=== PATIENT | male | born 1950 | race Caucasian/White ===

== ENCOUNTER 2019-07-09 14:35 | Inpatient (IN) | payer MEDICARE, OTHER ==
[~2019-07-09] VITALS: Ht 175.3 cm; Wt 108.0 kg
--- OUTSIDE RECORDS SUMMARY | ~2019-07-09 | XMS | Encounter Summary ---
Demographics + + + | Address | [address] | | | [place] [address] | + + + | Home Phone | | + + + | Preferred Language | Unknown | + + + | Marital Status | Single | + + + | Taoist Affiliation | BAP | + + + | Race | White | + + + | Ethnic Group | Not or | + + + Author + + + | Author | [facility] | + + + | Organization | [facility] | + + + | Address | Unknown | + + + | Phone | Unavailable | + + + Support + + +---------+ + | Name | Relationship | Address | Phone | + + +---------+ + | Phi Martini | ECON | Unknown | | + + +---------+ + | Irvin Martini | ECON | Unknown | | + + +---------+ + Care Team Providers + +------+ + | Care Digital Circuit Designer Name | Role | Phone | + +------+ + | Angelica Garrison | PCP | | + +------+ + Reason for Referral Diagnostic Testing (Routine) +--------+--------+ + + + + | Status | Reason | Specialty | Diagnoses / | Referred By | Referred To | | | | | Procedures | Contact | Contact | +--------+--------+ + + + + | Closed | | Cardiac | Diagnoses | Jamel, | Car Cardiac | | | | Catheterizati | Positive | Cristóbal Murrell, | Double Bottom Driver | | | | on | cardiac | ,PhD [address] | [address] | | | | | stress test | [address] | [address] | | | | | Procedures | [address] | [address] [facility] | | | | | DRILL SHARPENER | [place], [place] | Hospital | | | | | INT CORONARY | [address] | [place], [place] | | | | | ANGIOGRAM | Phone: | [phone] | | | | | [place] CORONARY | [phone] | Phone: | | | | | ARTERY ANGIO | Fax: | [phone] | | | | | S&I | [phone] | Fax: | | | | | | | [phone] | +--------+--------+ + + + + Reason for Visit AUTH/CERT +--------+--------+ + + + + | Status | Reason | Specialty | Diagnoses / | Referred By | Referred To | | | | | Procedures | Contact | Contact | +--------+--------+ + + + + | | | | | | | +--------+--------+ + + + + Encounter Details +--------+ + + + + | Date | Type | Department | Care Team | Description | +--------+ + + + + | 07/21/ | Hospital | [address] | Roslyn Mojica, | | | 2018 | Encounter | [address] | [place] [address] | | | | | [address] [place] [address] | [address] | | | | | [place], [place] | [place], [place] | | | | | [address] | [address] | | | | | [phone] | [phone] | | | | | | | | +--------+ + + + + Social History + + + +--------+ + | Tobacco Use | Types | Packs/Day | Years | Date | | | | | Used | | + + + +--------+ + | Former Smoker | Cigarettes | 0.25 | 4 | Quit: 09/23/1971 | + + + +--------+ + + +------+---+---+ | Smokeless Tobacco: | Chew | | | | Current User | | | | + +------+---+---+ + + | Comments: chew nicotine gum | + + + + +---------+ + | Alcohol Use | Drinks/Week | oz/Week | Comments | + + +---------+ + | No | | | | + + +---------+ + + + + | Sex Assigned at | Date Recorded | | | | + + + | Not on file | | + + + + + + + | Job Start Date | Occupation | Industry | + + + + | Not on file | Not on file | Not on file | + + + + + + + + | Travel History | Travel Start | Travel End | + + + + + + | No recent travel history available. | + + documented as of this encounter Last Filed Vital Signs + + + + + | Vital Sign | Reading | Time Taken | Comments | + + + + + | Blood Pressure | 139/102 | 07/21/2018 6:00 PM | | | | | PDT | | + + + + + | Pulse | 56 | 07/21/2018 6:00 PM | | | | | PDT | | + + + + + | Temperature | 37.1 C (98.7 F) | 07/21/2018 10:00 AM | | | | | PDT | | + + + + + | Respiratory Rate | 18 | 07/21/2018 6:00 PM | | | | | PDT | | + + + + + | Oxygen Saturation | 97% | 07/21/2018 6:00 PM | | | | | PDT | | + + + + + | Inhaled Oxygen | - | - | | | Concentration | | | | + + + + + | Weight | - | - | | + + + + + | Height | - | - | | + + + + + | Body Mass Index | - | - | | + + + + + documented in this encounter Discharge Instructions Del Lockett RN - 07/21/2018Home Care for Cardiac Catheterization Call your doctor if you notice any unusual symptoms. Remember: you are under the influence of medicines. You must have someone else take you home, either by car or taxi. Don t drive , operate machinery or power tools. Don t drink any alcoholic beverages. Don t make any important decisions or sign legal papers. Wound Care ? Change dressing as needed. Dressing can be removed in the morning. ? You may shower, but do not take a bath, hot tub, or swim for 5 days. ? If you have any bleeding from the puncture site: 1. Sit down and apply firm pressure to site with your fingers x 10 minutes. 2. If the bleeding stops, continue to sit quietly, keeping your wrist straight for 2 hours. Notify your physician as soon as possible. 3. If bleeding does not stop after 10 minutes, or if there is a large amount of bleeding or spurting, call bleeding or spurting, call 911 immediately[address] yourself to the the orthopedic specialty hospital. Diet ? Resume your regular diet. ? Drink an extra 3 to 4 glasses of fluid tonight. Avoid drinks with caffeine (coffee, tea, cola) or alcohol (wine, beer, liquor). Rest and Activity ? For 24 hours, no blood pressures on affected arm, no excessive wrist movement and do not drive a car. ? Take it easy for the rest of the day. ? Do not lift anything over 1 pound for the next 48 hours. ? For 1 week, no activity with excessive pushing or pulling of the affected arm. Call your doctor if: Call your Doctor right away or go to the Emergency Room if your arm looks or feels differen t. Call if your arm is: Pale, cold, numb, tingling (pins & needles) or turns purple or red. How to Reach your Doctor Saturday 8:00 4:00 call Cardiac Catheterization Lab at . For Cardiac Catheterization related emergencies after hours, weekends, and holidays, call t [facility] Pl[facility] Operator at and ask to have the Lens Polisher on-call candace weathers documented in this encounter Medications at Time of Discharge + + + +---------+--------+ + | Medication | Sig | Dispensed | Refills | Start | End Date | | | | | | Date | | + + + +---------+--------+ + | amLODIPine 10 mg | Take 10 mg by mouth | | 0 | | | | oral tablet | once daily. | | | | | + + + +---------+--------+ + | aspirin chewable | Take 81 mg by mouth | | 0 | | | | 81 mg oral | once daily. | | | | | | tablet,chewable | | | | | | + + + +---------+--------+ + | buPROPion SR 200 | Take 200 mg by mouth | | 0 | | | | mg oral tablet | once daily in the | | | | | | extended release | morning. | | | | | + + + +---------+--------+ + | Cholecalciferol, | Take 5,000 Units by | | 0 | | | | Vitamin D3, 5,000 | mouth once daily. | | | | | | unit oral tablet | | | | | | + + + +---------+--------+ + | DOCOSAHEXANOIC | Take 3,000 mg by | | 0 | | | | ACID/EPA (FISH OIL | mouth once daily. | | | | | | ORAL) | | | | | | + + + +---------+--------+ + | MULTIVITAMIN ORAL | Take by mouth once | | 0 | | | | | daily. | | | | | + + + +---------+--------+ + documented as of this encounter Progress Notes Wilver Garzon MD - 07/21/2018 6:42 PM PDT POST-CATH Wrist Check S: Feeling well, no complaints Pertinent Negatives: No chest pain, access site pain, dyspnea, dysarthria, focal weakness, parasthesias, headache, rash, nausea, vomiting or diaphoresis. Last Vitals: BP 139/102 | Pulse 56 | Temp 37.1 C (98.7 F) | RR 18 | SpO2 97% 24 Hour Vital Min/Max: Systolic (24hrs), Av , Min:115 , Max:139 Diastolic (24hrs), Av, Min:69, Max:102 Pulse Min: 42 Max: 69 Temp Min: 37.1 C (98.7 F) Max: 37.1 C (98.7 F) Resp Min: 11 Max: 18 SpO2 Min: 96 % Max: 98 % Intake/Output Summary (Last 24 hours) at 07/21/18 1843 Last data filed at 07/21/18 1800 Gross per 24 hour Intake 490 ml Output 12 ml Net 478 ml Gen: comfortable appearing. Neuro: negative Access Site: No hematoma or oozing. Pulse:right radial: 2+ William's test: TYPE A Skin: No embolic phenomena in hands A/P: No evidence of acute complications following procedure. Continue current post-cath olena Garzon MD [facility] [address] [facility] [address] [place] [address] documented in this enc ounter Plan of Treatment +--------+---------+ + + + | Date | Type | Specialty | Care Team | Description | +--------+---------+ + + + | 01/07/ | Office | Cardiology | Cristóbal Mccullough, | | | 2019 | Visit | | ,PhD [address] | | [address] | | | | | | [place], [place] | | | | | | [address] | | | | | | [phone] | | | | | | | | +--------+---------+ + + + | 06/02/ | Office | Ophthalmology | Carissa Tinoco MD | | | 2019 | Visit | | [address] | | | | | | [place], [place] | | | | | | [address] | | | | | | [phone] | | | | | | | | +--------+---------+ + + + documented as of this encounter Procedures + +--------+ + + + | Procedure Name | Priori | Date/Time | Associated Diagnosis | Comments | | | ty | | | | + +--------+ + + + | PROCEDURE NOTE | Routin | 07/21/2018 | | Results for this | | | e | 7:00 PM | | procedure are in the | | | | PDT | | results section. | + +--------+ + + + | CARDIAC CATH | Routin | 07/21/2018 | | Results for this | | | e | 3:43 PM | | procedure are in the | | | | PDT | | results section. | + +--------+ + + + | INTRAPROCEDURE | Routin | 07/21/2018 | | Results for this | | IMAGING | e | 9:28 AM | | procedure are in the | | | | PDT | | results section. | + +--------+ + + + | DRILL SHARPENER INT | Routin | 07/21/2018 | Positive cardiac | Results for this | | CORONARY ANGIOGRAM | e | 9:19 AM | stress test | procedure are in the | | | | PDT | | results section. | + +--------+ + + + | CARDIOLOGY | | 07/21/2018 | | Results for this | | | | 12:00 AM | | procedure are in the | | | | PDT | | results section. | + +--------+ + + + documented in this encounter Results PROCEDURE NOTE (07/21/2018 7:00 PM PDT)CARDIAC CATH (07/21/2018 3:43 PM PDT) + + + | Narrative | Performed At | + + + | Fco Mascorro MD 07/22/2018 8:16 AM DIAGNOSTIC CARDIAC | | | CATHETERIZATION REPORT DATE OF PROCEDURE: 07/21/18 PATIENT | | | DATA: Height: 175 cm Weight: 107 kg BSA: 2.2 m2 ATTENDING | | | PHYSICIAN: Fco Mascorro M.D. Leading Firefighter, Medicine | | | Department of Cardiology INTERVENTIONAL REFERRAL RN: William | | | Shabana Lambert MD REFERRAL RN: Fátima Campbell MD REFERRING | | | PHYSICIAN: Cristóbal Mccullough MD PROCEDURES PERFORMED: 1. | | | Selective right and left coronary angiography. 2. Right transradial | | | access INDICATIONS FOR PROCEDURE: 1. Abnormal stress test | | | CLINICAL BRIEF: Tim Martini is a 68 year old man with | | | hypertension, dyslipidemia and family history of CAD who presented | | | with exertional chest pain and dyspnea. He underwent a stress | | | echocardiogram which was intermediate risk and shoed hypokinesis of | | | the apical lateral segment and apex. He is referred for coronary | | | angiogram and possible PCI. COMPLICATIONS: None ACCESS: | | | Right radial artery, 5 Fr sheath EBL: 10mL MEDICATIONS: | | | Fentanyl 75 mcg Route: IV Heparin 5000 units Route: IV | | | Midazolam 2 mg Route: IV Nitroglycerin 200 mcg Route: IA | | | Verapamil 2 mg Route: IA MODERATE CONSCIOUS SEDATION: I | | | personally supervised the administration of moderate conscious | | | sedation by the nursing staff for 32 minutes. CONTRAST: 40 mL | | | Omnipaque FLUOROSCOPY TIME: 10.7 minutes. FLUOROSCOPY DAP: | | | 10,240 cGy cm2. PROCEDURAL NARRATIVE: A full PARQ converstation | | | was had and Informed written consent was obtained. The patient had a | | | type A Barbeau response. The patient was brought to the cardiac | | | catheterization laboratory. The right wrist was cleaned and draped | | | in the usual fashion. A team pause was performed. Anatomic landmarks | | | were identified, and 1% lidocaine was injected locally. Utilizing a | | | modified Seldinger technique a 5/6 Fr 10-cm Glidesheath slender was | | | placed in the right radial artery. A standard radial artery | | | cocktail was given. A wire was advanced to the ascending aorta and | | | a 5 Fr JR-4 catheter was advanced to the ascending aorta over the | | | guidewire. The guidewire was removed, the catheter was aspirated and | | | flushed, and used to selectively engage the right coronary system | | | which was imaged in multiple projections. This catheter was then | | | exchanged over a long wire for a 5 Fr JL-3.5 catheter. The guidewire | | | was removed, the catheter was aspirated and flushed, and used to | | | selectively engage the left coronary system which was imaged in | | | multiple projections. At the conclusion of the case the catheter was | | | removed over a guidewire. A TR band was utilized to establish | | | patent hemostasis which was confirmed by manual palpation of the | | | radial and ulnar arteries and pulse oximetry. HEMODYNAMICS Aortic | | | pressure: 98/60 mmHg Heart rate: 50 bpm. CORONARY ANGIOGRAPHY: | | | LEFT MAIN: The left main is a large caliber short vessel that | | | bifurcates into the left anterior descending and left circumflex | | | arteries. There are mild luminal irregularities noted in the without | | | stenosis. LEFT ANTERIOR DESCENDING: The left anterior | | | descending (LAD) is a large caliber vessel that wraps around the | | | apical segment. It gives off one large septal followed by several | | | small septal branches. There are a few small diagonal branches. | | | There are mild luminal irregularities noted in the proximal LAD | | | without significant stenosis. LEFT CIRCUMFLEX: The left | | | circumflex coronary (LCx) artery is a large caliber non-dominant | | | vessel that gives off two moderate caliber obtuse marginal (OM) | | | branches. There are mild plaque and mild irregularities noted in the | | | proximal circumflex without significant stenosis. RIGHT | | | CORONARY ARTERY: The right coronary artery (RCA) is a large caliber | | | dominant vessel that gives off small caliber RV marginal branches, a | | | moderate caliber posterior descending artery (PDA) branch and a | | | moderate caliber posterolateral branches (PL). The proximal RCA is | | | tortuous. It has is mild plaque with a 50% stenosis in the proximal | | | RCA. There are mild luminal irregularities noted in the mid and | | | distal RCA. CONCLUSIONS: Mild coronary artery disease with | | | mild plaque burden. RECOMMENDATIONS: 1. Usual | | | post-catheterization care. 2. Medical management of coronary artery | | | disease including risk factor modification. ATTENDING SURGEON'S | | | ATTESTATION: Pursuant to Federal Medicare Requirements, I certify | | | that Fco Mascorro M.D. was present for the entire procedure and | | | participated directly in the generation of this report. | | | William Lambert MD Interventional Lens Polisher Raquel | | | [facility] [place] [facility] Pager | | | [phone] "A resident/fellow assisted with documenting this service. | | | I saw the patient and reviewed and verified all information | | | documented by the resident/fellow and made modifications to such | | | information, when appropriate. The risks and benefits of the | | | procedure were explained to the patient in its entirety and all the | | | questions were answered to patient satisfaction. I was present and | | | supervised all the aspects of this procedure. " Fco Mascorro MD | | | Attending Interventional/Structural Heart Corset Maker Raquel | | | [facility] [place], [facility] | | + + + INTRAPROCEDURE IMAGING (07/21/2018 9:28 AM PDT) + + | Specimen | + + | | + + + + + | Narrative | Performed At | + + + | See admission or procedure notes for details of any intraprocedure | | | images obtained. | | + + + DRILL SHARPENER INT CORONARY ANGIOGRAM (07/21/2018 9:19 AM PDT) + + | Specimen | + + | | + + + + + | Narrative | Performed At | + + + | Procedure performed in the Cardiac Double Bottom Driver. See procedure notes | [facility] - | | for details. | DEONTE HERNANDEZ, | | | POINT OF CARE | | | TESTS | + + + + + + + + | Performing | Address | City/State/Zipcode | Phone Number | | Organization | | | | + + + + + | [facility] | [address] | [place], [place] | | | [facility] | [address] | [address] | | | TESTS | | | | + + + + + CARDIOLOGY (07/21/2018 12:00 AM PDT) + + + | Narrative | Performed At | + + + | | | + + + documented in this encounter Visit Diagnoses + + | Diagnosis | + + | Positive cardiac stress test Other nonspecific abnormal cardiovascular system | | function study | + + documented in this encounter Administered Medications + +--------+ +--------+------+------+ | Medication Order | MAR | Action | Dose | Rate | Site | | | Action | Date | | | | + +--------+ +--------+------+------+ | fentaNYL (SUBLIMAZE) injection | Given | 07/21/ | 25 mcg | | | | intravenous, INTRAPROCEDURE PRN, | | 18 3:21 | | | | | Starting 07/21/18 at 1514, | | PM PDT | | | | | Until 07/21/18 at 1521 | | | | | | + +--------+ +--------+------+------+ +-------+ +--------+---+---+ | Given | 07/21/20 | 50 mcg | | | | | 18 3:14 | | | | | | PM PDT | | | | +-------+ +--------+---+---+ +---+---+ | | | +---+---+ + +-------+ +--------+---+---+ | heparin injection intravenous, | Given | 07/21/20 | 5,000 | | | | INTRAPROCEDURE PRN, Starting Sat | | 18 3:27 | Units | | | | 07/21/18 at 1527, Until Mon | | PM PDT | | | | | 07/21/18 at 1527 | | | | | | + +-------+ +--------+---+---+ +---+---+ | | | +---+---+ + +-------+ +-------+---+---+ | iohexol (OMNIPAQUE) 350 mg | Given | 07/21/20 | 40 mL | | | | iodine/mL injection | | 18 3:46 | | | | | INTRAPROCEDURE PRN, Starting Mon | | PM PDT | | | | | 07/21/18 at 1546, Until Mon | | | | | | | 07/21/18 at 1546 | | | | | | + +-------+ +-------+---+---+ +---+---+ | | | +---+---+ + +-------+ +------+---+---+ | lidocaine (XYLOCAINE) 10 mg/mL | Given | 07/21/20 | 1 mL | | | | (1 %) injection infiltration, | | 18 3:18 | | | | | INTRAPROCEDURE PRN, Starting Mon | | PM PDT | | | | | 07/21/18 at 1518, Until Mon | | | | | | | 07/21/18 at 1518 | | | | | | + +-------+ +------+---+---+ +---+---+ | | | +---+---+ + +-------+ +------+---+---+ | midazolam (PF) (VERSED) | Given | 07/21/20 | 1 mg | | | | injection INTRAPROCEDURE PRN, | | 18 3:22 | | | | | Starting Sat07/21/18 at 1514, | | PM PDT | | | | | Until Sat07/21/18 at 1522 | | | | | | + +-------+ +------+---+---+ +-------+ +------+---+---+ | Given | 07/21/20 | 1 mg | | | | | 18 3:14 | | | | | | PM PDT | | | | +-------+ +------+---+---+ +---+---+ | | | +---+---+ + +-------+ +---------+---+---+ | nitroGLYCERIN 2 mg/10 mL (200 | Given | 07/21/20 | 100 mcg | | | | mcg/mL) in D5W IV INTRAPROCEDURE | | 18 3:22 | | | | | PRN, Starting 07/21/18 at | | PM PDT | | | | | 1522, Until Sat07/21/18 at 1522 | | | | | | + +-------+ +---------+---+---+ +---+---+ | | | +---+---+ + +---------+ +-------+---+---+ | sodium chloride 0.9 % (NS) IV | New Bag | 07/21/20 | 85 mL | | | | infusion INTRAPROCEDURE | | 18 3:44 | | | | | CONTINUOUS PRN, Starting Mon | | PM PDT | | | | | 07/21/18 at 1544, Until Mon | | | | | | | 07/21/18 at 1544 | | | | | | + +---------+ +-------+---+---+ +---+---+ | | | +---+---+ + +-------+ +------+---+---+ | verapamil (ISOPTIN) injection | Given | 07/21/20 | 1 mg | | | | INTRAPROCEDURE PRN, Starting Mon | | 18 3:22 | | | | | 07/21/18 at 1522, Until Mon | | PM PDT | | | | | 07/21/18 at 1522 | | | | | | + +-------+ +------+---+---+ +---+---+ | | | +---+---+ documented in this encounter
--- OUTSIDE RECORDS SUMMARY | ~2019-07-09 | XMS | Clinical Summary ---
Demographics + + + | Address | [address] | | | [place] [address] | + + + | Home Phone | | + + + | Preferred Language | Unknown | + + + | Marital Status | Single | + + + | Quaker Affiliation | 1009 | + + + | Race | Unknown | + + + | Ethnic Group | Unknown | + + + Author + + + | Author | [facility] | | | and [place] | + + + | Organization | [facility] | | | and [place] | + + + | Address | Unknown | + + + | Phone | Unavailable | + + + Support + + +---------+ + | Name | Relationship | Address | Phone | + + +---------+ + | Phi Martini | ECON | Unknown | | + + +---------+ + Care Team Providers + +------+ + | Care Pipeline Engineer Name | Role | Phone | + +------+ + PCP | Unavailable | + +------+ + Allergies + + + + + + | Active Allergy | Reactions | Severity | Noted | Comments | | | | | Date | | + + + + + + | Penicillins | Rash, Other (See | Low | 10/14/19 | Dizziness, Vivid | | | Comments) | | 18 | Dreams | + + + + + + Medications + + + +---------+------+------+-------+ | Medication | Sig | Dispensed | Refills | Star | End | Statu | | | | | | t | Date | s | | | | | | Date | | | + + + +---------+------+------+-------+ | ALOE VERA PO | Take 1 capsule by | | 0 | | | Activ | | | mouth Daily. | | | | | e | + + + +---------+------+------+-------+ | amLODIPine | Take 10 mg by mouth. | | 0 | | | Activ | | (NORVASC) 10 MG | | | | | | e | | tablet | | | | | | | + + + +---------+------+------+-------+ | APPLE CIDER | Take by mouth. | | 0 | | | Activ | | VINEGAR PO | | | | | | e | + + + +---------+------+------+-------+ | Astaxanthin 4 MG | Take 1 capsule by | | 0 | | | Activ | | CAPS | mouth Daily. | | | | | e | + + + +---------+------+------+-------+ | [place]-3 Fatty | Take by mouth | | 0 | | | Activ | | Acids (OMEGA 3 PO) | Daily. | | | | | e | + + + +---------+------+------+-------+ | buPROPion | Take 200 mg by mouth | | 0 | | | Activ | | (WELLBUTRIN SR) 200 | 2 times daily. | | | | | e | | MG 12 hr tablet | | | | | | | + + + +---------+------+------+-------+ | gabapentin | Take 300 mg by mouth | | 0 | | | Activ | | (NEURONTIN) 300 mg | 3 times daily. | | | | | e | | capsule | | | | | | | + + + +---------+------+------+-------+ | POTASSIUM CHLORIDE | Take 1 tablet by | | 0 | | | Activ | | PO | mouth Daily. | | | | | e | + + + +---------+------+------+-------+ | Misc Natural | Take by mouth. | | 0 | | | Activ | | Products (PUMPKIN | | | | | | e | | SEED OIL PO) | | | | | | | + + + +---------+------+------+-------+ | Red Yeast Rice 600 | Take by mouth | | 0 | | | Activ | | MG CAPS | Daily. | | | | | e | + + + +---------+------+------+-------+ | UNABLE TO FIND | Med Name: TIMNA | | 0 | | | Activ | | | CapsuleBy mouth | | | | | e | | | daily | | | | | | + + + +---------+------+------+-------+ | cholecalciferol | Take 5,000 Units by | | 0 | | | Activ | | (VITAMIN D-3) 5000 | mouth Daily. | | | | | e | | units TABS | | | | | | | + + + +---------+------+------+-------+ | acyclovir | Apply topically | | 0 | | | Activ | | (ZOVIRAX) 5% | every 3 hours. | | | | | e | | ointment | | | | | | | + + + +---------+------+------+-------+ Active Problems Not on file Family History + + +------+ + | Medical History | Relation | Name | Comments | + + +------+ + | Heart disease | Brother | | | + + +------+ + | Cancer | Father | | | + + +------+ + | Heart disease | Father | | | + + +------+ + | Hypertension | Father | | | + + +------+ + | Cancer | Maternal | | | | | Grandfath | | | | | er | | | + + +------+ + | Heart disease | Maternal | | | | | Grandfath | | | | | er | | | + + +------+ + | Heart disease | Maternal | | | | | Grandmoth | | | | | er | | | + + +------+ + | Cancer | Mother | | | + + +------+ + | Stroke | Mother | | | + + +------+ + | Heart disease | Paternal | | | | | Grandfath | | | | | er | | | + + +------+ + | Cancer | Paternal | | | | | Grandmoth | | | | | er | | | + + +------+ + + +------+--------+ + | Relation | Name | Status | Comments | + +------+--------+ + | Brother | | | | + +------+--------+ + | Father | | | | + +------+--------+ + | Maternal Grandfather | | | | + +------+--------+ + | Maternal Grandmother | | | | + +------+--------+ + | Mother | | | | + +------+--------+ + | Paternal Grandfather | | | | + +------+--------+ + | Paternal Grandmother | | | | + +------+--------+ + Social History + +-------+ +--------+------+ | Tobacco Use | Types | Packs/Day | Years | Date | | | | | Used | | + +-------+ +--------+------+ | Former Smoker | | | | | + +-------+ +--------+------+ + + + | Sex Assigned at [...] recent travel history available. | + + Last Filed Vital Signs Not on file Plan of Treatment + + + + + | Health Maintenance | Due Date | Last Done | Comments | + + + + + | Hepatitis C | | | | | Screening | 2 | | | + + + + + | Vaccine: | | | | | Dtap/Tdap/Td (1 - | 1 | | | | Tdap) | | | | + + + + + | Colorectal Cancer | | | | | Screening | 2 | | | | (Colonoscopy) | | | | + + + + + | Vaccine: Zoster (1 | | | | | of 2) | 2 | | | + + + + + | AAA Screening | | | | | | 7 | | | + + + + + | Vaccine: | | | | | Pneumococcal 65+ | 7 | | | | Low/Medium Risk (1 | | | | | of 2 - PCV13) | | | | + + + + + | Adult Annual | | | | | Wellness Visit | 7 | | | + + + + + | Vaccine: Influenza | | | | | (#1) | 9 | | | + + + + + Results Not on filefrom Last 3 Months Insurance + +--------+ +--------+ +---------+--------+ | Payer | Benefi | Subscriber | Effect | Phone | Address | Type | | | t Plan | ID | thomas | | | | | | / | | Dates | | | | | | Group | | | | | | + +--------+ +--------+ +---------+--------+ | MEDICARE | MEDICA | [id number] | 03/23/20 | [phone] | | Medica | | | RE | | 17-Pre | 5 | | re | | | PART A | | sent | | | | | | AND B | | | | | | + +--------+ +--------+ +---------+--------+ | [employer] [place] | [place] | [id number] | 03/23/20 | [phone] | | Indemn | | | OF | | 17-Pre | 0 | | ity | | | [place] | | sent | | | | | | MDCR | | | | | | | | SUPPL | | | | | | + +--------+ +--------+ +---------+--------+ + +--------+ +--------+ + + | Guarantor Name | Accoun | Relation to | Date | Phone | Billing Address | | | t Type | Patient | of | | | | | | | | | | + +--------+ +--------+ + + | Tim Martini | Person | Self | [birth year] | [address] | | | al/Fam | | 1950 | [phone] | [place] [address] | | | jey | | | 7 (Home) | | + +--------+ +--------+ + + Advance Directives Patient has advance care planning documents on file. For more information, please contact:[facility] [place] [address]"
--- OUTSIDE RECORDS SUMMARY | ~2019-07-09 | XMS | Encounter Summary ---
Demographics + + + | Address | [address] | | | [place] [address] | + + + | Home Phone | | + + + | Preferred Language | Unknown | + + + | Marital Status | Single | + + + | Temple Affiliation | BAP | + + + | Race | White | + + + | Ethnic Group | Not or | + + + Author + + + | Organization | Unknown | + + + | Address | [...] Team Providers + +------+ + | Care Yarn Winder Name | Role | Phone | + +------+ + | Angelica Garrison | PCP | | + +------+ + Encounter Details +--------+--------+ + + + | Date | Type | Department | Care Team | Description | +--------+--------+ + + + | 05/12/ | Travel | | | | | 2019 | | | | | +--------+--------+ + + + Social History + + [...] + + documented as of this encounter Plan of Treatment +--------+---------+ + + + | Date | Type | Specialty | Care Team | Description | +--------+---------+ + + + | 01/07/ | Office | Cardiology | Cristóbal Mccullough, | | | 2019 | Visit | | PhD [facility] [address] | | | | | | [address] | | | | | | [place], [place] | | | | | | [address] | | | | | | [phone] | | | | | | | | +--------+---------+ + + + | 06/02/ | Office | Ophthalmology | Carissa Tinoco MD | | | 2019 | Visit | | [address] | | | | | | [place], [place] | | | | | | [address] | | | | | | [phone] | | | | | | | | +--------+---------+ + + + documented as of this encounter Visit Diagnoses Not on filedocumented in this encounter"
--- OUTSIDE RECORDS SUMMARY | ~2019-07-09 | XMS | Encounter Summary ---
Demographics + + + | Address | [address] | | | [place] [address] | + + + | Home Phone | | + + + | Preferred Language | Unknown | + + + | Marital Status | Single | + + + | Restoration Affiliation | BAP | + + + | Race | White | + + + | Ethnic Group | Not or | + + + Author + + + | Author | [facility] | + + + | Organization | [facility] | + + + | Address | [...] Team Providers + +------+ + | Care Form Layer Name | Role | Phone | + +------+ + | Angelica Garrison | PCP | | + +------+ + Encounter Details +--------+ + + + + | Date | Type | Department | Care Team | Description | +--------+ + + + + | 06/10/ | Abstract | Cardiology General | Cristóbal Mccullough, | | | 2018 | | at [facility] [address] | ,Ph[address] | | | | | [address] Mailcode: | [address] | | | | | [address] [facility] | [place], [place] | | | | | [facility], | [address] | | | | | [facility] | [phone] | | | | | Floor [place], [place] | | | | | | [address] | | | | | | [phone] | | | +--------+ + + + [...] | | 2019 | Visit | | [address] | | | | | [address] | | | | | | [place], [place] | | | | | | [address] | | | | | | [phone] | | | | | | | | +--------+---------+ + + + | 06/02/ | Office | Ophthalmology | Carissa Tinoco MD | | | 2020 | Visit | | [address] | | | | | | [place] | | | | | | [address] | | | | | | [phone] | | | | | | | | +--------+---------+ + + + documented as of this encounter Visit Diagnoses Not on filedocumented in this encounter"
--- OUTSIDE RECORDS SUMMARY | ~2019-07-09 | XMS | Encounter Summary ---
Demographics + + + | Address | [address] | | | [place] [address] | + + + | Home Phone | | + + + | Preferred Language | Unknown | + + + | Marital Status | Single | + + + | Islam Affiliation | BAP | + + + [...] Team Providers + +------+ + | Care Quality Assurance Group Leader Name | Role | Phone | + [...] [address] | | | | | | [place], [place] | | | | | | [address] | | | | | | [phone] | | | | | | | | +--------+---------+ + + + | 06/02/ | Office | Ophthalmology | Carissa Tinoco MD | | | 2019 | Visit | | [address] | | | | | | [place], [place] | | | | | | [address] | | | | | | [phone] | | | | | | | | +--------+---------+ + + + documented as of this encounter Visit Diagnoses Not on filedocumented in this encounter"
--- OUTSIDE RECORDS SUMMARY | ~2019-07-09 | XMS | Encounter Summary ---
Demographics + + + | Address | [address] | | | [place] [address] | + + + | Home Phone | | + + + | Preferred Language | Unknown | + + + | Marital Status | Single | + + + | Mormon Affiliation | BAP | + + + [...] Team Providers + +------+ + | Care Calibrator Barometers Name | Role | Phone | + +------+ + | Angelica Garrison | PCP | | + +------+ + Encounter Details +--------+--------+ + + + | Date | Type | Department | Care Team | Description | +--------+--------+ + + + | 06/02/ | Travel | | | | | [...] | + + + +--------+ + + +------+---+--------+ | Smokeless Tobacco: | Chew | | Quit: | | Former User | | | 2015 | + +------+---+--------+ + + | Comments: chew nicotine gum [...] 2019 | Visit | | PhD [facility] [address] | | | | | | [address] | | | | | | [place], [place] | | | | | | [address] | | | | | | [phone] | | | | | | | | +--------+---------+ + + + | 06/02/ | Office | Ophthalmology | Carissa Tinoco MD | | | 2019 | Visit | | [address] | | | | | | [place], [place] | | | | | | [address] | | | | | | [phone] | | | | | | | | +--------+---------+ + + + documented as of this encounter Visit Diagnoses Not on filedocumented in this encounter"
--- OUTSIDE RECORDS SUMMARY | ~2019-07-09 | XMS | Encounter Summary ---
Demographics + + + | Address | [address] | | | [place] [address] | + + + | Home Phone | | + + + | Preferred Language | Unknown | + + + | Marital Status | Single | + + + | Zoroastrian Affiliation | BAP | + + + | Race | White | + + + | Ethnic Group | Not or | + + + Author + + + | Author | [facility] | + + + | Organization | [facility] | + + + | Address | [...] Team Providers + +------+ + | Care Snowboard Instructor Name | Role | Phone | + +------+ + | Angelica Garrison | PCP | | + +------+ + Reason for Referral Diagnostic Testing (Routine) + +--------+ + + + + | Status | Reason | Specialty | Diagnoses / | Referred By | Referred To | | | | | Procedures | Contact | Contact | + +--------+ + + + + | New Request | | Cardiology | Diagnoses | Jamel, | | | | | | Chest pain, | Cristóbal Murrell, | | | | | | unspecified | ,PhD [address] | | | | | | type | [address] | | | | | | Procedures | [address] | | | | | | STRESS | [place], [place] | | | | | | ECHOCARDIOGR | [address] | | | | | | AM, CONVERT | Phone: | | | | | | DOBUTAMINE | [phone] | | | | | | PRN | Fax: | | | | | | | [phone] | | + +--------+ + + + + Reason for Visit Intake Referral (Routine) + +--------+ + + + + | Status | Reason | Specialty | Diagnoses / | Referred By | Referred To | | | | | Procedures | Contact | Contact | + +--------+ + + + + | Authorized | | Cardiology | Diagnoses | Meli, | Jamel, | | | | | | Angelica Shah, | Cristóbal Murrell, | | | | | Atherosclero | [place] [address] | ,PhD [address] | | | | | tic heart | [address] | [address] | | | | | disease of | Juan, | [address] | | | | | [place] | [place] [address] | [facility] [place] | | | | | coronary | Phone: | [address] | | | | | artery | [phone] | Phone: | | | | | without | Fax: | [phone] | | | | | angina | [phone] | Fax: | | | | | pectoris | | [phone] | | | | | Procedures | | | | | | | CONSULT TO | | | | | | | CARDIOLOGY | | | | | | | NM NEW | | | | | | | PATIENT | | | | | | | LEVEL V NM | | | | | | | EST PATIENT | | | | | | | LEVEL V | | | + +--------+ + + + + Encounter Details +--------+---------+ + + + | Date | Type | Department | Care Team | Description | +--------+---------+ + + + | 06/06/ | Office | Cardiology General | Cristóbal Mccullough, | Chest pain, | | 2017 | Visit | at [facility] [address] | ,PhD [address] | unspecified type | | | | [address] Mailcode: | [address] | (Primary Dx); | | | | [facility] | [place], [place] | Hypertension, | | | | Health and Healing, | [address] | unspecified type | | | | | [phone] | | | | | Floor [place], [place] | | | | | | [address] | | | | | | [phone] | | | +--------+---------+ + + + Social History + + [...] + + + | Blood Pressure | 123/70 | 06/06/2018 9:54 AM | | | | | PDT | | + + + + + | Pulse | 58 | 06/06/2018 9:54 AM | | | | | PDT | | + + + + + | Temperature | - | - | | + + + + + | Respiratory Rate | - | - | | + + + + + | Oxygen Saturation | 97% | 06/06/2018 9:54 AM | | | | | PDT | | + + + + + | Inhaled Oxygen | - | - | | | Concentration | | | | + + + + + | Weight | 110.2 kg (243 lb) | 06/06/2018 9:54 AM | | | | | PDT | | + + + + + | Height | 175.3 cm (5' 9") | 06/06/2018 9:54 AM | | | | | PDT | | + + + + + | Body Mass Index | 35.88 | 06/06/2018 9:54 AM | | | | | PDT | | + + + + + documented in this encounter Patient Instructions Patient Instructions Cristóbal Mccullough MD,PhD - 06/06/2018 9:50 AM PDTI want to get a str ess test to evaluate for blockages in the blood vessels that feed blood to your heart. Increase atorvastatin to 20 mg daily Return to clinic in 1 year. documented in this encounter Progress Notes Cristóbal Mccullough MD,PhD - 06/06/2018 9:50 AM PDTFormatting of this note might be differe nt from the original. CARDIOLOGY CONSULTATION - INITIAL Reason for Consult: CAD History of Present Illness: Tim Martini is a 68 year old male with a history of chest pain in [address] ress echo which was read as "low risk". He is here to establish care with Cardiology when he was told he has calcium in coronary arteries. 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 However, he does describe exertional episodes of "chest tightness" that can last for several minutes. He says it is relieved with rest. N o other overt symptoms such as diaphoresis or nausea. He also endorses exertional shortness of breath. But, knows he has gained some weight and wants to try to lose it. He denies palpi tations or skipped beats. His father had heart disease and so does his brother. He denies LE swelling, orthopnea or PND. On ROS, patient denies recent fevers or chills. No night-sweats or unintentional weight los s. No nausea or vomiting. No abdominal pain, hematochezia or melena. No excessive joint pain or stiffness. No rash. A 10-point review of systems was otherwise negative. 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 aspirin chewable 81 mg oral tablet,chewable Take 81 mg by mouth once daily. atorvastatin 10 mg oral tablet buPROPion SR 200 mg oral tablet extended release Take 200 mg by mouth once daily in the morning. Cholecalciferol, Vitamin D3, 5,000 unit oral tablet Take 5,000 Units by mouth once bella y. DOCOSAHEXANOIC ACID/EPA (FISH OIL ORAL) Take 3,000 mg by mouth once daily. MULTIVITAMIN ORAL Take by mouth once daily. Allergies Allergies Allergen Reactions Penicillins Rash and Dizziness Social History Substance Use Topics Smoking status: Former Smoker Packs/day: 0.25 Years: 4.00 Types: Cigarettes Quit date: 09/23/1971 Smokeless tobacco: Current User Types: Chew Comment: chew nicotine gum Alcohol use No Family History Problem Relation Heart Disease Brother Myocardial Infarction Heart Disease Father Myocardial Infarctions Cancer Father Non-Hodkins Lymphoma Physical Exam BP 123/70 | Pulse 58 | Ht 1.753 m (5' 9") | Wt 110.2 kg (243 lb) | SpO2 97% | BMI 35.88 kg/ (m^2) General: no acute distress Neck: no JVD CV: RRR; normal S1/S2 without any murmurs rubs or gallops Pulm: Lungs clear to auscultation bilaterally Abd: Soft, non-tender, +BS Ext: WWP; no pitting LE edema bilaterally Skin: no rashes or bruises Labs Labs reviewed from September in media tab notable for leukocytosis at that time; otherwise no rmal CBC. Negative cardiac biomarkers. Normal BMP. Cardiovascular Studies: # Exercise Stress Echocardiogram 04/26/2014 Indication: Chest pain Supine bike for 11 minutes 35 seconds to a total of 150 S[address]. HR increased from 58 --> 14 1 (89% of MAPHR) and BP increased from 114/80-->212/103. 1. At rest there is normal left ventricular systolic function. 2. The exercise was stopped due to leg fatigue. 3. Hypertensive response to exercise. 4. Echo negative for ischemia. 5. EKG negative for ischemia. 6. Low risk stress echo in a patient who achieved >85% MAPHR and no inducible ischemia # EKG: Sinus bradycardia @ 58 bpm. EKG 06/06/2018: Sinus bradycardia with QRS of 120 Problem List # Chest pain # Hypertension # Dyslipidemia # Obesity Assessment/Plan Tim Martini is a 64 y.o. Male with risk factors for coronary artery disease includi ng age, sex, nicotine use, +FHx, HTN, and HLD presenting with history of chest pain. # Chest pain with (reportedly) elevated coronary artery calcium score: Risk factors for co ronary artery disease including age, sex, nicotine use, +FHx, HTN, and HLD. [facility] with exertional chest "tightness" that is substernal and relieved with res t. However, he has had similar symptoms in the past with a normal stress echo in 2013. Since then, though, he has reportedly had a high coronary artery calcium score (I can't find thes e results). Give all of this, I think it would be reasonable to get a stress echo today to e valuate for high risk features. If positive will initiate beta marco antonio and consider coronary angiography (if high risk). I will also increase atorvastatin to 20 mg daily. - Stress echo to evaluate for ischemia - Increase atorvastatin to 20 mg daily # Hypertension: Blood pressure looks good at rest today. He was hypertensive with response to exercise on echo from 2013. He is only on atorvastatin 10 mg daily. - Continue amlodipine 10 mg daily - Diet and Exercise encourage # Continue exercise and diet. I would recommend increasing the frequency of exercise to 4 -5 times per week continuing with the moderate intensity and 30 minutes. Follow-up will depend on results of stress echo but likely 1 year. -Cristóbal Mccullough MD/PhD Population Health Coach [facility] Cardiovascular [place] [facility] [place] Pager [phone] documented in t his encounter Plan of Treatment +--------+---------+ + + + | Date | Type | Specialty | Care Team | Description | +--------+---------+ + + + | 01/07/ | Office | Cardiology | Cristóbal Mccullough, | | | 2019 | Visit | | ,PhD [address] | | | | | [address] | | | | | | [place], [place] | | | | | | [address] | | | | | | [phone] | | | | | | | | +--------+---------+ + + + | 06/02/ | Office | Ophthalmology | Carissa Tinoco MD | | | 2019 | Visit | | [address] | | | | | | [place], [place] | | | | | | [address] | | | | | | [phone] | | | | | | | | +--------+---------+ + + + documented as of this encounter Procedures + +--------+ + + + | Procedure Name | Priori | Date/Time | Associated Diagnosis | Comments | | | ty | | | | + +--------+ + + + | STRESS | Routin | 06/06/2018 | Chest pain, | Results for this | | ECHOCARDIOGRAM, | e | 2:27 PM | unspecified type | procedure are in the | | CONVERT DOBUTAMINE | | PDT | | results section. | | PRN | | | | | + +--------+ + + + | 12 LEAD ECG | Routin | 06/06/2018 | Chest pain, | Results for this | | | e | 10:50 AM | unspecified type | procedure are in the | | | | PDT | | results section. | + +--------+ + + + documented in this encounter Results STRESS ECHOCARDIOGRAM, CONVERT DOBUTAMINE PRN (06/06/2018 2:27 PM PDT) + + | Specimen | + + | | + + + +- + | Narrative | Performed At | + +- + | [facility] | [facility] | | [facility]chocardi[facility] [address] | CARDIOLOGY | | [address], [place] [address] Ph: | | | Pt Name: TIM MARTINI | | | Study Date / Time 06/06/2018 / 2:27:01 PMMRN: [id number] | | | Most recent prior: 04/26/2014 #: [id number] | | | No. previous echos: 1DOB: 1950 Age: 68 | | | years Gender: MHeight: 69.0 in | | | BSA: 2.24 w7Gpscop: 242 lb | | | Order ID: [id number] medications: | | | Aspirin, Anti-hyperlipidemic and Calcium marco antonio.Indications: Chest | | | pain Test Engineering Manager: Kindra LOYA, RDCS Referring Provider: Álvaro | | | Jamel COBB, PhDStudy Location: OPModalities Performed: Exercise stress | | | echo and Definity contrast.History: "chest tightness" that can last | | | for several minutes. He says it is relieved with rest. No other overt | | | symptoms such as diaphoresis or nausea. Patient history has been | | | obtained from the EHR Exercise Stress Echocardiographic Report | | | + | | | ---------+Final Impressions: | | | | | | | | | | | | | | | 1. There was no chest pain reported with exercise. | | | 2. The blood pressure response was | | | hypertensive. | | | | | | 3. On limited 2D imaging, the | | | proximal ascending aorta is dilated at 4.2 cm. Further imaging is | | | indicated to evaluate the aorta. | | | 4. Echo positive for ischemia. | | | 5. EKG portion of stress test is | | | normal. 6. At | | | rest there is normal left ventricular systolic function. | | | 7. At peak stress the LV function is segmentally reduced | | | (See comments below). | | | | | | 8. Intermediate risk due to mild resting segmental LV systolic | | | dysfunction. | | | | | | + | | | + Exercise Capacity: Below average for age.Symptoms: The | | | patient developed shortness of breath during the test. Procedural | | | Findings: The patient exercised on Supine bicycle, 25 watt stages for | | | 8 minutes and 31 achieving a work level of 55 Sarmiento. The patients | | | resting blood pressure was 134 /92 mmHg. The peak blood pressure | | | during stress was 165/98 mm Hg. The blood pressure response was | | | hypertensive. The peak heart rate achieved was 134 beats per minute, | | | which was 87% of the age predicted maximal heart rate of 154 beats per | | | minute. The peak double product was 76382 (beats/min x mm Hg). The | | | test was stopped due to target heart rate achieved. There was no chest | | | pain reported with exercise. Resting ECG Findings: Resting ECG showed | | | sinus bradycardia at a rate of 52 beats per minute, with left axis | | | deviation, poor R wave progression. and nonspecific ST-T wave changes. | | | Peak Stress ECG Findings: EKG portion of stress test is normal. There | | | were no abnormal findings during stress. Echocardiographic Findings: | | | The quality of echo imaging is good (with contrast). This is a | | | positive stress echo test for ischemia. There are stress-induced wall | | | motion abnormalities. See below for abnormalities. There is normal | | | left ventricular ejection fraction. At peak stress the LV function is | | | segmentally reduced. At recovery the LV function returned to baseline. | | | Due to poor endocardial definition, ultrasound contrast was used | | | (Definity). Additional Findings: On limited 2D imaging, the proximal | | | ascending aorta is dilated at 4.2 cm. Further imaging is indicated to | | | evaluate the aorta. Baseline The apical lateral segment and | | | 0=Unable to score, 1=Normal, apex are hypokinetic. All | | | 2=Hypokinetic, 3=Akinetic, remaining scored | | | segments are 4=Dyskinetic, 5=Aneurysmal normal. | | | Intermed The apical lateral segment and 0=Unable to score, | | | 1=Normal, apex are hypokinetic. All | | | 2=Hypokinetic, 3=Akinetic, remaining scored segments are | | | 4=Dyskinetic, 5=Aneurysmal normal. Peak The | | | apical lateral segment and apex 0=Unable to score, 1=Normal, | | | are hypokinetic. All remaining 2=Hypokinetic, 3=Akinetic, | | | scored segments are normal. 4=Dyskinetic, | | | 5=Aneurysmal Recovery The apex is hypokinetic. All 0=Unable | | | to score, 1=Normal, remaining scored segments are | | | 2=Hypokinetic, 3=Akinetic, normal. | | | 4=Dyskinetic, 5=Aneurysmal Supervising RN: Marii | | | GRETEL Izaguirreupervising Physician: Romeo Perez MD and Ramesh | | | Misael [facility] electronically signed by: [id number] Ángela Garcia | | | (06/06/2018, 4:21:15 PM) Final | | | apex are hypokinetic. All 2=Hypokinetic, 3=Akinetic, | | | remaining scored segments are 4=Dyskinetic, 5=Aneurysmal | | | normal. | | | | | |Peak The apical lateral segment and apex 0=Unable to score, 1=Normal, | | | are hypokinetic. All remaining 2=Hypokinetic, 3=Akinetic, | | | scored segments are normal. 4=Dyskinetic, 5=Aneurysmal | | | | | |Recovery The apex is hypokinetic. All 0=Unable to score, 1=Normal, | | | remaining scored segments are 2=Hypokinetic, 3=Akinetic, | | | normal. 4=Dyskinetic, 5=Aneurysmal | | | | | | | | |Supervising RN: Marii Izaguirre RN | | |Supervising Physician: Romeo Perez MD and Ramesh Wells MD | | |Report electronically signed by: [id number] Ángela Garcia MD (06/06/2018, 4:21:15 PM) | | | | | | | | | | | | | | | | | | Final | | + +- + + + | Procedure Note | + + | Interface, Cardiology Results - 06/06/2018 4:21 PM [facility] | | [facility] Echocardiography [facility] | | [place], [place] [address] Pt Name: TIM | | MONSTER MARTINI Study Date / Time 06/06/2018 / 2:27:01 PMMRN: [id number] | | Most recent prior: 04/26/2014 #: [id number] No. previous echos: | | 1DOB: 1950 Age: 68 years Gender: MHeight: 69.0 in | | BSA: 2.24 h1Iygfan: 242 lb Order ID: | | [id number] medications: Aspirin, Anti-hyperlipidemic and Calcium | | marco antonio.Indications: Chest pain Test Engineering Manager: Kindra LOYA, RDCS Referring Provider: | | Álvaro Mccullough MD, PhDStudy Location: OPModalities Performed: Exercise stress echo and | | Definity contrast.History: "chest tightness" that can last for several minutes. He says | | it is relieved with rest. No other overt symptoms such as diaphoresis or nausea. Patient | | history has been obtained from the EHR Exercise Stress Echocardiographic | | Report+ +Fi | | nal Impressions: | | | | 1. There was no chest pain | | reported with exercise. 2. The blood pressure response was | | hypertensive. | | 3. On limited 2D imaging, the proximal ascending aorta | | is dilated at 4.2 cm. Further imaging is indicated to evaluate the aorta. | | 4. Echo positive for ischemia. | | 5. EKG portion of stress test is normal. 6. At | | rest there is normal left ventricular systolic function. 7. At peak | | stress the LV function is segmentally reduced (See comments below). | | 8. Intermediate risk due to | | mild resting segmental LV systolic dysfunction. | | | | + + | | Exercise Capacity: Below average for age.Symptoms: The patient developed shortness of | | breath during the test. Procedural Findings: The patient exercised on Supine bicycle, 25 | | watt stages for 8 minutes and 31 achieving a work level of 55 Sarmiento. The patients | | resting blood pressure was 134 /92 mmHg. The peak blood pressure during stress was | | 165/98 mm Hg. The blood pressure response was hypertensive. The peak heart rate achieved | | was 134 beats per minute, which was 87% of the age predicted maximal heart rate of 154 | | beats per minute. The peak double product was 62385 (beats/min x mm Hg). The test was | | stopped due to target heart rate achieved. There was no chest pain reported with | | exercise. Resting ECG Findings: Resting ECG showed sinus bradycardia at a rate of 52 | | beats per minute, with left axis deviation, poor R wave progression. and nonspecific | | ST-T wave changes. Peak Stress ECG Findings: EKG portion of stress test is normal. There | | were no abnormal findings during stress. Echocardiographic Findings: The quality of | | echo imaging is good (with contrast). This is a positive stress echo test for ischemia. | | There are stress-induced wall motion abnormalities. See below for abnormalities. There | | is normal left ventricular ejection fraction. At peak stress the LV function is | | segmentally reduced. At recovery the LV function returned to baseline. Due to poor | | endocardial definition, ultrasound contrast was used (Definity). Additional Findings: On | | limited 2D imaging, the proximal ascending aorta is dilated at 4.2 cm. Further imaging | | is indicated to evaluate the aorta. Baseline The apical lateral segment and 0=Unable | | to score, 1=Normal, apex are hypokinetic. All 2=Hypokinetic, | | 3=Akinetic, remaining scored segments are 4=Dyskinetic, 5=Aneurysmal | | normal.Intermed The apical lateral segment and 0=Unable to score, 1=Normal, | | apex are hypokinetic. All 2=Hypokinetic, 3=Akinetic, remaining scored | | segments are 4=Dyskinetic, 5=Aneurysmal normal.Peak The apical lateral | | segment and apex 0=Unable to score, 1=Normal, are hypokinetic. All remaining | | 2=Hypokinetic, 3=Akinetic, scored segments are normal. 4=Dyskinetic, | | 5=AneurysmalRecovery The apex is hypokinetic. All 0=Unable to score, 1=Normal, | | remaining scored segments are 2=Hypokinetic, 3=Akinetic, normal. | | 4=Dyskinetic, 5=Aneurysmal Supervising RN: Marii Izaguirre, | | RNSupervising Physician: Romeo Perez MD and Ugo Mas | | electronically signed by: [id number] Ángela Garcia MD (06/06/2018, 4:21:15 PM) Final | | | |changes. | | | |Peak Stress ECG Findings: EKG portion of stress test is normal. There were no | |abnormal findings during stress. | | | |Echocardiographic Findings: The quality of echo imaging is good (with contrast). This | | is a positive stress echo test for ischemia. There are stress-induced wall motion | |abnormalities. See below for abnormalities. There is normal left ventricular ejection | | fraction. At peak stress the LV function is segmentally reduced. At recovery the LV | |function returned to baseline. Due to poor endocardial definition, ultrasound | |contrast was used (Definity). | | | |Additional Findings: On limited 2D imaging, the proximal ascending aorta is dilated | |at 4.2 cm. Further imaging is indicated to evaluate the aorta. | | | |Baseline The apical lateral segment and 0=Unable to score, 1=Normal, | | apex are hypokinetic. All 2=Hypokinetic, 3=Akinetic, | | remaining scored segments are 4=Dyskinetic, 5=Aneurysmal | | normal. | | | |Intermed The apical lateral segment and 0=Unable to score, 1=Normal, | | apex are hypokinetic. All 2=Hypokinetic, 3=Akinetic, | | remaining scored segments are 4=Dyskinetic, 5=Aneurysmal | | normal. | | | |Peak The apical lateral segment and apex 0=Unable to score, 1=Normal, | | are hypokinetic. All remaining 2=Hypokinetic, 3=Akinetic, | | scored segments are normal. 4=Dyskinetic, 5=Aneurysmal | | | |Recovery The apex is hypokinetic. All 0=Unable to score, 1=Normal, | | remaining scored segments are 2=Hypokinetic, 3=Akinetic, | | normal. 4=Dyskinetic, 5=Aneurysmal | | | | | |Supervising RN: Marii Izaguirre RN | |Supervising Physician: Romeo Perez MD and Ramesh Wells MD | |Report electronically signed by: [id number] Ángela Garcia MD (06/06/2018, 4:21:15 PM) | | | | | | | | | | | | Final | + + + + + + + | Performing | Address | City/State/Zipcode | Phone Number | | Organization | | | | + + + + + | [facility] | [address] | [place], [place] | | | CARDIOLOGY | [address] | [address] | | + + + + + 12 LEAD ECG (06/06/2018 10:50 AM PDT) + + + + + + | Component | Value | Ref Range | Performed | Pathologist | | | | | At | Signature | + + + + + + | VENTRICULAR | 50 | bpm | [facility] | | | RATE | | | OF | | | | | | CARDIOLOGY | | + + + + + + | ATRIAL RATE | 51 | ms | [facility] | | | | | | OF | | | | | | CARDIOLOGY | | + + + + + + | P-R | 146 | ms | [facility] | | | INTERVAL | | | OF | | | | | | CARDIOLOGY | | + + + + + + | P AXIS | 11 | deg | [facility] | | | | | | OF | | | | | | CARDIOLOGY | | + + + + + + | QRS | 120 | ms | [facility] | | | DURATION | | | OF | | | | | | CARDIOLOGY | | + + + + + + | QT | 441 | ms | [facility] | | | | | | OF | | | | | | CARDIOLOGY | | + + + + + + | QTCB | 405 | ms | [facility] | | | | | | OF | | | | | | CARDIOLOGY | | + + + + + + | R AXIS | -84 | deg | [facility] | | | | | | OF | | | | | | CARDIOLOGY | | + + + + + + | T AXIS | -1 | deg | [facility] | | | | | | OF | | | | | | CARDIOLOGY | | + + + + + + | ECG | Sinus bradycardia | | [facility] | | | IMPRESSION | | | OF | | | | | | CARDIOLOGY | | + + + + + + | ECG | Nonspecific | | [facility] | | | IMPRESSION | intraventricular | | OF | | | | conduction delay- | | CARDIOLOGY | | | | ABNORMAL ECG - | | | | + + + + + + | ECG | Electronically signed | | [facility] | | | IMPRESSION | by: ANN MARIE ALVARADO | | OF | | | | 06-06-2018 15:10:31 | | CARDIOLOGY | | + + + + + + + + | Specimen | + + | | + + + + + | Narrative | Performed At | + + + | | | + + + + + + + + | Performing | Address | City/State/Zipcode | Phone Number | | Organization | | | | + + + + + | [facility] | [address] | [place] | | | CARDIOLOGY | [address] | [address] | | + + + + + documented in this encounter Visit Diagnoses + + | Diagnosis | + + | Chest pain, unspecified type - Primary | + + | Hypertension, unspecified type | + + documented in this encounter
--- OUTSIDE RECORDS SUMMARY | ~2019-07-09 | XMS | Encounter Summary ---
Demographics + + + | Address | [address] | | | [place] [address] | + + + | Home Phone | | + + + | Preferred Language | Unknown | + + + | Marital Status | Single | + + + | Episcopal Affiliation | BAP | + + + [...] Team Providers + +------+ + | Care Marketing Senior Recruiter Name | Role | Phone | + +------+ + | Angelica Garrison | PCP | | + +------+ + Encounter Details +--------+ + + + + | Date | Type | Department | Care Team | Description | +--------+ + + + + | 06/10/ | Abstract | Cardiology General | Cristóbal Mccullough, | | | 2018 | | at [facility] [address] | ,PhD [address] | | | | | [address] Mailcode: | [address] | | | | | [facility] | [place], [place] | | | | | Health [facility] Healing, | [address] | | | | | [facility] | [phone] | | | | | Floor [place], [place] | | | | | | [address] | | | | | | [phone] | | | +--------+ + + + [...] | 2019 | Visit | | MDPhD [address] | | | | | | [address] | | | | | | [place], [place] | | | | | | [address] | | | | | | [phone] | | | | | | | | +--------+---------+ + + + | 06/02/ | Office | Ophthalmology | Carissa Tinoco MD | | | 2020 | Visit | | [address] | | | | | | [place] | | | | | | [address] | | | | | | [phone] | | | | | | | | +--------+---------+ + + + documented as of this encounter Visit Diagnoses Not on filedocumented in this encounter"
--- OUTSIDE RECORDS SUMMARY | ~2019-07-09 | XMS | Encounter Summary ---
Demographics + + + | Address | [address] | | | [place] [address] | + + + | Home Phone | | + + + | Preferred Language | Unknown | + + + | Marital Status | Single | + + + | Pentecostal Affiliation | BAP | + + + | Race | White | + + + | Ethnic Group | Not or | + + + Author + + + | Author | [facility] | + + + | Organization | [facility] | + + + | Address | [...] Team Providers + +------+ + | Care Rivet Tester Name | Role | Phone | + +------+ + | Piter Landin MD | PCP | | + +------+ + Reason for Visit Diagnostic Testing (Routine) +--------+--------+ + + + + | Status | Reason | Specialty | Diagnoses / | Referred By | Referred To | | | | | Procedures | Contact | Contact | +--------+--------+ + + + + | Closed | | Cardiology | Diagnoses | Summers, | Car Echo | | | | | Chest pain | Salvador Jane MD | [facility] [address] | | | | | Procedures | [address] | [address] | | | | | STRESS | [address] | Vickie Mon | | | | | ECHOCARDIOGR | [place], [place] | Mailcode: | | | | | AM, CONVERT | [address] | [id number] | | | | | DOBUTAMINE | Phone: | Betito Waller | | | | | PRN | [phone] | Building | | | | | | Fax: | [place], [place] | | | | | | [phone] | [address] | | | | | | | Phone: | | | | | | | [phone] | +--------+--------+ + + + + Encounter Details +--------+ + + + + | Date | Type | Department | Care Team | Description | +--------+ + + + + | 04/26/ | Hospital | Cardiac | | | | 2013 | Encounter | Non-Invasive Testing | | | | | | at [facility] [address] | | | | | | [address] Mailcode: | | | | | | [facility] | | | | | [facility], | | | | | | [address] | | | | | | [place], [place] | | | | | | [address] | | | | | | [phone] | | | +--------+ + + + [...] + + documented as of this encounter Medications at Time of Discharge [...] documented as of this encounter Progress Notes Jeremiah Sanderson - 04/26/2014 3:59 PM PDTExercise stress echocardiogram completed. Final r eport to follow. Sa jodi Desai RN - 04/26/2014 3:33 PM PDTAt 1515, prior to the beginning of the procedure, the eliecer m paused to verify the patient s identity, the procedure to be performed (in accordance wi th the consent,) and the correct side/site. The patient was positioned appropriately. All re levant images and results were properly labeled and displayed. Any safety precautions were addressed. documented in this enc ounter Plan of Treatment +--------+---------+ + + + | Date | Type | Specialty | Care Team | Description | +--------+---------+ + + + | 01/07/ | Office | Cardiology | Cristóbal Mccullough, | | | 2019 | Visit | | ,PhD [address] | | | | | [address] | | | | | | [place], [place] | | | | | | [address] | | | | | | [phone] | | | | | | | | +--------+---------+ + + + | 06/02/ | Office | Ophthalmology | Carissa Tinoco MD | | | 2019 | Visit | | [address] | | | | | | [place], [place] | | | | | | [address] | | | | | | [phone] | | | | | | | | +--------+---------+ + + + documented as of this encounter Procedures + +--------+ + + + | Procedure Name | Priori | Date/Time | Associated Diagnosis | Comments | | | ty | | | | + +--------+ + + + | STRESS | Routin | 04/26/2014 | Chest pain | Results for this | | ECHOCARDIOGRAM, | e | 12:00 AM | | procedure are in the | | CONVERT DOBUTAMINE | | PDT | | results section. | | PRN | | | | | + +--------+ + + + documented in this encounter Visit Diagnoses + + | Diagnosis | + + | Chest pain - Primary Chest pain, unspecified | + + documented in this encounter Administered Medications + +---------+ +--------+------+------+ | Medication Order | MAR | Action | Dose | Rate | Site | | | Action | Date | | | | + +---------+ +--------+------+------+ | perflutren lipid microspheres | New Bag | 04/26/20 | 1.5 mL | | | | (DEFINITY) injection 1.5 mL 1.5 | | 14 4:00 | | | | | mL, intravenous, INTRAPROCEDURE | | PM PDT | | | | | PRN, Starting 04/26/14 at 1535, | | | | | | | Until 04/27/14 at 0618, image | | | | | | | acquisition | | | | | | + +---------+ +--------+------+------+ +---+---+ | | | +---+---+ documented in this encounter"
--- OUTSIDE RECORDS SUMMARY | ~2019-07-09 | XMS | Clinical Summary ---
Demographics + + + | Address | [address] | | | [place] [address] | + + + | Home Phone | | + + + | Preferred Language | Unknown | + + + | Marital Status | Single | + + + | Worship Affiliation | BAP | + + + | Race | White | + + + | Ethnic Group | Not or | + + + Author + + + | Author | NON REVENUE LOCATIONS | + + + | Organization | NON REVENUE LOCATIONS | + + + | Address | [...] Team Providers + +------+ + | Care Game Manager Name | Role | Phone | + +------+ + | Angelica Garrison | PCP | | + +------+ + Source Comments [facility] Allergies + + + + + + | Active Allergy | Reactions | Severity | Noted | Comments | | | | | Date | | + + + + + + | Penicillins | Rash, Dizziness | | 04/26/20 | | | | | | 14 | | + + + + + + Medications + + + +---------+------+------+-------+ | Medication | Sig | Dispensed | Refills | Star | End | Statu | | | | | | t | Date | s | | | | | | Date | | | + + + +---------+------+------+-------+ | aspirin chewable | Take 81 mg by mouth | | 0 | | | Activ | | 81 mg oral | once daily. | | | | | e | | tablet,chewable | | | | | | | + + + +---------+------+------+-------+ | Cholecalciferol, | Take 5,000 Units by | | 0 | | | Activ | | Vitamin D3, 5,000 | mouth once daily. | | | | | e | | unit oral tablet | | | | | | | + + + +---------+------+------+-------+ | amLODIPine 10 mg | Take 10 mg by mouth | | 0 | | | Activ | | oral tablet | once daily. | | | | | e | + + + +---------+------+------+-------+ | buPROPion SR 200 | Take 200 mg by mouth | | 0 | | | Activ | | mg oral tablet | once daily in the | | | | | e | | extended release | morning. | | | | | | + + + +---------+------+------+-------+ | DOCOSAHEXANOIC | Take 3,000 mg by | | 0 | | | Activ | | ACID/EPA (FISH OIL | mouth once daily. | | | | | e | | ORAL) | | | | | | | + + + +---------+------+------+-------+ | MULTIVITAMIN ORAL | Take by mouth once | | 0 | | | Activ | | | daily. | | | | | e | + + + +---------+------+------+-------+ | Zinc 50 mg oral | Take by mouth. | | 0 | | | Activ | | tablet | | | | | | e | + + + +---------+------+------+-------+ | potassium | Take by mouth four | | 0 | | | Activ | | citrate-citric acid | times daily as | | | | | e | | 1,100-334 mg/5 mL | needed. Administer | | | | | | | oral solution | after meals and at | | | | | | | | bedtime | | | | | | + + + +---------+------+------+-------+ | prednisoLONE | Instill 1 drop into | 5 mL | 1 | 05/1 | | Activ | | acetate 1 % | the right eye four | | | 6/20 | | e | | ophthalmic (eye) | times daily. | | | 19 | | | | drops,suspension | Starting after | | | | | | | | surgery. Continue | | | | | | | | until bottle is | | | | | | | | empty. | | | | | | + + + +---------+------+------+-------+ | gabapentin 300 mg | | | 0 | 08/0 | | Activ | | oral capsule | | | | 5/20 | | e | | | | | | 19 | | | + + + +---------+------+------+-------+ | prednisoLONE | Use 1 drop in left | 5 mL | 1 | 08/2 | | Activ | | acetate 1 % | eye 4X day starting | | | 0/20 | | e | | ophthalmic (eye) | after surgery | | | 19 | | | | drops,suspension | | | | | | | + + + +---------+------+------+-------+ | diclofenac | Use 1 drop in left | 5 mL | 0 | 08/2 | | Activ | | (VOLTAREN) 0.1 % | eye 4 X day starting | | | 0/20 | | e | | ophthalmic (eye) | 3 days prior to | | | 19 | | | | drops | surgery and | | | | | | | | continuing until out | | | | | | | | of drops | | | | | | + + + +---------+------+------+-------+ | ofloxacin | Use 1 drop in left | 5 mL | 0 | 08/2 | | Activ | | (OCUFLOX) 0.3 % | eye 4 X day starting | | | 0/20 | | e | | ophthalmic (eye) | 3 days prior to | | | 19 | | | | dropsIndications: | surgery and for 7 | | | | | | | medical/surgical, | days after | | | | | | | prophylaxis | Indications: | | | | | | | | infection prevention | | | | | | + + + +---------+------+------+-------+ | atorvastatin 20 mg | Take 1 tablet by | 90 | 3 | 09/0 | | Activ | | oral | mouth once daily. | tablet | | 3/20 | | e | | tabletIndications: | Indications: | | | 19 | | | | hyperlipidemia | excessive fat in the | | | | | | | | blood | | | | | | + + + +---------+------+------+-------+ | metoprolol | Take 0.5 tablets by | 45 | 3 | 09/0 | | Activ | | succinate 25 mg oral | mouth once daily. | tablet | | 3/20 | | e | | tablet extended | Indications: chronic | | | 19 | | | | release 24 | heart failure, | | | | | | | hrIndications: | Chronic Stable | | | | | | | chronic heart | Angina Pectoris (DO | | | | | | | failure, Chronic | NOT USE) | | | | | | | Stable Angina | | | | | | | | Pectoris (DO NOT | | | | | | | | USE) | | | | | | | + + + +---------+------+------+-------+ Active Problems + + + | Problem | Noted Date | + + + | Thoracic aortic aneurysm without rupture | 08/08/2018 | + + + | Syndrome X (cardiac) | 04/26/2014 | + + + | Somnolence, daytime | 04/26/2014 | + + + | Dyslipidemia | 04/26/2014 | + + + | HTN (hypertension) | 04/26/2014 | + + + | Tobacco abuse | 04/26/2014 | + + + | Obesity | 04/26/2014 | + + + Encounters +--------+ + + + + | Date | Type | Specialty | Care Team | Description | +--------+ + + + + | 06/02/ | Office | Ophthalmology | Jayne Tinoco MD | Bilateral | | 2018 | Visit | | | pseudophakia | | | | | | (Primary Dx) | +--------+ + + + + | 06/02/ | Travel | | | | | 2018 | | | | | +--------+ + + + + | 05/26/ | Refill | Cardiology | Cristóbal Mccullough, | Refill Request | | 2018 | | | ,PhD | (Metoprolol | | | | | | succinate 12.5 mg | | | | | | daily, atorvastatin | | | | | | 20 mg daily) | +--------+ + + + + | 05/15/ | Office | Ophthalmology | Jayne Tinoco MD | Pseudophakia - 1 day | | 2018 | Visit | | | postop (Primary Dx) | +--------+ + + + + | 05/15/ | Anesthesia | Ophthalmology | Rodney Orellana MD | | | 2019 | Event | | Maria Luz Santamaria MD | | +--------+ + + + + | 05/15/ | Surgery | Ophthalmology | Jayne Tinoco MD | PHACO W/ IOL LEFT - | | 2019 | | | | TORIC (TOPICAL) | +--------+ + + + + | 05/15/ | Hospital | Ophthalmology | Jayne Tinoco MD | | | 2018 | Encounter | | | | +--------+ + + + + | 05/15/ | Travel | | | | | 2019 | | | | | +--------+ + + + + | 05/15/ | Procedure | Ophthalmology | | | | 2019 | Pass | | | | +--------+ + + + + | 05/12/ | Office | Ophthalmology | Jayne Tinoco MD | Combined forms of | | 2019 | Visit | | | age-related cataract | | | | | | of left eye | | | | | | (Primary Dx); | | | | | | Pseudophakia, right | | | | | | eye | +--------+ + + + + | 05/12/ | Travel | | | | | 2018 | | | | | +--------+ + + + + | 05/01/ | Office | Ophthalmology | Jayne Tinoco MD | Pseudophakia - 1 day | | 2018 | Visit | | | postop (Primary Dx) | +--------+ + + + + | 05/01/ | Anesthesia | Ophthalmology | Davi Montague, | | | 2018 | Event | | [facility] [place], | | | | | | December, RN | | +--------+ + + + + | 05/01/ | Surgery | Ophthalmology | Jayne Tinoco MD | PHACO W/ IOL RIGHT | | 2018 | | | | (TOPICAL) | +--------+ + + + + | 05/01/ | Hospital | Ophthalmology | Jayne Tinoco MD | | | 2018 | Encounter | | | | +--------+ + + + + | 05/01/ | Travel | | | | | 2018 | | | | | +--------+ + + + + | 05/01/ | Procedure | Ophthalmology | | | | 2018 | Pass | | | | +--------+ + + + + | 04/30/ | Hospital | Radiology | Angelica Garrison | | | 2018 | Encounter | | [place] | | +--------+ + + + + | 04/30/ | Travel | | | | | 2018 | | | | | +--------+ + + + + | 04/29/ | Telephone-S | Pre-operative | | Pre-operative | | 2019 | cheduled | Medicine | | evaluation | +--------+ + + + + | 04/22/ | Ancillary | Radiology | Angelica Garrison | | | 2018 | Orders | | [place] | | +--------+ + + + + from Last 3 Months Immunizations + + + + | Name | Administration Dates | Next Due | + + + + | Influenza, seasonal, | 07/22/2014 | | | intradermal, | | | | preservative free | | | + + + + Family History + + +------+ + | Medical History | Relation | Name | Comments | + + +------+ + | Heart Disease | Brother | | Myocardial Infarction | + + +------+ + | Cancer | Father | | Non-Hodkins Lymphoma | + + +------+ + | Heart Disease | Father | | Myocardial Infarctions | + + +------+ + + +------+--------+ + | Relation | Name | Status | Comments | + +------+--------+ + | Brother | | | | + +------+--------+ + | Father | | | | + +------+--------+ + Social History + + + +--------+ [...] | + + Last Filed Vital Signs + + + + + | Vital Sign | Reading | Time Taken | Comments | + + + + + | Blood Pressure | 129/93 | 05/15/2019 10:02 AM | | | | | PDT | | + + + + + | Pulse | 47 | 05/15/2019 10:02 AM | | | | | PDT | | + + + + + | Temperature | 36.4 C (97.5 F) | 05/15/2019 10:02 AM | | | | | PDT | | + + + + + | Respiratory Rate | 14 | 05/15/2019 10:02 AM | | | | | PDT | | + + + + + | Oxygen Saturation | 97% | 05/15/2019 10:02 AM | | | | | PDT | | + + + + + | Inhaled Oxygen | - | - | | | Concentration | | | | + + + + + | Weight | 109.8 kg (242 lb) | 05/01/2019 9:00 AM | | | | | PDT | | + + + + + | Height | 172.7 cm (5' 8") | 05/01/2019 9:00 AM | | | | | PDT | | + + + + + | Body Mass Index | 36.8 | 05/01/2019 9:00 AM | | | | | PDT | | + + + + + Plan of Treatment +--------+---------+ + + + | Date | Type | Specialty | Care Team | Description | +--------+---------+ + + + | 01/07/ | Office | Cardiology | Cristóbal Mccullough, | | | 2020 | Visit | | MDPhD [address] | | | | | | [address] | | | | | | [place], [place] | | | | | | [address] | | | | | | [phone] | | | | | | | | +--------+---------+ + + + | 06/02/ | Office | Ophthalmology | Jayne Tinoco MD | | | 2019 | Visit | | [address] | | | | | | [place], [place] | | | | | | [address] | | | | | | [phone] | | | | | | | | +--------+---------+ + + + + + + + + | Health Maintenance | Due Date | Last Done | Comments | + + + + + | Pneumococcal | | | | | vaccination (1 of 2 | 7 | | | | - PCV13) | | | | + + + + + | Influenza (Flu) | | 09/12/2018, 10/15/2017, | | | vaccination (#1) | 9 | 11/09/2016, Additional history | | | | | exists | | + + + + + Implants + +------+--------+ +--------+--------+--------+ | Implanted | Type | Area | Manufacture | Device | Shelf | Model | | | | | r | | Expira | / | | | | | | Identi | tion | Serial | | | | | | fier | Date | / Lot | + +------+--------+ +--------+--------+--------+ | Acrysofiq ToricImplanted: | | Right: | | | 02/20/ | | | Qty: 1 on 05/01/2019 by | | Eye | | | 2021 | / | | Jayne Tinoco MD at [facility] | | | | | | [id number] | | INPATIENT REV LOC | | | | | | / | + +------+--------+ +--------+--------+--------+ | Acrysofiq ToricImplanted: | | Left: | | | 07/23/ | [id number] | | Qty: 1 on 05/15/2019 by | | Eye | | | 2020 | | | Jayne Tinoco MD at [facility] | | | | | | /[id number] | | INPATIENT REV LOC | | | | | | [id number] | | | | | | | | / | + +------+--------+ +--------+--------+--------+ Procedures + +--------+ + + + | Procedure Name | Priori | Date/Time | Associated Diagnosis | Comments | | | ty | | | | + +--------+ + + + | PROCEDURE NOTE | Routin | 05/15/2019 | | Results for this | | | e | 10:02 AM | | procedure are in the | | | | PDT | | results section. | + +--------+ + + + | PROCEDURE NOTE | Routin | 05/15/2019 | | Results for this | | | e | 9:40 AM | | procedure are in the | | | | PDT | | results section. | + +--------+ + + + | PHACO W/IOL | Electi | 05/15/2019 | Nuclear sclerotic | | | | ve | 9:12 AM | cataract of left eye | | | | Surgic | PDT | | | | | al | | | | + +--------+ + + + | PROCEDURE NOTE | Routin | 05/01/2019 | | Results for this | | | e | 11:00 AM | | procedure are in the | | | | PDT | | results section. | + +--------+ + + + | PROCEDURE NOTE | Routin | 05/01/2019 | | Results for this | | | e | 10:22 AM | | procedure are in the | | | | PDT | | results section. | + +--------+ + + + | PHACO W/IOL | Electi | 05/01/2019 | Nuclear sclerotic | | | | ve | 9:50 AM | cataract of both | | | | Surgic | PDT | eyes | | | | al | | | | + +--------+ + + + | US LOWER EXT | Routin | 04/30/2019 | Strain of left | Results for this | | NON-VASCULAR LT | e | 2:37 PM | quadriceps muscle, | procedure are in the | | | | PDT | fascia and tendon, | results section. 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 ESTIMATED BLOOD LOSS: Minimal ANESTHESIA: Topical | | | with intracameral anesthesia and monitored anesthesia care | | | PROCEDURE: Preoperatively, the axial length, keratometry, and | | | desired refractive goal were reviewed. The Armstrong and/or Hagis | | | equation was used to calculate the appropriate intraocular lens | | | implant power which is recorded below. While the patient was sitting | | | up, the limbus was marked with a marking pen at 3, 6, and 9 | | | o'clock. The patient was brought to the Operating Room after | | | dilation and preoperative activities. Prior to the beginning of | | | the procedure the team paused to verify the patient's identity, as | | | well as the procedure to be performed and the site. All equipment | | | required was ready and available. The patient was positioned | | | appropriately. After Anesthesia placed monitors and patient was | | | given sedation, the patient was then prepared, including drops of | | | proparacaine and Betadine 5% solution was instilled onto the | | | conjunctival sac prior to surgery. The eye and lashes were then | | | draped with an aperture drape. The steep meridian of astigmatism | | | using a toric marker with Gentian Zenaida ink on the corneal surface. | | | A paracentesis incision approximately 80 degrees away from the | | | temporal meridian was made with a 1 mm blade. Approximately 0.5 | | | ccs of Shugarcaine (4 to 1 mix of lidocaine 1% MPF with epinephrine | | | 1:1000) was then instilled into the anterior chamber. The chamber | | | was then inflated with viscoelastic. A 2.4 mm keratome was used to | | | create a clear corneal wound in the temporal meridian. A continuous | | | capsulorhexis was made with the cystotome and capsule forceps. | | | Balanced salt solution on a Hein cannula was used to perform | | | hydrodissection until the lens was noted to rotate freely within the | | | capsular bag. Phacoemulsification was then performed to remove | | | the lens nucleus and epinucleus utilizing a CDE ([employer] | | | torisional handpiece) of 3.57. Residual cortex was removed with | | | automated irrigation and aspiration, and careful polishing of the | | | capsule was performed. The chamber and capsular bag were filled with | | | viscoelastic. An intraocular lens, SN6AT3 (Austin Toric) , power | | | 13.0 D, SN [id number] was then injected into the capsular bag and | | | manipulated into good position. Residual viscoelastic was removed | | | with automated irrigation and aspiration. The lens was then gently | | | rotated so that the IOL toric marking matched the cornea | | | astigmatism markings at 106 degrees. The chamber was inflated with | | | balanced salt solution and the wounds were hydrated. 0.05 mL of | | | Vigamox 0.5% was injected into the AC. Weck cells were used to check | | | the wounds to ensure that they were free of leaks. A shield was | | | placed over the eye. The patient was taken from the Operating Room | | | in good condition. Postoperatively, the patient was instructed | | | to start antibiotic and anti-inflammatory eye drops in the | | | operative eye following surgery (see medication list). The patient | | | was instructed regarding potential side effects and conditions that | | | would warrant notifying provider. 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 ESTIMATED BLOOD LOSS: Minimal ANESTHESIA: Topical | | | with intracameral anesthesia and monitored anesthesia care | | | PROCEDURE: Preoperatively, the axial length, keratometry, and | | | desired refractive goal were reviewed. The Bobo and/or Hagis | | | equation was used to calculate the appropriate intraocular lens | | | implant power which is recorded below. While the patient was sitting | | | up, the limbus was marked with a marking pen at 3, 6, and 9 | | | o'clock. The patient was brought to the Operating Room after | | | dilation and preoperative activities. Prior to the beginning of | | | the procedure the team paused to verify the patient's identity, as | | | well as the procedure to be performed and the site. All equipment | | | required was ready and available. The patient was positioned | | | appropriately. After Anesthesia placed monitors and patient was | | | given sedation, the patient was then prepared, including drops of | | | proparacaine and Betadine 5% solution was instilled onto the | | | conjunctival sac prior to surgery. The eye and lashes were then | | | draped with an aperture drape. The steep meridian of astigmatism | | | using a toric marker with Gentian Zenaida ink on the corneal surface. | | | A paracentesis incision approximately 80 degrees away from the | | | temporal meridian was made with a 1 mm blade. Approximately 0.5 | | | ccs of Shugarcaine (4 to 1 mix of lidocaine 1% MPF with epinephrine | | | 1:1000) was then instilled into the anterior chamber. The chamber | | | was then inflated with viscoelastic. A 2.4 mm keratome was used to | | | create a clear corneal wound in the temporal meridian. A continuous | | | capsulorhexis was made with the cystotome and capsule forceps. | | | Balanced salt solution on a Hein cannula was used to perform | | | hydrodissection until the lens was noted to rotate freely within the | | | capsular bag. Phacoemulsification was then performed to remove | | | the lens nucleus and epinucleus utilizing a CDE ([employer] | | | torisional handpiece) of 4.31. Residual cortex was removed with | | | automated irrigation and aspiration, and careful polishing of the | | | capsule was performed. The chamber and capsular bag were filled with | | | viscoelastic. An intraocular lens, SN6AT4 (Austin Toric) , power | | | 14.0 D, SN [id number] was then injected into the capsular bag and | | | manipulated into good position. Residual viscoelastic was removed | | | with automated irrigation and aspiration. The lens was then gently | | | rotated so that the IOL toric marking matched the cornea | | | astigmatism markings at 40 degrees. The chamber was inflated with | | | balanced salt solution and the wounds were hydrated. 0.05 mL of | | | Vigamox 0.5% was injected into the AC. Weck cells were used to check | | | the wounds to ensure that they were free of leaks. A shield was | | | placed over the eye. The patient was taken from the Operating Room | | | in good condition. Postoperatively, the patient was instructed | | | to start antibiotic and anti-inflammatory eye drops in the | | | operative eye following surgery (see medication list). The patient | | | was instructed regarding potential side effects and conditions that | | | would warrant notifying provider. JAYNE TINOCO MD | | + + + US LOWER EXT NON-VASCULAR LT (04/30/2019 2:37 PM PDT) + + | Specimen | + + | | + + + + + | Narrative | Performed At | + + + | EXAM: US LWR EXT NON-VASULAR LEFT HISTORY: us soft tissue, left | [facility] | | distal thigh COMPARISON: None. TECHNIQUE: Grayscale | RADIOLOGY VOICE | | sonographic evaluation of anterior knee. FINDINGS: Focused | RECOGNITION 2 | | ultrasound at the site of palpable concern as denoted by the patient | | | demonstrates demonstrates a large joint effusion extending into the | | | suprapatellar recess, where it drapes medially and laterally. There is | | | no mass in the region of concern. IMPRESSION: Large joint | | | effusion extending into the suprapatellar recess at the site of | | | palpable concern. There is no mass. I have personally reviewed the | | | images and, if necessary, edited the report. I agree with the report | | | as now presented. Final signature: Ramón Bright MD 04/30/2019 | | | 2:40 PM Preliminary: Ramón Bright MD Dictation initiated: | | | Ramón Bright MD 04/30/2019 2:39 PM | | + + + + + | Procedure Note | + + | Service Account, Radiant Res In Interface - 04/30/2019 2:41 PM PDT EXAM: US LWR EXT | | NON-VASULAR LEFT HISTORY: us soft tissue, left distal thigh COMPARISON: None. TECHNIQUE: | | Grayscale sonographic evaluation of anterior knee. FINDINGS: Focused ultrasound at the | | site of palpable concern as denoted by the patient demonstrates demonstrates a large | | joint effusion extending into the suprapatellar recess, where it drapes medially and | | laterally. There is no mass in the region of concern. IMPRESSION: Large joint effusion | | extending into the suprapatellar recess at the site of palpable concern. There is no | | mass. I have personally reviewed the images and, if necessary, edited the report. I | | agree with the report as now presented. Final signature: Ramón Bright MD 04/30/2019 | | 2:40 PM Preliminary: Ramón Bright MD Dictation initiated: Ramón Bright MD | | 04/30/2019 2:39 PM | | | |IMPRESSION: | | | |Large joint effusion extending into the suprapatellar recess at the site of palpable concer n. There is no mass. | | | |I have personally reviewed the images and, if necessary, edited the report. I agree with th e report as now presented. | | | |Final signature: Ramón Bright MD 04/30/2019 2:40 PM | |Preliminary: Ramón Bright MD | |Dictation initiated: Ramón Bright MD 04/30/2019 2:39 PM | + + + +---------+ + + | Performing | Address | City/State/Zipcode | Phone Number | | Organization | | | | + +---------+ + + | [facility] | | | | | VOICE RECOGNITION 2 | | | | + +---------+ + + from Last 3 Months Insurance + +--------+ +--------+ + +--------+ | Payer | Benefi | Subscriber | Effect | Phone | Address | Type | | | t Plan | ID | thomas | | | | | | / | | Dates | | | | | | Group | | | | | | + +--------+ +--------+ + +--------+ | MEDICARE | MEDICA | xxxxxxxxxxx | 03/23/20 | [phone] | [address] | Medica | | | RE A & | | 17-Pre | [phone] | | | [address] | | sent | | [place] | | | | | | | | [phone] | | + +--------+ +--------+ + +--------+ | [employer] [place] | MUTUAL | xxxxxxxx | 03/23/20 | [phone] | [employer] OF | Indemn | | MEDICARE SUPPL | OF | | 17-Pre | 0 | [place] | ity | | | [place] | | sent | | [place] | | | | [place] | | | | [place], [place] | | | | RE | | | | [phone] | | | | SUPPL | | | | | | + +--------+ +--------+ + +--------+ + +--------+ +--------+ + + | Guarantor Name | Accoun | Relation to | Date | Phone | Billing Address | | | t Type | Patient | of | | | | | | | | | | + +--------+ +--------+ + + | Tim Martini | Person | Self [birth year] | [address] | | | al/Fam | | 1950 | [phone] | [place] [address] | | | jey | | | 7 (Home) | | + +--------+ +--------+ + + Advance Directives + + + + + | Code Status | Date | Date | Comments | | | Activated | Inactivated | | + + + + + | Full Code | 07/21/2018 | 07/22/2018 | | | | 9:28 AM | 1:17 AM | | + + + + +
--- OUTSIDE RECORDS SUMMARY | ~2019-07-09 | XMS | Encounter Summary ---
Demographics + + + | Address | [address] | | | [place] [address] | + + + | Home Phone | | + + + | Preferred Language | Unknown | + + + | Marital Status | Single | + + + | Jewish Affiliation | BAP | + + + | Race | White | + + + | Ethnic Group | Not or | + + + Author + + + | Author | [facility] | + + + | Organization | [facility] | + + + | Address [...] Team Providers + +------+ + | Care Fisheries Management Biologist Name | Role | Phone | + +------+ + | Angelica Garrison | PCP | | + +------+ + Encounter Details +--------+ + + + + | Date | Type | Department | Care Team | Description | +--------+ + + + + | 04/30/ | Hospital | Diagnostic Imaging | Angelica Garrison | | | 2019 | Encounter | Services at [facility] | [place] [address] | | | | | [address] | [address] | | | | | Vickie Mon Mailcode: | [place] [address] | | | | | [address] [facility] | [phone] | | | | | [place], [place] | | | | | | [address] | | | | | | [phone] | | | +--------+ + + + [...] at Time of Discharge + + + +---------+ + + | Medication | Sig | Dispensed | Refills | Start | End Date | | | | | | Date | | + + + +---------+ + + | amLODIPine 10 mg | Take 10 mg by mouth | | 0 | | | | oral tablet | once daily. | | | | | + + + +---------+ + + | aspirin chewable | Take 81 mg by mouth | | 0 | | | | 81 mg oral | once daily. | | | | | | tablet,chewable | | | | | | + + + +---------+ + + | buPROPion SR 200 | Take 200 mg by mouth | | 0 | | | | mg oral tablet | once daily in the | | | | | | extended release | morning. | | | | | + + + +---------+ + + | Cholecalciferol, | Take 5,000 Units by | | 0 | | | | Vitamin D3, 5,000 | mouth once daily. | | | | | | unit oral tablet | | | | | | + + + +---------+ + + | DOCOSAHEXANOIC | Take 3,000 mg by | | 0 | | | | ACID/EPA (FISH OIL | mouth once daily. | | | | | | ORAL) | | | | | | + + + +---------+ + + | gabapentin 300 mg | | | 0 | 04/27/20 | | | oral capsule | | | | 19 | | + + + +---------+ + + | MULTIVITAMIN ORAL | Take by mouth once | | 0 | | | | | daily. | | | | | + + + +---------+ + + | potassium | Take by mouth four | | 0 | | | | citrate-citric acid | times daily as | | | | | | 1,100-334 mg/5 mL | needed. Administer | | | | | | oral solution | after meals and at | | | | | | | bedtime | | | | | + + + +---------+ + + | prednisoLONE | Instill 1 drop into | 5 mL | 1 | 02/06/20 | | | acetate 1 % | the right eye four | | | 19 | | | ophthalmic (eye) | times daily. | | | | | | drops,suspension | Starting after | | | | | | | surgery. Continue | | | | | | | until bottle is | | | | | | | empty. | | | | | + + + +---------+ + + | Zinc 50 mg oral | Take by mouth. | | 0 | | | | tablet | | | | | | + + + +---------+ + + documented as of this encounter Plan of Treatment +--------+---------+ + + + | Date | Type | Specialty | Care Team | Description | +--------+---------+ + + + | 01/07/ | Office | Cardiology | Cristóbal Mccullough, | | | 2019 | Visit | | ,PhD [address] | | | | | [address] | | | | | | [place], [place] | | | | | | [address] | | | | | | [phone] | | | | | | | | +--------+---------+ + + + | 06/02/ | Office | Ophthalmology | Carissa Tinoco MD | | | 2019 | Visit | | [address] | | | | | | [place], [place] | | | | | | [address] | | | | | | [phone] | | | | | | | [...] + + documented in this encounter Results US LOWER EXT NON-VASCULAR LT (04/30/2019 2:37 [...] | | | + +---------+ + + documented in this encounter Visit Diagnoses + + | Diagnosis | + + | Strain of left quadriceps muscle, fascia and tendon, initial encounter | + + documented in this encounter"
--- OUTSIDE RECORDS SUMMARY | ~2019-07-09 | XMS | Encounter Summary ---
Demographics + + + | Address | [address] | | | [place] [address] | + + + | Home Phone | | + + + | Preferred Language | Unknown | + + + | Marital Status | Single | + + + | Scientology Affiliation | BAP | + + + | Race | White | + + + | Ethnic Group | Not or | + + + Author + + + | Author | [facility] | + + + | Organization | [facility] | + + + | Address [...] Team Providers + +------+ + | Care Otr Owner Operator Name | Role | Phone | + [...] Jamel, | | | | | | Thoracic | Cristóbal Murrell, | | | | | | aortic | ,PhD [address] | | | | | | aneurysm | [address] | | | | | | without | [address] | | | | | | rupture | [place], [place] | | | | | | ([facility]) | [address] | | | | | | Procedures | Phone: | | | | | | TRANSTHORACI | [phone] | | | | | | C | Fax: | | | | | | ECHOCARDIOGR | [phone] | | | | | | AM, ADULT | | | + +--------+ + + [...] | | | | Atherosclero | [place] [address] | ,PhD [address] | | | | | tic heart | [address] | [address] | | | | | disease of | [place], | [address] | | | | | [place] | [place] [address] | [place], [place] | | | | | coronary | Phone: | [address] | | | | | artery | [phone] | Phone: | | | | | without | Fax: | [phone] | | | | | angina | [phone] | Fax: | | | | | pectoris | | [phone] | | | | | Procedures | | | | | | | CONSULT TO | | | | | | | CARDIOLOGY | | | | | | | CT NEW | | | | | | | PATIENT | | | | | | | LEVEL V CT | | | | | | | EST PATIENT | | | | | | | LEVEL V | | | + +--------+ + + + + Encounter Details +--------+---------+ + + + | Date | Type | Department | Care Team | Description | +--------+---------+ + + + | 01/02/ | Office | Cardiology General | Cristóbal Mccullough, | Syndrome X (cardiac) | | 2018 | Visit | at [facility] [address] | ,PhD [address] | ([facility]) (Primary Dx); | | | | [address] Mailcode: | [address] | Hypertension, | | | | [facility] | [place], [place] | unspecified type; | | | | [facility], | [address] | Thoracic aortic | | | | | [phone] | aneurysm without | | | | Floor [place], [place] | | rupture ([facility]); | | | | [address] | | Dyslipidemia | | | | [phone] | | | +--------+---------+ + + + [...] + + + | Blood Pressure | 127/89 | 01/02/2019 2:08 PM | | | | | PDT | | + + + + + | Pulse | 59 | 01/02/2019 2:08 PM | | | | | PDT | | + + + + + | Temperature | - | - | | + + + + + | Respiratory Rate | - | - | | + + + + + | Oxygen Saturation | 100% | 01/02/2019 2:08 PM | | | | | PDT | | + + + + + | Inhaled Oxygen | - | - | | | Concentration | | | | + + + + + | Weight | 109.3 kg (241 lb) | 01/02/2019 2:08 PM | | | | | PDT | | + + + + + | Height | 175.3 cm (5' 9") | 01/02/2019 2:08 PM | | | | | PDT | | + + + + + | Body Mass Index | 35.59 | 01/02/2019 2:08 PM | | | | | PDT | | + + + + + documented in this encounter Patient Instructions Patient Instructions Cristóbal Mccullough MD,PhD - 01/02/2019 2:20 PM PDTKeep up physical ac tivity. Try to watch a low salt diet. Try to consume < 2000 milligrams of sodium per day. Return to clinic in 1 year with a TTE at that time. documented in this encounter Progress Notes Cristóbal Mccullough MD,PhD - 01/02/2019 2:20 PM PDTFormatting of this note might be differe nt from the original. [facility] NOTE: ID: Tim Martini is a 68 year old male with a history of chest pain in 2013 which prompted a stress echo which was read as "low risk". He is here to establish care with Cardiology whe n he was told he has calcium in coronary arteries. Patient had an intermediate risk stress e cho followed by a coronary angiogram showing no obstructive CAD. Subjective: Patient says he has been doing well. He occasionally gets a sharp chest pain that lasts for a few seconds and goes away. It's random and not exertional. He is working on the farm and fixing fences. He is not limited. He denies any exertional chest pain or pressure/tightness. He has been eating better and thinks he has lost weight. He does still endorse some mild sh ortness of breath with exertion. No diaphoresis or nausea with exertion. No light-headedness or dizziness with exertion. He denies palpitations or skipped beats. He denies LE swelling, orthopnea or PND. He tries to eat a low Nacl diet but does eat bar[place] and turkey. On ROS, patient denies recent fevers or chills. No night-sweats or unintentional weight los s. No nausea or vomiting. No abdominal pain, hematochezia or melena. No excessive joint pain or stiffness. No rash. A 10-point review of systems was otherwise negative. 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 aspirin chewable 81 mg oral tablet,chewable Take 81 mg by mouth once daily. atorvastatin 20 mg oral tablet Take 1 tablet by mouth once daily. Indications: hyperlip idemia buPROPion SR 200 mg oral tablet extended release Take 200 mg by mouth once daily in the morning. Cholecalciferol, Vitamin D3, 5,000 unit oral tablet Take 5,000 Units by mouth once bella y. DOCOSAHEXANOIC ACID/EPA (FISH OIL ORAL) Take 3,000 mg by mouth once daily. metoprolol succinate 25 mg oral tablet extended release 24 hr Take 0.5 tablets by mouth once daily. Indications: chronic heart failure, Chronic Stable Angina Pectoris MULTIVITAMIN ORAL Take by mouth once daily. [...] Cancer Father Non-Hodkins Lymphoma Physical Exam BP 127/89 | Pulse 59 | Ht 1.753 m (5' 9") | Wt 109.3 kg (241 lb) | SpO2 100% | BMI 35. 59 kg/m | BSA 2.31 m General: no acute distress Neck: no JVD [...] 06/06/2018: Sinus bradycardia with QRS of 120 Stress Echo 05/2018: Exercise Stress Echocardiographic Report + + Final Impressions: 1. There was no chest pain reported with exercise. 2. The blood pressure response was hypertensive. 3. On limited 2D imaging, the proximal ascending aorta is dilated at 4.2 cm. Further imaging is indicated to evaluate the aorta. 4. Echo positive for ischemia. 5. EKG portion of stress test is normal. 6. At rest there is normal left ventricular systolic function. 7. At peak stress the LV function is segmentally reduced (See comments below). 8. Intermediate risk due to mild resting segmental LV systolic dysfunction. Coronary Angiogram 07/22/18: CORONARY ANGIOGRAPHY: LEFT MAIN: The left main is a large caliber short vessel that bifurcates into the left ant erior descending and left circumflex arteries. There are mild luminal irregularities noted i n the without stenosis. LEFT ANTERIOR DESCENDING: The left anterior descending (LAD) is a large caliber vessel wagner t wraps around the apical segment. It gives off one large septal followed by several small s eptal branches. There are a few small diagonal branches. There are mild luminal irregulariti es noted in the proximal LAD without significant stenosis. LEFT CIRCUMFLEX: The left circumflex coronary (LCx) artery is a large caliber non-dominant vessel that gives off two moderate caliber obtuse marginal (OM) branches. There are mild pl aque and mild irregularities noted in the proximal circumflex without significant stenosis. RIGHT CORONARY ARTERY: The right coronary artery (RCA) is a large caliber dominant vessel t hat gives off small caliber RV marginal branches, a moderate caliber posterior descending ar neha (PDA) branch and a moderate caliber posterolateral branches (PL). The proximal RCA is t ortuous. It has is mild plaque with a 50% stenosis in the proximal RCA. There are mild lumin al irregularities noted in the mid and distal RCA. CONCLUSIONS: Mild coronary artery disease with mild plaque burden. RECOMMENDATIONS: 1. Usual post-catheterization care. 2. Medical management of coronary artery disease including risk factor modification. TTE 12/2018: Transthoracic Echocardiographic Report + + Final Impressions: 1. There is mild concentric left ventricular hypertrophy. 2. The LV function is normal. 3. Right ventricular size, thickness and function are normal. 4. There is mild dilatation of the aortic root and ascending aorta. (See comments below). 5. There are no prior exams available for comparison. Problem List # Chest pain # Hypertension # Dyslipidemia # Obesity Assessment/Plan Tim Martini is a 68 y.o. Male with risk factors for coronary artery disease includi ng age, sex, nicotine use, +FHx, HTN, and HLD who had a positive stress echo without any ang iographic evidence of CAD. 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 # Cardiac Syndrome X: Patient has risk factors for coronary artery disease including age, sex, nicotine use, +FHx, HTN, and HLD and has had classic angina with a positive stress echo . However, he does not have any obstructive coronary artery disease. This is very suggestive of microvascular dysfunction or cardiac syndrome X. He is currently on metoprolol and amlod ipine and not having symptoms. If he starts to develop more symptoms, can consider adding lo ng-acting nitrate or ranolazine. In the meantime, he should continue atorvastatin and 81 mg ASA daily. - Continue metoprolol SA 12.5 mg daily - Continue amlodipine 10 mg daily - Continue atorvastatin to 20 mg daily - Continue 81 mg ASA daily # Hypertension: Blood pressure looks pretty good today. He should continue metoprolol + am lodipine. Continue to watch low NaCl diet (I advised < 2000 mg Na per day). - Continue amlodipine 10 mg daily - Continue metoprolol SA 12.5 mg daily - Diet and Exercise encourage - Low NaCl diet # Mildly Dilated Aorta. From stress echo in 12/2017, the proximal ascending aorta is dilated at 4.2 cm. TTE today shows mildly dilated ascending aorta at 4.5 cm. We typically think abo ut surgery when this gets to ~ 5.5 cm. Will need yearly TTE to evaluate for interval progres john. - Repeat TTE in 1 year to re-evaluate for interval progression in size of ascending aorta # Continue exercise and diet. I would recommend increasing the frequency of exercise to 4- 5 times per week continuing with the moderate intensity and 30 minutes. Follow-up in 1 year with TTE at that time. -Cristóbal Mccullough MD/PhD Head Cager [facility] [place] [facility] [place] Pager [phone] documented in t his encounter Plan of Treatment +--------+---------+ + + + | Date | Type | Specialty | Care Team | Description | +--------+---------+ + + + | 01/07/ | Office | Cardiology | Cristóbal Mccullough, | | | 2019 | Visit | | MDPhD [address] | | | | | | [address] | | | | | | [place], [place] | | | | | | [address] | | | | | | [phone] | | | | | | | | +--------+---------+ + + + | 06/02/ | Office | Ophthalmology | Carissa Tinoco MD | | | 2019 | Visit | | [address] | | | | | | [place], [place] | | | | | | [address] | | | | | | [phone] | | | | | | | | +--------+---------+ + + + + +------+--------+ + + | Name | Type | Priori | Associated Diagnoses | Order Schedule | | | | ty | | | + +------+--------+ + + | TRANSTHORACIC | ECG | Routin | Thoracic aortic | Ordered: 01/02/2019 | | ECHOCARDIOGRAM, | | e | aneurysm without | | | ADULT | | | rupture (HCC) | | + +------+--------+ + + documented as of this encounter Visit Diagnoses + + | Diagnosis | + + | Syndrome X (cardiac) (HCC) - Primary | + + | Hypertension, unspecified type | + + | Thoracic aortic aneurysm without rupture (HCC) Thoracic aneurysm without mention of | | rupture | + + | Dyslipidemia Other and unspecified hyperlipidemia | + + documented in this encounter
--- OUTSIDE RECORDS SUMMARY | ~2019-07-09 | XMS | Encounter Summary ---
Demographics + + + | Address | [address] | | | [place] [address] | + + + | Home Phone | | + + + | Preferred Language | Unknown | + + + | Marital Status | Single | + + + | Faith Affiliation | BAP | + + + | Race | White | + + + | Ethnic Group | Not or | + + + Author + + + | Author | [facility] | + + + | Organization | [facility] | + + + | [...] Team Providers + +------+ + | Care Saw Runner Name | Role | Phone | + +------+ + | Angelica Garrison | PCP | | + +------+ + Encounter Details +--------+ + + + + | Date | Type | Department | Care Team | Description | +--------+ + + + + | 04/22/ | Ancillary | Diagnostic Imaging | Angelica Garrison | | | 2019 | Orders | Services [address] | [place] [address] | | | | | [address] | [address] | | | | | [place], [place] | [place] [address] | | | | | [address] | [phone] | | | | | | | [...] | 2020 | Visit | | MDPhD [address] | | | | | | [address] [facility] [address] | | | | | | [place], [place] | | | | | | [address] | | | | | | [phone] | | | | | | | | +--------+---------+ + + + | 06/02/ | Office | Ophthalmology | Carissa Tinoco MD | | | 2020 | Visit | | [address] | | | | | | [place], [place] | | | | | | [address] | | | | | | [phone] | | | | | | | | +--------+---------+ + + + documented as of this encounter Results US LOWER EXT NON-VASCULAR [...]
--- OUTSIDE RECORDS SUMMARY | ~2019-07-09 | XMS | Encounter Summary ---
Demographics + + + | Address | [address] | | | [place] [address] | + + + | Home Phone | | + + + | Preferred Language | Unknown | + + + | Marital Status | Single | + + + | Muslim Affiliation | BAP | + + + | Race | White | + + + | Ethnic Group | Not or | + + + Author + + + | Author | [facility] | + + + | Organization | [facility] | + + + | Address | [...] Team Providers + +------+ + | Care Janitorial Tech Name | Role | Phone | + +------+ + | Piter Landin MD | PCP | | + +------+ + Reason for Visit + + + | Reason | Comments | + + + | New Patient Visit | | + + + | Cataract Evaluation | | + + + | Self-referred For | | | Second Opinion | | + + + Encounter Details +--------+---------+ + + + | Date | Type | Department | Care Team | Description | +--------+---------+ + + + | // | Office | [facility] | Carissa Tinoco MD | Senile nuclear | | 2017 | Visit | Orient/Ophthalmol | [address] | sclerosis, bilateral | | | | ogy at [facility] [address] | [place], [place] | (Primary Dx) | | | | [address] Mailcode: | [address] | | | | | [address] | [phone] | | | | | Health [facility] Healing, | | | | | | [facility] | | | | | | [place], [place] | | | | | | [address] | | | | | | [phone] | | | +--------+---------+ + + + [...] + + documented as of this encounter Progress Tamiko Kelsey - 11/26/2016 10:10 AM PST COMPREHENSIVE OPHTHALMOLOGY PROGRESS NOTE Assessment and Plan: Exam Date: 11/26/2016 Patient:Tim Martini ([id number]) Impression: Mild Cataracts OU OD>OS - not visually significant. Vision corrects to 20/20 OU. Glare is s omewhat bothersome, but manages with yellow lenses when driving at night. - discussed symptoms of cataract - discussed multifocal lens including symfony lens Myope Syneresis Plan: FU 1 year cataract check, sooner prn I have reviewed and verified the above scribed note of my visit with this patient as record ed by Tamiko Abel I have reviewed and edited history and meteorological technician documentation, and performed all other el ements to above examination documentation. Carissa Tinoco MD Electronic Publications Specialist Comprehensive Ophthalmology [facility] [place] Physician: Carissa Tinoco MD 11/26/2016 HPI: Tim Martini ([id number]), 66 y.o. year old male from [place] : Patient presen ts with: New Patient Visit Cataract Evaluation Self-referred For Second Opinion Was told by an anchor operator in [place] that he is ready for cataract surgery. Just got new glasses, has some glare problems with computer and at night. Is better with ye llow lenses. Feels he is managing well with his vision. Sometimes it is annoying. Would like to discuss further. Not desperate for surgery. Getting along, but getting a little more dif ficult. To the best of his knowledge his eyes are healthy. No FH of eye disease. Glasses since [facility]. Uses yellow lenses for night driving. glare symptoms Contact lens wear No H/o Laser correction (Lasik/PRK/RK) No On Flomax No H/o eye trauma No H/o lazy eye/amblyopia/patching No On blood thinners No Able to lay flat Yes Tobacco use: reports that he quit smoking about 45 years ago. His smoking use included Cig arettes. He has a 1.00 pack-year smoking history. His smokeless tobacco use includes Chew. Primary Care Provider: Piter Landin MD Past ocular history: No specialty comments on file. Family ocular history: Family history includes Cancer in his father (Non-Hodkins Lymphoma) and Heart Disease in hi s brother (Myocardial Infarction) and father (Myocardial Infarctions). See scanned intake form or preadmission data in [facility] for full Family ocular and medical his tory. Allergies: is allergic to penicillins. Medications: Current Outpatient Prescriptions Medication Sig amLODIPine 10 mg oral tablet Take 10 mg by mouth once daily. aspirin chewable 81 mg oral tablet,chewable Take 81 mg by mouth once daily. buPROPion SR 200 mg oral tablet extended release Take 200 mg by mouth once daily in the morning. Cholecalciferol, Vitamin D3, 5,000 unit oral tablet Take 5,000 Units by mouth once bella y. DOCOSAHEXANOIC ACID/EPA (FISH OIL ORAL) Take 3,000 mg by mouth once daily. MULTIVITAMIN ORAL Take by mouth once daily. RED YEAST RICE ORAL Take by mouth once daily. No current facility-administered medications for this visit. Medical history/PMH/Review of systems: Patient Active Problem List Diagnosis Chest pain Somnolence, daytime Dyslipidemia HTN (hypertension) Tobacco abuse Obesity Past Medical History: Diagnosis Date Bronchitis Depression Dyslipidemia History of herpes simplex type 2 infection HTN (hypertension) Squamous cell carcinoma, keratinizing (HCC) 2012 Vitamin D deficiency has a past surgical history that includes tonsillectomy and skin cancer excision. Reviewed systems for: fever, wt. loss, ENT, cardiovascular, pulmonary, GI, urinary, neurolo gic, endocrine, bleeding/blood disorders, AIDS/HIV, cancer/tumors, arthritis - all were nega tive except as noted above. EXAMINATION: Pain score: Base Exam Visual Acuity (Snellen - Linear) Right Left Dist cc 20/20-1 20/20-1 Correction: Glasses Tonometry (Applanation, 10:46 AM) Right Left Pressure 20 16 Wearing Rx Sphere Cylinder [place] Add Right -5.25 +1.50 035 +2.50 Left -5.75 +1.50 097 +2.50 Type: Progressive Addition lens Manifest Refraction Sphere Cylinder [place] Dist Right -5.25 +1.50 035 20/20 Left -5.75 +1.50 097 20/20 Dilation Both eyes: 2.5% Phenylephrine, 1.0% Mydriacyl @ 10:46 AM Pupils Pupils Right PERRL Left PERRL Visual Alvarez (Counting fingers) Left Right Result Full Full Extraocular Movement Right Left Result Full Full Neuro/Psych Oriented x3: Yes Mood/Affect: Normal Additional Tests Keratometry (Automated) K1 [place] K2 [place] Right 43.00 139 44.50 049 Left 43.00 013 44.50 103 Glare Testing Medium Right 20/20 Left 20/20 Slit Lamp and Fundus Exam External Exam Right Left External Normal Normal Slit Lamp Exam Right Left Lids/Lashes Dermatochalasis Dermatochalasis Conjunctiva/Sclera White and quiet White and quiet Cornea All layers clear All layers clear Anterior Chamber Deep and quiet Deep and quiet Iris Good dilation Good dilation Lens 2+ NSC 1-2+ NSC Vitreous Syneresis Syneresis Fundus Exam Right Left Disc Normal sloping inf rim C/D Ratio 0.4 0.5 Macula Normal Normal Vessels Normal Normal Periphery Normal Normal Tamiko Toussaint COT, performed, reviewed or revised the above history, medications, aller gies, as well as performed elements noted in the Base Ophthalmology Exam, visual acuity, pup ils, EOMs, CVF and IOP. See EPIC ophthalmology module for exam information. Assessment and Plan is now at the top of the note. Tamiko Toussaint COT, am functioning as a scribe for Carissa Tinoco MD. Physician: Carissa Tinoco MD documented in this encounter Plan of Treatment +--------+---------+ + + + | Date | Type | Specialty | Care Team | Description | +--------+---------+ + + + | 01/07/ | Office | Cardiology | Cristóbal Mccullough, | | | 2019 | Visit | | ,PhD [address] | | | | | | [facility] | | | | | | [place], [place] | | | | | | [address] | | | | | | [phone] | | | | | | | | +--------+---------+ + + + | 06/02/ | Office | Ophthalmology | Carissa Tinoco MD | | | 2019 | Visit | | [address] | | | | | | [place], [place] | | | | | | [address] | | | | | | [phone] | | | | | | | | +--------+---------+ + + + documented as of this encounter Visit Diagnoses + + | Diagnosis | + + | Senile nuclear sclerosis, bilateral - Primary | + + documented in this encounter"
--- OUTSIDE RECORDS SUMMARY | ~2019-07-09 | XMS | Encounter Summary ---
Demographics + + + | Address | [address] | | | [place] [address] | + + + | Home Phone | | + + + | Preferred Language | Unknown | + + + | Marital Status | Single | + + + | Latter Day Affiliation | BAP | + + + [...] Team Providers + +------+ + | Care Hydraulic Billet Maker Name | Role | Phone | + +------+ + | Angelcia Garrison | PCP | | + +------+ + Reason for Visit + + + | Reason | Comments | + + + | Refill Request | Metoprolol succinate 12.5 mg daily, atorvastatin 20 mg daily | + + + Encounter Details +--------+--------+ + + + | Date | Type | Department | Care Team | Description | +--------+--------+ + + + | 05/26/ | Refill | Cardiology General | Cristóbal Mccullough, | Refill Request | | 2019 | | at [facility] [address] | ,PhD [address] | (Metoprolol | | | | [address] Mailcode: | [address] | succinate 12.5 mg | | | | [facility] | [place], [place] | daily, atorvastatin | | | | [facility]aling, | [address] | 20 mg daily) | | | | | [phone] | | | | | [place], [place] | | | | | | [address] | | | | | | [phone] | | | +--------+--------+ + + + [...] | Visit | | PhD [address] | | | | | | [address] | | | | | | [place], [place] | | | | | | [address] | | | | | | [phone] | | | | | | | | +--------+---------+ + + + | 06/02/ | Office | Ophthalmology | Carissa Tinoco MD | | | 2019 | Visit | | [address] | | | | | | [place], [place] | | | | | | [address] | | | | | | [phone] | | | | | | | | +--------+---------+ + + + documented as of this encounter Visit Diagnoses Not on filedocumented in this encounter"
--- OUTSIDE RECORDS SUMMARY | ~2019-07-09 | XMS | Encounter Summary ---
Demographics + + + | Address | [address] | | | [place] [address] | + + + | Home Phone | | + + + | Preferred Language | Unknown | + + + | Marital Status | Single | + + + | Yazidism Affiliation | BAP | + + + [...] Team Providers + +------+ + | Care Vacuum Applicator Operator Name | Role | Phone | + +------+ + | Angelica Garrison | PCP | | + +------+ + Encounter Details +--------+--------+ + + + | Date | Type | Department | Care Team | Description | +--------+--------+ + + + | 02/05/ | Travel | | | | | [...] 9 | | | | | | [place], [place] | | | | | | [address] | | | | | | [phone] | | | | | | | | +--------+---------+ + + + | 06/02/ | Office | Ophthalmology | Carissa Tinoco MD | | | 2019 | Visit | | [address] | | | | | | [place], [place] | | | | | | [address] | | | | | | [phone] | | | | | | | | +--------+---------+ + + + documented as of this encounter Visit Diagnoses Not on filedocumented in this encounter"
--- OUTSIDE RECORDS SUMMARY | ~2019-07-09 | XMS | Encounter Summary ---
Demographics + + + | Address | [address] | | | [place] [address] | + + + | Home Phone | | + + + | Preferred Language | Unknown | + + + | Marital Status | Single | + + + | Religion Affiliation | BAP | + + + [...] Team Providers + +------+ + | Care Rehabilitator Name | Role | Phone | + [...] 9 | | | | | | [place], [place] | | | | | | [address] | | | | | | [phone] | | | | | | | | +--------+---------+ + + + | 06/02/ | Office | Ophthalmology | Carissa Tinoco MD | | | 2019 | Visit | | [address] | | | | | | [place], [place] | | | | | | [address] | | | | | | [phone] | | | | | | | | +--------+---------+ + + + documented as of this encounter Visit Diagnoses Not on filedocumented in this encounter"
--- OUTSIDE RECORDS SUMMARY | ~2019-07-09 | XMS | Encounter Summary ---
Demographics + + + | Address | [address] | | | [place] [address] | + + + | Home Phone | | + + + | Preferred Language | Unknown | + + + | Marital Status | Single | + + + | Roman Catholic Affiliation | BAP | + + + | Race | White | + + + | Ethnic Group | Not or | + + + Author + + + | Author | [facility] | + + + | Organization | [facility] | + + + | [...] Team Providers + +------+ + | Care Sports Marketing Specialist Name | Role | Phone | + +------+ + | Angelica Garrsion | PCP | | + +------+ + Reason for Visit Diagnostic Testing (Routine) + +--------+ + + [...] | | | | unspecified | ,PhD [address] | | | | | | type | [address] | | | | | | Procedures | [address] | | | | | | STRESS | [place], [place] | | | | | | ECHOCARDIOGR | [address] | | | | | | AM, CONVERT | Phone: | | | | | | DOBUTAMINE | [phone] | | | | | | PRN | Fax: | | | | | | | [phone] | | + +--------+ + + + + Encounter Details +--------+ + + + + | Date | Type | Department | Care Team | Description | +--------+ + + + + | 06/06/ | Hospital | Cardiac | | | | 2018 | Encounter | Non-Invasive Testing | | | | | | at [address] | | | | | | [address] | | | | | | [address] | | | | | | Mailcode: [id number] | | | | | | [address] | | | | | | [facility], | | | | | | [place] [address] | | | | | | [phone] | | | +--------+ + + + [...] + + + | Blood Pressure | - | - | | + + + + + | Pulse | - | - | | + + + + + | Temperature | - | - | | + + + + + | Respiratory Rate | - | - | | + + + + + | Oxygen Saturation | - | - | | + + + + + | Inhaled Oxygen | - | - | | | Concentration | | | | + + + + + | Weight | 110.2 kg (242 lb | 06/06/2018 1:29 PM | | | | 15.2 oz) | PDT | | + + + + + | Height | 175 cm (5' 8.9") | 06/06/2018 1:29 PM | | | | | PDT | | + + + + + | Body Mass Index | 35.98 | 06/06/2018 1:29 PM | | | | | PDT | | + + + + + documented in this encounter Medications at Time [...] documented as of this encounter Progress Notes Kindra Alvarado - 06/06/2018 2:58 PM PDTStress echocardiogram completed. Final report t o follow. Marii Shin RN - 2:09 PM PDTAt 1354, prior to the beginning of the procedure, the team paused to zuleika y the patient's identify, the procedure to be performed (in accordance with the consent). Th e consent was signed by the patient. Verified both current medications and allergies. A PIV 24G was placed in the LAC. Patient reached target HR. He does report SOB, but feels this is due to lack of exercise an d not cardiac. The patient's VSS returned to baseline prior to discharge. The PIV was remove d prior to discharge. documented in this enco unter Plan of Treatment +--------+---------+ + + + | Date | Type | Specialty | Care Team | Description | +--------+---------+ + + + | 01/07/ | Office | Cardiology | Cristóbal Mccullough, | | | 2019 | Visit | | ,PhD [address] | | | | | | [address] [facility] 9 | | | | | | [place], [place] | | | | | | [address] | | | | | | [phone] | | | | | | | | +--------+---------+ + + + | 06/02/ | Office | Ophthalmology | Carissa Tinoco MD | | | 2019 | Visit | | [address] | | | | | | [facility] [place] | | | | | | [address] | | | | | | [phone] | | | | | | | [...] + + | Chest pain, unspecified type | + + documented in this encounter Administered Medications + +---------+ +--------+------+------+ | Medication Order | MAR | Action | Dose | Rate | Site | | | Action | Date | | | | + +---------+ +--------+------+------+ | perflutren lipid microspheres | IV Push | 06/06/20 | 1.5 mL | | | | (DEFINITY) injection 1.5 mL 1.5 | | 18 2:58 | | | | | mL, intravenous, INTRAPROCEDURE | | PM PDT | | | | | PRN, Starting 06/06/18 at | | | | | | | 1327, Until Sat06/06/18 at 1526, | | | | | | | image acquisition | | | | | | + +---------+ +--------+------+------+ +---+---+ | | | +---+---+ documented in this encounter
--- OUTSIDE RECORDS SUMMARY | ~2019-07-09 | XMS | Encounter Summary ---
Demographics + + + | Address | [address] | | | [place] [address] | + + + | Home Phone | | + + + | Preferred Language | Unknown | + + + | Marital Status | Single | + + + | Denominational Affiliation | BAP | + + + | Race | White | + + + | Ethnic Group | Not or | + + + Author + + + | Author | [facility] | + + + | Organization | [facility] | + + + [...] Team Providers + +------+ + | Care Track Repairer Name | Role | Phone | + [...] | | | | aortic | ,PhD [address] | | | | | | aneurysm | [address] | | | | | | without | [address] | | | | | | rupture | [place], [place] | | | | | | ([facility]) | [address] | | | | | | Procedures | Phone: | | | | | | TRANSTHORACI | [phone] | | | | | | C | Fax: | | | | | | ECHOCARDIOGR | [phone] | | | | | | AM, [...] | | | | Atherosclero | [address] | ,PhD [address] | | | | | tic heart | [address] | [address] | | | | | disease of | [place], | [address] | | | | | [place] | [place] [address] | [place], [place] | | | | | coronary | Phone: | [address] | | | | | artery | [phone] | Phone: | | | | | without | Fax: | [phone] | | | | | angina | [phone] | Fax: | | | | | pectoris | | [phone] | | | | | Procedures | | | | | | | CONSULT TO | | | | | | | CARDIOLOGY | | | | | | | PA NEW | | | | | | | PATIENT | | | | | | | LEVEL V PA | | | | | | | [...] | | 2018 | Visit | at 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 [facility] NOTE: ID: Tim Martini is a [...] TTE at that time. -Cristóbal Mccullough MD/PhD Ski Top Trimmer [facility]quel [facility] [place] [facility] [place] Pager [phone] documented in t his encounter Plan of [...] 9 | | | | | | [place], [place] | | | | | | [address] | | | | | | [phone] | | | | | | | | +--------+---------+ + + + | 06/02/ | Office | Ophthalmology | Carissa Tinoco MD | | | 2019 | Visit | | [address] | | | | | | [place], [place] | | | | | | [address] | | | | | | [phone] | | | | | | | [...]
--- OUTSIDE RECORDS SUMMARY | ~2019-07-09 | XMS | Encounter Summary ---
Demographics + + + | Address | [address] | | | [place] [address] | + + + | Home Phone | | + + + | Preferred Language | Unknown | + + + | Marital Status | Single | + + + | Buddhist Affiliation | BAP | + + + | Race | White | + + + | Ethnic Group | Not or | + + + Author + + + | Author | [facility] | + + + | Organization | [facility] | + + + | Address [...] Team Providers + +------+ + | Care Olive Grader Name | Role | Phone | + +------+ + | Piter Landin MD | PCP | | + +------+ + Encounter Details +--------+ + + + + | Date | Type | Department | Care Team | Description | +--------+ + + + + | 01/12/ | Abstract | Cardiology in | Salvador Summers, | | | 2013 | | [facility] | [address] | | | | | [place] at | [facility], [place] | | | | | [place] [address] [address] | [address] | | | | [address] | [phone] | | | | | [place], [place] | | | | | | [address] | | | | | | [phone] | | | +--------+ + + + + Social History + +-------+ +--------+------+ | Tobacco Use | Types | Packs/Day | Years | Date | | | | | Used | | + +-------+ +--------+------+ | Never Assessed | | | | | + +-------+ [...] | 2019 | Visit | | MDPhD [address] | | | | | | [address] | | | | | | [place], [place] | | | | | | [address] | | | | | | [phone] | | | | | | | | +--------+---------+ + + + | 06/02/ | Office | Ophthalmology | Carissa Tinoco MD | | | 2020 | Visit | | [address] | | | | | | [place], [place] | | | | | | [address] | | | | | | [phone] | | | | | | | | +--------+---------+ + + + documented as of this encounter Visit Diagnoses Not on filedocumented in this encounter"
--- OUTSIDE RECORDS SUMMARY | ~2019-07-09 | XMS | Encounter Summary ---
Demographics + + + | Address | [address] | | | [place] [address] | + + + | Home Phone | | + + + | Preferred Language | Unknown | + + + | Marital Status | Single | + + + | Lutheran Affiliation | BAP | + + + | Race | White | + + + | Ethnic Group | Not or | + + + Author + + + | Author | [facility] | + + + | Organization | [facility] | + + + | [...] Team Providers + +------+ + | Care Transportation Museum Helper Name | Role | Phone | + [...] | | | | unspecified | ,PhD [address] | | | | | | type | [address] | | | | | | Procedures | [address] | | | | | | STRESS | [place], [place] | | | | | | ECHOCARDIOGR | [address] | | | | | | AM, CONVERT | Phone: | | | | | | DOBUTAMINE | [phone] | | | | | | PRN | Fax: | | | | | | | [phone] | | + +--------+ + + + [...] [address] | | | | | | [facility], | | | | | | [place] [address] | | | | | | [phone] | | | +--------+ + + + [...] | 2019 | Visit | | ,PhD [address] | | | | | | [address] [facility] 9 | | | | | | [place], [place] | | | | | | [address] | | | | | | [phone] | | | | | | | | +--------+---------+ + + + | 06/02/ | Office | Ophthalmology | Carissa Tinoco MD | | | 2019 | Visit | | [address] | | | | | | [facility] [place] | | | | | | [address] | | | | | | [phone] | | | | | | | [...]
--- OUTSIDE RECORDS SUMMARY | ~2019-07-09 | XMS | Encounter Summary ---
Demographics + + + | Address | [address] | | | [place] [address] | + + + | Home Phone | | + + + | Preferred Language | Unknown | + + + | Marital Status | Single | + + + | Confucianist Affiliation | BAP | + + + [...] Phone | + + +---------+ + | hPi Martini | ECON | Unknown | | + + +---------+ + | Irvin Martini | ECON | Unknown | | + + +---------+ + Care Team Providers + +------+ + | Care Marine Scientist Name | Role | Phone | + +------+ + | Angelica Garrison | PCP | | + +------+ + Encounter Details +--------+--------+ + + + | Date | Type | Department | Care Team | Description | +--------+--------+ + + + | 05/15/ | Travel [...] 9 | | | | | | [place], [place] | | | | | | [address] | | | | | | [phone] | | | | | | | | +--------+---------+ + + + | 06/02/ | Office | Ophthalmology | Carissa Tinoco MD | | | 2019 | Visit | | [address] | | | | | | [place], [place] | | | | | | [address] | | | | | | [phone] | | | | | | | | +--------+---------+ + + + documented as of this encounter Visit Diagnoses Not on filedocumented in this encounter"
--- OUTSIDE RECORDS SUMMARY | ~2019-07-09 | XMS | Encounter Summary ---
Demographics + + + | Address | [address] | | | [place] [address] | + + + | Home Phone | | + + + | Preferred Language | Unknown | + + + | Marital Status | Single | + + + | Restorationist Affiliation | BAP | + + + | Race | White | + + + | Ethnic Group | Not or | + + + Author + + + | Author | [facility] | + + + | Organization | [facility] | + + + | Address | [...] Team Providers + +------+ + | Care Healthcare Advisory Services Manager Name | Role | Phone | + +------+ + | Angelica Garrison | PCP | | + +------+ + Encounter Details +--------+ + + + + | Date | Type | Department | Care Team | Description | +--------+ + + + + | 02/07/ | Document-Sc | UNKNOWN DEPARTMENT | Unknown . | | | 2018 | anned | [address] | | | | | | [address] | | | | | | [place], [place] | | | | | | [address] | | | +--------+ + + + [...] | 2019 | Visit | | PhD Felicia COBB | | | | | | [address] | | | | | | [place], [place] | | | | | | [address] | | | | | | [phone] | | | | | | | | +--------+---------+ + + + | 06/02/ | Office | Ophthalmology | Carissa Tinoco MD | | | 2019 | Visit | | [address] | | | | | | [place], [place] | | | | | | [address] | | | | | | [phone] | | | | | | | | +--------+---------+ + + + documented as of this encounter Visit Diagnoses Not on filedocumented in this encounter"
--- OUTSIDE RECORDS SUMMARY | ~2019-07-09 | XMS | Encounter Summary ---
Demographics + + + | Address | [address] | | | [place] [address] | + + + | Home Phone | | + + + | Preferred Language | Unknown | + + + | Marital Status | Single | + + + | Zoroastrianism Affiliation | BAP | + + + [...] Team Providers + +------+ + | Care Quail Farmer Name | Role | Phone | + +------+ + | Angelica Garrison | PCP | | + +------+ + Reason for Visit + + + | Reason | Comments | + + + | Procedure | | + + + Encounter Details +--------+ + + + + | Date | Type | Department | Care Team | Description | +--------+ + + + + | 06/12/ | Telephone | Cardiac Honing Job Setter | Roslyn Mojica, | Procedure | | 2018 | | at [address] | [address] | | | | | [address] | [address] | | | | | [facility] | [place], [place] | | | | | [place], [place] | [address] | | | | | [address] | [phone] | | | | | [phone] | | | +--------+ + + + [...] | 2019 | Visit | | MDPhD [address] | | | | | | [address] | | | | | | [place], [place] | | | | | | [address] | | | | | | [phone] | | | | | | | | +--------+---------+ + + + | 06/02/ | Office | Ophthalmology | Carissa Tinoco MD | | | 2020 | Visit | | [address] | | | | | | [place], [place] | | | | | | [address] | | | | | | [phone] | | | | | | | | +--------+---------+ + + + documented as of this encounter Visit Diagnoses Not on filedocumented in this encounter"
--- OUTSIDE RECORDS SUMMARY | ~2019-07-09 | XMS | Encounter Summary ---
Demographics + + + | Address | [address] | | | [place] [address] | + + + | Home Phone [...] Team Providers + +------+ + | Care Sugar Mill Worker Name | Role | Phone | + +------+ + | Angelica Garrison | PCP | | + +------+ + Encounter Details +--------+--------+ + + + | Date | Type | Department | Care Team | Description | +--------+--------+ + + + | 05/01/ | Travel [...] 9 | | | | | | [place], [place] | | | | | | [address] | | | | | | [phone] | | | | | | | | +--------+---------+ + + + | 06/02/ | Office | Ophthalmology | Carissa Tinoco MD | | | 2019 | Visit | | [address] | | | | | | [place], [place] | | | | | | [address] | | | | | | [phone] | | | | | | | | +--------+---------+ + + + documented as of this encounter Visit Diagnoses Not on filedocumented in this encounter"
--- OUTSIDE RECORDS SUMMARY | ~2019-07-09 | XMS | Encounter Summary ---
Demographics + + + | Address | [address] | | | [place] [address] | + + + | Home Phone | | + + + | Preferred Language | Unknown | + + + | Marital Status | Single | + + + | Jehovah'S Witness Affiliation | BAP | + + + | Race | White | + + + | Ethnic Group | Not or | + + + Author + + + | Author | [facility] | + + + | Organization | [facility] | + + + | Address [...] Team Providers + +------+ + | Care Demurrage Clerk Name | Role | Phone | + +------+ + | Piter Landin MD | PCP | | + +------+ + Encounter Details +--------+ + + + + | Date | Type | Department | Care Team | Description | +--------+ + + + + | 03/08/ | Abstract | Cardiology in | Salvador Summers, | | | 2013 | | [facility] | [address] | | | | | [place] at | [facility], [place] | | | | | [place] [address] [address] | [address] | | | | [address] | [phone] | | | | | [place], [place] | | | | | | [address] | | | | | | [phone] | | | +--------+ + + + [...] | 2019 | Visit | | MDPhD [address] | | | | | [address] | | | | | | [place], [place] | | | | | | [address] | | | | | | [phone] | | | | | | | | +--------+---------+ + + + | 06/02/ | Office | Ophthalmology | Carissa Tinoco MD | | | 2020 | Visit | | [address] | | | | | | [place], [place] | | | | | | [address] | | | | | | [phone] | | | | | | | | +--------+---------+ + + + documented as of this encounter Visit Diagnoses Not on filedocumented in this encounter"
--- OUTSIDE RECORDS SUMMARY | ~2019-07-09 | XMS | Encounter Summary ---
Demographics + + + | Address | [address] | | | [place] [address] | + + + | Home Phone [...] + + + | Author | [facility] | + + + | Organization | [facility] | + + + | [...] Team Providers + +------+ + | Care Esthetic Dermatologist Name | Role | Phone | + +------+ + | Angelica Garrison | PCP | | + +------+ + Reason for Visit AUTH/CERT +--------+--------+ + + + + | Status | Reason | Specialty | Diagnoses / | Referred By | Referred To | | | | | Procedures | Contact | Contact | +--------+--------+ + + + + | | | | | | | +--------+--------+ + + + + Encounter Details +--------+---------+ + + + | Date | Type | Department | Care Team | Description | +--------+---------+ + + + | 05/15/ | Surgery | [facility] | Jayne Tinoco MD | PHACO W/ IOL LEFT - | | 2018 | | [address] | [address] | TORIC (TOPICAL) | | | | Vickie [address] | [place], [place] | | | | | [facility], | [address] | | | | | [place] [address] | [phone] | | | | | | | [...] + documented in this encounter Discharge Instructions Instructions Candida Augustin RN - 05/15/2019INSTRUCTIONS AFTER CATARACT SURGERY (Comprehensive Ophthalmology) Follow up appointment Date: __05/15/19 Time: __2:50pm Location : [place] [address] Begin your eye drops after your eye patch is removed in the doctor s office To help prevent infection: ? Always wash your hands before caring for your eyes or using eye medicine. ? Do not touch any part of your eye skin with the tip of the eye medicine bottle or tube. ? Avoid direct pressure to the operated eye. DO NOT rub the operated eye. ? Wear an eye shield whenever you sleep for the first week. ? Avoid getting water into your operated eye for the first 2 weeks. ? Avoid the following activities for two weeks after surgery: swimming pools, hot tubs or b ath tubs, heavy lifting, strenuous exercising, having head below your heart, mini/dirty env ironments, no eye makeup. ? The prescription in your old eyeglasses is probably no longer correct, so the vision may not be optimal out of them, but this is not harmful. New glasses if necessary, will usually be prescribed at your 2nd or 3rd postoperative visit. Sometimes over the counter reading gl asses are all that are necessary (Power +2.50 often work well, depending on how far you need to view things.) Normal symptoms the first few days after surgery: ? Watering or a scratchy, tommie sensation (you may use artificial tears for this) ? Sensitivity to bright light (sunglasses are optional) ? Redness of the operated eye ? A different sized pupil in the operated eye for a day or so ? Somewhat blurred vision while the eye heals from surgery ? Slight aching of the eye (Tylenol, Ibuprofen, Motrin, and/or aspirin can be used as collette ated) Call your doctor if you have any of the following: Temperature above 101 degrees (fever) Purulent drainage (which is drainage that is whitish-mujica or greenish in color) from the surgical site If there is increased redness at the edges of the surgical site Increased pain, even with pain medication Pain not relieved by Tylenol, Ibuprofen (Motrin) and/or Aspirin. Sudden drop in vision. You should always call if you are having problems with your eyes that you are not sure a re normal in the weeks to months following eye surgery. Symptoms such as persistent deep pa in of the eye or persistent blurred vision should prompt a call to our office. Resume your usual diet and usual medications. Call [phone] during business hours (Saturday through Fridays 8:00 a.m.-5:00 p.m.); all o ther times call [phone] and ask for the Eye Doctor munitions factory worker. Eye Drop Instructions ? Use the medication evenly spaced throughout the day until bedtime. (You do not need to w jaxon up in the middle of the night for eye drops) ? Wait 5 minutes between drops. It does not matter which order you use the medicines. ? It is helpful to bring your drops with you to each appointment. Your eye drops: 1) OFLOXACIN (mujica or white top) ? 1 drop in operated eye: ? 4 times per day until bottle is empty ? (should last at least 1 week after surgery) 2) DICLOFENAC (cochran top) ? 1 drop in the operated eye ? 4 times per day until bottle is empty 3) PREDNISOLONE ACETATE 1% (cap may be pink or white) ? Shake before using ? 1 drop in the operated eye ? 4 times per day until bottle is empty documented in this encounter Medications at Time [...] + + + +---------+ + + | diclofenac | Use 1 drop in left | 5 mL | 0 | 05/12/20 | | | (VOLTAREN) 0.1 % | eye 4 X day starting | | | 19 | | | ophthalmic (eye) | 3 days prior to | | | | | | drops | surgery and | | | | | | | continuing until out | | | | | | | of drops | | | | | + + [...] + + + +---------+ + + | ofloxacin | Use 1 drop in left | 5 mL | 0 | 05/12/20 | | | (OCUFLOX) 0.3 % | eye 4 X day starting | | | 19 | | | ophthalmic (eye) | 3 days prior to | | | | | | dropsIndications: | surgery and for 7 | | | | | | medical/surgical, | days after | | | | | | prophylaxis | Indications: | | | | | | | infection prevention | | | | | + + [...] + +---------+ + + | prednisoLONE | Use 1 drop in left | 5 mL | 1 | 20 | | | acetate 1 % | eye 4X day starting | | | 19 | | | ophthalmic (eye) | after surgery | | | | | | drops,suspension | | | | | | + [...] 9 | | | | | | [place], [place] | | | | | | [address] | | | | | | [phone] | | | | | | | | +--------+---------+ + + + | 06/02/ | Office | Ophthalmology | Jayne Tinoco MD | | | 2019 | Visit | | [address] | | | | | | [place], [place] | | | | | | [address] | | | | | | [phone] | | | | | | | [...] documented in this encounter Results PROCEDURE NOTE (05/15/2019 10:02 AM PDT)PROCEDURE NOTE (05/15/2019 9:40 AM PDT) + + + | Narrative | Performed At | + + + | Jayne Tinoco MD 05/15/2019 9:41 AM OPERATIVE REPORT | | | PATIENT: Tim Martini DATE OF SURGERY: 05/15/19 SURGEON: | | | JAYNE TINOCO MD GRADUATE STUDENT INSTRUCTOR(S): None OPERATION(S) PERFORMED: | | | Phacoemulsification [...] power | | | 13.0 D, SN [id number] was then injected into the capsular bag [...] TINOCO MD | | + + + documented in this encounter Visit Diagnoses + + | Diagnosis | + + | 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 | + + documented in this encounter Administered Medications + +--------+ +-------+------+ + | Medication Order | MAR | Action | Dose | Rate | Site | | | Action | Date | | | | + +--------+ +-------+------+ + | balanced salt (BSS) ophthalmic | Given | 05/15/20 | 15 mL | | Left Eye | | irrigation INTRAPROCEDURE PRN, | | 19 8:31 | | | | | Starting Sat05/15/19 at 0831, | | AM PDT | | | | | Until Sat05/15/19 at 0940 | | | | | | + +--------+ +-------+------+ + +---+---+ | | | +---+---+ + +-------+ +--------+---+---+ | cyclopentolate 1%-PHENYLEPHrine | Given | 05/15/20 | 1 drop | | | | 2.5%-tropicamide 0.25% | | 19 8:29 | | | | | (SUPERDROPS) ophthalmic drops 1 | | AM PDT | | | | | drop 1 drop, Left Eye, EVERY 5 | | | | | | | MINUTES NEEDED, 2 doses, | | | | | | | Starting Sat05/15/19 at 0812, | | | | | | | Until Sat05/15/19 at 1457, | | | | | | | pre-procedure dilation | | | | | | + +-------+ +--------+---+---+ +---+---+ | | | +---+---+ + +-------+ + +---+ + | Dilating Solution: BSS Plain | Given | 05/15/20 | 1 Bottle | | Left Eye | | 500 mL - 0.5 mL EPINEPHrine | | 19 8:31 | | | | | (1:1,000) INTRAPROCEDURE PRN, | | AM PDT | | | | | Starting 05/15/19 at 0831, | | | | | | | Until 05/15/19 at 0940 | | | | | | + +-------+ + +---+ + + +---+ | | | + +---+ | HYDROcodone-acetaminophen | | | (NORCO) 5-325 mg tablet 1-2 | | | tablet 1-2 tablet, oral, | | | NEEDED, 1 dose, Starting Fri | | | 05/15/19 at 0935, Until Fri | | | 05/15/19 at 1457, post-op moderate | | | pain | | + +---+ | | | + +---+ + +-------+ +--------+---+ + | moxifloxacin (VIGAMOX) 0.5 % | Given | 05/15/20 | 0.1 mL | | Left Eye | | intracameral injection | | 19 8:31 | | | | | INTRAPROCEDURE PRN, Starting Fri | | AM PDT | | | | | 05/15/19 at 0831, Until Fri | | | | | | | 05/15/19 at 0940 | | | | | | + +-------+ +--------+---+ + + +---+ | | | + +---+ | oxyCODONE (immediate release) | | | (ROXICODONE) tablet 5-10 mg 5-10 | | | mg, oral, NEEDED, 1 dose, | | | Starting 05/15/19 at 0935, | | | Until 8/23/19 at 1457, | | | post-op severe pain | | + +---+ | | | + +---+ + +-------+ +--------+---+---+ | proparacaine (OPHTHAINE) 0.5 % | Given | 05/15/20 | 1 drop | | | | ophthalmic drops 1 drop 1 drop, | | 19 8:26 | | | | | Left Eye, ONCE, 1 dose, Fri | | AM PDT | | | | | 05/15/19 at 0815 | | | | | | + +-------+ +--------+---+---+ +---+---+ | | | +---+---+ + +-------+ +---------+---+ + | proparacaine (OPHTHAINE) 0.5 % | Given | 05/15/20 | 2 drops | | Left Eye | | ophthalmic drops INTRAPROCEDURE | | 19 8:31 | | | | | PRN, Starting 05/15/19 at | | AM PDT | | | | | 0831, Until Sat05/15/19 at 0940 | | | | | | + +-------+ +---------+---+ + +---+---+ | | | +---+---+ + +-------+ +--------+---+ + | Shugarcaine: lidocaine MPF 4% 1 | Given | 05/15/20 | 0.5 mL | | Left Eye | | mL - EPINEPHrine 1:1000 1 mL - | | 19 8:33 | | | | | BSS 3 mL INTRAPROCEDURE PRN, | | AM PDT | | | | | Starting Sat05/15/19 at 0833, | | | | | | | Until Sat05/15/19 at 0940 | | | | | | + +-------+ +--------+---+ + +---+---+ | | | +---+---+ documented in this encounter"
--- OUTSIDE RECORDS SUMMARY | ~2019-07-09 | XMS | Encounter Summary ---
Demographics + + + | Address | [address] | | | [place] [address] | + + + | Home Phone | | + + + | Preferred Language | Unknown | + + + | Marital Status | Single | + + + | Quaker Affiliation | BAP | + + + | Race | White | + + + | Ethnic Group | Not or | + + + Author + + + | Author | [facility] | + + + | Organization | [facility] | + + + | [...] Team Providers + +------+ + | Care Manufacturing Technology Analyst Name | Role | Phone | + +------+ + | Angelica Garrison | PCP | | + +------+ + Encounter Details +--------+ + + + + | Date | Type | Department | Care Team | Description | +--------+ + + + + | 06/22/ | MyChart | Cardiology General | Cristóbal Mccullough, | RE: Angogram/plasty | | 2018 | Encounter | at [facility] [address] | ,PhD [address] | urgency? | | | | [address] Mailcode: | [address] | | | | | [facility] | [place], [place] | | | | | [facility], | [address] | | | | | | [phone] | | | | | Floor [place], [place] | | | | | | [address] | | | | | | [phone] | | | +--------+ + + + [...] | 2019 | Visit | | ,PhD [address] | | | | | | [address] | | | | | | [place], [place] | | | | | | [address] | | | | | | [phone] | | | | | | | | +--------+---------+ + + + | 06/02/ | Office | Ophthalmology | Carissa Tinoco MD | | | 2020 | Visit | | [address] | | | | | | [place] | | | | | | [address] | | | | | | [phone] | | | | | | | | +--------+---------+ + + + documented as of this encounter Visit Diagnoses Not on filedocumented in this encounter"
--- OUTSIDE RECORDS SUMMARY | ~2019-07-09 | XMS | Encounter Summary ---
Demographics + + + | Address | [address] | | | [place] [address] | + + + | Home Phone | | + + + | Preferred Language | Unknown | + + + | Marital Status | Single | + + + | Buddhism Affiliation | BAP | + + + | Race | White | + + + | Ethnic Group | Not or | + + + Author + + + | Author | [facility] | + + + | Organization | [facility] | + + + | [...] Team Providers + +------+ + | Care Retail Equipment Associate Name | Role | Phone | + [...] Catheterizati | Positive | Cristóbal Murrell, | Valve Technician | | | | on | cardiac | ,PhD [address] | | | | | stress test | [address] | [address] | | | | | Procedures | [address] | [address] [facility] | | | | | BACK LINE COOK | [place], [place] | Hospital | | | | | INT CORONARY | [address] | [place], [place] | | | | | ANGIOGRAM | Phone: | [address] | | | | | [place] CORONARY | [phone] | Phone: | | | | | ARTERY ANGIO | Fax: | [phone] | | | | | S&I | [phone] | Fax: | | | | | | | [phone] | +--------+--------+ + + + + Reason [...] + + | 07/21/ | Hospital | [address] | [place], | | | 2018 | Encounter | [address] | [place] [address] | | | | | [address] [place] [address] | [address] | | | | | [place], [place] | [place], [place] | | | | | [address] | [address] | | | | | [phone] | [phone] | | | | | | | [...] immediately. Do not drive yourself to the [facility]. Diet ? Resume your regular diet. [...] weekends, and holidays, call [facility] and ask to have the Dressing Room Attendant on-call candace weathers documented in this encounter [...] procedure. Continue current post-cath olena Garzon MD [facility] [address] [facility] [address] [place] [address] documented in this enc ounter Plan of Treatment +--------+---------+ + + + | Date | Type | Specialty | Care Team | Description | +--------+---------+ + + + | 01/07/ | Office | Cardiology | Cristóbal Mccullough, | | | 2019 | Visit | | ,PhD [address] | | | | | [address] | | | | | | [place], [place] | | | | | | [address] | | | | | | [phone] | | | | | | | | +--------+---------+ + + + | 06/02/ | Office | Ophthalmology | Carissa Tinoco MD | | | 2019 | Visit | | [address] | | | | | | [place], [place] | | | | | | [address] | | | | | | [phone] | | | | | | | [...] | + +--------+ + + + | BACK LINE COOK INT | Routin | 07/21/2018 | Positive [...] | | | PHYSICIAN: Fco Mascorro M.D. Administrative Support Assistant, Medicine | | | Department of Cardiology INTERVENTIONAL LOFT PATTERNMAKER: William | | | Shabana Lambert MD LOFT PATTERNMAKER: Fátima Campbell MD REFERRING | | | [...] | | | William Lambert MD Interventional Dressing Room Attendant Raquel | | | [facility] [place] [facility] [place] Pager | | | [phone] "A resident/fellow assisted with documenting this service. [...] MD | | | Attending Interventional/Structural Heart Webbing Inspector Raquel | | | [facility] [place] [place] | | + + + INTRAPROCEDURE IMAGING (07/21/2018 9:28 AM PDT) + + | Specimen | + + | | + + + + + | Narrative | Performed At | + + + | See admission or procedure notes for details of any intraprocedure | | | images obtained. | | + + + BACK LINE COOK INT CORONARY ANGIOGRAM (07/21/2018 9:19 AM PDT) + + | Specimen | + + | | + + + + + | Narrative | Performed At | + + + | Procedure performed in the Cardiac Valve Technician. See procedure notes | [facility] - | | for details. | DEONTE HERNANDEZ, | | | POINT OF CARE | | | TESTS | + + + + + + + + | Performing | Address | City/State/Zipcode | Phone Number | | Organization | | | | + + + + + | [facility] | [address] | [place], [place] | | | [facility] [place] [facility] | [address] | [address] | | | TESTS | | | [...]
--- OUTSIDE RECORDS SUMMARY | ~2019-07-09 | XMS | Encounter Summary ---
Demographics + + + | Address | [address] | | | [place] [address] | + + + | Home Phone [...] Author + + + | Author | [facility] | + + + | Organization | [facility] | + + + | Address | Unknown | + + + | Phone | Unavailable | + + + Support + + +---------+ + | Name | Relationship | Address | Phone | + + +---------+ + | Phi Barnes | ECON | Unknown | | + + +---------+ + | Irvin Barnes | ECON | Unknown | | + + +---------+ + Care Team Providers + +------+ + | Care Mandarin Teacher Name | Role | Phone | + [...] | | | | aortic | ,PhD [address] | | | | | | aneurysm | [address] | | | | | | without | [address] | | | | | | rupture | [place], [place] | | | | | | ([facility]) | [address] | | | | | | Procedures | Phone: | | | | | | TRANSTHORACI | [phone] | | | | | | C | Fax: | | | | | | ECHOCARDIOGR | [phone] | | | | | | AM, ADULT | | | + +--------+ + + + + Encounter Details +--------+ + + + + | Date | Type | Department | Care Team | Description | +--------+ + + + + | 01/02/ | Hospital | Cardiac | | | | 2019 | Encounter | Non-Invasive Testing | | | | | | at [facility] [address] | | | | | | [address] Mailcode: | | | | | | [facility] | | | | | | [facility], | | | | | | [address] | | | | | | [facility] [place] | | | | | | [address] | | | | | | [phone] | | | +--------+ + + + [...] | + + + +---------+--------+ + | potassium | Take by mouth [...] | + + + +---------+--------+ + | Zinc 50 mg oral | Take by mouth. | | 0 | | | | tablet | | | | | | + + + +---------+--------+ + documented as of this encounter Progress Aiyana Woodall - 01/02/2019 1:37 PM PDTTransthoracic echocardiogram completed. Final repo rt to follow. documented in this encount er Plan of Treatment +--------+---------+ + + + | Date | Type | Specialty | Care Team | Description | +--------+---------+ + + + | 01/07/ | Office | Cardiology | Cristóbal Mccullough, | | | 2019 | Visit | | PhD REZA [address] | | | | | | [address] | | | | | | [place], [place] | | | | | | [address] | | | | | | [phone] | | | | | | | | +--------+---------+ + + + | 06/02/ | Office | Ophthalmology | Carissa Tinoco MD | | | 2019 | Visit | | [address] | | | | | | [place], [place] | | | | | | [address] | | | | | | [phone] | | | | | | | | +--------+---------+ + + + documented as of this encounter Procedures + +--------+ + + + | Procedure Name | Priori | Date/Time | Associated Diagnosis | Comments | | | ty | | | | + +--------+ + + + | TRANSTHORACIC | Routin | 01/02/2019 | Thoracic aortic | Results for this | | ECHOCARDIOGRAM, | e | 12:55 PM | aneurysm without | procedure are in the | | ADULT | | PDT | rupture (HCC) | results section. | + +--------+ + + + documented in this encounter Results TRANSTHORACIC ECHOCARDIOGRAM, ADULT (01/02/2019 12:55 PM PDT) + + + + + + | Component | Value | Ref Range | Performed | Pathologist | | | | | At | Signature | + + + + + + | AOV VMN | 2.0 | | [facility] | | | (AORTIC | | | OF | | | VALVE) | | | CARDIOLOGY | | + + + + + + | BIPLANE, EF | 73 | | [facility] | | | | | | OF | | | | | | CARDIOLOGY | | + + + + + + | EJECTION | 60 to 65 | | [facility] | | | FRACTION | | | OF | | | | | | CARDIOLOGY | | + + + + + + | LA | 3.9 | | [facility] | | | DIMENSION | | | OF | | | | | | CARDIOLOGY | | + + + + + + | LVIDD | 4.9 | | [facility] | | | | | | OF | | | | | | CARDIOLOGY | | + + + + + + | MV A VMAX | 0.7 | | [facility] | | | | | | OF | | | | | | CARDIOLOGY | | + + + + + + | MV E? | 0.1 | | [facility] | | | | | | OF | | | | | | CARDIOLOGY | | + + + + + + | MV E VMAX | 0.6 | | [facility] | | | | | | OF | | | | | | CARDIOLOGY | | + + + + + + | MV E/E' | 10.8 | | [facility] | | | (MITRAL | | | OF | | | VALVE) | | | CARDIOLOGY | | + + + + + + | MITRAL | 13.0 | | [facility] | | | ANNULUS | | | OF | | | MEDIAL E/E" | | | CARDIOLOGY | | | (TISSUE | | | | | | DOPPLER) | | | | | + + + + + + | RVSP | 30 | | [facility] | | | | | | OF | | | | | | CARDIOLOGY | | + + + + + + | RV TAPSE | 2.3 | | [facility] | | | | | | OF | | | | | | CARDIOLOGY | | + + + + + + | RV TDI S? | 14.0 | | [facility] | | | | | | OF | | | | | | CARDIOLOGY | | + + + + + + | TR VMAX | 2.6 | | [facility] | | | (TRICUSPID | | | OF | | | VALVE) | | | CARDIOLOGY | | + + + + + + | EJECTION | 62.5 | % | [facility] | | | FRACTION | | | OF | | | RANGE MEAN | | | CARDIOLOGY | | | VALUE | | | | | + + + + + + + + | Specimen | + + | | + + + + + | Narrative | Performed At | + + + | [facility] | [facility] | | [facility] [address] | CARDIOLOGY | | [place], [place] [address] Ph: | | | Pt Name: TIM BARNES | | | Study Date/Time 01/02/2019 / 12:55:05 PMMRN: [id number] | | | Most recent prior: 06/06/2018Acc #: [id number] | | | No. previous echos: 2DOB: 1950 68 years | | | Heart Rate: 52 bpmHeight: 68.0 in | | | Blood Pressure: 127/89 mm/HgWeight: 236.0 lb | | | Gender: MBSA: 2.19 m | | | Order ID: [id number] Study | | | Location: HSonographer: Aiyana Floyd [facility], [place], PESonographer | | | 2:Referring Provider: Cristóbal Wagner Performed: 2D, Color | | | flow, Spectral Doppler.Study Quality: Good.Imaging Limitations: There | | | is prominent lung artifact seen.Exam Indication: Aortic Aneurysm or | | | dissectionHistory: Ascending aortic aneurysm by CT Patient history has | | | been obtained from the EHR Transthoracic Echocardiographic Report | | | + | | | ---------+Final Impressions: | | | | | | | | | | | | | | | 1. There is mild concentric left ventricular hypertrophy. | | | 2. The LV function is normal. | | | 3. Right | | | ventricular size, thickness and function are normal. | | | 4. There is mild dilatation of the aortic root and ascending | | | aorta. (See comments below). | | | | | | | | | 5. There are no prior exams | | | available for comparison. | | | | | | | | | + | | | + Description of Findings: Cardiac Rhythm: | | | Bradycardia.Left Ventricle: The left ventricular size is normal. | | | Visually estimated left ventricular ejection fraction is 60 - 65%. | | | There is mild concentric left ventricular hypertrophy. The LV | | | diastolic filling pattern has impaired relaxation, but is probably | | | normal for age. The ejection fraction is 73.3 % as measured by | | | Ramirez's biplane method. The LV function is normal.Left Ventricular | | | Wall Motion: Left ventricular systolic thickening is normal in all | | | segments.Atria: Left atrial size is normal. Normal right atrium.Right | | | Ventricle: Right ventricular size, thickness and function are normal. | | | TAPSE measures 2.3cm. The RV TDI s' velocity is 14.0cm/sec.Aortic | | | Valve: The aortic valve is trileaflet and normal in structure and | | | function. Trace aortic valve regurgitation.Mitral Valve: The mitral | | | valve is structurally normal. No evidence of mitral valve | | | regurgitation.Tricuspid Valve: The tricuspid valve is structurally | | | normal. Trace tricuspid regurgitation. The tricuspid regurgitant | | | velocity is 2.58 m/s, and with an assumed right atrial pressure of 3 | | | mmHg, the estimated right ventricular systolic pressure is normal at | | | 29.6 mmHg.Pulmonic Valve: The pulmonic valve is structurally | | | normal.Aorta: Visualized portions of the ascending aorta and aortic | | | root appear normal. There is mild dilatation of the aortic root and | | | ascending aorta.Venous: Inferior vena cava is normal with normal | | | inspiratory collapse.Pericardium: No pericardial effusion is seen. | | | Additional Findings: There are no prior exams.2D Measurements | | | Doppler Measurements 2D NL Values | | | Aortic MitralLVID(d) 4.95 (3.5-5.7cm) Max Jarrell | | | 1.25 Peak E 0.65 cm | | | m/s m/sLVID(s) 3.85 | | | Mean grad 2.4 Peak A 0.72 cm | | | mmHg | | | m/sIVS(d) 1.16 (0.6-1.1cm) LVOT Jarrell 0.90 E/A Ratio | | | 0.91 cm | | | m/sLVPW(d) 1.23 (0.6-1.1cm) LVOT VTI 0.182 TDI (E/e') 10.8 | | | cm mLA A/Ps 2D | | | 3.92 (2.7-3.9cm) LVOT Diam 2.26 MV mn gd cm | | | cmLA vol A/L 35.1 (16-34) | | | LVOT SV 33.3 MR EROindex ml/m | | | indexed ml/m | | | LA vol MOD 75.0 (40-73ml) Tricuspid PulmonicBP | | | ml TR Vmax 2.58 PV VmaxLA vol MOD | | | 34.2 (16-34) m/sindex ml/m | | | RA Press 3 RVOT VTILVEDV 43.18 | | | mmHgindex ml/m | | | RVSP 30 PV mn gdBiplane EF 73.3 % | | | mmHg | | | Aorta: Index: | | | Ao Sinus 4.15 (2.1-3.5cm) | | | cm | | | Asc Ao 4.50 | | | (prox) cmEvaluation of chamber size and | | | geometry is accomplished through the incorporation of linear, | | | volumetric, and indexed values Report electronically signed by: | | | [id number] Gerber Palafox MD (01/02/2019, 2:05:47 PM) Final | | |LA vol MOD 34.2 (16-34) m/s | | |index ml/m RA Press 3 RVOT VTI | | |LVEDV 43.18 mmHg | | |index ml/m RVSP 30 PV mn gd | | |Biplane EF 73.3 % mmHg | | | | | | Aorta: Index: | | | Ao Sinus 4.15 (2.1-3.5cm) | | | cm | | | Asc Ao 4.50 | | | (prox) cm | | |Evaluation of chamber size and geometry is accomplished through the incorporation of | | |linear, volumetric, and indexed values | | | | | |Report electronically signed by: [id number] Gerber Palafox MD (01/02/2019, 2:05:47 | | |PM) | | | | | | | | | | | | Final | | + + + + + | Procedure Note | + + | Interface, Cardiology Results - 01/02/2019 2:05 PM [facility] | | [facility] Echocardiography Laboratory [address] [place] [address] | | [place], [place] [address] Pt Name: TIM | | MONSTER BARNES Study Date/Time 01/02/2019 / 12:55:05 PMMRN: [id number] | | Most recent prior: 06/06/2018Acc #: [id number] No. previous echos: 2DOB: | | 1950 68 years Heart Rate: 52 bpmHeight: 68.0 in Blood | | Pressure: 127/89 mm/HgWeight: 236.0 lb Gender: MBSA: | | 2.19 m | | Order ID: [id number] [facility] | | Mariel FRIAS, AE, PESonographer 2:Referring Provider: Cristóbal Wagner | | Performed: 2D, Color flow, Spectral Doppler.Study Quality: Good.Imaging Limitations: | | There is prominent lung artifact seen.Exam Indication: Aortic Aneurysm or | | dissectionHistory: Ascending aortic aneurysm by CT Patient history has been obtained | | from the EHR Transthoracic Echocardiographic | | Report+ +Fi | | nal Impressions: | | | | 1. There is mild concentric left | | ventricular hypertrophy. 2. The LV function is normal. | | 3. Right ventricular size, thickness and function | | are normal. 4. There is mild dilatation of the aortic root and ascending | | aorta. (See comments below). | | 5. | | There are no prior exams available for comparison. | | | | + + | | Description of Findings: Cardiac Rhythm: Bradycardia.Left Ventricle: The left | | ventricular size is normal. Visually estimated left ventricular ejection fraction is 60 | | - 65%. There is mild concentric left ventricular hypertrophy. The LV diastolic filling | | pattern has impaired relaxation, but is probably normal for age. The ejection fraction | | is 73.3 % as measured by Ramirez's biplane method. The LV function is normal.Left | | Ventricular Wall Motion: Left ventricular systolic thickening is normal in all | | segments.Atria: Left atrial size is normal. Normal right atrium.Right Ventricle: Right | | ventricular size, thickness and function are normal. TAPSE measures 2.3cm. The RV TDI s' | | velocity is 14.0cm/sec.Aortic Valve: The aortic valve is trileaflet and normal in | | structure and function. Trace aortic valve regurgitation.Mitral Valve: The mitral valve | | is structurally normal. No evidence of mitral valve regurgitation.Tricuspid Valve: The | | tricuspid valve is structurally normal. Trace tricuspid regurgitation. The tricuspid | | regurgitant velocity is 2.58 m/s, and with an assumed right atrial pressure of 3 mmHg, | | the estimated right ventricular systolic pressure is normal at 29.6 mmHg.Pulmonic Valve: | | The pulmonic valve is structurally normal.Aorta: Visualized portions of the ascending | | aorta and aortic root appear normal. There is mild dilatation of the aortic root and | | ascending aorta.Venous: Inferior vena cava is normal with normal inspiratory | | collapse.Pericardium: No pericardial effusion is seen. Additional Findings: There are no | | prior exams.2D Measurements Doppler Measurements 2D NL | | Values Aortic MitralLVID(d) 4.95 (3.5-5.7cm) Max Jarrell 1.25 Peak E | | 0.65 cm m/s m/sLVID(s) 3.85 | | Mean grad 2.4 Peak A 0.72 cm mmHg | | m/sIVS(d) 1.16 (0.6-1.1cm) LVOT Jarrell 0.90 E/A Ratio 0.91 cm | | m/sLVPW(d) 1.23 (0.6-1.1cm) LVOT VTI 0.182 TDI (E/e') | | 10.8 cm mLA A/Ps 2D 3.92 (2.7-3.9cm) LVOT Diam | | 2.26 MV mn gd cm cmLA vol A/L 35.1 (16-34) | | LVOT SV 33.3 MR EROindex ml/m | | indexed ml/m | | LA vol MOD 75.0 (40-73ml) Tricuspid PulmonicBP ml TR | | Vmax 2.58 PV VmaxLA vol MOD 34.2 (16-34) m/sindex ml/m | | RA Press 3 RVOT VTILVEDV 43.18 | | mmHgindex ml/m | | RVSP 30 PV mn gdBiplane EF 73.3 % mmHg | | Aorta: Index: | | Ao Sinus 4.15 (2.1-3.5cm) cm | | Asc Ao 4.50 (prox) cmEvaluation of | | chamber size and geometry is accomplished through the incorporation of linear, | | volumetric, and indexed values Report electronically signed by: [id number] Gerber | | Javy COBB (01/02/2019, 2:05:47 PM) Final | |Pulmonic Valve: The pulmonic valve is structurally normal. | |Aorta: Visualized portions of the ascending aorta and aortic root appear normal. | |There is mild dilatation of the aortic root and ascending aorta. | |Venous: Inferior vena cava is normal with normal inspiratory collapse. | |Pericardium: No pericardial effusion is seen. | | | |Additional Findings: There are no prior exams. | |2D Measurements Doppler Measurements | | | | 2D NL Values Aortic Mitral | |LVID(d) 4.95 (3.5-5.7cm) Max Jarrell 1.25 Peak E 0.65 | | cm m/s m/s | |LVID(s) 3.85 Mean grad 2.4 Peak A 0.72 | | cm mmHg m/s | |IVS(d) 1.16 (0.6-1.1cm) LVOT Jarrell 0.90 E/A Ratio 0.91 | | cm m/s | |LVPW(d) 1.23 (0.6-1.1cm) LVOT VTI 0.182 TDI (E/e') 10.8 | | cm m | |LA A/Ps 2D 3.92 (2.7-3.9cm) LVOT Diam 2.26 MV mn gd | | cm cm | |LA vol A/L 35.1 (16-34) LVOT SV 33.3 MR ERO | |index ml/m indexed ml/m | |LA vol MOD 75.0 (40-73ml) Tricuspid Pulmonic | |BP ml TR Vmax 2.58 PV Vmax | |LA vol MOD 34.2 (16-34) m/s | |index ml/m RA Press 3 RVOT VTI | |LVEDV 43.18 mmHg | |index ml/m RVSP 30 PV mn gd | |Biplane EF 73.3 % mmHg | | | | Aorta: Index: | | Ao Sinus 4.15 (2.1-3.5cm) | | cm | | Asc Ao 4.50 | | (prox) cm | |Evaluation of chamber size and geometry is accomplished through the incorporation of | |linear, volumetric, and indexed values | | | |Report electronically signed by: [id number] Gerber Palafox MD (01/02/2019, 2:05:47 | |PM) | | | | | | | | Final | + + + + + + + | Performing | Address | City/State/Zipcode | Phone Number | | Organization | | | | + + + + + | [facility] | [address] | [place], [place] | | | CARDIOLOGY | [address] | [address] | | + + + + + documented in this encounter Visit Diagnoses + + | Diagnosis | + + | Thoracic aortic aneurysm without rupture (HCC) Thoracic aneurysm without mention of | | rupture | + + documented in this encounter
--- OUTSIDE RECORDS SUMMARY | ~2019-07-09 | XMS | Encounter Summary ---
Demographics + + + | Address | [address] | | | [place] [address] | + + + | Home Phone [...] Author + + + | Author | [facility] | + + + | Organization | [facility] | + + + | [...] Team Providers + +------+ + | Care Print Developer Automatic Name | Role | Phone | + [...] Request | | 2019 | | at [facility] [address] | ,PhD [address] | (Metoprolol | | | | [address] Mailcode: | [address] | succinate 12.5 mg | | | | [facility] | [place], [place] | daily, atorvastatin | | | | [facility], | [address] | 20 mg daily) | | | | | [phone] | | | | | [place], [place] | | | | | | [address] | | | | | | [phone] | | | +--------+--------+ + + + [...] [address] | | | | | | [place], [place] | | | | | | [address] | | | | | | [phone] | | | | | | | | +--------+---------+ + + + | 06/02/ | Office | Ophthalmology | Carissa Tinoco MD | | | 2019 | Visit | | [address] | | | | | | [place], [place] | | | | | | [address] | | | | | | [phone] | | | | | | | | +--------+---------+ + + + documented as of this encounter Visit Diagnoses Not on filedocumented in this encounter"
--- OUTSIDE RECORDS SUMMARY | ~2019-07-09 | XMS | Encounter Summary ---
Demographics + + + | Address | [address] | | | [place] [address] | + + + | Home Phone | | + + + | Preferred Language | Unknown | + + + | Marital Status | Single | + + + | Pentecostalism Affiliation | BAP | + + + | Race | White | + + + | Ethnic Group | Not or | + + + Author + + + | Author | [facility] | + + + | Organization | [facility] | + + + | Address [...] Team Providers + +------+ + | Care Bicycle Repairman Name | Role | Phone | + +------+ + | Angelica Garrison | PCP | | + +------+ + Reason for Visit +--------+ + | Reason | Comments | +--------+ + | Other | follow up care plan | +--------+ + Encounter Details +--------+ + + + + | Date | Type | Department | Care Team | Description | +--------+ + + + + | 07/22/ | Telephone | Cardiology General | Cristóbal Mccullough, | Other (follow up | | 2018 | | at [facility] [address] | ,PhD [address] | care plan ) | | | | [address] Mailcode: | [address] | | | | | [address] [facility] | [place], [place] | | | | | [facility] and Healing, | [address] | | | | | | [phone] | | | | | Floor [place], [place] | | | | | | [address] | | | | | | [phone] | | | +--------+ + + + [...] 9 | | | | | | [place], [place] | | | | | | [address] | | | | | | [phone] | | | | | | | | +--------+---------+ + + + | 06/02/ | Office | Ophthalmology | Carissa Tinoco MD | | | 2019 | Visit | | [address] | | | | | | [place], [place] | | | | | | [address] | | | | | | [phone] | | | | | | | | +--------+---------+ + + + documented as of this encounter Visit Diagnoses Not on filedocumented in this encounter"
--- OUTSIDE RECORDS SUMMARY | ~2019-07-09 | XMS | Encounter Summary ---
Demographics + + + | Address | [address] | | | [place] [address] | + + + | Home Phone | | + + + | Preferred Language | Unknown | + + + | Marital Status | Single | + + + | Shinto Affiliation | BAP | + + + | Race | White | + + + | Ethnic Group | Not or | + + + Author + + + | Author | [facility] | + + + | Organization | [facility] | + + + | Address | [...] Team Providers + +------+ + | Care Unhairer Name | Role | Phone | + +------+ + | Piter Landin MD | PCP | | + +------+ + Reason for Visit +--------+ + | Reason | Comments | +--------+ + | Other | Flu injection | +--------+ + Encounter Details +--------+ + + + + | Date | Type | Department | Care Team | Description | +--------+ + + + + | 10/18/ | MyChart | Cardiology General | Mike Marcus MD | RE: Flu Shot | | 2014 | Encounter | at [facility] [address] | [address] | | | | | [address] Mailcode: | [address] | | | | | [facility] | [address] [place], | | | | | [facility]aling, | [place] [address] | | | | | Building | [phone] | | | | | Floor [place], [place] | | | | | | [address] | | | | | | [phone] | | | +--------+ + + + [...] | 2020 | Visit | | MDPhD [address] | | | | | | [address] | | | | | | [place], [place] | | | | | | [address] | | | | | | [phone] | | | | | | | | +--------+---------+ + + + | 06/02/ | Office | Ophthalmology | Carissa Tinoco MD | | | 2020 | Visit | | [address] | | | | | | [place], [place] | | | | | | [address] | | | | | | [phone] | | | | | | | | +--------+---------+ + + + documented as of this encounter Visit Diagnoses Not on filedocumented in this encounter"
--- OUTSIDE RECORDS SUMMARY | ~2019-07-09 | XMS | Encounter Summary ---
Demographics + + + | Address | [address] | | | [place] [address] | + + + | Home Phone | | + + + | Preferred Language | Unknown | + + + | Marital Status | Single | + + + | Congregational Affiliation | BAP | + + + | Race | White | + + + | Ethnic Group | Not or | + + + Author + + + | Author | [facility] | + + + | Organization | [facility] | + + + | Address [...] Team Providers + +------+ + | Care Central Office Frame Wirer Name | Role | Phone | + [...] | | | | unspecified | ,PhD [address] | | | | | | type | [address] | | | | | | Procedures | [address] | | | | | | STRESS | [place], [place] | | | | | | ECHOCARDIOGR | [address] | | | | | | AM, CONVERT | Phone: | | | | | | DOBUTAMINE | [phone] | | | | | | PRN | Fax: | | | | | | | [phone] | | + +--------+ + + + [...] | | | | Atherosclero | [place] [address] | ,PhD [address] | | | | | tic heart | [address] | [address] | | | | | disease of | Juan, | [address] | | | | | nez perce | [place] [address] | [facility] [place] | | | | | coronary | Phone: | [address] | | | | | artery | [phone] | Phone: | | | | | without | Fax: | [phone] | | | | | angina | [phone] | Fax: | | | | | pectoris | | [phone] | | | | | Procedures | | | | | | | CONSULT TO | | | | | | | CARDIOLOGY | | | | | | | DE NEW | | | | | | | PATIENT | | | | | | | LEVEL V DE | | | | | | | [...] | | 2017 | Visit | at [facility] [address] | ,PhD [address] | unspecified type | | | | [address] Mailcode: | [address] | (Primary Dx); | | | | [facility] for | [place], [place] | Hypertension, | | | | Health and Healing, | [address] | unspecified type | | | | | [phone] | | | | | Floor [place], [place] | | | | | | [address] | | | | | | [phone] | | | +--------+---------+ + + + [...] +FHx, HTN, and HLD. [facility] me with exertional chest "tightness" [...] but likely 1 year. -Cristóbal Mccullough MD/PhD Coil Builder [facility] Cardiovascular [place] [facility] [place] Pager [phone] documented in t his encounter Plan of Treatment +--------+---------+ + + + | Date | Type | Specialty | Care Team | Description | +--------+---------+ + + + | 01/07/ | Office | Cardiology | Cristóbal Mccullough, | | | 2019 | Visit | | ,PhD [address] | | | | | | [facility] [address] | | | | | | [place], [place] | | | | | | [address] | | | | | | [phone] | | | | | | | | +--------+---------+ + + + | 06/02/ | Office | Ophthalmology | Carissa Tinoco MD | | | 2019 | Visit | | [address] | | | | | | [place], [place] | | | | | | [address] | | | | | | [phone] | | | | | | | [...] Performed At | + +- + | [facility] | [facility] | | [facility] Adult Echocardiography Laboratory [address] | CARDIOLOGY | | [address], [place] [address] Ph: | | | Pt Name: TIM MARTINI | | | Study Date / Time 06/06/2018 / 2:27:01 PMMRN: [id number] | | | Most recent prior: 04/26/2014 #: [id number] | | | No. previous echos: 1DOB: 1950 Age: 68 | | | years Gender: MHeight: 69.0 in | | | BSA: 2.24 e1Bzoizt: 242 lb | | | Order ID: [id number] medications: | | | Aspirin, Anti-hyperlipidemic and Calcium marco antonio.Indications: Chest | | | pain Street Worker: Kindra LOYA, RDCS Referring Provider: Álvaro | [...] | minute. The peak double product was [id number] (beats/min x mm Hg). The | | [...] MD and Ramesh | | | [facility] electronically signed by: [id number] Ángela Garcia | | | (06/06/2018, 4:21:15 [...] MD | | |Report electronically signed by: [id number] Ángela Garcia MD (06/06/2018, 4:21:15 PM) | | | | | | | | | | | | | | | | | | Final | | + +- + + + | Procedure Note | + + | Interface, Cardiology Results - 06/06/2018 4:21 PM [facility] [employer] | | [facility] Echocardiography Laboratory [facility] | | [place], [place] [address] Pt Name: TIM | | MONSTER MARTINI Study Date / Time 06/06/2018 / 2:27:01 PMMRN: [id number] | | Most recent prior: 04/26/2014 #: [id number] No. previous echos: | | 1DOB: 1950 Age: 68 years Gender: MHeight: 69.0 in | | BSA: 2.24 o3Uynkkj: 242 lb Order ID: | | [id number] medications: Aspirin, Anti-hyperlipidemic and Calcium | | marco antonio.Indications: Chest pain Street Worker: Kindra LOYA, RDCS Referring Provider: | | [...] per minute. The peak double product was [id number] (beats/min x mm Hg). The test was [...] Ugo Mas | | electronically signed by: [id number] Ángela Garcia MD (06/06/2018, 4:21:15 PM) Final [...] Marii Izaguirre RN | |Supervising Physician: Romeo Peerz MD and Ramesh Wells MD | |Report electronically signed by: [id number] Ángela Garcia MD (06/06/2018, 4:21:15 PM) | | | | | | | | | | | | Final | + + + + + + + | Performing | Address | City/State/Zipcode | Phone Number | | Organization | | | | + + + + + | [facility] | [address] | [place], [place] | | | CARDIOLOGY | [address] | [address] | | + + + + + [...] | | CARDIOLOGY | [address] | [address] | | + + + + + documented in this encounter Visit Diagnoses + + | Diagnosis | + + | Chest pain, unspecified type - Primary | + + | Hypertension, unspecified type | + + documented in this encounter
--- OUTSIDE RECORDS SUMMARY | ~2019-07-09 | XMS | Encounter Summary ---
Demographics + + + | Address | [address] | | | [place] [address] | + + + | Home Phone [...] Team Providers + +------+ + | Care Rough Patcher Name | Role | Phone | + [...] 9 | | | | | | [place], [place] | | | | | | [address] | | | | | | [phone] | | | | | | | | +--------+---------+ + + + | 06/02/ | Office | Ophthalmology | Carissa Tinoco MD | | | 2019 | Visit | | [address] | | | | | | [place], [place] | | | | | | [address] | | | | | | [phone] | | | | | | | | +--------+---------+ + + + documented as of this encounter Visit Diagnoses Not on filedocumented in this encounter"
--- OUTSIDE RECORDS SUMMARY | ~2019-07-09 | XMS | Encounter Summary ---
Demographics + + + | Address | [address] | | | [place] [address] | + + + | Home Phone [...] + + + | Author | [facility] | + + + | Organization | [facility] | + + + | [...] Team Providers + +------+ + | Care Sewer Builder Name | Role | Phone | + +------+ + | Angelica Garrison | PCP | | + +------+ + Reason for Visit +---------+ + | Reason | Comments | +---------+ + | Post Op | | +---------+ + Encounter Details +--------+---------+ + + + | Date | Type | Department | Care Team | Description | +--------+---------+ + + + | 06/02/ | Office | [facility] | Carissa Tinoco MD | Bilateral | | 2019 | Visit | [place]/Ophthalmol | [address] | pseudophakia | | | | ogy at [facility] [address] | [facility] [place] | (Primary Dx) | | | | [address] Mailcode: | [address] | | | | | [facility] | [phone] | | | | | Health and Healing, | | | | | | Building | | | | | | Floor [place], [place] | | | | | | [address] | | | | | | [phone] | | | +--------+---------+ + + + [...] documented as of this encounter Progress Notes [place] Eng - 06/02/2019 10:20 AM PDT COMPREHENSIVE OPHTHALMOLOGY PROGRESS NOTE Assessment and Plan: Exam Date: 06/02/2019 Patient:Tim Martini ([id number]) Impression: 05/01/2019 Phaco IOL OD SN6AT4 14.0D axis 40 degrees tinoco 05/15/2019 Phaco IOL OS SN6AT3 13.0D 106 degrees Alejandrina Doing wel Dermatochalasis OU Myope Plan: Prednisolone OS TID for one week BID for one week then QD for one week RTC 1 yr I have reviewed and verified the above scribed note of my visit with this patient as record ed by Abby Jean I have reviewed and edited history and communication technician documentation, and performed all other el ements to above examination documentation. Carissa Tinoco MD Machine Cementer And Folder Comprehensive Ophthalmology [place] [facility] [place] [facility] [place] Physician: Carissa Tinoco MD 06/02/2019 HPI: 69 y.o. year old male from [place] : Patient presents with: Post Op Vision has been doing pretty good but feels there is some "smokiness" in left eye. Feels th at left eye is still improving slowly. Using Prednisolone OD BID. All three drops TID OS. Primary Care Provider: [place] Mi Past ocular history: 05/01/2019 Phaco IOL OD SN6AT4 14.0D axis 40 degrees tinoco 05/15/2019 Phaco IOL OS SN6AT3 13.0D 106 degrees Tinoco Allergies: is allergic to penicillins. Medications: Current Outpatient Medications (Ophthalmic Medications) Medication Sig diclofenac Use 1 drop in left eye 4 X day starting 3 days prior to surgery and continui ng until out of drops ofloxacin Use 1 drop in left eye 4 X day starting 3 days prior to surgery and for 7 day s after Indications: infection prevention prednisoLONE acetate Use 1 drop in left eye 4X day starting after surgery prednisoLONE acetate Instill 1 drop into the right eye four times daily. Starting after surgery. Continue until bottle is empty. Current Outpatient Medications (Other) Medication Sig amLODIPine Take 10 mg by mouth once daily. aspirin chewable Take 81 mg by mouth once daily. atorvastatin Take 1 tablet by mouth once daily. Indications: excessive fat in the blood buPROPion SR Take 200 mg by mouth once daily in the morning. Cholecalciferol (Vitamin D3) Take 5,000 Units by mouth once daily. DOCOSAHEXANOIC ACID/EPA (FISH OIL ORAL) Take 3,000 mg by mouth once daily. gabapentin metoprolol succinate Take 0.5 tablets by mouth once daily. Indications: chronic heart f ailure, Chronic Stable Angina Pectoris (DO NOT USE) MULTIVITAMIN ORAL Take by mouth once daily. potassium citrate-citric acid Take by mouth four times daily as needed. Administer afte r meals and at bedtime Zinc Take by mouth. 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 Reviewed systems for: fever, wt. loss, ENT, cardiovascular, pulmonary, GI, urinary, neurolo gic, endocrine, bleeding/blood disorders, AIDS/HIV, cancer/tumors, arthritis - all were nega tive except as noted above. Family ocular history/tobacco: See intake form/Epic module EXAMINATION: Base Exam Visual Acuity (Snellen - Linear) Right Left Dist sc 20/20-2 20/20 Tonometry (Applanation, 10:48 AM) Right Left Pressure 19 20 Manifest Refraction Sphere Cylinder Lily Dist VA Add Near VA Right -0.50 Sphere 20/20 +2.50 J1+ Left Pequea +0.75 135 20/20 +2.50 J1+ Dilation Left eye: 1.0% Mydriacyl, 2.5% Phenylephrine @ 10:48 AM Pupils Pupils Right PERRL Left PERRL Extraocular Movement Right Left Full, Ortho Full, Ortho Final Rx Sphere Cylinder Lily Dist VA Add Near VA Right -0.50 Sphere 20/20 +2.50 J1+ Left Pequea +0.75 135 20/20 +2.50 J1+ Neuro/Psych Oriented x3: Yes Mood/Affect: Normal Slit Lamp and Fundus Exam External Exam Right Left External Normal Normal Slit Lamp Exam Right Left Lids/Lashes Dermatochalasis Dermatochalasis Conjunctiva/Sclera White and quiet White and quiet Cornea All layers clear All layers clear Anterior Chamber Deep and quiet Deep and quiet Iris Good dilation Good dilation Lens PCIOL PCIOL- toric mayco in place Vitreous Syneresis Syneresis Fundus Exam Right Left Disc Normal sloping inf rim C/D Ratio 0.4 0.5 Macula Normal Normal Vessels Normal Normal Periphery Normal See EPIC Ophthalmology Exam Module for additional exam information Assessment and Plan is now at the top of the note. I am Abby Jean functioning as a scribe for Carissa Tinoco MD at 11:23 AM on 06/02/2019 Physician: Carissa Tinoco MD documented in this enc ounter Plan of [...] 9 | | | | | | [place], [place] | | | | | | [address] | | | | | | [phone] | | | | | | | | +--------+---------+ + + + | 06/02/ | Office | Ophthalmology | Carissa Tinoco MD | | | 2019 | Visit | | [address] | | | | | | [place], [place] | | | | | | [address] | | | | | | [phone] | | | | | | | | +--------+---------+ + + + documented as of this encounter Visit Diagnoses + + | Diagnosis | + + | Bilateral pseudophakia - Primary Lens replaced by other means | + + documented in this encounter
--- OUTSIDE RECORDS SUMMARY | ~2019-07-09 | XMS | Encounter Summary ---
Demographics + + + | Address | [address] | | | [place] [address] | + + + | Home Phone | | + + + | Preferred Language | Unknown | + + + | Marital Status | Single | + + + | Sabianist Affiliation | BAP | + + + | Race | White | + + + | Ethnic Group | Not or | + + + Author + + + | Author | [facility] | + + + | Organization | [facility] | + + + | [...] Team Providers + +------+ + | Care Cylinder Inspector And Tester Name | Role | Phone | [...] | 2013 | | [facility] | [address] | | | | | [place] at | [facility], [place] | | | | | [place] [address] [address] | [address] | | | | | [address] | [phone] | | | | | [place], [place] | | | | | | [address] | | | | | | [phone] | | | +--------+ + + + [...] | 2019 | Visit | | MDPhD [address] | | | | | | [address] | | | | | | [place], [place] | | | | | | [address] | | | | | | [phone] | | | | | | | | +--------+---------+ + + + | 06/02/ | Office | Ophthalmology | Carissa Tinoco MD | | | 2020 | Visit | | [address] | | | | | | [place], [place] | | | | | | [address] | | | | | | [phone] | | | | | | | | +--------+---------+ + + + documented as of this encounter Visit Diagnoses Not on filedocumented in this encounter"
--- OUTSIDE RECORDS SUMMARY | ~2019-07-09 | XMS | Encounter Summary ---
Demographics + + + | Address | [address] | | | [place] [address] | + + + | Home Phone | | + + + | Preferred Language | Unknown | + + + | Marital Status | Single | + + + | Orthodoxy Affiliation | BAP | + + + [...] Team Providers + +------+ + | Care Pre Owned Sales Manager Name | Role | Phone | [...] nuclear | | 2017 | Visit | [place]/Ophthalmol | [address] | sclerosis, bilateral | | | | ogy at [facility] [address] | [place], [place] | (Primary Dx) | | | | [address] Mailcode: | [address] | | | | | [address] | [phone] | | | | | Health and Healing, | | | | | | [facility] | | | | | | [place], [place] | | | | | | [address] | | | | | | [phone] | | | +--------+---------+ + + + [...] and Plan: Exam Date: 11/26/2016 Patient:Tim Martini ([id number]) Impression: Mild Cataracts OU OD>OS - not [...] I have reviewed and edited history and domestic technician documentation, and performed all other el ements to above examination documentation. Carissa Tinoco MD Balcony Worker Comprehensive Ophthalmology [facility] [place] Physician: Carissa Tinoco MD 11/26/2016 HPI: Tim Martini ([id number]), 66 y.o. year old male from [place] : Patient presen ts with: New Patient Visit Cataract Evaluation Self-referred For Second Opinion Was told by an bulb packer in [place] that he is ready for cataract surgery. [...] No FH of eye disease. Glasses since [facility]. Uses yellow lenses for night driving. [...] scanned intake form or preadmission data in [facility] for full Family ocular and medical [...] Pressure 20 16 Wearing Rx Sphere Cylinder Aurora Add Right -5.25 +1.50 035 +2.50 Left -5.75 +1.50 097 +2.50 Type: Progressive Addition lens Manifest Refraction Sphere Cylinder Aurora Dist Right -5.25 +1.50 035 20/20 Left -5.75 +1.50 097 20/20 Dilation Both eyes: 2.5% Phenylephrine, 1.0% Mydriacyl @ 10:46 AM Pupils Pupils Right PERRL Left PERRL Visual Alvarez (Counting fingers) Left Right Result Full Full Extraocular Movement Right Left Result Full Full Neuro/Psych Oriented x3: Yes Mood/Affect: Normal Additional Tests Keratometry (Automated) K1 Aurora K2 Aurora Right 43.00 139 44.50 049 Left 43.00 [...] | 2019 | Visit | | ,PhD [address] | | | | | | [facility] [facility] | | | | | | [place], [place] | | | | | | [address] | | | | | | [phone] | | | | | | | | +--------+---------+ + + + | 06/02/ | Office | Ophthalmology | Carissa Tinoco MD | | | 2019 | Visit | | [address] | | | | | | [place], [place] | | | | | | [address] | | | | | | [phone] | | | | | | | | +--------+---------+ + + + documented as of this encounter Visit Diagnoses + + | Diagnosis | + + | Senile nuclear sclerosis, bilateral - Primary | + + documented in this encounter"
--- OUTSIDE RECORDS SUMMARY | ~2019-07-09 | XMS | Encounter Summary ---
Demographics + + + | Address | [address] | | | [place] [address] | + + + | Home Phone | | + + + | Preferred Language | Unknown | + + + | Marital Status | Single | + + + | Sikh Affiliation | BAP | + + + [...] Team Providers + +------+ + | Care Hop Strainer Name | Role | Phone | + [...] 9 | | | | | | [place], [place] | | | | | | [address] | | | | | | [phone] | | | | | | | | +--------+---------+ + + + | 06/02/ | Office | Ophthalmology | Carissa Tinoco MD | | | 2019 | Visit | | [address] | | | | | | [place], [place] | | | | | | [address] | | | | | | [phone] | | | | | | | | +--------+---------+ + + + documented as of this encounter Visit Diagnoses Not on filedocumented in this encounter"
--- OUTSIDE RECORDS SUMMARY | ~2019-07-09 | XMS | Encounter Summary ---
Demographics + + + | Address | [address] | | | [place] [address] | + + + | Home Phone [...] Team Providers + +------+ + | Care Energy Trading Analyst Name | Role | Phone | + +------+ + | Angelica Garrison | PCP | | + +------+ + Reason for Visit + + + | Reason | Comments | + + + | Education procedure | Instructions for angiogram | + + + Encounter Details +--------+ + + + + | Date | Type | Department | Care Team | Description | +--------+ + + + + | 07/15/ | Telephone | Cardiac Senior Corporate Recruiter | Emerita Barr, RN | Education procedure | | 2018 | | at [facility] [address] | [address] | (Instructions for | | | | [address] | Vickie Mon [place], | angiogram) | | | | [facility] | [place] [address] | | | | | [place], [place] | | | | | | [address] | | | | | | [phone] | | | +--------+ + + + [...] | 2019 | Visit | | ,PhD [address] | | | | | | [address] | | | | | | [place], [place] | | | | | | [address] | | | | | | [phone] | | | | | | | | +--------+---------+ + + + | 06/02/ | Office | Ophthalmology | Carissa Tinoco MD | | | 2019 | Visit | | [address] | | | | | | [place], [place] | | | | | | [address] | | | | | | [phone] | | | | | | | | +--------+---------+ + + + + +------+--------+ + + | Name | Type | Priori | Associated Diagnoses | Order Schedule | | | | ty | | | + +------+--------+ + + | BASIC METABOLIC SET | Lab | Urgent | Positive cardiac | Expected: 07/17/2018 | | (NA, K, CL, TCO2, | | | stress test | (Approximate), | | BUN, CR, GLU, CA) | | | | Expires: 08/16/2019 | + +------+--------+ + + | CBC ONLY | Lab | Urgent | Positive cardiac | Expected: 07/17/2018 | | | | | stress test | (Approximate), | | | | | | Expires: 08/16/2019 | + +------+--------+ + + | INR | Lab | Urgent | Positive cardiac | Expected: 07/17/2018 | | | | | stress test Chest | (Approximate), | | | | | pain, unspecified | Expires: 08/17/2019 | | | | | type | | + +------+--------+ + + documented as of this encounter Visit Diagnoses + + | Diagnosis | + + | Positive cardiac stress test - Primary Other nonspecific abnormal cardiovascular | | system function study | + + | Chest pain, unspecified type | + + documented in this encounter"
--- OUTSIDE RECORDS SUMMARY | ~2019-07-09 | XMS | Encounter Summary ---
Demographics + + + | Address | [address] | | | [place] [address] | + + + | Home Phone | | + + + | Preferred Language | Unknown | + + + | Marital Status | Single | + + + | Synagogue Affiliation | BAP | + + + | Race | White | + + + | Ethnic Group | Not or | + + + Author + + + | Author | [facility] | + + + | Organization | [facility] | + + + | Address | [...] Team Providers + +------+ + | Care Chancellor Name | Role | Phone | + +------+ + | Piter Landin MD | PCP | | + +------+ + Encounter Details +--------+ + + + + | Date | Type | Department | Care Team | Description | +--------+ + + + + | 01/13/ | Abstract | Cardiology in | Salvador Summers, | | | 2013 | | [facility] | [address] | | | | | [place] at | [facility], [place] | | | | | [place] [address] [address] | [address] | | | | | [address] | [phone] | | | | | [place], [place] | | | | | | [address] | | | | | | [phone] | | | +--------+ + + + [...] | 2019 | Visit | | MDPhD [address] | | | | | | [address] | | | | | | [place], [place] | | | | | | [address] | | | | | | [phone] | | | | | | | | +--------+---------+ + + + | 06/02/ | Office | Ophthalmology | Carissa Tinoco MD | | | 2020 | Visit | | [address] | | | | | | [place], [place] | | | | | | [address] | | | | | | [phone] | | | | | | | | +--------+---------+ + + + documented as of this encounter Visit Diagnoses Not on filedocumented in this encounter"
--- OUTSIDE RECORDS SUMMARY | ~2019-07-09 | XMS | Encounter Summary ---
Demographics + + + | Address | [address] | | | [place] [address] | + + + | Home Phone | | + + + | Preferred Language | Unknown | + + + | Marital Status | Single | + + + | Mandaen Affiliation | BAP | + + + | Race | White | + + + | Ethnic Group | Not or | + + + Author + + + | Author | [facility] | + + + | Organization | [facility] | + + + | Address [...] Team Providers + +------+ + | Care Fuel Quality Tech Name | Role | Phone | + +------+ + | Piter Landin MD | PCP | | + +------+ + Reason for Visit + + + | Reason | Comments | + + + | Medical Eye | | | Examination | | + + + Encounter Details +--------+---------+ + + + | Date | Type | Department | Care Team | Description | +--------+---------+ + + + | 01/30/ | Office | [facility] | Carissa Tinoco MD | Combined forms of | | 2018 | Visit | [place] | [address] | age-related cataract | | | | ogy at [facility] [address] | [place], [place] | of both eyes | | | | [address] Mailcode: | [id number] | (Primary Dx) | | | | [address] | [phone] | | | | | [facility], | | | | | | | | | | | | [place], [place] | | | | | | [address] | | | | | | [phone] | | | +--------+---------+ + + + [...] documented as of this encounter Progress Notes Olga Lidia Colbert - 01/30/2018 10:10 AM PDT COMPREHENSIVE OPHTHALMOLOGY PROGRESS NOTE Assessment and Plan: Exam Date: 01/30/2018 Patient:Tim Martini ([id number]) Impression: Cataracts OU OD>OS - Glare is somewhat bothersome, but manages with yellow lenses when driving at night. - discussed symptoms of cataract Myope Syneresis Plan: RTC 1 yr, earlier prn Cont tinting of lenses if that helps with glare I have reviewed and edited history and hemodialysis lab technician documentation, and performed all other el ements to above examination documentation. Carissa Tinoco MD Gas Distribution Plant Operator Comprehensive Ophthalmology [facility] Physician: Carissa Tinoco MD 01/30/2018 HPI: Tim Martini ([id number]), 67 y.o. year old male from [place] : Patient presen ts with: Medical Eye Examination Pt here for annual exam. Pt states sometimes eyes hurt , has a pretty large monitor and it is bright and it makes ey e stings some. Has a pair of glasses that blocks blue light and they help some. Distance vision seems stable, current glasses 6-8month old. Not using any eye drop. No h/o eye problem or surgeries Tobacco use: reports that he quit smoking about 46 years ago. His smoking use included Cig [...] scanned intake form or preadmission data in [facility] for full Family ocular and medical [...] nega tive except as noted above. EXAMINATION: Base Exam Visual Acuity (Snellen - Linear) Right Left Dist cc 20/20- 20/20-2 Correction: Glasses Tonometry (Applanation, 10:48 AM) Right Left Pressure 17 15 Wearing Rx Sphere Cylinder Holden Add Right -5.75 +1.75 037 +2.50 Left -5.25 +1.25 099 +2.50 Type: Progressive addition lens (PAL ID used for add) Manifest Refraction #2 (Auto) Sphere Cylinder Holden Right -5.75 +1.25 036 Left -5.75 +1.25 101 Dilation Both eyes: 2.5% Phenylephrine, 1.0% Mydriacyl @ 10:49 AM Pupils Pupils APD Right PERRL None Left PERRL None Visual Alvarez (Counting fingers) Left Right Full Full Extraocular Movement Right Left Full Full Neuro/Psych Oriented x3: Yes Mood/Affect: Normal Slit Lamp and Fundus Exam External Exam Right Left External Normal Normal Slit Lamp Exam Right Left Lids/Lashes Dermatochalasis Dermatochalasis Conjunctiva/Sclera White and quiet White and quiet Cornea All layers clear All layers clear Anterior Chamber Deep and quiet Deep and quiet Iris Good dilation Good dilation Lens 2+ NSC 1+ central PSC 1-2+ NSC tr PSC Vitreous Syneresis Syneresis Fundus Exam Right Left Disc Normal sloping inf rim C/D Ratio 0.4 0.5 Macula Normal Normal Vessels Normal Normal Periphery Normal Normal I, Sunyoung Sayra, COT, performed, reviewed or revised the above history, medications, allerg ies, and performed elements noted in the Base Ophthalmology Exam. See EPIC ophthalmology module for exam information. Assessment and Plan is now at the top of the note. Physician: Carissa Tinoco MD documented in this [...] 9 | | | | | | [facility] [place] | | | | | | [address] | | | | | | [phone] | | | | | | | | +--------+---------+ + + + | 06/02/ | Office | Ophthalmology | Carissa Tinoco MD | | | 2019 | Visit | | [address] | | | | | | [place], [place] | | | | | | [address] | | | | | | [phone] | | | | | | | | +--------+---------+ + + + documented as of this encounter Visit Diagnoses + + | Diagnosis | + + | Combined forms of age-related cataract of both eyes - Primary Other and combined | | forms of senile cataract | + + documented in this encounter"
--- OUTSIDE RECORDS SUMMARY | ~2019-07-09 | XMS | Encounter Summary ---
Demographics + + + | Address | [address] | | | [place] [address] | + + + | Home Phone | | + + + | Preferred Language | Unknown | + + + | Marital Status | Single | + + + | Scientologist Affiliation | BAP | + + + [...] Team Providers + +------+ + | Care Castings Drafter Name | Role | Phone | + +------+ + | Angelica Garrison | PCP | | + +------+ + Reason for Referral PROC - Outpatient Surgery (Routine) + +--------+ + + + + | Status | Reason | Specialty | Diagnoses / | Referred By | Referred To | | | | | Procedures | Contact | Contact | + +--------+ + + + + | Authorized | | Ophthalmology | Diagnoses | Kristy Garrison, | | | | | Combined | Angelica Shah, | Carissa Quezada MD | | | | | forms of | [place] [address] | [address] | | | | | age-related | [address] | Ave | | | | | cataract of | [place], | [place], [place] | | | | | left eye | [place] [address] | [address] | | | | | Procedures | Phone: | Phone: | | | | | REQUEST TO | [phone] | [phone] | | | | | SURGERY | Fax: | Fax: | | | | | DEMURRAGE WORKER | [phone] | [phone] | | | | | [place] REMV | | | | | | | CATARACT | | | | | | | EXTRACAP,INS | | | | | | | ERT LENS | | | + +--------+ + + + + Reason for Visit +---------+ + | Reason | Comments | +---------+ + | Post Op | | +---------+ + Encounter Details +--------+---------+ + + + | Date | Type | Department | Care Team | Description | +--------+---------+ + + + | 05/12/ | Office | [facility] | Carissa Tinoco MD | Combined forms of | | 2019 | Visit | [place] | [address] | age-related cataract | | | | ogy at [facility] [address] | [place], [place] | of left eye | | | | [address] Mailcode: | [id number] | (Primary Dx); | | | | [address] | [phone] | Pseudophakia, right | | | | Health [facility] Healing, | | eye | | | | Building | | | | | | [place], [place] | | | | | | [address] | | | | | | [phone] | | | +--------+---------+ + + + [...] + + documented as of this encounter Patient Instructions Patient Instructions Carissa Tinoco MD - 05/12/2019 11:20 AM PDTRight eye DC Oflox and Diclofenac Taper Pred 1 drop 3 times a day X 1 week then 2 times a day X 1 week then once daily X 1 we ek then stop documented in this encounter Progress Notes Patricia Snell - 05/12/2019 11:20 AM PDTFormatting of this note might be different from karen blanca. COMPREHENSIVE OPHTHALMOLOGY PROGRESS NOTE Assessment and Plan: Exam Date: 05/12/2019 Patient:Tim Martini ([id number]) Impression: 05/01/2019 Phaco IOL OD SN6AT4 14.0D axis 40 degrees david - doing well Dermatochalasis OU Good dilation Cataracts OS- symptomatic - Discussed symptoms of cataract - Discussed lens options --Would like to do astigmatism correcting lens Myope Syneresis Plan: After discussing the indications for and elective nature of cataract surgery, PARQ was held for cataract surgery LEFT EYE. We specifically discussed the risks of infection (ie. endop hthalmitis), hemorrhage, need for more surgery, ocular or periocular damage, unintended refr active outcome, loss of vision, loss of the eye, and other associated risks of surgery. In addition, we discussed the issues of needing glasses to see clearly and the option of presby opia-assisting IOLs and astigmatism correction . We discussed other ocular issues that coul d limit the final vision. Mr. Martini was given a chance to ask questions, and he expressed un derstanding of these risks. Mr. Martini would like to proceed with cataract surgery LEFT EYE Planned IOL model: SN6AT (Austin Toric) Planned refractive goal:Distance Planned anesthesia: Topical Case complexity: Routine Additional time: None [place] issues: None Surgeon issues: None Equipment and Services needed: Second eye: Not Applicable Script for pre-op antibiotic drops Given Bios: Today Special notes: Carissa Tinoco MD Recorder Helper Seismograph Comprehensive Ophthalmology [facility] Physician: Carissa Tinoco MD 05/12/2019 HPI: Tim Martini ([id number]), 69 y.o. year old male from [place] : Patient presen ts with: Post Op Patient states vision is "bigger and prettier" but does not seem as crisp as the left eye. No pain or discomfort. PA, Ofloxacin, Diclofenac QID OD (doesn't quite do 4 times a day sometimes) Primary Care Provider: GEOR[place]IA Alba Past ocular history: 05/01/2019 Phaco IOL OD SN6AT4 14.0D axis 40 degrees david Medications: Current Outpatient Medications Medication Sig amLODIPine 10 mg oral tablet [...] 5,000 Units by mouth once bella y. diclofenac (VOLTAREN) 0.1 % ophthalmic (eye) drops Use 1 drop in left eye 4 X day start ing 3 days prior to surgery and continuing until out of drops diclofenac (VOLTAREN) 0.1 % ophthalmic (eye) drops Instill 1 drop into the right eye fo ur times daily. Starting 3 days prior to surgery. Continue until bottle is empty. DOCOSAHEXANOIC ACID/EPA (FISH OIL ORAL) Take 3,000 mg by mouth once daily. gabapentin 300 mg oral capsule metoprolol succinate 25 mg oral tablet extended release 24 hr Take 0.5 tablets by mouth once daily. Indications: chronic heart failure, Chronic Stable Angina Pectoris MULTIVITAMIN ORAL Take by mouth once daily. ofloxacin (OCUFLOX) 0.3 % ophthalmic (eye) drops Use 1 drop in left eye 4 X day startin g 3 days prior to surgery and for 7 days after Indications: infection prevention ofloxacin (OCUFLOX) 0.3 % ophthalmic (eye) drops Instill 1 drop into the right eye four times daily. Starting 3 days prior to surgery. Continue until bottle is empty Indications: infection prevention potassium citrate-citric acid 1,100-334 mg/5 mL oral solution Take by mouth four times daily as needed. Administer after meals and at bedtime prednisoLONE acetate 1 % ophthalmic (eye) drops,suspension Use 1 drop in left eye 4X da y starting after surgery prednisoLONE acetate 1 % ophthalmic (eye) drops,suspension Instill 1 drop into the righ t eye four times daily. Starting after surgery. Continue until bottle is empty. Zinc 50 mg oral tablet Take by mouth. No current facility-administered medications for this visit. 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 has a past surgical history that includes tonsillectomy and skin cancer excision. Reviewed systems for: fever, wt. loss, ENT, cardiovascular, pulmonary, GI, urinary, neurolo gic, endocrine, bleeding/blood disorders, AIDS/HIV, cancer/tumors, arthritis - all were nega tive except as noted above. Family ocular history: See scanned intake form or preadmission data in [facility] for full Family ocular and medical his tory. Tobacco use: reports that he quit smoking about 47 years ago. His smoking use included cig arettes. He has a 1.00 pack-year smoking history. His smokeless tobacco use includes chew. EXAMINATION: Base Exam Visual Acuity (Snellen - Linear) Right Left Dist sc 20/30-2+1 Dist ph sc 20/20 Tonometry (Applanation, 11:42 AM) Right Left Pressure 17 Manifest Refraction Sphere Cylinder Dist VA Right -0.50 Sphere 20/20 Left Dilation Right eye: 2.5% Phenylephrine, 1.0% Mydriacyl @ 11:42 AM Pupils Pupils Right PERRL Left PERRL Slit Lamp and Fundus Exam External Exam Right Left External Normal Normal Slit Lamp Exam Right Left Lids/Lashes Dermatochalasis Dermatochalasis Conjunctiva/Sclera White and quiet White and quiet Cornea All layers clear All layers clear Anterior Chamber Deep and quiet Deep and quiet Iris Good dilation Good dilation Lens PCIOL 2+ NSC tr PSC Vitreous Syneresis Syneresis Fundus Exam Right Left Disc Normal C/D Ratio 0.4 Macula Normal Vessels Normal Periphery Normal See [facility] ophthalmology module for exam information. Assessment and [...] [place] | | | | | | [address] | | | | | | [phone] | | | | | | | | +--------+---------+ + + + | 06/02/ | Office | Ophthalmology | Carissa Tinoco MD | | | 2019 | Visit | | [address] | | | | | | [place], [place] | | | | | | [address] | | | | | | [phone] | | | | | | | | +--------+---------+ + + + documented as of this encounter Visit Diagnoses + + | Diagnosis | + + | Combined forms of age-related cataract of left eye - Primary Other and combined forms | | of senile cataract | + + | Pseudophakia, right eye Lens replaced by other means | + + documented in this encounter
--- OUTSIDE RECORDS SUMMARY | ~2019-07-09 | XMS | Encounter Summary ---
Demographics + + + | Address | [address] | | | [place] [address] | + + + | Home Phone [...] Team Providers + +------+ + | Care Cable Tester Name | Role | Phone | [...] + + | 05/15/ | Anesthesia | [facility] LOC | Rodney Orellana MD | | | 2019 | Event | [address] | [address] | | | | | [facility] | [facility], | | | | | [facility], | [place] [address] | | | | | [place] [address] | [phone] | | | | | | | | | | | | Maria Luz Santamaria MD | | | | | | [address] | | | | | | [place], | | | | | | [place] [address] | | | | | | [phone] | | | | | | | | +--------+ + + + + Anesthesia Record + + + + + | Procedure Name | Responsible | Anesthesia Start | Anesthesia Stop Time | | | Anesthesiologist | Time | | + + + + + | PHACO W/ IOL LEFT - | Rodney Orellana MD | 05/15/19910 | 05/15/19 09 | | TORIC (TOPICAL) | | | | | (Left Eye) | | | | + + + + + +----+---+ + + | Da | T | Event | Comment | | te | i | | | | | m | | | | | e | | | +----+---+ + + | 08 | 0 | an mayco now | | | /2 | 8 | | | | 3/ | 5 | | | | 20 | 4 | | | | 19 | | | | +----+---+ + + | | 0 | Pt. Check | Prior to anesthesia start, pt. Identified, examined, chart | | | 9 | | reviewed, PARQ held, anesthetic plan made or approved by | | | 0 | | attending anesthesiologist. NPO status confirmed as appropriate | | | 5 | | for procedure Preoperative evaluation: unchanged | +----+---+ + + | | 0 | An Start | | | | 9 | | | | | 1 | | | | | 1 | | | +----+---+ + + | | 0 | Eq Check | Anesthesia machine checked Equipment verified | | | 9 | | | | | 1 | | | | | 3 | | | +----+---+ + + | | 0 | An Start | | | | 9 | Data | | | | 1 | | | | | 3 | | | +----+---+ + + | | 0 | Vitals | Monitors applied Vital signs checked Patient ready for anesthesia | | | 9 | Checked | | | | 1 | | | | | 6 | | | +----+---+ + + | | 0 | Ready | | | | 9 | | | | | 1 | | | | | 7 | | | +----+---+ + + | | 0 | Abx held | Contraindicated, or not indicated for this procedure, or already | | | 9 | Medical or | receiving antibiotics | | | 1 | Surgical | | | | 7 | Reason | | +----+---+ + + | | 0 | Incision | | | | 9 | | | | | 2 | | | | | 0 | | | +----+---+ + + | | 0 | Surgery end | | | | 9 | | | | | 3 | | | | | 8 | | | +----+---+ + + | | 0 | an stop | | | | 9 | data | | | | 4 | | | | | 0 | | | +----+---+ + + | | 0 | PACU Rpt | | | | 9 | Given | | | | 4 | | | | | 3 | | | +----+---+ + + | | 0 | Anesthesia | | | | 9 | End | | | | 4 | | | | | 4 | | | +----+---+ + + +------+ | Meds | +------+ + + + No medications | on file. | + + + + + | Name | + + | O2 Flow Rate (Total Liters) | + + + + | No blood administrations on file. | + + +--------+ + + + | Type | Details | Placement | Removal | +--------+ + + + | Incisi | 05/15/19; Left; eye; 05/15/19; | 05/15/19 0000 by | 05/15/1949 by | | on | 49 | Candida Augustin RN | Candida Augustin RN | +--------+ + + + | Periph | 05/15/19; 0831; Left; Hand; 22 g; | 05/15/19 0831 by | 05/15/1949 by | | eral | No; None; No; Positive; | Candida Augustin RN | Candida Augustin RN | | IV | 05/15/19; 0949 | | | +--------+ + + + documented in this encounter Social History + + + +--------+ + [...] 9 | | | | | | [place], [place] | | | | | | [address] | | | | | | [phone] | | | | | | | | +--------+---------+ + + + | 06/02/ | Office | Ophthalmology | Carissa Tinoco MD | | | 2019 | Visit | | [address] | | | | | | [place], [place] | | | | | | [address] | | | | | | [phone] | | | | | | | | +--------+---------+ + + + documented as of this encounter Visit Diagnoses Not on filedocumented in this encounter"
--- OUTSIDE RECORDS SUMMARY | ~2019-07-09 | XMS | Encounter Summary ---
Demographics + + + | Address | [address] | | | [place] [address] | + + + | Home Phone [...] Author + + + | Author | [facility] | + + + | Organization | [facility] | + + + | Address [...] Team Providers + +------+ + | Care Service Station Console Operator Name | Role | Phone | [...] | 2013 | | [facility] | [address] | | | | | [place] at | [facility], [place] | | | | | [place] [address] [address] | [address] | | | | [address] | [phone] | | | | | [place], [place] | | | | | | [address] | | | | | | [phone] | | | +--------+ + + + [...] | 2019 | Visit | | MDPhD [address] | | | | | | [address] | | | | | | [place], [place] | | | | | | [address] | | | | | | [phone] | | | | | | | | +--------+---------+ + + + | 06/02/ | Office | Ophthalmology | Carissa Tinoco MD | | | 2020 | Visit | | [address] | | | | | | [place], [place] | | | | | | [address] | | | | | | [phone] | | | | | | | | +--------+---------+ + + + documented as of this encounter Visit Diagnoses Not on filedocumented in this encounter"
--- OUTSIDE RECORDS SUMMARY | ~2019-07-09 | XMS | Encounter Summary ---
Demographics + + + | Address | [address] | | | [place] [address] | + + + | Home Phone [...] | Author | [facility] | + + + | Organization | [facility] | + + + | Address | [...] Team Providers + +------+ + | Care Plant Maintenance Mechanic Name | Role | Phone | + +------+ + | Angelica Garrison PA | PCP | | + +------+ + Reason for Visit + + + | Reason | Comments | + + + | Medication Question | Question about medication | + + + Encounter Details +--------+ + + + + | Date | Type | Department | Care Team | Description | +--------+ + + + + | 06/12/ | Telephone | Cardiology General | Cristóbal Mccullough, | Medication Question | | 2018 | | at [facility] [address] | ,PhD [address] | (Question about | | | | [address] Mailcode: | [address] | medication) | | | | [address] | [place], [place] | | | | | [facility]aling, | [address] | | | | | [facility] | [phone] | | | | | [place], [place] | | | | | | [address] | | | | | | [phone] | | | +--------+ + + + [...] 9 | | | | | | [place], [place] | | | | | | [address] | | | | | | [phone] | | | | | | | | +--------+---------+ + + + | 06/02/ | Office | Ophthalmology | Carissa Tinoco MD | | | 2019 | Visit | | [address] | | | | | | [place], [place] | | | | | | [address] | | | | | | [phone] | | | | | | | | +--------+---------+ + + + documented as of this encounter Visit Diagnoses Not on filedocumented in this encounter"
--- OUTSIDE RECORDS SUMMARY | ~2019-07-09 | XMS | Encounter Summary ---
Demographics + + + | Address | [address] | | | [place] [address] | + + + | Home Phone | | + + + | Preferred Language | Unknown | + + + | Marital Status | Single | + + + | Oriental Orthodox Affiliation | BAP | + + + [...] Team Providers + +------+ + | Care Ferry Terminal Supervisor Name | Role | Phone | + +------+ + | Piter Landin MD | PCP | | + +------+ + Encounter Details +--------+ + + + + | Date | Type | Department | Care Team | Description | +--------+ + + + + | 01/13/ | Abstract | Cardiology in | Salvador Summers, | | | 2013 | | [facility] | [address] | | | | | [place] at | [facility], [place] | | | | | [place] [address] | [address] | | | | | [address] | [phone] | | | | | [place], [place] | | | | | | [address] | | | | | | [phone] | | | +--------+ + + + [...] | 2019 | Visit | | MDPhD [address] | | | | | | [address] | | | | | | [place], [place] | | | | | | [address] | | | | | | [phone] | | | | | | | | +--------+---------+ + + + | 06/02/ | Office | Ophthalmology | Carissa Tinoco MD | | | 2020 | Visit | | [address] | | | | | | [place], [place] | | | | | | [address] | | | | | | [phone] | | | | | | | | +--------+---------+ + + + documented as of this encounter Visit Diagnoses Not on filedocumented in this encounter"
--- OUTSIDE RECORDS SUMMARY | ~2019-07-09 | XMS | Encounter Summary ---
Demographics + + + | Address | [address] | | | [place] [address] | + + + | Home Phone | | + + + | Preferred Language | Unknown | + + + | Marital Status | Single | + + + | Catholic Affiliation | BAP | + + + | Race | White | + + + | Ethnic Group | Not or | + + + Author + + + | Author | [facility] | + + + | Organization | [facility] | + + + | Address [...] Team Providers + +------+ + | Care Satellite Communications Operator Name | Role | Phone | [...] | 2013 | | [facility] | [address] | | | | | [place] at | [facility], [place] | | | | | [place] [address] [address] | [address] | | | | [address] | [phone] | | | | | [place], [place] | | | | | | [address] | | | | | | [phone] | | | +--------+ + + + [...] | 2019 | Visit | | MDPhD [address] | | | | | | [address] | | | | | | [place], [place] | | | | | | [address] | | | | | | [phone] | | | | | | | | +--------+---------+ + + + | 06/02/ | Office | Ophthalmology | Carissa Tinoco MD | | | 2020 | Visit | | [address] | | | | | | [place], [place] | | | | | | [address] | | | | | | [phone] | | | | | | | | +--------+---------+ + + + documented as of this encounter Visit Diagnoses Not on filedocumented in this encounter"
--- OUTSIDE RECORDS SUMMARY | ~2019-07-09 | XMS | Encounter Summary ---
Demographics + + + | Address | [address] | | | [place] [address] | + + + | Home Phone [...] Author + + + | Author | [facility] | + + + | Organization | [facility] | + + + | Address [...] Team Providers + +------+ + | Care Pellet Preparation Operator Name | Role | Phone | [...] | 2013 | | [facility] | [address] | | | | | [place] at | [facility] [place] [facility], [place] | | | | | [place] [address] [address] | [address] | | | | | [address] | [phone] | | | | | [place], [place] | | | | | | [address] | | | | | | [phone] | | | +--------+ + + + [...] | 2019 | Visit | | MDPhD [address] | | | | | | [address] | | | | | | [place], [place] | | | | | | [address] | | | | | | [phone] | | | | | | | | +--------+---------+ + + + | 06/02/ | Office | Ophthalmology | Carissa Tinoco MD | | | 2020 | Visit | | [address] | | | | | | [place], [place] | | | | | | [address] | | | | | | [phone] | | | | | | | | +--------+---------+ + + + documented as of this encounter Visit Diagnoses Not on filedocumented in this encounter"
--- OUTSIDE RECORDS SUMMARY | ~2019-07-09 | XMS | Encounter Summary ---
Demographics + + + | Address | [address] | | | [place] [address] | + + + | Home Phone [...] Author | [facility] | + + + | Organization | [facility] | + + + | Address | [...] Team Providers + +------+ + | Care Press Operator Instant Print Shop Name | Role | Phone | + +------+ + | Piter Landin MD | PCP | | + +------+ + Reason for Visit + + + | Reason | Comments | + + + | Car Gen Record | gen checklist | | Review | | + + + Encounter Details +--------+ + + + + | Date | Type | Department | Care Team | Description | +--------+ + + + + | 03/31/ | Abstract | Cardiology General | Unknown . | Car Gen Record | | 2018 | | at [facility] [address] | | Review (gen | | | | [address] Mailcode: | | checklist) | | | | [facility] | | | | | | Health and [facility], | | | | | | Building | | | | | | Floor [place], [place] | | | | | | [address] | | | | | | [phone] | | | +--------+ + + + [...] documented as of this encounter Progress Notes Senia Yuan - 03/31/2018 12:31 PM PDTFormatting of this note might be different fro m the original. General Cardiology New Patient Record Check List Procedure Where/Date Date requested Report received? Y/N, Where? Imaging received? CD/ IMPAX/Not Available Comments Referring Provider notes [facility] - referral N/A Referral Last EKG (REPORT ONLY) Note: Tracings needed if being seen for abnormal ECG - - - N/A Last Echo images and report - - - - Last Stress Test images and report 04-26-14 [facility] - epic impax Last Cardiac Catheterization images and report - - - - Last Holter or Event monitor report only - - - N/A Labs (BMP, Lipids, TSH, Hemoglobin A1C in last 6 months) 18 [facility] - referral N/A Last Device Check (schedule device check if due) - - - N/A Last Cardiac MRI report and images if available - - - - Cardiac CTA report and images if available 3-5-18 [facility] 04-24-18 via fax [phone] referral i mpax Patient Preferred Lab N/A N/A N/A Additional Comments:*if any additional tests are needed please try to coordinate* call cell if calling pt within 2 days of the appoitnemnt documented in this en counter Plan of Treatment +--------+---------+ + + + | Date | Type | Specialty | Care Team | Description | +--------+---------+ + + + | 01/07/ | Office | Cardiology | Cristóbal Mccullough, | | | 2019 | Visit | | PhD Felicia COBB | | | | | | [address] | | | | | | [place], [place] | | | | | | [address] | | | | | | [phone] | | | | | | | | +--------+---------+ + + + | 06/02/ | Office | Ophthalmology | Carissa Tinoco MD | | | 2019 | Visit | | [address] | | | | | | [facility] [place] | | | | | | [address] | | | | | | [phone] | | | | | | | | +--------+---------+ + + + documented as of this encounter Visit Diagnoses Not on filedocumented in this encounter"
--- OUTSIDE RECORDS SUMMARY | ~2019-07-09 | XMS | Encounter Summary ---
Demographics + + + | Address | [address] | | | [place] [address] | + + + | Home Phone | | + + + | Preferred Language | Unknown | + + + | Marital Status | Single | + + + | Methodist Affiliation | BAP | + + + [...] Team Providers + +------+ + | Care Bacteriologist Soil Name | Role | Phone | + [...] | | | | | Vickie Mon [facility] | Vickie [facility], | | | | | [facility], | [place] [address] | | | | | [place] [address] | [phone] | | | | | | | | | | | | Maria Luz Santamaria MD | | | | | | [address] | | | | | | Vickie Mon [place], | | | | | | [place] [address] | | | | | | [phone] | | | | | | | [...] 9 | | | | | | [place], [place] | | | | | | [address] | | | | | | [phone] | | | | | | | | +--------+---------+ + + + | 06/02/ | Office | Ophthalmology | Carissa Tinoco MD | | | 2019 | Visit | | [address] | | | | | | [place], [place] | | | | | | [address] | | | | | | [phone] | | | | | | | | +--------+---------+ + + + documented as of this encounter Visit Diagnoses Not on filedocumented in this encounter"
--- OUTSIDE RECORDS SUMMARY | ~2019-07-09 | XMS | Encounter Summary ---
Demographics + + + | Address | [address] | | | [place] [address] | + + + | Home Phone | | + + + | Preferred Language | Unknown | + + + | Marital Status | Single | + + + | Protestant Affiliation | BAP | + + + | Race | White | + + + | Ethnic Group | Not or | + + + Author + + + | Author | [facility] | + + + | Organization | [facility] | + + + | Address [...] Team Providers + +------+ + | Care Rn Medicare Name | Role | Phone | + +------+ + | Angelica Garrison | PCP | | + +------+ + Encounter Details +--------+ + + + + | Date | Type | Department | Care Team | Description | +--------+ + + + + | 04/30/ | Hospital | Diagnostic Imaging | Angelica Garrison | | | 2019 | Encounter | Services at [facility] | [place] [address] | | | | | [address] | [address] | | | | | Vickie Mon Mailcode: | [place] [address] | | | | | [address] [facility] | [phone] | | | | | [place], [place] | | | | | | [address] | | | | | | [phone] | | | +--------+ + + + [...] | 2019 | Visit | | ,PhD [address] | | | | | | [address] | | | | | | [place], [place] | | | | | | [address] | | | | | | [phone] | | | | | | | | +--------+---------+ + + + | 06/02/ | Office | Ophthalmology | Carissa Tinoco MD | | | 2019 | Visit | | [address] | | | | | | [place], [place] | | | | | | [address] | | | | | | [phone] | | | | | | | [...]
--- OUTSIDE RECORDS SUMMARY | ~2019-07-09 | XMS | Clinical Summary ---
Demographics + + + | Address | [address] | | | [place] [address] | + + + | Home Phone | | + + + | Preferred Language | Unknown | + + + | Marital Status | Single | + + + | Episcopalian Affiliation | 1009 | + + + | Race | Unknown | + + + | Ethnic Group | Unknown | + + + Author + + + | Author | [facility] | | | and Keiana | + + + | Organization | [facility] | | | and Keiana | [...] Team Providers + +------+ + | Care Deputy Sheriff Court Services Name | Role | Phone | + [...] e | + + + +---------+------+------+-------+ | [facility] | Take by mouth | | [...] +--------+ +---------+--------+ | MEDICARE | MEDICA | [id number] | 03/23/20 | [phone] | | Medica | | | RE | | 17-Pre | 5 | | re | | | PART A | | sent | | | | | | AND B | | | | | | + +--------+ +--------+ +---------+--------+ | [employer] | [facility] | [id number] | 03/23/20 | [phone] | | Indemn | | | OF | | 17-Pre | 0 | | ity | | | [employer] | | sent | | | | [...] Person | Self | [birth year] | [address] | | | al/Fam | | 1950 | [phone] | [place] [address] | | | jey | | | 7 (Home) | | + +--------+ +--------+ + + Advance Directives Patient has advance care planning documents on file. For more information, please contact:[facility] [address]"
--- OUTSIDE RECORDS SUMMARY | ~2019-07-09 | XMS | Encounter Summary ---
Demographics + + + | Address | [address] | | | [place] [address] | + + + | Home Phone | | + + + | Preferred Language | Unknown | + + + | Marital Status | Single | + + + | Restorationism Affiliation | BAP | + + + | Race | White | + + + | Ethnic Group | Not or | + + + Author + + + | Author | [facility] | + + + | Organization | [facility] | + + + | Address [...] Team Providers + +------+ + | Care Tying Machine Operator Lumber Name | Role | Phone | + [...] | | | | aortic | ,PhD [address] | | | | | | aneurysm | [address] | | | | | | without | [address] | | | | | | rupture | [place], [place] | | | | | | ([facility]) | [address] | | | | | | Procedures | Phone: | | | | | | TRANSTHORACI | [phone] | | | | | | C | Fax: | | | | | | ECHOCARDIOGR | [phone] | | | | | | AM, [...] | | | | Atherosclero | [place] [address] | ,PhD [address] | | | | | tic heart | [address] | [address] | | | | | disease of | [place], | [address] | | | | | [place] | [place] [address] | [place], [place] | | | | | coronary | Phone: | [address] | | | | | artery | [phone] | Phone: | | | | | without | Fax: | [phone] | | | | | angina | [phone] | Fax: | | | | | pectoris | | [phone] | | | | | Procedures | | | | | | | CONSULT TO | | | | | | | CARDIOLOGY | | | | | | | ME NEW | | | | | | | PATIENT | | | | | | | LEVEL V ME | | | | | | | EST PATIENT | | | | | | | LEVEL V | | | + +--------+ + + + + Encounter Details +--------+---------+ + + + | Date | Type | Department | Care Team | Description | +--------+---------+ + + + | 08/08/ | Office | Cardiology General | Cristóbal Mccullough, | Syndrome X (cardiac) | | 2017 | Visit | at [facility] [address] | ,PhD [address] | ([facility]) (Primary Dx); | | | | [address] Mailcode: | [address] | Thoracic aortic | | | | [facility] for | [place], [place] | aneurysm without | | | | Health and Healing, | [address] | rupture ([facility]); | | | | | [phone] | Hypertension, | | | | Floor [place], [place] | | unspecified type | | | | [address] | | | | | | [phone] | | | +--------+---------+ + + + [...] + + + | Blood Pressure | 119/68 | 08/08/2018 3:21 PM | | | | | PST | | + + + + + | Pulse | 51 | 08/08/2018 3:21 PM | | | | | PST | | + + + + + | Temperature | - | - | | + + + + + | Respiratory Rate | - | - | | + + + + + | Oxygen Saturation | 98% | 08/08/2018 3:21 PM | | | | | PST | | + + + + + | Inhaled Oxygen | - | - | | | Concentration | | | | + + + + + | Weight | 107 kg (236 lb) | 08/08/2018 3:21 PM | | | | | PST | | + + + + + | Height | 172.7 cm (5' 8") | 08/08/2018 3:21 PM | | | | | PST | | + + + + + | Body Mass Index | 35.88 | 08/08/2018 3:21 PM | | | | | PST | | + + + + + documented in this encounter Patient Instructions Patient Instructions Cristóbal Mccullough MD,PhD - 08/08/2018 3:20 PM PSTYou are doing well. Keep up the exercise and low NaCl diet. We will get an ultrasound to more accurately measure the same of your aorta. Follow-up in 11/2018 with an ultrasound at that time. documented in this encounter Progress Notes Cristóbal Mccullough MD,PhD - 08/08/2018 3:20 PM PSTFormatting of this note might be differe nt from the original. [facility] NOTE: ID: Tim Martini is a 68 year old male with a history of chest pain in 2014 which prompted a stress echo which was read as "low risk". He is here to establish care with Cardiology whe n he was told he has calcium in coronary arteries. Interval Events: - Patient had an intermediate risk stress echo followed by a coronary angiogram showing no obstructive CAD Subjective: Patient says he has been doing well since starting the metoprolol. He has not been getting the chest pressure/tightness at all. He has been eating better and thinks he has lost weight . He does still endorse some mild shortness of breath with exertion. No diaphoresis or nause a with exertion. No light-headedness or dizziness with exertion. He denies palpitations or s kipped beats. 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 Problem List # Chest pain # Hypertension [...] use, +FHx, HTN, and HLD and has classic angina with a positive stress echo. Ho wever, he does not have any obstructive coronary artery disease. This is very suggestive of microvascular dysfunction or cardiac syndrome X. He is currently on metoprolol and amlodipin e and not having symptoms. If he starts to develop more symptoms, can consider adding long-a cting nitrate or ranolazine. In the meantime, he should continue atorvastatin and 81 mg ASA daily. - Continue metoprolol SA 12.5 mg daily - Continue amlodipine 10 mg daily - Continue atorvastatin to 20 mg daily - Continue 81 mg ASA daily # Hypertension: Blood pressure looks really good today. He should continue metoprolol + am lodipine. Continue to watch low NaCl diet - Continue amlodipine 10 mg daily - Continue metoprolol SA 12.5 mg daily - Diet and Exercise encourage - Low NaCl diet # Mildly Dilated Aorta. From stress echo, the proximal ascending aorta is dilated at 4.2 cm . Will need to do a dedicated TTE to better evaluation aorta and aortic valve. - Dedicated TTE to get a better look at aorta # Continue exercise and diet. I would recommend increasing the frequency of exercise to 4- 5 times per week continuing with the moderate intensity and 30 minutes. Follow-up in 11/2018 with a TTE at that time. -Cristóbal Mccullough MD/PhD Ambulance Paramedic [facility] Cardiovascular [place] [facility] Pager [phone] documented in t his encounter Plan of Treatment +--------+---------+ + + + | Date | Type | Specialty | Care Team | Description | +--------+---------+ + + + | 01/07/ | Office | Cardiology | Cristóbal Mccullough, | | | 2019 | Visit | | ,PhD [address] | | | | | | [address] [facility] [address] | | | | | | [place], [place] | | | | | | [address] | | | | | | [phone] | | | | | | | | +--------+---------+ + + + | 06/02/ | Office | Ophthalmology | Carissa Tinoco MD | | | 2019 | Visit | | [address] | | | | | | [place], [place] | | | | | | [address] | | | | | | [phone] | | | | | | | [...] Performed At | + + + | [facility] | [facility] DEPT OF | | [facility] [address] | CARDIOLOGY | | [place], [place] [address] Ph: | | | Pt Name: TIM MARTINI | | | Study Date/Time 01/02/2019 / 12:55:05 PMMRN: [id number] | | | Most recent prior: 06/06/2018Acc #: [id number] | | | No. previous echos: 2DOB: 1950 68 years | | | Heart Rate: 52 bpmHeight: 68.0 in | | | Blood Pressure: 127/89 mm/HgWeight: 236.0 lb | | | Gender: MBSA: 2.19 m | | | Order ID: [id number] Study | | | Location: CHHSonographer: Aiyana Floyd [facility], [place], PESonographer | | | 2:Referring [...] Report electronically signed by: | | | [id number] Gerber Palafox MD (01/02/2019, 2:05:47 PM) Final [...] | | | |Report electronically signed by: [id number] Gerber Palafox MD (01/02/2019, 2:05:47 | | |PM) | | | | | | | | | | | | Final | | + + + + + | Procedure Note | + + | Interface, Cardiology Results - 01/02/2019 2:05 PM [facility] [employer] | | [facility] Echocardiography Laboratory [facility] | | [place], [place] [address] Pt Name: TIM | | MONSTER MARTINI Study Date/Time 01/02/2019 / 12:55:05 PMMRN: [id number] | | Most recent prior: 06/06/2018Acc #: [id number] No. previous echos: 2DOB: | | 1950 68 years Heart Rate: 52 bpmHeight: 68.0 in Blood | | Pressure: 127/89 mm/HgWeight: 236.0 lb Gender: MBSA: | | 2.19 m | | Order ID: [id number] [facility] | | Mariel FRIAS, AE, PESonographer 2:Referring [...] and indexed values Report electronically signed by: [id number] Gerber | | Javy COBB (01/02/2019, 2:05:47 [...] | | | |Report electronically signed by: [id number] Gerber Palafox MD (01/02/2019, 2:05:47 | |PM) | | | | | | | | Final | + + + + + + + | Performing | Address | City/State/Zipcode | Phone Number | | Organization | | | | + + + + + | [facility]PT [facility] | [address] | [place], [place] | | | CARDIOLOGY | [address] | [address] | | + + + + + documented in this encounter Visit Diagnoses + + | Diagnosis | + + | Syndrome X (cardiac) (HCC) - Primary | + + | Thoracic aortic aneurysm without rupture (HCC) Thoracic aneurysm without mention of | | rupture | + + | Hypertension, unspecified type | + + documented in this encounter
--- OUTSIDE RECORDS SUMMARY | ~2019-07-09 | XMS | Encounter Summary ---
Demographics + + + | Address | [address] | | | [place] [address] | + + + | Home Phone | | + + + | Preferred Language | Unknown | + + + | Marital Status | Single | + + + | Anabaptist Affiliation | BAP | + + + [...] Team Providers + +------+ + | Care Senior Physician Name | Role | Phone | + [...] | | 2014 | Encounter | at [facility] [address] | [address] | | | | | [address] Mailcode: | [address] | | | | | [facility] | [address] [place], | | | | | Health and Healing, | [place] [address] | | | | | Building | [phone] | | | | | Floor [place], [place] | | | | | | [address] | | | | | | [phone] | | | +--------+ + + + [...] | 2020 | Visit | | MDPhD [address] | | | | | | [address] | | | | | | [place], [place] | | | | | | [address] | | | | | | [phone] | | | | | | | | +--------+---------+ + + + | 06/02/ | Office | Ophthalmology | Carissa Tinoco MD | | | 2020 | Visit | | [address] | | | | | | [place], [place] | | | | | | [address] | | | | | | [phone] | | | | | | | | +--------+---------+ + + + documented as of this encounter Visit Diagnoses Not on filedocumented in this encounter"
--- OUTSIDE RECORDS SUMMARY | ~2019-07-09 | XMS | Encounter Summary ---
Demographics + + + | Address | [address] | | | [place] [address] | + + + | Home Phone [...] Author + + + | Author | [facility] | + + + | Organization | [facility] | + + + | [...] Team Providers + +------+ + | Care Failure Analysis Engineer Name | Role | Phone | [...] | | | | | Vickie Mon [facility] | Vickie [facility], | | | | | [facility], | [place] [address] | | | | | [place] [address] | [phone] | | | | | | | | | | | | Maria Luz Santamaria MD | | | | | | [address] | | | | | | Vickie Mon [place], | | | | | | [place] [address] | | | | | | [phone] | | | | | | | [...] | 01/07/ | Office | Cardiology | Crsitóbal Mccullough, | | | 2019 | Visit | | PhD Felicia COBB | | | | | | [address] | | | | | | [place], [place] | | | | | | [address] | | | | | | [phone] | | | | | | | | +--------+---------+ + + + | 06/02/ | Office | Ophthalmology | Carissa Tinoco MD | | | 2019 | Visit | | [address] | | | | | | [place], [place] | | | | | | [address] | | | | | | [phone] | | | | | | | | +--------+---------+ + + + documented as of this encounter Visit Diagnoses Not on filedocumented in this encounter"
--- OUTSIDE RECORDS SUMMARY | ~2019-07-09 | XMS | Encounter Summary ---
Demographics + + + | Address | [address] | | | [place] [address] | + + + | Home Phone | | + + + | Preferred Language | Unknown | + + + | Marital Status | Single | + + + | Cheondoism Affiliation | BAP | + + + [...] Team Providers + +------+ + | Care Bleach Boiler Puller Name | Role | Phone | + [...] Record | | 2018 | | at [facility] [address] | | Review (gen | | | | [address] Mailcode: | | checklist) | | | | [facility] | | | | | | Health and [facility], | | | | | | Building | | | | | | Floor [place], [place] | | | | | | [address] | | | | | | [phone] | | | +--------+ + + + [...] Last Stress Test images and report 04-26-14 [employer] - epic impax Last Cardiac Catheterization images [...] available 3-5-18 [facility] 04-24-18 via fax [phone] referral i mpax Patient Preferred Lab N/A [...] 9 | | | | | | [place], [place] | | | | | | [address] | | | | | | [phone] | | | | | | | | +--------+---------+ + + + | 06/02/ | Office | Ophthalmology | Carissa Tinoco MD | | | 2019 | Visit | | [address] | | | | | | [facility] [place] | | | | | | [address] | | | | | | [phone] | | | | | | | | +--------+---------+ + + + documented as of this encounter Visit Diagnoses Not on filedocumented in this encounter"
--- OUTSIDE RECORDS SUMMARY | ~2019-07-09 | XMS | Encounter Summary ---
Demographics + + + | Address | [address] | | | [place] [address] | + + + | Home Phone [...] Team Providers + +------+ + | Care Employment Legal Assistant Name | Role | Phone | + [...] | | | | | | [place], [place] | | | | | | [address] | | | | | | [phone] | | | | | | | | +--------+---------+ + + + | 06/02/ | Office | Ophthalmology | Carissa Tinoco MD | | | 2019 | Visit | | [address] | | | | | | [place], [place] | | | | | | [address] | | | | | | [phone] | | | | | | | | +--------+---------+ + + + documented as of this encounter Visit Diagnoses Not on filedocumented in this encounter"
--- OUTSIDE RECORDS SUMMARY | ~2019-07-09 | XMS | Encounter Summary ---
Demographics + + + | Address | [address] | | | [place] [address] | + + + | Home Phone | | + + + | Preferred Language | Unknown | + + + | Marital Status | Single | + + + | Alevism Affiliation | BAP | + + + [...] Team Providers + +------+ + | Care Window Shade Estimator Name | Role | Phone | + [...] of | | 2018 | Visit | [place]/Ophthalmol | [address] | age-related cataract | | | | ogy at [facility] [address] | [place], [place] | of both eyes | | | | [address] Mailcode: | [address] | (Primary Dx) | | | | [address] | [phone] | | | | | Health and Healing, | | | | | | | | | | | | [place], [place] | | | | | | [address] | | | | | | [phone] | | | +--------+---------+ + + + [...] and Plan: Exam Date: 01/30/2018 Patient:Tim Martini ([id number]) Impression: Cataracts OU OD>OS - Glare is somewhat bothersome, but manages with yellow lenses when driving at night. - discussed symptoms of cataract Myope Syneresis Plan: RTC 1 yr, earlier prn Cont tinting of lenses if that helps with glare I have reviewed and edited history and video surveillance technician documentation, and performed all other el ements to above examination documentation. Carissa Tinoco MD Pulp Press Tender Comprehensive Ophthalmology [facility] Physician: Carissa Tinoco MD 01/30/2018 HPI: Tim Martini ([id number]), 67 y.o. year old male from [place] : Patient presen ts with: Medical [facility] [...] scanned intake form or preadmission data in [facility] for full Family ocular and medical his [...] Pressure 17 15 Wearing Rx Sphere Cylinder [place] Add Right -5.75 +1.75 037 +2.50 Left -5.25 +1.25 099 +2.50 Type: Progressive addition lens (PAL ID used for add) Manifest Refraction #2 (Auto) Sphere Cylinder [place] Right -5.75 +1.25 036 Left -5.75 +1.25 [...] 9 | | | | | | [facility] [place] | | | | | | [address] | | | | | | [phone] | | | | | | | | +--------+---------+ + + + | 06/02/ | Office | Ophthalmology | Carissa Tinoco MD | | | 2019 | Visit | | [address] | | | | | | [place], [place] | | | | | | [address] | | | | | | [phone] | | | | | | | | +--------+---------+ + + + documented as of this encounter Visit Diagnoses + + | Diagnosis | + + | Combined forms of age-related cataract of both eyes - Primary Other and combined | | forms of senile cataract | + + documented in this encounter"
--- OUTSIDE RECORDS SUMMARY | ~2019-07-09 | XMS | Encounter Summary ---
Demographics + + + | Address | [address] | | | [place] [address] | + + + | Home Phone | | + + + | Preferred Language | Unknown | + + + | Marital Status | Single | + + + | Congregation Affiliation | BAP | + + + [...] Team Providers + +------+ + | Care Boilerhouse Mechanic Name | Role | Phone | + +------+ + | Angelica Garrison | PCP | | + +------+ + Encounter Details +--------+--------+ + + + | Date | Type | Department | Care Team | Description | +--------+--------+ + + + | 04/30/ | Travel [...] 9 | | | | | | [place], [place] | | | | | | [address] | | | | | | [phone] | | | | | | | | +--------+---------+ + + + | 06/02/ | Office | Ophthalmology | Carissa Tinoco MD | | | 2019 | Visit | | [address] | | | | | | [place], [place] | | | | | | [address] | | | | | | [phone] | | | | | | | | +--------+---------+ + + + documented as of this encounter Visit Diagnoses Not on filedocumented in this encounter"
--- OUTSIDE RECORDS SUMMARY | ~2019-07-09 | XMS | Encounter Summary ---
Demographics + + + | Address | [address] | | | [place] [address] | + + + | Home Phone [...] + + + | Author | [facility] | + + + | Organization | [facility] | + + + | [...] Team Providers + +------+ + | Care Industry Analyst Name | Role | Phone | [...] TORIC (TOPICAL) | | | | Vickie DHLAIWAL | [place], [place] | | | | | [facility], | [address] | | | | | [place] [address] | [phone] | | | | | | | [...] appointment Date: __05/15/19 Time: __2:50pm Location : [place] [address] Begin your eye drops after your eye [...] after surgery: ? Watering or a scratchy, tommei sensation (you may use artificial tears for [...] your usual diet and usual medications. Call [phone] during business hours (Saturday through Fridays 8:00 a.m.-5:00 p.m.); all o ther times call [phone] and ask for the Eye Doctor office assistant receptionist. Eye Drop Instructions ? Use the medication [...] 9 | | | | | | [place], [place] | | | | | | [address] | | | | | | [phone] | | | | | | | | +--------+---------+ + + + | 06/02/ | Office | Ophthalmology | Jayne Tinoco MD | | | 2019 | Visit | | [address] | | | | | | [place], [place] | | | | | | [address] | | | | | | [phone] | | | | | | | [...] SURGEON: | | | JAYNE TINOCO MD FOOD MANAGEMENT AIDE(S): None OPERATION(S) PERFORMED: | | | Phacoemulsification [...] power | | | 13.0 D, SN [id number] was then injected into the capsular bag [...]
--- OUTSIDE RECORDS SUMMARY | ~2019-07-09 | XMS | Encounter Summary ---
Demographics + + + | Address | [address] | | | [place] [address] | + + + | Home Phone [...] Team Providers + +------+ + | Care Golf Cart Maker Name | Role | Phone | [...] + + | 05/01/ | Anesthesia | [facility] INTRA OP LOC | Davi Montague, | | | 2019 | Event | [address] | DO [place] [address] | | | | | [facility] | [address] | | | | | [facility], | [place], [place] | | | | | [place] [address] | [address] | | | | | | [phone] | | | | | | | | +--------+ + + + + Anesthesia Record + + + + + | Procedure Name | Responsible | Anesthesia Start | Anesthesia Stop Time | | | Anesthesiologist | Time | | + + + + + | PHACO W/ IOL RIGHT | Davi Montague DO, | 05/01/19 0946 | 05/01/19 1024 | | (TOPICAL) (Right | MS | | | | Eye) | | | | + + + + + +----+---+ + + | Da | T | Event | Comment | | te | i | | | | | m | | | | | e | | | +----+---+ + + | 08 | 0 | Eq Check | Anesthesia machine checked Equipment verified | | /0 | 9 | | | | 9/ | 3 | | | | 20 | 3 | | | | 19 | | | | +----+---+ + + | | 0 | | | | | 9 | | | | | 4 | | | | | 6 | | | +----+---+ + + | | 0 | Pt. Check | Prior to anesthesia start, pt. Identified, examined, chart | | | 9 | | reviewed, PARQ held, anesthetic plan made or approved by | | | 4 | | attending anesthesiologist. NPO status confirmed as appropriate | | | 6 | | for procedure Preoperative evaluation: unchanged | +----+---+ + + | | 0 | An Start | | | | 9 | | | | | 4 | | | | | 6 | | | +----+---+ + + | | 0 | Preprocedur | Pt ID confirmed, informed consent obtained, insertion site | | | 9 | e Checklist | marked, equipment available | | | 4 | | | | | 6 | | | +----+---+ + + | | 0 | An Start | | | | 9 | Data | | | | 5 | | | | | 0 | | | +----+---+ + + | | 0 | Vitals | Monitors applied Vital signs checked Patient ready for anesthesia | | | 9 | Checked | | | | 5 | | | | | 3 | | | +----+---+ + + | | 0 | O2 by NC | | | | 9 | | | | | 5 | | | | | 3 | | | +----+---+ + + | | 0 | Quick CEI | a) Monitors Placed b) Arms <90 degrees c) Warm Blankets placed | | | 9 | | Upper and Lower Body d) Bed Turned 90 Degrees | | | 5 | | | | | 3 | | | +----+---+ + + | | 0 | Ready | | | | 9 | | | | | 5 | | | | | 4 | | | +----+---+ + + | | 0 | Abx held | Contraindicated, or not indicated for this procedure, or already | | | 9 | Medical or | receiving antibiotics | | | 5 | Surgical | | | | 6 | Reason | | +----+---+ + + | | 0 | Timeout | | | | 9 | | | | | 5 | | | | | 9 | | | +----+---+ + + | | 1 | Incision | | | | 0 | | | | | 0 | | | | | 0 | | | +----+---+ + + | | 1 | Surgery end | | | | 0 | | | | | 2 | | | | | 2 | | | +----+---+ + + | | 1 | an stop | | | | 0 | data | | | | 2 | | | | | 2 | | | +----+---+ + + | | 1 | PACU Rpt | | | | 0 | Given | | | | 2 | | | | | 4 | | | +----+---+ + + | | 1 | Anesthesia | | | | 0 | End | | | | 2 | | | | | 4 | | | +----+---+ + + +------+ | Meds | +------+ + +--------+ | Name | Total | + +--------+ | lactated ringers IV | 100 mL | + +--------+ + + | Name | + + | O2 Flow Rate (Total Liters) | + + + + | No blood administrations on file. | + + +--------+ + + + | Type | Details | Placement | Removal | +--------+ + + + | Periph | 05/01/19; 0911; anesthesia; | 05/01/19 0911 by | 05/01/19 1054 by | | eral | Right; Hand; 22 g; No; None; No; | Sujatha Campbell RN | Vanesa Falcon RN | | IV | Positive; 05/01/19; 1054 | | | +--------+ + + + | Incisi | 05/01/19; 1026; Right; eye; | 05/01/19 1026 by | 05/01/19 1054 by | | on | 05/01/19; 1054 | Vanesa Falcon RN | Vanesa Falcon RN | +--------+ + + + documented in [...] 9 | | | | | | [place], [place] | | | | | | [address] | | | | | | [phone] | | | | | | | | +--------+---------+ + + + | 06/02/ | Office | Ophthalmology | Carissa Tinoco MD | | | 2019 | Visit | | [address] | | | | | | [place], [place] | | | | | | [address] | | | | | | [phone] | | | | | | | | +--------+---------+ + + + documented as of this encounter Visit Diagnoses Not on filedocumented in this encounter Administered Medications + + + +------+------+------+ | Medication Order | MAR | Action | Dose | Rate | Site | | | Action | Date | | | | + + + +------+------+------+ | lactated ringers IV 10 mL/hr, | given by | 05/01/20 | | | | | intravenous, CONTINUOUS, Starting | | 19 10:17 | | | | | 05/01/19 at 0930, Until Fri | anesthes | AM PDT | | | | | 05/01/19 at 1247 | iology | | | | | + + + +------+------+------+ +---------+ + + +---+ | New Bag | 05/01/20 | 10 mL/hr | 10 mL/hr | | | | 19 9:09 | | | | | | AM PDT | | | | +---------+ + + +---+ +---+---+ | | | +---+---+ documented in this encounter"
--- OUTSIDE RECORDS SUMMARY | ~2019-07-09 | XMS | Encounter Summary ---
Demographics + + + | Address | [address] | | | [place] [address] | + + + | Home Phone | | + + + | Preferred Language | Unknown | + + + | Marital Status | Single | + + + | Gnosticism Affiliation | BAP | + + + [...] Team Providers + +------+ + | Care Power Saw Operator Name | Role | Phone | [...] | | | | aortic | ,PhD [address] | | | | | | aneurysm | [address] | | | | | | without | [address] | | | | | | rupture | [place], [place] | | | | | | ([facility]) | [address] | | | | | | Procedures | Phone: | | | | | | TRANSTHORACI | [phone] | | | | | | C | Fax: | | | | | | ECHOCARDIOGR | [phone] | | | | | | AM, [...] | | | | Atherosclero | [place] [address] | ,PhD [address] | | | | | tic heart | [address] | [address] | | | | | disease of | [place], | [address] | | | | | [place] | [place] [address] | [place], [place] | | | | | coronary | Phone: | [address] | | | | | artery | [phone] | Phone: | | | | | without | Fax: | [phone] | | | | | angina | [phone] | Fax: | | | | | pectoris | | [phone] | | | | | Procedures | | | | | | | CONSULT TO | | | | | | | CARDIOLOGY | | | | | | | AK NEW | | | | | | | PATIENT | | | | | | | LEVEL V [place] | | | | | | | [...] | | 2017 | Visit | at [facility] [address] | ,PhD [address] | ([facility]) (Primary Dx); | | | | [address] Mailcode: | [address] | 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 [facility] NOTE: ID: Tim Martini is a 68 [...] TTE at that time. -Cristóbal Mccullough MD/PhD Hvac Designer [facility] Cardiovascular [place] [facility] [place] Pager [phone] documented in t his encounter Plan of Treatment +--------+---------+ + + + | Date | Type | Specialty | Care Team | Description | +--------+---------+ + + + | 01/07/ | Office | Cardiology | Cristóbal Mccullough, | | | 2019 | Visit | | ,PhD [address] | | | | | | [facility] 9 | | | | | | [place], [place] | | | | | | [address] | | | | | | [phone] | | | | | | | | +--------+---------+ + + + | 06/02/ | Office | Ophthalmology | Carissa Tinoco MD | | | 2019 | Visit | | [address] | | | | | | [place], [place] | | | | | | [address] | | | | | | [phone] | | | | | | | [...] Performed At | + + + | [facility] | [facility] DEPT OF | | [facility] Adult Echocardiography Laboratory [address] | CARDIOLOGY | | [place], [place] [address] Ph: | | | Pt Name: TIM MARTINI | | | Study Date/Time 01/02/2019 / 12:55:05 PMMRN: [id number] | | | Most recent prior: 06/06/2018Acc #: [id number] | | | No. previous echos: 2DOB: 1950 68 years | | | Heart Rate: 52 bpmHeight: 68.0 in | | | Blood Pressure: 127/89 mm/HgWeight: 236.0 lb | | | Gender: MBSA: 2.19 m | | | Order ID: [id number] Study | | | Location: CHHSonographer: Aiyana Floyd [facility], [place], PESonographer | | | 2:Referring Provider: [...] Report electronically signed by: | | | [id number] Gerber Palafox MD (01/02/2019, 2:05:47 PM) Final [...] | | | |Report electronically signed by: [id number] Gerber Palafox MD (01/02/2019, 2:05:47 | | |PM) | | | | | | | | | | | | Final | | + + + + + | Procedure Note | + + | Interface, Cardiology Results - 01/02/2019 2:05 PM [facility] [employer] | | [facility] Echocardiography Laboratory [facility] | | [place], [place] [address] Pt Name: TIM | | MONSTER MARTINI Study Date/Time 01/02/2019 / 12:55:05 PMMRN: [id number] | | Most recent prior: 06/06/2018Acc #: [id number] No. previous echos: 2DOB: | | 1950 68 years Heart Rate: 52 bpmHeight: 68.0 in Blood | | Pressure: 127/89 mm/HgWeight: 236.0 lb Gender: MBSA: | | 2.19 m | | Order ID: [id number] [facility]onographer: [facility] | | Mariel FRIAS, [place], PESonographer 2:Referring [...] and indexed values Report electronically signed by: [id number] Gerber | | Javy COBB (01/02/2019, 2:05:47 [...] | | | |Report electronically signed by: [id number] Gerber Palafox MD (01/02/2019, 2:05:47 | |PM) | | | | | | | | Final | + + + + + + + | Performing | Address | City/State/Zipcode | Phone Number | | Organization | | | | + + + + + | [facility] | [address] | [place], [place] | | | CARDIOLOGY | [address] | [address] | | + + + + + [...]
--- OUTSIDE RECORDS SUMMARY | ~2019-07-09 | XMS | Encounter Summary ---
Demographics + + + | Address | [address] | | | [place] [address] | + + + | Home Phone [...] + + + | Author | [facility] | + + + | Organization | [facility] | + + + | Address [...] Team Providers + +------+ + | Care Agronomy Supervisor Name | Role | Phone | [...] | 2013 | | [facility] | [address] | | | | | [place] [facility] | [facility], [place] | | | | | [place] [address] [address] | [address] | | | | | [address] | [phone] | | | | | [place], [place] | | | | | | [address] | | | | | | [phone] | | | +--------+ + + + [...] | 01/07/ | Office | Cardiology | Critsóbal Mccullough, | | | 2019 | Visit | | MDPhD [address] | | | | | | [address] | | | | | | [place], [place] | | | | | | [address] | | | | | | [phone] | | | | | | | | +--------+---------+ + + + | 06/02/ | Office | Ophthalmology | Carissa Tinoco MD | | | 2020 | Visit | | [address] | | | | | | [place], [place] | | | | | | [address] | | | | | | [phone] | | | | | | | | +--------+---------+ + + + documented as of this encounter Visit Diagnoses Not on filedocumented in this encounter"
--- OUTSIDE RECORDS SUMMARY | ~2019-07-09 | XMS | Encounter Summary ---
Demographics + + + | Address | [address] | | | [place] [address] | + + + | Home Phone [...] + + + | Author | [facility] | + + + | Organization | [facility] | + + + | [...] Team Providers + +------+ + | Care Ticket Worker Name | Role | Phone | [...] | | | | unspecified | ,PhD [address] | | | | | | type | [address] | | | | | | Procedures | [address] | | | | | | STRESS | [place], [place] | | | | | | ECHOCARDIOGR | [address] | | | | | | AM, CONVERT | Phone: | | | | | | DOBUTAMINE | [phone] | | | | | | PRN | Fax: | | | | | | | [phone] | | + +--------+ + + + [...] [address] | | | | | | [facility], | | | | | | [place] [address] | | | | | | [phone] | | | +--------+ + + + [...] | 2019 | Visit | | ,PhD 2021 | | | | | | [address] [facility] [address] | | | | | | [place], [place] | | | | | | [address] | | | | | | [phone] | | | | | | | | +--------+---------+ + + + | 06/02/ | Office | Ophthalmology | Carissa Tinoco MD | | | 2019 | Visit | | [address] | | | | | | [facility] [place] | | | | | | [address] | | | | | | [phone] | | | | | | | [...]
--- OUTSIDE RECORDS SUMMARY | ~2019-07-09 | XMS | Encounter Summary ---
Demographics + + + | Address | [address] | | | [place] [address] | + + + | Home Phone | | + + + | Preferred Language | Unknown | + + + | Marital Status | Single | + + + | Anglican Affiliation | BAP | + + + | Race | White | + + + | Ethnic Group | Not or | + + + Author + + + | Author | [facility] | + + + | Organization | [facility] | + + + | [...] Team Providers + +------+ + | Care News Department Intern Name | Role | Phone | + [...] Chest pain | Salvador Jane MD | [facility] [address] | | | | | Procedures | [address] | [address] | | | | | STRESS | [address] | [address] | | | | | ECHOCARDIOGR | [place], [place] | Mailcode: | | | | | AM, CONVERT | [address] | [id number] | | | | | DOBUTAMINE | Phone: | [address] | | | | | PRN | [phone] | Building | | | | | | Fax: | [place], [place] | | | | | | [phone] | [address] | | | | | | | Phone: | | | | | | | [phone] | +--------+--------+ + + + + Reason for Visit + + + | Reason | Comments | + + + | New patient | | | consultation | | + + + Consultation (Routine) +--------+--------+ + + + + | Status | Reason | Specialty | Diagnoses / | Referred By | Referred To | | | | | Procedures | Contact | Contact | +--------+--------+ + + + + | Closed | | Cardiology | Procedures | Mushtaq | Amrit | | | | | CARLITA ACOSTA | Piter Levine MD | MD Mike | | | | | PATIENT | [place] | [address] | | | | | [address] | Med Grp | [facility] | | | | | | [address] | [address] | | | | | | Family | [address] | | | | | | Medicine | [place], | | | | | | [address] | [place] [address] | | | | | | [address] [place] | Phone: | | | | | | [place], [place] | [phone] | | | | | | [address] | Fax: | | | | | | Phone: | [phone] | | | | | | [phone] | | | | | | | Fax: | | | | | | | [phone] | | +--------+--------+ + + + + Encounter Details +--------+---------+ + + + | Date | Type | Department | Care Team | Description | +--------+---------+ + + + | 04/26/ | Office | Cardiology General | Mike Marcus MD | Chest pain (Primary | | 2013 | Visit | at [facility] [address] | [address] | Dx); HTN | | | | [address] Mailcode: | [address] | (hypertension); | | | | [facility] | [address] [place], | Dyslipidemia; | | | | Health and Healing, | [place] [address] | Somnolence, daytime; | | | | Building | [phone] | Obesity; Tobacco | | | | Floor [place], [place] | | abuse | | | | [address] | | | | | | [phone] | | | +--------+---------+ + + + [...] + + + | Blood Pressure | 112/78 | 04/26/2014 1:58 PM | | | | | PDT | | + + + + + | Pulse | 98 | 04/26/2014 1:58 PM | | | | | PDT | | + + + + + | Temperature | - | - | | + + + + + | Respiratory Rate | - | - | | + + + + + | Oxygen Saturation | 97% | 04/26/2014 1:58 PM | | | | | PDT | | + + + + + | Inhaled Oxygen | - | - | | | Concentration | | | | + + + + + | Weight | 97.1 kg (214 lb) | 04/26/2014 1:58 PM | | | | | PDT | | + + + + + | Height | 175.3 cm (5' 9") | 04/26/2014 1:58 PM | | | | | PDT | | + + + + + | Body Mass Index | 31.6 | 04/26/2014 1:58 PM | | | | | PDT | | + + + + + documented in this encounter Patient Instructions Patient Instructions Mike Marcus MD - 04/26/2014 3:56 PM PDT1) Hypertension (aka hig h blood pressure). Continue to take your amlodipine and hydrochlorothiazide. 2) Chest pain. You had a normal exercise stress echocardiogram. It is likely that your s ymptoms in September were related to the high blood pressure. 3) Daytime sleepiness. I would recommend considering a sleep study. Please discuss this with your primary care provider. If you are diagnosed with sleep apnea treatment can help i mprove your sleepiness and help to improve your high blood pressure. Additionally, treatmen t of sleep apnea can help people to lose weight. 4) Nicotine use. Please continue to wean yourself from the nicotine lozenges. This will help to improve your high blood pressure. 5) Continue to exercise and diet. I would recommend increasing the frequency of your exer cise to 4-5 times per week continuing with the moderate intensity and 30 minutes you are doi ng. It was a pleasure seeing you in clinic today. If you have any questions or concerns please feel free to contact me via Ewirelesst or call and ask to speak to Brenda Bejarano (my nurse nanny caregiver) who will get a hold of me. Sincerely, Mike Marcus MD/MP[facility] Hr Specialist documented in this encounter Progress Notes Salvador Summers MD - 04/27/2014 4:05 PM PDTCARDIOLOGY ATTENDING NOTE: Mr. Martini was seen and evaluated with Mike Marcus MD, Fellow in Cardiovascular Medicine. I performed appropriate elements of the history, physical examination and patient education. I discussed the management in detail with the fellow and agree with the findings, assessme nt and plan of care as described in the body of the report. Kiko Summers M.D. Clinical Welder Tack Division of Cardiovascular Medicine [facility] oMike haile MD - 04/26/2014 8:08 AM PDT CARDIOLOGY CONSULTATION - INITIAL Consult Question: Hypertension / Left Shoulder Pain History of Present Illness: Chart records from [facility] on 09/26/2013 reviewed. Notable for chest pain encounter with negative troponin and EKG (degraded quality) with sinus rhythm and possible LAD. Leukocyto sis at that time with left shift. He was recommended to follow-up with a local signal apprentice , however, this did not occur. He established care in the [facility] system on 01/18/2014 wit h a PCP who recommended seeing cardiology for further evaluation. At the time of his presentation in September he had severe left shoulder pain and a general c hest discomfort. The chest pain was central and he described it as dull/aching. The sympto ms started while he was drinking coffee with a friend and had a gradual onset over the cours e of several hours and lasted several hours. His blood pressure was elevated at that time 1 74/120s. He was treated with aspirin and nitroglycerin. No shoulder trauma or injury; no e xtensive lifting activity in the previous days. No diaphoresis, headache, pre-syncope/synco pe, nausea/vomiting. No radiation to the jaw. He was irritable at that time and somewhat a nxious. He has not had any subsequent episodes nor has he had any similar episodes prior to this. 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 Left forearm is painful with gripping. Injured it on the job about 1 month ago. Wrapping it helps somewhat. Overall improving. 3 days a week he walks for 30 minutes on a treadmill x 1.4 miles at 2.8 miles per hour. He reaches the "cardio" range by the end of the 30 minutes. Some days he will increase the spe ed to 3.2 mph. No difficulty with climbing 1-2 flights of stairs (though gets winded if he climbs 2 flights quickly). Has a heavy duty weedeater which is heavy; was "flattened" after 1 hour of using this. He is currently on the the Atkins diet and has lost some weight with this. Currently chewing 4 mg x 5 of the nicotine gum as an alternative to chew. He presents to clinic alone. Review of Systems No orthopnea, PND, bendopnea, or JENELLE. No hematuria, hematochezia, melena, hematemesis, hem optysis, epistaxis, or easy bruising. As mentioned in HPI except describes apneic episodes a nd snoring. Feels refreshed when he wakes up in the morning. 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 hydrochlorothiazide 25 mg oral tablet Take 12.5 mg by mouth once daily. MULTIVITAMIN ORAL Take by mouth once daily. RED YEAST RICE ORAL Take by mouth once daily. No Facility-Administered Medications for the 04/26/14 encounter (Office Visit) with Mike tesfaye MD. Allergies Allergies Allergen Reactions Penicillins Rash and Dizziness History Substance Use Topics Smoking status: Former Smoker -- 0.25 packs/day for 4 years Types: Cigarettes Quit date: 09/23/1971 Smokeless tobacco: Current User Types: Chew Comment: chew nicotine gum Alcohol Use: No Family History Problem Relation Heart Disease Brother Myocardial Infarction Heart Disease Father Myocardial Infarctions Cancer Father Non-Hodkins Lymphoma Physical Exam Ht 1.753 m (5' 9"), Wt 97.07 kg (214 lb), BP 112/78, Pulse 98, SpO2 97%, BMI 31.59 kg/(m^2) . Gen: NAD, well-appearing HEENT: eomi, anicteric, mallampati II, fair dentition Neck: supple, no lymphadenopathy, normal thyroid CV: rrr, no mrg, no carotid bruits, jvd <7 cm w/o AJR, symmetrical/palpable radial and TP p ulses Pulm: ctab, breathing comfortably Abd: soft, nt, nd, +bs, obese Extr: Wwp, no edema, no clubbing/cyanosis Skin : no petechia, fair skin, no jaundice Neuro: CN II-XII grossly intact, AAOx3 Labs Labs reviewed from September in media [...] # EKG: Sinus bradycardia @ 58 bpm. Problem List # Chest pain # Daytime Somnolence # Hypertension # Dyslipidemia # Obesity # Nicotine Dependence Assessment/Plan Tim Martini is a 64 y.o. Male with risk factors for coronary artery disease includi ng age, sex, nicotine use, +FHx, HTN, and HLD presenting with history of chest pain. 1) Hypertension. Controlled at rest, but has hypertensive response to exercise. --> Continue to take amlodipine and hydrochlorothiazide. --> Diet and Exercise encouraged 2) Chest pain. Risk factors for coronary artery disease including age, sex, nicotine use, +FHx, HTN, and HLD presenting with history of chest pain. Obtained exercise stress echocard iogram in clinic today which was negative for ischemia. His presentation in September was lik kathe related to hypertensive urgency and he had hypertensive response to exercise which reinf orces need to treat HTN and reduce any contributing co-morbidities. 3) Daytime sleepiness. I would recommend considering a sleep study & will defer to primar y care provider. If diagnosed with sleep apnea treatment can help improve sleepiness and h elp to improve high blood pressure. Additionally, treatment of sleep apnea can help people to lose weight. 4) Nicotine use. Contemplative. He is using nicotine lozenges to avoid chewing. He plan s to wean himself from 20 mg daily to lower doses of the next several weeks. If unable to d o so will discuss with PCP nicotine patches with regular chewing gum. Eliminating nicotine will also help to improve BP. 5) Continue exercise and diet. I would recommend increasing the frequency of exercise to 4-5 times per week continuing with the moderate intensity and 30 minutes. Display Progress Note in MyChart: Yes Patient was seen and evaluated by Dr. Summers who agrees with the above. Mike Marcus MD [facility] Hr Specialist Pager [phone] documented in this encounter Plan of Treatment +--------+---------+ + + + | Date | Type | Specialty | Care Team | Description | +--------+---------+ + + + | 01/07/ | Office | Cardiology | Cristóbal Mccullough, | | | 2019 | Visit | | PhD [address] | | | | | | [address] | | | | | | [place], [place] | | | | | | [address] | | | | | | [phone] | | | | | | | | +--------+---------+ + + + | 06/02/ | Office | Ophthalmology | Carissa Tinoco MD | | | 2019 | Visit | | [address] | | | | | | [place], [place] | | | | | | [address] | | | | | | [phone] | | | | | | | | +--------+---------+ + + + + +------+--------+ + + | Name | Type | Priori | Associated Diagnoses | Order Schedule | | | | ty | | | + +------+--------+ + + | 12 LEAD ECG | ECG | Routin | Chest pain | Ordered: 04/26/2014 | | | | e | | | + +------+--------+ + + documented [...] encounter Results STRESS ECHOCARDIOGRAM, CONVERT DOBUTAMINE PRN (04/26/2014 12:00 AM PDT) + + + | Narrative | Performed At | + + + | | | | | | + + + + + | Procedure Note | + + | Vanessa Latif - 04/26/2014 4:35 PM PDT | + + documented in this encounter Visit Diagnoses + + | Diagnosis | + + | Chest pain - Primary Chest pain, unspecified | + + | HTN (hypertension) Unspecified essential hypertension | + + | Dyslipidemia Other and unspecified hyperlipidemia | + + | Somnolence, daytime Hypersomnia, unspecified | + + | Obesity Obesity, unspecified | + + | Tobacco abuse Tobacco use disorder | + + documented in this encounter
--- OUTSIDE RECORDS SUMMARY | ~2019-07-09 | XMS | Encounter Summary ---
Demographics + + + | Address | [address] | | | [place] [address] | + + + | Home Phone [...] Providers + +------+ + | Care Employment Clerk Name | Role | Phone | + +------+ + | Angelica Garrison | PCP | | + +------+ + Encounter Details +--------+ + + + + | Date | Type | Department | Care Team | Description | +--------+ + + + + | 06/12/ | Abstract | Cardiology General | Cristóbal Mccullough, | | | 2018 | | at [facility] [address] | ,PhD [address] | | | | | [address] Mailcode: | [address] | | | | | [facility] | [place], [place] | | | | | Health and Healing, | [address] | | | | | [facility] | [phone] | | | | | Floor [place], [place] | | | | | | [address] | | | | | | [phone] | | | +--------+ + + + [...] | 2019 | Visit | | [address]PhD [address] | | | | | | [address] | | | | | | [place], [place] | | | | | | [address] | | | | | | [phone] | | | | | | | | +--------+---------+ + + + | 06/02/ | Office | Ophthalmology | Carissa Tinoco MD | | | 2020 | Visit | | [address] | | | | | | [place] | | | | | | [address] | | | | | | [phone] | | | | | | | | +--------+---------+ + + + documented as of this encounter Visit Diagnoses Not on filedocumented in this encounter"
--- OUTSIDE RECORDS SUMMARY | ~2019-07-09 | XMS | Encounter Summary ---
Demographics + + + | Address | [address] | | | [place] [address] | + + + | Home Phone | | + + + | Preferred Language | Unknown | + + + | Marital Status | Single | + + + | Orthodox Affiliation | BAP | + + + | Race | White | + + + | Ethnic Group | Not or | + + + Author + + + | Author | [facility] | + + + | Organization | [facility] | + + + | [...] Team Providers + +------+ + | Care Lining Brusher Name | Role | Phone | + +------+ + | Angelica Garrison | PCP | | + +------+ + Encounter Details +--------+ + + + + | Date | Type | Department | Care Team | Description | +--------+ + + + + | 06/12/ | Abstract | Cardiology General | Cristóbal Mccullough, | | | 2018 | | at [facility] [address] | ,PhD [address] | | | | | [address] Mailcode: | [address] | | | | | [facility] | [place], [place] | | | | | Health and Healing, | [address] | | | | | [facility] | [phone] | | | | | Floor [place], [place] | | | | | | [address] | | | | | | [phone] | | | +--------+ + + + [...] | 2019 | Visit | | [address]PhD [address] | | | | | | [address] | | | | | | [place], [place] | | | | | | [address] | | | | | | [phone] | | | | | | | | +--------+---------+ + + + | 06/02/ | Office | Ophthalmology | Carissa Tinoco MD | | | 2020 | Visit | | [address] | | | | | | [place] | | | | | | [address] | | | | | | [phone] | | | | | | | | +--------+---------+ + + + documented as of this encounter Visit Diagnoses Not on filedocumented in this encounter"
--- OUTSIDE RECORDS SUMMARY | ~2019-07-09 | XMS | Encounter Summary ---
Demographics + + + | Address | [address] | | | [place] [address] | + + + | Home Phone [...] + + + | Author | [facility] | + + + | Organization | [facility] | + + + | Address [...] Team Providers + +------+ + | Care Sourcing Internship Name | Role | Phone | + [...] Chest pain | Salvador Jane MD | [facility] [address] | | | | | Procedures | [address] | [address] | | | | | STRESS | [address] | [address] | | | | | [address] | [place], [place] | Mailcode: | | | | | AM, CONVERT | [address] | [id number] | | | | | [address] | Phone: | [address] | | | | | PRN | [phone] | Building | | | | | | Fax: | [place], [place] | | | | | | [phone] | [address] | | | | | | | Phone: | | | | | | | [phone] | +--------+--------+ + + + + Encounter Details +--------+ + + + + | Date | Type | Department | Care Team | Description | +--------+ + + + + | 04/26/ | Hospital | Cardiac | | | | 2013 | Encounter | Non-Invasive Testing | | | | | | at [facility] [address] | | | | | [address] Mailcode: | | | | | | [facility] | | | | | | [facility] and Healing, | | | | | | [address] | | | | | | [place], [place] | | | | | | [address] | | | | | | [phone] | | | +--------+ + + + [...] | 2019 | Visit | | ,[address] | | | | | [address] | | | | | | [place], [place] | | | | | | [address] | | | | | | [phone] | | | | | | | | +--------+---------+ + + + | 06/02/ | Office | Ophthalmology | Carissa Tinoco MD | | | 2019 | Visit | | [address] | | | | | | [place], [place] | | | | | | [address] | | | | | | [phone] | | | | | | | [...]
--- OUTSIDE RECORDS SUMMARY | ~2019-07-09 | XMS | Encounter Summary ---
Demographics + + + | Address | [address] | | | [place] [address] | + + + | Home Phone [...] Team Providers + +------+ + | Care Manager Training Name | Role | Phone | + [...] 9 | | | | | | [place], [place] | | | | | | [address] | | | | | | [phone] | | | | | | | | +--------+---------+ + + + | 06/02/ | Office | Ophthalmology | Carissa Tinoco MD | | | 2019 | Visit | | [address] | | | | | | [place], [place] | | | | | | [address] | | | | | | [phone] | | | | | | | | +--------+---------+ + + + documented as of this encounter Visit Diagnoses Not on filedocumented in this encounter"
--- OUTSIDE RECORDS SUMMARY | ~2019-07-09 | XMS | Encounter Summary ---
Demographics + + + | Address | [address] | | | [place] [address] | + + + | Home Phone [...] + + + | Author | [facility] | + + + | Organization | [facility] | + + + | [...] Team Providers + +------+ + | Care Potato Chip Processing Supervisor Name | Role | Phone | [...] + | 06/12/ | Telephone | Cardiac Disc Recordist | Roslyn Mojica, | Procedure | | 2018 | | at [address] | [address] | | | | | [address] | [address] | | | | | [facility] | [place], [place] | | | | | [place], [place] | [address] | | | | | [address] | [phone] | | | | | [phone] | | | +--------+ + + + [...] | 2019 | Visit | | [address]PhD [address] | | | | | | [address] | | | | | | [place], [place] | | | | | | [address] | | | | | | [phone] | | | | | | | | +--------+---------+ + + + | 06/02/ | Office | Ophthalmology | Carissa Tinoco MD | | | 2020 | Visit | | [address] | | | | | | [place], [place] | | | | | | [address] | | | | | | [phone] | | | | | | | | +--------+---------+ + + + documented as of this encounter Visit Diagnoses Not on filedocumented in this encounter"
--- OUTSIDE RECORDS SUMMARY | ~2019-07-09 | XMS | Encounter Summary ---
Demographics + + + | Address | [address] | | | [place] [address] | + + + | Home Phone [...] Author | [facility] | + + + | Organization | [facility] | + + + | Address | [...] Team Providers + +------+ + | Care Weaver Wire Loom Name | Role | Phone | + [...] + | 07/15/ | Telephone | Cardiac Rn Acute Dialysis | Emerita Barr, RN | Education procedure | | 2018 | | at [facility] [address] | [address] | (Instructions for | | | | [address] | [address], | angiogram) | | | | [facility] | [place] [address] | | | | | [place], [place] | | | | | | [address] | | | | | | [phone] | | | +--------+ + + + [...] 9 | | | | | | [place], [place] | | | | | | [address] | | | | | | [phone] | | | | | | | | +--------+---------+ + + + | 06/02/ | Office | Ophthalmology | Carissa Tinoco MD | | | 2019 | Visit | | [address] | | | | | | [place], [place] | | | | | | [address] | | | | | | [phone] | | | | | | | [...]
--- OUTSIDE RECORDS SUMMARY | ~2019-07-09 | XMS | Encounter Summary ---
Demographics + + + | Address | [address] | | | [place] [address] | + + + | Home Phone | | + + + | Preferred Language | Unknown | + + + | Marital Status | Single | + + + | Sikhism Affiliation | BAP | + + + [...] Team Providers + +------+ + | Care Life Enrichment Director Name | Role | Phone | + +------+ + | Angelica Garrison | PCP | | + +------+ + Encounter Details +--------+ + + + + | Date | Type | Department | Care Team | Description | +--------+ + + + + | 05/01/ | Procedure | [facility] OP LOC | | | | 2019 | Pass | [address] | | | | | | [address] | | | | | | [facility], | | | | | | [place] [address] | | | +--------+ + + + [...] [place] | | | | | | [address] | | | | | | [phone] | | | | | | | | +--------+---------+ + + + | 06/02/ | Office | Ophthalmology | Carissa Tinoco MD | | | 2019 | Visit | | [address] | | | | | | [facility] [place] | | | | | | [address] | | | | | | [phone] | | | | | | | | +--------+---------+ + + + documented as of this encounter Visit Diagnoses Not on filedocumented in this encounter"
--- OUTSIDE RECORDS SUMMARY | ~2019-07-09 | XMS | Encounter Summary ---
Demographics + + + | Address | [address] | | | [place] [address] | + + + | Home Phone | | + + + | Preferred Language | Unknown | + + + | Marital Status | Single | + + + | Spiritism Affiliation | BAP | + + + | Race | White | + + + | Ethnic Group | Not or | + + + Author + + + | Author | [facility] | + + + | Organization | [facility] | + + + | [...] Team Providers + +------+ + | Care Napkin Machine Operator Name | Role | Phone | [...] | | | | unspecified | ,PhD [address] | | | | | | type | [address] | | | | | | Procedures | [address] | | | | | | STRESS | [place], [place] | | | | | | ECHOCARDIOGR | [address] | | | | | | AM, CONVERT | Phone: | | | | | | DOBUTAMINE | [phone] | | | | | | PRN | Fax: | | | | | | | [phone] | | + +--------+ + + + [...] | | | | [employer]ros[employer]ero | [place] [address] | ,PhD [address]163 | | | | | tic heart | [address] | [address] | | | | | disease of | Juan, | [address] | | | | | burns pai[place] | [place] [address] | [facility] [place] | | | | | coronary | Phone: | [address] | | | | | artery | [phone] | Phone: | | | | | without | Fax: | [phone] | | | | | angina | [phone] | Fax: | | | | | pectoris | | [phone] | | | | | Procedures | | | | | | | CONSULT TO | | | | | | | CARDIOLOGY | | | | | | | LA NEW | | | | | | | PATIENT | | | | | | | LEVEL V LA | | | | | | | [...] | | 2017 | Visit | at [facility] [address] | ,PhD [address] | unspecified type | | | | [address] Mailcode: | [address] | (Primary Dx); | | | | [facility] for | [place], [place] | Hypertension, | | | | Health and Healing, | [address] | unspecified type | | | | | [phone] | | | | | Floor [place], [place] | | | | | | [address] | | | | | | [phone] | | | +--------+---------+ + + + [...] +FHx, HTN, and HLD. [facility] to me with exertional chest "tightness" [...] but likely 1 year. -Cristóbal Mccullough MD/PhD [employer] [facility] Cardiovascular [place] [facility] [place] Pager [phone] documented in t his encounter Plan of Treatment +--------+---------+ + + + | Date | Type | Specialty | Care Team | Description | +--------+---------+ + + + | 01/07/ | Office | Cardiology | Cristóbal Mccullough, | | | 2019 | Visit | | ,PhD [address] | | | | | | [address] [facility] [address] | | | | | | [place], [place] | | | | | | [address] | | | | | | [phone] | | | | | | | | +--------+---------+ + + + | 06/02/ | Office | Ophthalmology | Carissa Tinoco MD | | | 2019 | Visit | | [address] | | | | | | [place], [place] | | | | | | [address] | | | | | | [phone] | | | | | | | [...] Performed At | + +- + | [facility] | [facility] DEPT [facility] | | [facility] Adult Echocardiography Laboratory [address] | CARDIOLOGY | | [place], [place] [address] Ph: | | | Pt Name: TIM MARTINI | | | Study Date / Time 06/06/2018 / 2:27:01 PMMRN: [id number] | | | Most recent prior: 04/26/2014 #: [id number] | | | No. previous echos: 1DOB: 1950 Age: 68 | | | years Gender: MHeight: 69.0 in | | | BSA: 2.24 f8Sjkcas: 242 lb | | | Order ID: [id number] medications: | | | Aspirin, Anti-hyperlipidemic and Calcium marco antonio.Indications: Chest | | | pain Beet Flumer: Kindra LOYA, RDCS Referring Provider: Álvaro | [...] | minute. The peak double product was 69873 (beats/min x mm Hg). The | | [...] MD and Ramesh | | | [facility] electronically signed by: [id number] Ángela Garcia | | | (06/06/2018, 4:21:15 [...] |Supervising Physician: Romeo Perez MD and Ramesh Wlels MD | | |Report electronically signed by: [id number] Ángela Garcia MD (06/06/2018, 4:21:15 PM) | | | | | | | | | | | | | | | | | | Final | | + +- + + + | Procedure Note | + + | Interface, Cardiology Results - 06/06/2018 4:21 PM [facility] [employer] | | [facility] Echocardiography Laboratory [facility] | | [place], [place] [address] Pt Name: TIM | | MONSTER MARTINI Study Date / Time 06/06/2018 / 2:27:01 PMMRN: [id number] | | Most recent prior: 04/26/2014 #: [id number] No. previous echos: | | 1DOB: 1950 Age: 68 years Gender: MHeight: 69.0 in | | BSA: 2.24 i1Qmqgqa: 242 lb Order ID: | | [id number] medications: Aspirin, Anti-hyperlipidemic and Calcium | | marco antonio.Indications: Chest pain Beet Flumer: Kindra LOYA, RDCS Referring Provider: | | [...] per minute. The peak double product was 52161 (beats/min x mm Hg). The test was [...] Ugo Mas | | electronically signed by: [id number] Ángela Garcia MD (06/06/2018, 4:21:15 PM) Final [...] Wells MD | |Report electronically signed by: [id number] Ángela Garcia MD (06/06/2018, 4:21:15 PM) | | | | | | | | | | | | Final | + + + + + + + | Performing | Address | City/State/Zipcode | Phone Number | | Organization | | | | + + + + + | [facility] DEPT [facility] | [address] | [place], [place] | | | CARDIOLOGY | [address] | [address] | | + + + + + [...] | | CARDIOLOGY | [address] | [address] | | + + + + + documented in this encounter Visit Diagnoses + + | Diagnosis | + + | Chest pain, unspecified type - Primary | + + | Hypertension, unspecified type | + + documented in this encounter
--- OUTSIDE RECORDS SUMMARY | ~2019-07-09 | XMS | Encounter Summary ---
Demographics + + + | Address | [address] | | | [place] [address] | + + + | Home Phone [...] Team Providers + +------+ + | Care Terminal System Operator Name | Role | Phone | [...] | | | forms of | [place] [address] | [address] | | | | | age-related | [address] | Ave | | | | | cataract of | [place], | [place], [place] | | | | | left eye | [place] [address] | [address] | | | | | Procedures | Phone: | Phone: | | | | | REQUEST TO | [phone] | [phone] | | | | | SURGERY | Fax: | Fax: | | | | | CUSTOM DECORATING CONSULTANT | [phone] | [phone] | | | | | [place] REMV | | | | | | [...] of | | 2019 | Visit | [place]/Ophthalmol | [address] | age-related cataract | | | | ogy at [facility] [address] | [place], [place] | of left eye | | | | [address] Mailcode: | [id number] | (Primary Dx); | | | | [address] | [phone] | Pseudophakia, right | | | | Health and Healing, | | eye | | | | Building | | | | | | [place], [place] | | | | | | [address] | | | | | | [phone] | | | +--------+---------+ + + + [...] and Plan: Exam Date: 05/12/2019 Patient:Tim Martini ([id number]) Impression: 05/01/2019 Phaco IOL OD SN6AT4 14.0D [...] Bios: Today Special notes: Carissa Tinoco MD [place] Comprehensive Ophthal[facility] [place] Physician: Carissa Tinoco MD 05/12/2019 HPI: Tim Martini ([id number]), 69 y.o. year old male from [place] : Patient presen ts with: Post Op [...] scanned intake form or preadmission data in [facility] for full Family ocular and [...] Macula Normal Vessels Normal Periphery Normal See [facility] ophthalmology module for exam information. Assessment [...] 9 | | | | | | [place], [place] | | | | | | [address] | | | | | | [phone] | | | | | | | | +--------+---------+ + + + | 06/02/ | Office | Ophthalmology | Carissa Tinoco MD | | | 2019 | Visit | | [address] | | | | | | [place], [place] | | | | | | [address] | | | | | | [phone] | | | | | | | [...]
--- OUTSIDE RECORDS SUMMARY | ~2019-07-09 | XMS | Encounter Summary ---
Demographics + + + | Address | [address] | | | [place] [address] | + + + | Home Phone | | + + + | Preferred Language | Unknown | + + + | Marital Status | Single | + + + | Rastafarian Affiliation | BAP | + + + [...] Team Providers + +------+ + | Care Rolled Materials Worker Name | Role | Phone | [...] [place] | | | | | | [facility], | | | | | | [place] [address] | | | +--------+ + + + [...] 9 | | | | | | [place], [place] | | | | | | [address] | | | | | | [phone] | | | | | | | | +--------+---------+ + + + | 06/02/ | Office | Ophthalmology | Carissa Tinoco MD | | | 2019 | Visit | | [address] | | | | | | [facility] [place] | | | | | | [address] | | | | | | [phone] | | | | | | | | +--------+---------+ + + + documented as of this encounter Visit Diagnoses Not on filedocumented in this encounter"
--- OUTSIDE RECORDS SUMMARY | ~2019-07-09 | XMS | Encounter Summary ---
Demographics + + + | Address | [address] | | | [place] [address] | + + + | Home Phone | | + + + | Preferred Language | Unknown | + + + | Marital Status | Single | + + + | Presybeterian Affiliation | BAP | + + + [...] Team Providers + +------+ + | Care Bradder Name | Role | Phone | + [...] 9 | | | | | | [place], [place] | | | | | | [address] | | | | | | [phone] | | | | | | | | +--------+---------+ + + + | 06/02/ | Office | Ophthalmology | Carissa Tinoco MD | | | 2019 | Visit | | [address] | | | | | | [place], [place] | | | | | | [address] | | | | | | [phone] | | | | | | | | +--------+---------+ + + + documented as of this encounter Visit Diagnoses Not on filedocumented in this encounter"
--- OUTSIDE RECORDS SUMMARY | ~2019-07-09 | XMS | Encounter Summary ---
Demographics + + + | Address | [address] | | | [place] [address] | + + + | Home Phone | | + + + | Preferred Language | Unknown | + + + | Marital Status | Single | + + + | Jain Affiliation | BAP | + + + [...] Team Providers + +------+ + | Care Representative Personal Service Name | Role | Phone | + +------+ + | Angelica Garrison | PCP | | + +------+ + Reason for Visit + + + | Reason | Comments | + + + | Post Op | | + + + | Postoperative visit | | + + + Encounter Details +--------+---------+ + + + | Date | Type | Department | Care Team | Description | +--------+---------+ + + + | 05/15/ | Office | [facility] | Carissa Tinoco MD | Pseudophakia - 1 day | | 2019 | Visit | [place]/Ophthalmol | [address] | postop (Primary Dx) | | | | ogy at [facility] [address] | [place], [place] | | | | | [address] Mailcode: | [id number] | | | | | [facility] | [phone] | | | | | Health and Healing, | | | | | | [facility] | | | | | | [place], [place] | | | | | | [address] | | | | | | [phone] | | | +--------+---------+ + + + [...] | | Former User | | | 2014 | + +------+---+--------+ + + | Comments: [...] + documented as of this encounter Progress Modesto Canales - 05/15/2019 2:50 PM PDT CATARACT SURGERY POSTOP. EXAM. - 1 day s/p PHACO/IOL, LEFT EYE 05/14/2019 IMP: One day postop phaco/IOL LEFT EYE- doing well, with no immediate post-operative complicatio ns. 05/01/2019 Phaco IOL OD SN6AT4 14.0D axis 40 degrees tinoco 05/15/2019 Phaco IOL OS SN6AT3 13.0D 106 degrees Tinoco PLAN: Ofloxacin, diclofenac, prednisolone QID Reviewed eye drop regimen, shield at night for 1st week, and to contact us immediately if d ecrease in vision, new flashes or floaters, increase in pain or redness, or other problems. Return to clinic as scheduled in 2-3 wks. I have reviewed and verified the above scribed note of my visit with this patient as record ed by [place] Eng I have reviewed and edited history and wireless field technician documentation, and performed all other el ements to above examination documentation. Carissa Tinoco MD Garment Form Assembler Comprehensive Ophthalmology [facility] History: Patient presents with: Post Op Postoperative visit Feeling well. Left patch on until now. Past ocular history: 05/01/2019 Phaco IOL OD SN6AT4 14.0D axis 40 degrees tinoco 05/15/2019 Phaco IOL OS SN6AT3 13.0D 106 degrees Tinoco Allergies: is allergic to penicillins. Medications: Current Outpatient Medications Medication Sig amLODIPine [...] No current facility-administered medications for this visit. EXAMINATION: Pain score: Not recorded LEFT EYE Lids: normal Conjunctiva: clear Cornea: clear corneal wound without wound leak AC: deep, cell and flare 1+ Iris: round, mid-dilated PCIOL: central and clear Fundus: good red reflex Assessment and Plan is now at the top of the note. I, Modesto Eng, COT, am functioning as a scribe for Carissa Tinoco MD. Physician: Carissa Tinoco MD, 05/15/2019Electronically signed by Carissa Tinoco MD at 2018 3:13 PM PDTdocumented in this encounter Plan of Treatment +--------+---------+ + + + | Date | Type | Specialty | Care Team | Description | +--------+---------+ + + + | 01/07/ | Office | Cardiology | Cristóbal Mccullough, | | | 2019 | Visit | | MDPhD [address] | | | | | | [address] | | | | | | [place], [place] | | | | | | [address] | | | | | | [phone] | | | | | | | | +--------+---------+ + + + | 06/02/ | Office | Ophthalmology | Carissa Tinoco MD | | | 2019 | Visit | | [address] | | | | | | [place], [place] | | | | | | [address] | | | | | | [phone] | | | | | | | | +--------+---------+ + + + documented as of this encounter Visit Diagnoses + + | Diagnosis | + + | Pseudophakia - 1 day postop - Primary Lens replaced by other means | + + documented in this encounter"
--- OUTSIDE RECORDS SUMMARY | ~2019-07-09 | XMS | Encounter Summary ---
Demographics + + + | Address | [address] | | | [place] [address] | + + + | Home Phone [...] Team Providers + +------+ + | Care Supervisor Nuclear Medicine Name | Role | Phone | + +------+ + | Angelica Garrison | PCP | | + +------+ + Reason for Visit + + + | Reason | Comments | + + + | Postoperative visit | | + + + Encounter Details +--------+---------+ + + + | Date | Type | Department | Care Team | Description | +--------+---------+ + + + | 05/01/ | Office | [facility] | Carissa Tinoco MD | Pseudophakia - 1 day | | 2019 | Visit | [place]/Ophthalmol | [address] | postop (Primary Dx) | | | | ogy at [facility] [address] | [place], [place] | | | | | [address] Mailcode: | [id number] | | | | | [id number] | [phone] | | | | | Health and Healing, | | | | | | | | | | | | Floor [place], [place] | | | | | | [address] | | | | | | [phone] | | | +--------+---------+ + + + [...] + documented as of this encounter Progress Patricia Downey - 05/01/2019 12:50 PM PDTFormatting of this note might be different from t rené original. CATARACT SURGERY POSTOP. EXAM. - 1 day s/p PHACO/IOL, RIGHT EYE 04/30/2019 IMP: One day postop phaco/IOL RIGHT EYE- doing well, with no immediate post-operative complicati ons. 05/01/2019 Phaco IOL OD SN6AT4 14.0D axis 40 degrees tinoco PLAN: Ofloxacin, diclofenac, prednisolone QID Reviewed eye drop regimen, shield at night for 1st week, and to contact us immediately if d ecrease in vision, new flashes or floaters, increase in pain or redness, or other problems. Return to clinic as scheduled in 2-3 wks. Carissa Tinoco MD Licensed Prosthetist/Orthotist Comprehensive Ophthalmology [facility] History: Patient presents with: Postoperative visit Feeling a slight headache, itchiness, dull aching, and some light sensitivity. Started ey e drops yesterday. Past ocular history: 05/01/2019 Phaco IOL OD SN6AT4 14.0D axis 40 degrees tinoco Allergies: is allergic to penicillins. Medications: Current [...] this visit. EXAMINATION: Pain score: Not recorded RIGHT EYE Lids: normal Conjunctiva: clear Cornea: clear corneal wound without wound leak AC: deep, cell and flare 1+ Iris: round, mid-dilated PCIOL: central and clear Fundus: good red reflex Assessment and Plan is now at the top of the note. Physician: Carissa Tinoco MD, 05/01/2019Electronically signed by Carissa Tinoco MD at 019 1:44 PM PDTdocumented in this encounter Plan of [...] 9 | | | | | | [place], [place] | | | | | | [address] | | | | | | [phone] | | | | | | | | +--------+---------+ + + + | 06/02/ | Office | Ophthalmology | Carissa Tinoco MD | | | 2019 | Visit | | [address] | | | | | | [facility] [place] | | | | | | [address] | | | | | | [phone] | | | | | | | | +--------+---------+ + + + documented as of this encounter Visit Diagnoses + + | Diagnosis | + + | Pseudophakia - 1 day postop - Primary Lens replaced by other means | + + documented in this encounter"
--- OUTSIDE RECORDS SUMMARY | ~2019-07-09 | XMS | Encounter Summary ---
Demographics + + + | Address | [address] | | | [place] [address] | + + + | Home Phone [...] Team Providers + +------+ + | Care Cps Team Lead Name | Role | Phone | + [...] day | | 2019 | Visit | [place]/Ophthalmol | [address] | postop (Primary Dx) | | | | ogy at [facility] [address] | [place], [place] | | | | | [address] Mailcode: | [id number] | | | | | [facility] | [phone] | | | | | Health and Healing, | | | | | | [facility] | | | | | | [place], [place] | | | | | | [address] | | | | | | [phone] | | | +--------+---------+ + + + [...] I have reviewed and edited history and mechanical service technician documentation, and performed all other el ements to above examination documentation. Carissa Tinoco MD Special Education Paraeducator Comprehensive Ophthalmology [facility] History: Patient presents with: Post Op Postoperative [...] 9 | | | | | | [place], [place] | | | | | | [address] | | | | | | [phone] | | | | | | | | +--------+---------+ + + + | 06/02/ | Office | Ophthalmology | Carissa Tinoco MD | | | 2019 | Visit | | [address] | | | | | | [place], [place] | | | | | | [address] | | | | | | [phone] | | | | | | | | +--------+---------+ + + + documented as of this encounter Visit Diagnoses + + | Diagnosis | + + | Pseudophakia - 1 day postop - Primary Lens replaced by other means | + + documented in this encounter"
--- OUTSIDE RECORDS SUMMARY | ~2019-07-09 | XMS | Encounter Summary ---
Demographics + + + | Address | [address] | | | [place] [address] | + + + | Home Phone [...] Team Providers + +------+ + | Care Photoengraving Proofer Name | Role | Phone | + [...] + + | 05/01/ | Hospital | [facility] CE SHORT | Jayne Tinoco MD | | | 2019 | Encounter | [address] | [address] | | | | | [address] [place] | [place], [place] | | | | | [facility] | [address] | | | | | [address] | [phone] | | | | | [place] [address] | | | | | | [phone] | | | +--------+ + + + [...] + + + | Blood Pressure | 125/85 | 05/01/2019 10:41 AM | | | | | PDT | | + + + + + | Pulse | 46 | 05/01/2019 10:41 AM | | | | | PDT | | + + + + + | Temperature | 36.7 C (98.1 F) | 05/01/2019 10:41 AM | | | | | PDT | | + + + + + | Respiratory Rate | 14 | 05/01/2019 10:41 AM | | | | | PDT | | + + + + + | Oxygen Saturation | 97% | 05/01/2019 10:41 AM | | | | | PDT [...] documented in this encounter Discharge Instructions Instructions Vanesa Falcon RN - 05/01/2019INSTRUCTIONS AFTER CATARACT SURGERY (Comprehensive Ophthalmology) Follow up appointment Date: Saturday 12:50 PM Location : [place] [address] Begin your eye drops after your eye [...] your usual diet and usual medications. Call [phone] during business hours (Saturday through Fridays 8:00 a.m.-5:00 p.m.); all o ther times call [phone] and ask for the Eye Doctor union organiser. Eye Drop Instructions ? Use the medication [...] 9 | | | | | | [place], [place] | | | | | | [address] | | | | | | [phone] | | | | | | | | +--------+---------+ + + + | 06/02/ | Office | Ophthalmology | Jayne Tinoco MD | | 2019 | Visit | | [address] | | | | | | [place], [place] | | | | | | [address] | | | | | | [phone] | | | | | | | [...] documented in this encounter Results PROCEDURE NOTE (05/01/2019 11:00 AM PDT)PROCEDURE NOTE (05/01/2019 10:22 AM PDT) + + + | Narrative | Performed At | + + + | Jayne Tinoco MD 05/01/2019 10:24 AM OPERATIVE REPORT | | | PATIENT: Tim Martini DATE OF SURGERY: 05/01/19 SURGEON: | | | JAYNE TINOCO MD DRYING OVEN TENDER(S): None OPERATION(S) PERFORMED: | | | Phacoemulsification [...] power | | | 14.0 D, SN [id number] was then injected into the capsular bag [...] forms of age-related cataract of both eyes Other and combined forms of | | senile cataract | + + documented in this encounter Administered Medications + +--------+ +--------+------+------+ | Medication Order | MAR | Action | Dose | Rate | Site | | | Action | Date | | | | + +--------+ +--------+------+------+ | cyclopentolate 1%-PHENYLEPHrine | Given | 05/01/20 | 1 drop | | | | 2.5%-tropicamide 0.25% | | 19 9:09 | | | | | (SUPERDROPS) ophthalmic drops 1 | | AM PDT | | | | | drop 1 drop, Right Eye, EVERY 5 | | | | | | | MINUTES NEEDED, 2 doses, | | | | | | | Starting Sat05/01/19 at 0849, | | | | | | | Until Sat05/01/19 at 1247, | | | | | | | pre-procedure dilation | | | | | | + +--------+ +--------+------+------+ + +---+ | | | + +---+ | HYDROcodone-acetaminophen | | | (NORCO) 5-325 mg tablet 1-2 | | | tablet 1-2 tablet, oral, | | | NEEDED, 1 dose, Starting Fri | | | 05/01/19 at 1018, Until 05/01/19 | | | at 1247, post-op moderate pain | | + +---+ | | | + +---+ + + + +---+---+---+ | lactated ringers IV 10 mL/hr, | given by | 05/01/20 | | | | | intravenous, CONTINUOUS, Starting | | 19 10:17 | | | | | 05/01/19 at 0930, Until Fri | anesthes | AM PDT | | | | | 05/01/19 at 1247 | iology | | | | | + + + +---+---+---+ +---------+ + + +---+ | New Bag | 05/01/20 | 10 mL/hr | 10 mL/hr | | | | 19 9:09 | | | | | | AM PDT | | | | +---------+ + + +---+ + +---+ | | | + +---+ | lactated ringers IV 500 mL, | | | intravenous, POSTPROCEDURE PRN, 1 | | | dose, Starting Sat05/01/19 at | | | 0957, Until Sat05/01/19 at 1247, | | | nausea/vomiting due to | | | dehydration | | + +---+ | | | + +---+ | lactated ringers IV 500 mL, | | | intravenous, POSTPROCEDURE PRN, 1 | | | dose, Starting Sat05/01/19 at | | | 0957, Until Sat05/01/19 at 1247, | | | systolic blood pressure less than | | | 80 mmHg. 1st line | | + +---+ | | | + +---+ | naloxone (NARCAN) injection | | | intravenous, POSTPROCEDURE PRN, | | | Starting Sat05/01/19 at 0957, | | | Until Sat05/01/19 at 1247, | | | hypopnea | | + +---+ | | | + +---+ | oxyCODONE (immediate release) | | | (ROXICODONE) tablet 5-10 mg 5-10 | | | mg, oral, NEEDED, 1 dose, | | | Starting Sat05/01/19 at 1018, | | | Until Sat05/01/19 at 1247, post-op | | | severe pain | | + +---+ | | | + +---+ + +-------+ +--------+---+---+ | proparacaine (OPHTHAINE) 0.5 % | Given | 05/01/20 | 1 drop | | | | ophthalmic drops 1 drop 1 drop, | | 19 9:08 | | | | | Right Eye, ONCE, 1 dose, Fri | | AM PDT | | | | | 05/01/19 at 0900 | | | | | | + +-------+ +--------+---+---+ +---+---+ | | | +---+---+ documented in this encounter
--- OUTSIDE RECORDS SUMMARY | ~2019-07-09 | XMS | Encounter Summary ---
Demographics + + + | Address | [address] | | | [place] [address] | + + + | Home Phone [...] Team Providers + +------+ + | Care Automobile Locator Name | Role | Phone | + [...] 9 | | | | | | [place], [place] | | | | | | [address] | | | | | | [phone] | | | | | | | | +--------+---------+ + + + | 06/02/ | Office | Ophthalmology | Carissa Tinoco MD | | | 2019 | Visit | | [address] | | | | | | [place], [place] | | | | | | [address] | | | | | | [phone] | | | | | | | | +--------+---------+ + + + documented as of this encounter Visit Diagnoses Not on filedocumented in this encounter"
--- OUTSIDE RECORDS SUMMARY | ~2019-07-09 | XMS | Encounter Summary ---
Demographics + + + | Address | [address] | | | [place] [address] | + + + | Home Phone | | + + + | Preferred Language | Unknown | + + + | Marital Status | Single | + + + | Episcopalian Affiliation | BAP | + + + | Race | White | + + + | Ethnic Group | Not or | + + + Author + + + | Author | [facility] | + + + | Organization | [facility] | + + + | [...] Team Providers + +------+ + | Care Materials And Processes Manager Name | Role | Phone | [...] + | 06/12/ | Telephone | Cardiac Rand Butting Machine Operator | Roslyn Mojica, | Procedure | | 2018 | | at [address] | [address] | | | | | [address] | [address] | | | | | [facility] | [place], [place] | | | | | [place], [place] | [address] | | | | | [address] | [phone] | | | | | [phone] | | | +--------+ + + + [...] | 2019 | Visit | | MDPhD [address] | | | | | | [address] | | | | | | [place], [place] | | | | | | [address] | | | | | | [phone] | | | | | | | | +--------+---------+ + + + | 06/02/ | Office | Ophthalmology | Carissa Tinoco MD | | | 2020 | Visit | | [address] | | | | | | [place], [place] | | | | | | [address] | | | | | | [phone] | | | | | | | | +--------+---------+ + + + documented as of this encounter Visit Diagnoses Not on filedocumented in this encounter"
--- OUTSIDE RECORDS SUMMARY | ~2019-07-09 | XMS | Encounter Summary ---
Demographics + + + | Address | [address] | | | [place] [address] | + + + | Home Phone | | + + + | Preferred Language | Unknown | + + + | Marital Status | Single | + + + | Nondenominational Affiliation | BAP | + + + [...] Team Providers + +------+ + | Care Junior Project Manager Name | Role | Phone | + +------+ + | Angleica Garrison | PCP | | + +------+ [...] Catheterizati | Positive | Cristóbal Murrell, | Flagsetter | | | | on | cardiac | ,PhD [address] | [address] | | | | | stress test | [address] | [address] | | | | | Procedures | [address] | [address] [facility] | | | | | ADULT EDUCATION INSTRUCTOR | [place], [place] | Hospital | | | | | INT CORONARY | [address] | [place], [place] | | | | | ANGIOGRAM | Phone: | [phone] | | | | | [place] CORONARY | [phone] | Phone: | | | | | ARTERY ANGIO | Fax: | [phone] | | | | | S&I | [phone] | Fax: | | | | | | | [phone] | +--------+--------+ + + + + Reason [...] + + | 07/21/ | Hospital | [address] | Roslyn Mojica, | | | 2018 | Encounter | [address] | [place] [address] | | | | | [address] [place] [address] | [address] | | | | | [place], [place] | [place], [place] | | | | | [address] | [address] | | | | | [phone] | [phone] | | | | | | | [...] immediately. [facility] Diet ? Resume your regular diet. [...] weekends, and holidays, call t [facility] Dye Stand Loader at and ask to have the Fitness Specialist on-call candace weathers documented in this encounter [...] procedure. Continue current post-cath olena Garzon MD [facility] [address] [facility] [address] [place] [address] documented in this enc ounter Plan of Treatment +--------+---------+ + + + | Date | Type | Specialty | Care Team | Description | +--------+---------+ + + + | 01/07/ | Office | Cardiology | Cristóbal Mccullough, | | | 2019 | Visit | | ,PhD [address] | | | | | [address] | | | | | | [place], [place] | | | | | | [address] | | | | | | [phone] | | | | | | | | +--------+---------+ + + + | 06/02/ | Office | Ophthalmology | Carissa Tinoco MD | | | 2019 | Visit | | [address] | | | | | | [place], [place] | | | | | | [address] | | | | | | [phone] | | | | | | | [...] | + +--------+ + + + | ADULT EDUCATION INSTRUCTOR INT | Routin | 07/21/2018 | Positive [...] | | | PHYSICIAN: Fco Mascorro M.D. What Job Titles Mean, Medicine | | | Department of Cardiology INTERVENTIONAL TIMBER SETTER: William | | | Shabana Lambert MD TIMBER SETTER: Fátima Campbell MD REFERRING | | | [...] | | | William Lambert MD Interventional Fitness Specialist Raquel | | | Cardi[facility] [place] [facility] Pager | | | [phone] "A resident/fellow assisted with documenting this service. [...] MD | | | Attending Interventional/Structural Heart Pbx Supervisor Raquel | | | Cardi[facility] [place], [facility] | | + + + INTRAPROCEDURE IMAGING (07/21/2018 9:28 AM PDT) + + | Specimen | + + | | + + + + + | Narrative | Performed At | + + + | See admission or procedure notes for details of any intraprocedure | | | images obtained. | | + + + ADULT EDUCATION INSTRUCTOR INT CORONARY ANGIOGRAM (07/21/2018 9:19 AM PDT) + + | Specimen | + + | | + + + + + | Narrative | Performed At | + + + | Procedure performed in the Cardiac Flagsetter. See procedure notes | [facility] - | | for details. | DEONTE HERNANDEZ, | | | POINT OF CARE | | | TESTS | + + + + + + + + | Performing | Address | City/State/Zipcode | Phone Number | | Organization | | | | + + + + + | [facility] | [address] | [place], [place] | | | [facility] | [address] | [address] | | | TESTS | | | [...]
--- OUTSIDE RECORDS SUMMARY | ~2019-07-09 | XMS | Encounter Summary ---
Demographics + + + | Address | [address] | | | [place] [address] | + + + | Home Phone | | + + + | Preferred Language | Unknown | + + + | Marital Status | Single | + + + | Bahai Affiliation | BAP | + + + | Race | White | + + + | Ethnic Group | Not or | + + + Author + + + | Author | [facility] | + + + | Organization | [facility] | + + + | Address [...] Team Providers + +------+ + | Care Resistance Machine Welder Setter Name | Role | Phone | + [...] | | | | aortic | ,PhD [address] | | | | | | aneurysm | [address] | | | | | | without | [address] | | | | | | rupture | [place], [place] | | | | | | ([facility]) | [address] | | | | | | Procedures | Phone: | | | | | | TRANSTHORACI | [phone] | | | | | | C | Fax: | | | | | | ECHOCARDIOGR | [phone] | | | | | | AM, [...] | | | | | | at [facility] [address] | | | | | | [address] Mailcode: | | | | | | CH[facility] | | | | | | Health and Healing, | | | | | | [address] | | | | | | [facility] [place] | | | | | | [address] | | | | | | [phone] | | | +--------+ + + + [...] 9 | | | | | | [place], [place] | | | | | | [address] | | | | | | [phone] | | | | | | | | +--------+---------+ + + + | 06/02/ | Office | Ophthalmology | Carissa Tinoco MD | | | 2019 | Visit | | [address] | | | | | | [place], [place] | | | | | | [address] | | | | | | [phone] | | | | | | | [...] Performed At | + + + | [facility] | [facility] DEPT OF | | [facility] Adult Echocardiography Laboratory [address] | CARDIOLOGY | | [place], [place] [address] Ph: | | | Pt Name: TIM BARENS | | | Study Date/Time 01/02/2019 / 12:55:05 PMMRN: [id number] | | | Most recent prior: 06/06/2018Acc #: [id number] | | | No. previous echos: 2DOB: 1950 68 years | | | Heart Rate: 52 bpmHeight: 68.0 in | | | Blood Pressure: 127/89 mm/HgWeight: 236.0 lb | | | Gender: MBSA: 2.19 m | | | Order ID: [id number] Study | | | Location: HSonographer: Aiyana Floyd [facility] [place], PESonographer | | | 2:Referring [...] Report electronically signed by: | | | [id number] Gerber Palafox MD (01/02/2019, 2:05:47 PM) Final [...] | | | |Report electronically signed by: [id number] Gerber Palafox MD (01/02/2019, 2:05:47 | | |PM) | | | | | | | | | | | | Final | | + + + + + | Procedure Note | + + | Interface, Cardiology Results - 01/02/2019 2:05 PM [facility] | | [facility] Echocardiography Laboratory [address] [place] [address] | | [place], [place] [address] Pt Name: TIM | | MONSTER BARNES Study Date/Time 01/02/2019 / 12:55:05 PMMRN: [id number] | | Most recent prior: 06/06/2018Acc #: [id number] No. previous echos: 2DOB: | | 1950 68 years Heart Rate: 52 bpmHeight: 68.0 in Blood | | Pressure: 127/89 mm/HgWeight: 236.0 lb Gender: MBSA: | | 2.19 m | | Order ID: [id number] Study [facility]: [facility]: [facility] | | Mariel FRIAS, [place], PESonographer 2:Referring [...] and indexed values Report electronically signed by: [id number] Gerber | | Javy COBB (01/02/2019, 2:05:47 [...] | | | |Report electronically signed by: [id number] Gerber Palafox MD (01/02/2019, 2:05:47 | |PM) | | | | | | | | Final | + + + + + + + | Performing | Address | City/State/Zipcode | Phone Number | | Organization | | | | + + + + + | [facility] | [address] | [place], [place] | | | CARDIOLOGY | [address] | [address] | | + + + + + documented in this encounter Visit Diagnoses + + | Diagnosis | + + | Thoracic aortic aneurysm without rupture (HCC) Thoracic aneurysm without mention of | | rupture | + + documented in this encounter
--- OUTSIDE RECORDS SUMMARY | ~2019-07-09 | XMS | Encounter Summary ---
Demographics + + + | Address | [address] | | | [place] [address] | + + + | Home Phone [...] + + | Author | [facility] | + + + | Organization | [facility] | + + + | Address | [...] Team Providers + +------+ + | Care Roll On Worker Name | Role | Phone | [...] + + | 05/15/ | Hospital | [facility] | Jayne Tinoco MD | | | 2019 | Encounter | [address] | [address] | | | | | [address] | [place], [place] | | | | | [facility] | [address] | | | | | Maria Rios | [phone] | | | | | [place] [address] | | | | | | [phone] | | | +--------+ + + + [...] appointment Date: __05/15/19 Time: __2:50pm Location : [address], [place] [address] Begin your eye drops after your eye [...] your usual diet and usual medications. Call [phone] during business hours (Saturday through Fridays 8:00 a.m.-5:00 p.m.); all o ther times call [phone] and ask for the Eye Doctor continuity coordinator. Eye Drop Instructions ? Use the medication [...] left | 5 mL | 0 | 05/12/ | | | (VOLTAREN) 0.1 % | [...] left | 5 mL | 0 | 08/20/20 | | | (OCUFLOX) 0.3 % | [...] left | 5 mL | 1 | 08/20/20 | | | acetate 1 % | [...] 9 | | | | | | [place], [place] | | | | | | [address] | | | | | | [phone] | | | | | | | | +--------+---------+ + + + | 06/02/ | Office | Ophthalmology | Jayne Tinoco MD | | | 2019 | Visit | | [address] | | | | | | [place], [place] | | | | | | [address] | | | | | | [phone] | | | | | | | [...] SURGEON: | | | JAYNE TINOCO MD RADIAL DRILL PRESS OPERATOR FOR PLASTIC(S): None OPERATION(S) PERFORMED: | | | Phacoemulsification [...] power | | | 13.0 D, SN [id number] was then injected into the capsular bag [...] forms of age-related cataract of left eye Other and combined forms of senile | | cataract | + + documented in this encounter Administered Medications + +--------+ +--------+------+------+ | Medication Order | MAR | Action | Dose | Rate | Site | | | Action | Date | | | | + +--------+ +--------+------+------+ | cyclopentolate 1%-PHENYLEPHrine | Given | 05/15/20 [...] 05/15/19 at 0935, | | | Until 05/15/19 at 1457, | | | post-op severe [...]
--- OUTSIDE RECORDS SUMMARY | ~2019-07-09 | XMS | Encounter Summary ---
Demographics + + + | Address | [address] | | | [place] [address] | + + + | Home Phone [...] Team Providers + +------+ + | Care Productivity Engineer Name | Role | Phone | [...] | | | | aortic | ,PhD [address] | | | | | | aneurysm | [address] | | | | | | without | [address] | | | | | | rupture | [place], [place] | | | | | | ([facility]) | [address] | | | | | | Procedures | Phone: | | | | | | TRANSTHORACI | [phone] | | | | | | C | Fax: | | | | | | ECHOCARDIOGR | [phone] | | | | | | AM, [...] | | | | | | at [facility] [address] | | | | | | [address] Mailcode: | | | | | | [facility] | | | | | | Health and Healing, | | | | | | [address] | | | | | | [facility] [place] | | | | | | [address] | | | | | | [phone] | | | +--------+ + + + [...] 9 | | | | | | [place], [place] | | | | | | [address] | | | | | | [phone] | | | | | | | | +--------+---------+ + + + | 06/02/ | Office | Ophthalmology | Carissa Tinoco MD | | | 2019 | Visit | | [address] | | | | | | [place], [place] | | | | | | [address] | | | | | | [phone] | | | | | | | [...] Performed At | + + + | [facility] | [facility] DEPT OF | | [facility] Adult Echocardiography Laboratory [address] | CARDIOLOGY | | [place], [place] [address] Ph: | | | Pt Name: TIM BARNES | | | Study Date/Time 01/02/2019 / 12:55:05 PMMRN: [id number] | | | Most recent prior: 06/06/2018Acc #: [id number] | | | No. previous echos: 2DOB: 1950 68 years | | | Heart Rate: 52 bpmHeight: 68.0 in | | | Blood Pressure: 127/89 mm/HgWeight: 236.0 lb | | | Gender: MBSA: 2.19 m | | | Order ID: [id number] Study | | | Location: HSonographer: Aiyana Floyd [facility], [place], PESonographer | | | 2:Referring [...] Report electronically signed by: | | | [id number] Gerber Palafox MD (01/02/2019, 2:05:47 PM) Final [...] | | | |Report electronically signed by: [id number] Gerber Palafox MD (01/02/2019, 2:05:47 | | |PM) | | | | | | | | | | | | Final | | + + + + + | Procedure Note | + + | Interface, Cardiology Results - 01/02/2019 2:[address] [facility] | | [facility] Echocardiography Laboratory [address] [place] [address] | | [place], [place] [address] Pt Name: TIM | | MONSTER BARNES Study Date/Time 01/02/2019 / 12:55:05 PMMRN: [id number] | | Most recent prior: 06/06/2018Acc #: [id number] No. previous echos: 2DOB: | | 1950 68 years Heart Rate: 52 bpmHeight: 68.0 in Blood | | Pressure: 127/89 mm/HgWeight: 236.0 lb Gender: MBSA: | | 2.19 m | | Order ID: [id number] [facility] | | Mariel FRIAS, [place], [...] and indexed values Report electronically signed by: [id number] Gerber | | Javy COBB (01/02/2019, 2:05:47 [...] | | | |Report electronically signed by: [id number] Gerber Palafox MD (01/02/2019, 2:05:47 | |PM) | | | | | | | | Final | + + + + + + + | Performing | Address | City/State/Zipcode | Phone Number | | Organization | | | | + + + + + | [facility] | [address] | [place], [place] | | | CARDIOLOGY | [address] | [address] | | + + + + + documented in this encounter Visit Diagnoses + + | Diagnosis | + + | Thoracic aortic aneurysm without rupture (HCC) Thoracic aneurysm without mention of | | rupture | + + documented in this encounter
--- OUTSIDE RECORDS SUMMARY | ~2019-07-09 | XMS | Encounter Summary ---
Demographics + + + | Address | [address] | | | [place] [address] | + + + | Home Phone | | + + + | Preferred Language | Unknown | + + + | Marital Status | Single | + + + | Druze Affiliation | BAP | + + + | Race | White | + + + | Ethnic Group | Not or | + + + Author + + + | Author | [facility] | + + + | Organization | [facility] | + + + | Address [...] Team Providers + +------+ + | Care Public Services Librarian Name | Role | Phone | + [...] | | | | Vickie DHALIWAL | [place], [place] | | | | | [facility], | [address] | | | | | [place] [address] | [phone] | | | | | | | [...] appointment Date: __05/15/19 Time: __2:50pm Location : [place] [address] Begin your eye drops after your eye [...] your usual diet and usual medications. Call [phone] during business hours (Saturday through Fridays 8:00 a.m.-5:00 p.m.); all o ther times call [phone] and ask for the Eye Doctor manager transportation. Eye Drop Instructions ? Use the medication [...] 9 | | | | | | [place], [place] | | | | | | [address] | | | | | | [phone] | | | | | | | | +--------+---------+ + + + | 06/02/ | Office | Ophthalmology | Jayne Tinoco MD | | | 2019 | Visit | | [address] | | | | | | [place], [place] | | | | | | [address] | | | | | | [phone] | | | | | | | [...] SURGEON: | | | JAYNE TINOCO MD BOW MAKER CUSTOM(S): None OPERATION(S) PERFORMED: | | | Phacoemulsification [...] power | | | 13.0 D, SN [id number] was then injected into the capsular bag [...]
--- OUTSIDE RECORDS SUMMARY | ~2019-07-09 | XMS | Encounter Summary ---
Demographics + + + | Address | [address] | | | [place] [address] | + + + | Home Phone | | + + + | Preferred Language | Unknown | + + + | Marital Status | Single | + + + | Taoism Affiliation | BAP | + + + | Race | White | + + + | Ethnic Group | Not or | + + + Author + + + | Author | [facility] | + + + | Organization | [facility] | + + + | Address [...] Team Providers + +------+ + | Care Machine Driller Name | Role | Phone | + [...] | | | forms of | [place] [address] | [address] | | | | | age-related | [address] | Ave | | | | | cataract of | [place], | [place], [place] | | | | | both eyes | [place] [address] | [address] | | | | | Procedures | Phone: | Phone: | | | | | REQUEST TO | [phone] | [phone] | | | | | SURGERY | Fax: | Fax: | | | | | SURVEY METHODOLOGIST | [phone] | [phone] | | | | | CA REMV | | | | | | [...] Description | +--------+---------+ + + + | 02/05/ | Office | [facility] | Carissa Tinoco MD | Combined forms of | | 2019 | Visit | [place]/Ophthalmol | [address] | age-related cataract | | | | ogy at [facility] [address] | [place], [place] | of both eyes | | | | [address] Mailcode: | [address] | (Primary Dx); | | | | [address] for | [phone] | Disorder of | | | | Health and Healing, | | refraction and | | | | Building | | accommodation | | | | Floor [place], [place] | | | | | | [address] | | | | | | [phone] | | | +--------+---------+ + + + [...] documented as of this encounter Progress Notes Brian Gutierrez - 02/05/2019 10:00 AM PDTFormatting of this note might be different from the o kvng. COMPREHENSIVE OPHTHALMOLOGY PROGRESS NOTE Assessment and Plan: Exam Date: 02/05/2019 Patient:Tim Martini ([id number]) Impression: Dermatochalasis OU Good dilation Cataracts OU OD>OS - symptomatic - Discussed symptoms of cataract - Discussed lens options --Would like to do astigmatism correcting lens Myope Syneresis Plan: After discussing the indications for and elective nature of cataract surgery, PAR was held for cataract surgery RIGHT EYE. We specifically discussed the risks of infection (ie. endo phthalmitis), hemorrhage, need for more surgery, ocular or periocular damage, unintended ref ractive outcome, loss of vision, loss of the eye, and other associated risks of surgery. In addition, we discussed the issues of needing glasses to see clearly and the option of presb yopia-assisting IOLs and astigmatism correction . We discussed other ocular issues that cou ld limit the final vision. Mr. Martini was given a chance to ask questions, and he expressed u nderstanding of these risks. Mr. Martini would like to proceed with cataract surgery RIGHT EYE Planned IOL model: SN6AT (Austin Toric) Planned refractive goal:Distance Planned anesthesia: Topical Case complexity: Routine Additional time: None [place] issues: None Surgeon issues: None Equipment and Services needed: No special requests Second eye: Anticipate in future Script for pre-op antibiotic drops Given Bios: Today Special notes: Cont tinting of lenses if that helps with glare Today Topos/BIOS I have reviewed and verified the above scribed note of my visit with this patient as record ed by [place] Eng I have reviewed and edited history and pharmacy laboratory technician documentation, and performed all other el ements to above examination documentation. Carissa Tinoco MD Fire Prevention Bureau Captain Comprehensive Ophthalmology [facility] and Science [place] Physician: Carissa Tinoco MD 02/05/2019 HPI: Tim Martini ([id number]), 68 y.o. year old male from [place] : Patient presen ts with: Medical Eye Examination Patient states vision seems to be getting worse. He wears yellow tinted lenses at night to cut down glare, and it helps. Wonders about blue light damage from too much time in front of screens. Notes that he sees better when looks through the top portion of the glasses (PAL) but hard to hold that position when driving for long distances. Sometimes feels like his eye s are straining after being on the computer too long. Current glasses are about a year. Blurriness is becoming more noticeable since last year. Difficult to drive and read road si gns Primary Care Provider: [place] Alba Past ocular history: No specialty comments on file. Medications: Current Outpatient Medications Medication Sig amLODIPine [...] HTN (hypertension) Squamous cell carcinoma, keratinizing 2012 Vitamin D deficiency Allergies: is allergic to penicillins. has a past surgical history that includes tonsillectomy and skin cancer excision. Reviewed systems for: fever, wt. loss, ENT, cardiovascular, pulmonary, GI, urinary, neurolo gic, endocrine, bleeding/blood disorders, AIDS/HIV, cancer/tumors, arthritis - all were nega tive except as noted above. Family ocular history: See scanned intake form or preadmission data in [facility] for full Family ocular and medical his tory. Tobacco use: reports that he quit smoking about 47 years ago. His smoking use included cig arettes. He has a 1.00 pack-year smoking history. His smokeless tobacco use includes chew. EXAMINATION: Base Exam Visual Acuity (Snellen - Linear) Right Left Dist cc 20/30-1+2 20/25-2+3 Correction: Glasses Tonometry (Applanation, 10:29 AM) Right Left Pressure 18 18 Wearing Rx Sphere Cylinder [place] Add Right -5.75 +2.00 040 +2.50 Left -5.50 +1.25 095 +2.50 Age: 3yr Type: Progressive Addition lens Manifest Refraction Sphere Cylinder [place] Dist VA Add Near VA Right -6.50 +1.75 050 20/20 +2.50 J1+ Left -6.00 +1.50 105 20/20 +2.50 J1+ Dilation Both eyes: 2.5% Phenylephrine, 1.0% Mydriacyl @ 10:30 AM Pupils Pupils APD Right PERRL None Left PERRL None Visual Alvarez (Counting fingers) Left Right Full Full Extraocular Movement Right Left Full, Ortho Full, Ortho Final Rx Sphere Cylinder [place] Dist VA Add Near VA Right -6.50 +1.75 050 20/20 +2.50 J1+ Left -6.00 +1.50 105 20/20 +2.50 J1+ Type: Progressive Addition lens Expiration Date: 02/05/2021 Neuro/Psych Oriented x3: Yes Mood/Affect: Normal Slit Lamp and Fundus Exam External Exam Right Left External Normal Normal Slit Lamp Exam Right Left Lids/Lashes Dermatochalasis Dermatochalasis Conjunctiva/Sclera White and quiet White and quiet Cornea All layers clear All layers clear Anterior Chamber Deep and quiet Deep and quiet Iris Good dilation Good dilation Lens 2-3+ NSC 1+ central PSC 2+ NSC tr PSC Vitreous Syneresis Syneresis Fundus Exam Right Left Disc Normal sloping inf rim C/D Ratio 0.4 0.5 Macula Normal Normal Vessels Normal Normal Periphery Normal Normal IBRIAN, performed and reviewed the above history, medications, allergies, as well a s performed elements noted in the Base Ophthalmology Exam. See EPIC ophthalmology module for exam information. Assessment and Plan is now at the top of the note. [place], COA, am functioning as a scribe for Carissa [...] 9 | | | | | | [place], [place] | | | | | | [address] | | | | | | [phone] | | | | | | | | +--------+---------+ + + + | 06/02/ | Office | Ophthalmology | Carissa Tinoco MD | | | 2019 | Visit | | [address] | | | | | | [place], [place] | | | | | | [address] | | | | | | [phone] | | | | | | | | +--------+---------+ + + + documented as of this encounter Procedures + +--------+ + + + | Procedure Name | Priori | Date/Time | Associated Diagnosis | Comments | | | ty | | | | + +--------+ + + + | IOL BIOMETRY | Routin | 02/05/2019 | Combined forms of | Results for this | | | e | 11:57 AM | age-related cataract | procedure are in the | | | | PDT | of both eyes | results section. | + +--------+ + + + | CA REFRACTION - C | Routin | 02/05/2019 | Disorder of | | | (CAMPUS) | e | 10:26 AM | refraction and | | | | | PDT | accommodation | | + +--------+ + + + documented in this encounter Results IOL BIOMETRY (02/05/2019 11:57 AM PDT) + + + | Narrative | Performed At | + + + | Right Eye | [facility] | | Axial lengh is 26.09 mm. | [facility] | | | | | Left Eye | | | Axial lengh is 26.11 mm. | | + + + + + + + + | Performing | Address | City/State/Zipcode | Phone Number | | Organization | | | | + + + + + | [facility] | [address] | [place] [address] | | | [place] | [place]. | | | + + + + + documented in this encounter Visit Diagnoses + + | Diagnosis | + + | Combined forms of age-related cataract of both eyes - Primary Other and combined | | forms of senile cataract | + + | Disorder of refraction and accommodation Unspecified disorder of refraction and | | accommodation | + + documented in this encounter"
--- OUTSIDE RECORDS SUMMARY | ~2019-07-09 | XMS | Encounter Summary ---
Demographics + + + | Address | [address] | | | [place] [address] | + + + | Home Phone [...] Author + + + | Author | [facility] | + + + | Organization | [facility] | + + + | Address [...] Team Providers + +------+ + | Care Society Reporter Name | Role | Phone | + [...] +--------+---------+ + + + | 05/01/ | Surgery | [facility] | Jayne Tinoco MD | PHACO W/ IOL RIGHT | | 2019 | | [address] | [address] | (TOPICAL) | | | | Vickie Mon [facility] | [place], [place] | | | | | [facility], | [address] | | | | | [place] [address] | [phone] | | | | | | | [...] appointment Date: Saturday 12:50 PM Location : [place] [address] Begin your eye drops after your eye [...] your usual diet and usual medications. Call [phone] during business hours (Saturday through Fridays 8:00 a.m.-5:00 p.m.); all o ther times call [phone] and ask for the Eye Doctor clinical rehabilitation liaison. Eye Drop Instructions ? Use the medication [...] 9 | | | | | | [place], [place] | | | | | | [address] | | | | | | [phone] | | | | | | | | +--------+---------+ + + + | 06/02/ | Office | Ophthalmology | Jayne Tinoco MD | | | 2019 | Visit | | [address] | | | | | | [place], [place] | | | | | | [address] | | | | | | [phone] | | | | | | | [...] SURGEON: | | | JAYNE TINOCO MD WATERMASTER(S): None OPERATION(S) PERFORMED: | | | Phacoemulsification [...] power | | | 14.0 D, SN [id number] was then injected into the capsular bag [...] + + | Nuclear sclerotic cataract of both eyes Senile nuclear sclerosis | + + documented in this encounter Administered Medications + +--------+ +-------+------+--------+ | Medication Order | MAR | Action | Dose | Rate | Site | | | Action | Date | | | | + +--------+ +-------+------+--------+ | balanced salt (BSS) ophthalmic | Given | 05/01/20 | 15 mL | | Right | | irrigation INTRAPROCEDURE PRN, | | 19 10:00 | | | Eye | | Starting Sat05/01/19 at 1000, | | AM PDT | | | | | Until Sat05/01/19 at 1022 | | | | | | + +--------+ +-------+------+--------+ +---+---+ | | | +---+---+ + +-------+ +--------+---+---+ | cyclopentolate 1%-PHENYLEPHrine | Given | 05/01/20 [...] | | | +---+---+ + +-------+ + +---+--------+ | Dilating Solution: BSS Plain | Given | 05/01/20 | 1 Bottle | | Right | | 500 mL - 0.5 mL EPINEPHrine | | 19 10:01 | | | Eye | | (1:1,000) INTRAPROCEDURE PRN, | | AM PDT | | | | | Starting 05/01/19 at 1001, | | | | | | | Until Sat05/01/19 at 1022 | | | | | | + +-------+ + +---+--------+ + +---+ | | | + +---+ | HYDROcodone-acetaminophen | | | (NORCO) 5-325 mg tablet 1-2 | | | tablet 1-2 tablet, oral, | | | NEEDED, 1 dose, Starting Fri | | | 05/01/19 at 1018, Until Sat05/01/19 | | | at 1247, post-op moderate [...] | | | + +---+ + +-------+ +--------+---+--------+ | moxifloxacin (VIGAMOX) 0.5 % | Given | 05/01/20 | 0.1 mL | | Right | | intracameral injection | | 19 10:01 | | | Eye | | INTRAPROCEDURE PRN, Starting Fri | | AM PDT | | | | | 05/01/19 at 1001, Until Sat05/01/19 | | | | | | | at 1022 | | | | | | + +-------+ +--------+---+--------+ + +---+ | | | + +---+ [...] +---+---+ | | | +---+---+ + +-------+ +---------+---+--------+ | proparacaine (OPHTHAINE) 0.5 % | Given | 05/01/20 | 2 drops | | Right | | ophthalmic drops INTRAPROCEDURE | | 19 10:01 | | | Eye | | PRN, Starting Sat05/01/19 at 1001, | | AM PDT | | | | | Until Sat05/01/19 at 1022 | | | | | | + +-------+ +---------+---+--------+ +---+---+ | | | +---+---+ + +-------+ +--------+---+--------+ | Shugarcaine: lidocaine MPF 4% 1 | Given | 05/01/20 | 0.5 mL | | Right | | mL - EPINEPHrine 1:1000 1 mL - | | 19 10:01 | | | Eye | | BSS 3 mL INTRAPROCEDURE PRN, | | AM PDT | | | | | Starting 05/01/19 at 1001, | | | | | | | Until 05/01/19 at 1022 | | | | | | + +-------+ +--------+---+--------+ +---+---+ | | | +---+---+ documented in this encounter
--- OUTSIDE RECORDS SUMMARY | ~2019-07-09 | XMS | Encounter Summary ---
Demographics + + + | Address | [address] | | | [place] [address] | + + + | Home Phone [...] Author + + + | Author | [facility] | + + + | Organization | [facility] [place] [facility] | + + + | Address [...] Team Providers + +------+ + | Care Problem Manager Name | Role | Phone | [...] of | | 2018 | Visit | [place]/Ophthalmol | [address] | age-related cataract | | | | ogy at [facility] [address] | [place], [place] | of both eyes | | | | [address] Mailcode: | [address] | (Primary Dx) | | | | [address] | [phone] | | | | | Health and Healing, | | | | | | | | | | | | [place], [place] | | | | | | [address] | | | | | | [phone] | | | +--------+---------+ + + + [...] Assessment and Plan: Exam Date: 01/30/2018 Patient:Tim Mratini ([id number]) Impression: Cataracts OU OD>OS - Glare is somewhat bothersome, but manages with yellow lenses when driving at night. - discussed symptoms of cataract Myope Syneresis Plan: RTC 1 yr, earlier prn Cont tinting of lenses if that helps with glare I have reviewed and edited history and furniture technician documentation, and performed all other el ements to above examination documentation. Carissa Tinoco MD Hydrator Comprehensive Ophthalmology [facility] Physician: Carissa Tinoco MD 01/30/2018 HPI: Tim Martini ([id number]), 67 y.o. year old male from [place] : Patient presen ts with: Medical Eye [...] scanned intake form or preadmission data in [facility] for full Family ocular and [...] Pressure 17 15 Wearing Rx Sphere Cylinder [place] Add Right -5.75 +1.75 037 +2.50 Left -5.25 +1.25 099 +2.50 Type: Progressive addition lens (PAL ID used for add) Manifest Refraction #2 (Auto) Sphere Cylinder [place] Right -5.75 +1.25 036 Left -5.75 +1.25 [...] 9 | | | | | | [facility] [place] | | | | | | [address] | | | | | | [phone] | | | | | | | | +--------+---------+ + + + | 06/02/ | Office | Ophthalmology | Carissa Tinoco MD | | | 2019 | Visit | | [address] | | | | | | [place], [place] | | | | | | [address] | | | | | | [phone] | | | | | | | | +--------+---------+ + + + documented as of this encounter Visit Diagnoses + + | Diagnosis | + + | Combined forms of age-related cataract of both eyes - Primary Other and combined | | forms of senile cataract | + + documented in this encounter"
--- OUTSIDE RECORDS SUMMARY | ~2019-07-09 | XMS | Encounter Summary ---
Demographics + + + | Address | [address] | | | [place] [address] | + + + | Home Phone | | + + + | Preferred Language | Unknown | + + + | Marital Status | Single | + + + | Jainism Affiliation | BAP | + + + [...] Team Providers + +------+ + | Care Training And Development Project Leader Name | Role | Phone | [...] 9 | | | | | | [place], [place] | | | | | | [address] | | | | | | [phone] | | | | | | | | +--------+---------+ + + + | 06/02/ | Office | Ophthalmology | Carissa Tinoco MD | | | 2019 | Visit | | [address] | | | | | | [place], [place] | | | | | | [address] | | | | | | [phone] | | | | | | | | +--------+---------+ + + + documented as of this encounter Visit Diagnoses Not on filedocumented in this encounter"
--- OUTSIDE RECORDS SUMMARY | ~2019-07-09 | XMS | Encounter Summary ---
Demographics + + + | Address | [address] | | | [place] [address] | + + + | Home Phone [...] Team Providers + +------+ + | Care Deer Farm Worker Name | Role | Phone | [...] | | | forms of | [place] [address] | [address] | | | | | age-related | [address] | Ave | | | | | cataract of | [place], | [place], [place] | | | | | both eyes | [place] [address] | [address] | | | | | Procedures | Phone: | Phone: | | | | | REQUEST TO | [phone] | [phone] | | | | | SURGERY | Fax: | Fax: | | | | | DATA ENTRY COORDINATOR | [phone] | [phone] | | | | | MT REMV | | | | | | [...] of | | 2019 | Visit | [place]/[facility]hthalmol | [address] | age-related cataract | | | | ogy at [facility] [address] | [place], [place] | of both eyes | | | | [address] Mailcode: | [phone] | (Primary Dx); | | | | [address] for | [phone] | Disorder of | | | | Health and Healing, | | refraction and | | | | Building | | accommodation | | | | Floor [place], [place] | | | | | | [address] | | | | | | [phone] | | | +--------+---------+ + + + [...] and Plan: Exam Date: 02/05/2019 Patient:Tim Martini ([id number]) Impression: Dermatochalasis OU Good dilation Cataracts OU [...] I have reviewed and edited history and radiological technician documentation, and performed all other el ements to above examination documentation. Carissa Tinoco MD Quality Assurance Advisor Comprehensive Ophthalmology [facility] and Science [place] Physician: Carissa Tinoco MD 02/05/2019 HPI: Tim Martini ([id number]), 68 y.o. year old male from [place] : Patient presen ts with: Medical Eye [...] scanned intake form or preadmission data in [facility] for full Family ocular and medical [...] Pressure 18 18 Wearing Rx Sphere Cylinder [place] Add Right -5.75 +2.00 040 +2.50 Left -5.50 +1.25 095 +2.50 Age: 3yr Type: Progressive Addition lens Manifest Refraction Sphere Cylinder [place] Dist VA Add Near VA Right -6.50 +1.75 050 20/20 +2.50 J1+ Left -6.00 +1.50 105 20/20 +2.50 J1+ Dilation Both eyes: 2.5% Phenylephrine, 1.0% Mydriacyl @ 10:30 AM Pupils Pupils APD Right PERRL None Left PERRL None Visual Alvarez (Counting fingers) Left Right Full Full Extraocular Movement Right Left Full, Ortho Full, Ortho Final Rx Sphere Cylinder [place] Dist VA Add Near VA Right -6.50 [...] 9 | | | | | | [place], [place] | | | | | | [address] | | | | | | [phone] | | | | | | | | +--------+---------+ + + + | 06/02/ | Office | Ophthalmology | Carissa Tinoco MD | | | 2019 | Visit | | [address] | | | | | | [place], [place] | | | | | | [address] | | | | | | [phone] | | | | | | | [...] | + +--------+ + + + | MT REFRACTION - C | Routin | 02/05/2019 [...] + + + | Right Eye | [facility] | | Axial lengh is [...] ST E[facility] | [address] | [place] [address] | | | [place] | [place]ard. | [...]
--- OUTSIDE RECORDS SUMMARY | ~2019-07-09 | XMS | Encounter Summary ---
Demographics + + + | Address | [address] | | | [place] [address] | + + + | Home Phone [...] Team Providers + +------+ + | Care Bag Bailer Name | Role | Phone | + [...] (TOPICAL) | | | | Vickie Mon [facility] | [place], [place] | | | | | [facility], | [address] | | | | | [place] [address] | [phone] | | | | | | | [...] appointment Date: Saturday 12:50 PM Location : [place] [address] Begin your eye drops after your eye [...] your usual diet and usual medications. Call [phone] during business hours (Saturday through Fridays 8:00 a.m.-5:00 p.m.); all o ther times call [phone] and ask for the Eye Doctor director of business continuity. Eye Drop Instructions ? Use the medication [...] | | | | | | [place], [place] | | | | | | [address] | | | | | | [phone] | | | | | | | | +--------+---------+ + + + | 06/02/ | Office | Ophthalmology | Jayne Tinoco MD | | | 2019 | Visit | | [address] | | | | | | [place], [place] | | | | | | [address] | | | | | | [phone] | | | | | | | [...] SURGEON: | | | JAYNE TINOCO MD INSURANCE ANALYST(S): None OPERATION(S) PERFORMED: | | | Phacoemulsification [...] power | | | 14.0 D, SN [id number] was then injected into the capsular bag [...]
--- OUTSIDE RECORDS SUMMARY | ~2019-07-09 | XMS | Encounter Summary ---
Demographics + + + | Address | [address] | | | [place] [address] | + + + | Home Phone [...] Team Providers + +------+ + | Care Insecticide Supervisor Name | Role | Phone | [...] Bilateral | | 2019 | Visit | [facility]/Ophthalmol | [address] | pseudophakia | | | | ogy at [facility] [address] | [facility] [place] | (Primary Dx) | | | | [address] Mailcode: | [phone] | | | | | [facility] | [phone] | | | | | Health and Healing, | | | | | | Building | | | | | | Floor [place], [place] | | | | | | [address] | | | | | | [phone] | | | +--------+---------+ + + + [...] and Plan: Exam Date: 06/02/2019 Patient:Tim Martini ([id number]) Impression: 05/01/2019 Phaco IOL OD SN6AT4 14.0D [...] I have reviewed and edited history and set up mold technician documentation, and performed all other el ements to above examination documentation. Carissa Tinoco MD Cable Weaver Comprehensive Ophthalmology [facility] and Science [place] Physician: Carissa Tinoco MD 06/02/2019 HPI: 69 y.o. year old male from [place] : Patient presents with: Post Op Vision [...] Pressure 19 20 Manifest Refraction Sphere Cylinder [place] Dist VA Add Near VA Right -0.50 Sphere 20/20 +2.50 J1+ Left [place] +0.75 135 20/20 +2.50 J1+ Dilation Left eye: 1.0% Mydriacyl, 2.5% Phenylephrine @ 10:48 AM Pupils Pupils Right PERRL Left PERRL Extraocular Movement Right Left Full, Ortho Full, Ortho Final Rx Sphere Cylinder [place] Dist VA Add Near VA Right -0.50 Sphere 20/20 +2.50 J1+ Left [place] +0.75 135 20/20 +2.50 J1+ Neuro/Psych Oriented [...] 9 | | | | | | [place], [place] | | | | | | [address] | | | | | | [phone] | | | | | | | | +--------+---------+ + + + | 06/02/ | Office | Ophthalmology | Carissa Tinoco MD | | | 2019 | Visit | | [address] | | | | | | [place], [place] | | | | | | [address] | | | | | | [phone] | | | | | | | | +--------+---------+ + + + documented as of this encounter Visit Diagnoses + + | Diagnosis | + + | Bilateral pseudophakia - Primary Lens replaced by other means | + + documented in this encounter
--- OUTSIDE RECORDS SUMMARY | ~2019-07-09 | XMS | Encounter Summary ---
Demographics + + + | Address | [address] | | | [place] [address] | + + + | Home Phone | | + + + | Preferred Language | Unknown | + + + | Marital Status | Single | + + + | Confucianism Affiliation | BAP | + + + [...] Team Providers + +------+ + | Care Event Staff Member Name | Role | Phone | + [...] | | | | | Vickie Mon [facility] | [address] | | | | | [facility], | [place], [place] | | | | | [place] [address] | [address] | | | | | | [phone] | | | | | | | [...] 9 | | | | | | [place], [place] | | | | | | [address] | | | | | | [phone] | | | | | | | | +--------+---------+ + + + | 06/02/ | Office | Ophthalmology | Carissa Tinoco MD | | | 2019 | Visit | | [address] | | | | | | [place], [place] | | | | | | [address] | | | | | | [phone] | | | | | | | [...]
--- OUTSIDE RECORDS SUMMARY | ~2019-07-09 | XMS | Encounter Summary ---
Demographics + + + | Address | [address] | | | [place] [address] | + + + | Home Phone [...] Author | [facility] | + + + | Organization | [facility] | + + + | Address | [...] Team Providers + +------+ + | Care Laminating Machine Feeder Name | Role | Phone | + [...] + | 07/15/ | Telephone | Cardiac Inventory Management Specialist | Emerita Barr, RN | Education procedure | | 2018 | | at [facility] [address] | [address] | (Instructions for | | | | [address] | Vickie Mon [place], | angiogram) | | | | [facility] | [place] [address] | | | | | [place], [place] | | | | | | [address] | | | | | | [phone] | | | +--------+ + + + [...] 9 | | | | | | [place], [place] | | | | | | [address] | | | | | | [phone] | | | | | | | | +--------+---------+ + + + | 06/02/ | Office | Ophthalmology | Carissa Tinoco MD | | | 2019 | Visit | | [address] | | | | | | [place], [place] | | | | | | [address] | | | | | | [phone] | | | | | | | [...]
--- OUTSIDE RECORDS SUMMARY | ~2019-07-09 | XMS | Encounter Summary ---
Demographics + + + | Address | [address] | | | [place] [address] | + + + | Home Phone [...] Author + + + | Author | [facility] | + + + | Organization | [facility] | + + + | [...] Team Providers + +------+ + | Care Silk Screen Printer Machine Name | Role | Phone | + [...] nuclear | | 2017 | Visit | [place]/Ophthalmol | [address] | sclerosis, bilateral | | | | ogy at [facility] [address] | [place], [place] | (Primary Dx) | | | | [address] Mailcode: | [id number] | | | | | [address] | [phone] | | | | | Health and Healing, | | | | | | [facility] | | | | | | [place], [place] | | | | | | [address] | | | | | | [phone] | | | +--------+---------+ + + + [...] documented as of this encounter Progress Tamiko eKlsey - 11/26/2016 10:10 AM PST COMPREHENSIVE OPHTHALMOLOGY PROGRESS NOTE Assessment and Plan: Exam Date: 11/26/2016 Patient:Tim Martini ([id number]) Impression: Mild Cataracts OU OD>OS - not [...] I have reviewed and edited history and respiratory technician documentation, and performed all other el ements to above examination documentation. Carissa Tinoco MD Training Development Director Comprehensive Ophthalmology [facility] [place] Physician: Carissa Tinoco MD 11/26/2016 HPI: Tim Martini ([id number]), 66 y.o. year old male from [place] : Patient presen ts with: New Patient Visit Cataract Evaluation Self-referred For Second Opinion Was told by an cell pourer in [place] that he is ready for cataract surgery. [...] No FH of eye disease. Glasses since [facility]. Uses yellow lenses for night driving. glare [...] intake form or preadmission data in [facility] for full Family ocular and medical [...] Pressure 20 16 Wearing Rx Sphere Cylinder Gotha Add Right -5.25 +1.50 035 +2.50 Left -5.75 +1.50 097 +2.50 Type: Progressive Addition lens Manifest Refraction Sphere Cylinder Gotha Dist Right -5.25 +1.50 035 20/20 Left -5.75 +1.50 097 20/20 Dilation Both eyes: 2.5% Phenylephrine, 1.0% Mydriacyl @ 10:46 AM Pupils Pupils Right PERRL Left PERRL Visual Alvarez (Counting fingers) Left Right Result Full Full Extraocular Movement Right Left Result Full Full Neuro/Psych Oriented x3: Yes Mood/Affect: Normal Additional Tests Keratometry (Automated) K1 Gotha K2 Gotha Right 43.00 139 44.50 049 Left 43.00 [...] | 2019 | Visit | | ,PhD [address] | | | | | | [address] [facility] | | | | | | [place], [place] | | | | | | [address] | | | | | | [phone] | | | | | | | | +--------+---------+ + + + | 06/02/ | Office | Ophthalmology | Carissa Tinoco MD | | | 2019 | Visit | | [address] | | | | | | [place], [place] | | | | | | [address] | | | | | | [phone] | | | | | | | | +--------+---------+ + + + documented as of this encounter Visit Diagnoses + + | Diagnosis | + + | Senile nuclear sclerosis, bilateral - Primary | + + documented in this encounter"
--- OUTSIDE RECORDS SUMMARY | ~2019-07-09 | XMS | Encounter Summary ---
Demographics + + + | Address | [address] | | | [place] [address] | + + + | Home Phone | | + + + | Preferred Language | Unknown | + + + | Marital Status | Single | + + + | Rastafari Affiliation | BAP | + + + [...] Team Providers + +------+ + | Care Kelp Gatherer Name | Role | Phone | + +------+ + | Angelica Garrison | PCP | | + +------+ + Reason for Visit + + + | Reason | Comments | + + + | Pre-operative | | | evaluation | | + + + Encounter Details +--------+ + + + + | Date | Type | Department | Care Team | Description | +--------+ + + + + | 04/29/ | Telephone-S | Preoperative | | Pre-operative | | 2019 | cheduled | [facility] at | | evaluation | | | | [facility] | | | | | | [address] | | | | | | Mail Code: OC8PM | | | | | | [facility] | | | | | | and Healing, | | | | | | Building [address] | | | | | | [place], [place] | | | | | | [address] | | | | | | [phone] | | | +--------+ + + + [...] | + + + + + | No agents on file. | + + + + | No blood administrations on file. | + + +--------+ + + + | Type | Details | Placement | Removal | +--------+ + + + | Periph | 05/01/19; 910; anesthesia; | 05/01/19 0911 by | 05/01/19 1054 by | | antonia | Right; Hand; 22 g; No; None; [...] of this encounter Patient Instructions Patient Instructions Kindra Richmond RN - 04/28/2019 10:04 AM PDTFormatting of this note yeni ht be different from the original. PREOPERATIVE INSTRUCTIONS Empty stomach before surgery On the day BEFORE your surgery, drink plenty of fluids and stay well hydrated. NOTHING to eat or drink after midnight the night before surgery. This includes water, coffee, candy, mints, gum. Medications Instructions On the evening before your surgery, take ALL your usual evening medications On the morning of surgery TAKE the following medications with a sip of water: ATORVASTATIN 20 MG TABLET BUPROPION HCL SR 200 MG TABLET,12 HR SUSTAINED-RELEASE DICLOFENAC 0.1 % EYE DROPS OFLOXACIN 0.3 % EYE DROPS On the morning of surgery DO NOT TAKE the following medications: ASPIRIN 81 MG CHEWABLE TABLET CHOLECALCIFEROL (VITAMIN D3) 5,000 UNIT TABLET FISH OIL ORAL GABAPENTIN 300 MG CAPSULE METOPROLOL SUCCINATE ER 25 MG TABLET,EXTENDED RELEASE 24 HR MULTIVITAMIN ORAL POTASSIUM CITRATE-CITRIC ACID 1,100 MG-334 MG/5 ML ORAL SOLUTION PREDNISOLONE ACETATE 1 % EYE DROPS,SUSPENSION ZINC 50 MG TABLET Other medications not specifically mentioned are at your discretion as to taking or not taking on the morning of surgery. Unless otherwise directed by your surgeon, do not take any Aspirin, fish oil supplements , vitamin E or non-steroidal anti-inflammatory (NSAIDs i.e. Advil, Aleve, Ibuprofen) or herb al supplements 7-14 days prior to your surgery. These drugs may interfere with normal blood clotting and may cause excessive bleeding and bruising during or after the surgery. If you need a pain medication for general purposes, use Tylenol as directed. OK to take it even on the morning of surgery, if needed. If you are in doubt about any medications that you are taking, please contact our office . Other Important Guidelines ? Do not shave the surgical area Do not smoke, drink alcohol or use recreational drugs for 24 hours before your surgery Watch for any change in your health condition. Let your surgeon know right away if you do not feel well. ? Do not wear makeup, perfume, lotions, deodorant, powder or hairspray. Do not wear any jewelry to the hospital. Wear loose, comfortable clothing. Leave all your valuables at home. Allow enough travel time so you re not late for your check in for surgery. ? Take a bath or shower and remember to shampoo your hair using your usual hair product bef ore your arrival at the hospital. Please remember to brush your teeth the night before and the morning of your procedure. Preventing post op complications while you are in the hospital Use an incentive spirometer or peep breathe to keep your lungs working properly an d to help prevent respiratory complications. It helps you take long, deep breaths. Use it at least once every hour while you are awake. Leg and feet exercises will maintain good circulation and help prevent blood clots in yo ur legs. Sometimes your doctor will order sequential air compression stockings. Compressed air helps the circulation in your legs. Walking and moving will help stimulate normal circulation and deep breathing. After you r surgery, your nurse may ask you to sit, stand or walk. Surgery Check in Time: The Preoperative Medicine Clinic is not in the position to give you accurate information regarding surgical check in time. We refer you back to your surgical office regarding this important information. Going Home Your surgical team will decide when you are medically ready to go home. If you are released to go home on the same day as your procedure/surgery please note the following: You will not be able to drive yourself A responsible adult MUST escort you home. You may not drive yourself Your responsible adult can drive you or they can accompany you in a taxi, ride share (blake ch as Uber/Lyft), or public transportation. Certified [facility] can transport you after surgery as long as a competent adult is waiting for you on arrival at your destination Although not mandatory, it is highly recommended that a patient has a responsible person with you to provide overnight monitoring/support following discharge. It IS required that you have a competent person assist you and look after you on the fir st night after you have undergone regional blocks (72 hours for patients going home with reg ional block pump) If you stayed in the hospital after surgery, please discuss anticipated discharge time a nd plans with your inpatient team so that transportation plans and other going home arrangem ents can be coordinated If you have questions or concerns after you go home, call your doctor s office. If it is after office hours, call the [facility] plodding machine operator at [phone] and ask them to page him or h er. documented in this encounter Plan of Treatment +--------+---------+ + + + | Date | Type | Specialty | Care Team | Description | +--------+---------+ + + + | 01/07/ | Office | Cardiology | Cristóbal Mccullough, | | | 2019 | Visit | | ,PhD [address] | | | | | | [facility] | | | | | | [place], [place] | | | | | | [address] | | | | | | [phone] | | | | | | | | +--------+---------+ + + + | 06/02/ | Office | Ophthalmology | Carissa Tinoco MD | | | 2019 | Visit | | [address] | | | | | | [place] | | | | | | [address] | | | | | | [phone] | | | | | | | | +--------+---------+ + + + documented as of this encounter Visit Diagnoses Not on filedocumented in this encounter"
--- OUTSIDE RECORDS SUMMARY | ~2019-07-09 | XMS | Encounter Summary ---
Demographics + + + | Address | [address] | | | [place] [address] | + + + | Home Phone [...] Author + + + | Author | [facility] | + + + | Organization | [facility] | + + + | [...] Team Providers + +------+ + | Care Screed Person Name | Role | Phone | + [...] | | | | | Vickie Mon [facility] | [address] | | | | | [facility], | [place], [place] | | | | | [place] [address] | [address] | | | | | | [phone] | | | | | | | [...] 9 | | | | | | [place], [place] | | | | | | [address] | | | | | | [phone] | | | | | | | | +--------+---------+ + + + | 06/02/ | Office | Ophthalmology | Carissa Tinoco MD | | | 2019 | Visit | | [address] | | | | | | [place], [place] | | | | | | [address] | | | | | | [phone] | | | | | | | [...]
--- OUTSIDE RECORDS SUMMARY | ~2019-07-09 | XMS | Encounter Summary ---
Demographics + + + | Address | [address] | | | [place] [address] | + + + | Home Phone [...] Author + + + | Author | [facility] | + + + | Organization | [facility] | + + + | [...] Team Providers + +------+ + | Care Sprinkler Tender Name | Role | Phone | + [...] day | | 2019 | Visit | [place]/Ophthalmol | [address] | postop (Primary Dx) | | | | ogy at [facility] [address] | [place], [place] | | | | | [address] Mailcode: | [id number] | | | | | [facility] | [phone] | | | | | Health and Healing, | | | | | | [facility] | | | | | | [place], [place] | | | | | | [address] | | | | | | [phone] | | | +--------+---------+ + + + [...] I have reviewed and edited history and senior service technician documentation, and performed all other el ements to above examination documentation. Carissa Tinoco MD Supervisor Paste Mixing Comprehensive Ophthalmology [facility] History: Patient presents with: Post Op [...] 9 | | | | | | [place], [place] | | | | | | [address] | | | | | | [phone] | | | | | | | | +--------+---------+ + + + | 06/02/ | Office | Ophthalmology | Carissa Tinoco MD | | | 2019 | Visit | | [address] | | | | | | [place], [place] | | | | | | [address] | | | | | | [phone] | | | | | | | | +--------+---------+ + + + documented as of this encounter Visit Diagnoses + + | Diagnosis | + + | Pseudophakia - 1 day postop - Primary Lens replaced by other means | + + documented in this encounter"
--- OUTSIDE RECORDS SUMMARY | ~2019-07-09 | XMS | Encounter Summary ---
Demographics + + + | Address | [address] | | | [place] [address] | + + + | Home Phone [...] Author + + + | Author | [facility] | + + + | Organization | [facility] | + + + | [...] Team Providers + +------+ + | Care Laborer Starch Factory Name | Role | Phone | + +------+ + | Angelica Garrison | PCP | | + +------+ + Encounter Details +--------+ + + + + | Date | Type | Department | Care Team | Description | +--------+ + + + + | 06/10/ | Abstract | Cardiology General | Cristóbal Mccullough, | | | 2018 | | at [facility] [address] | ,PhD [address] | | | | | [address] Mailcode: | [address] | | | | | [facility] | [place], [place] | | | | | Health and Healing, | [address] | | | | | [facility] | [phone] | | | | | Floor [place], [place] | | | | | | [address] | | | | | | [phone] | | | +--------+ + + + [...] | 2019 | Visit | | MDPhD [address] | | | | | | [address] | | | | | | [place], [place] | | | | | | [address] | | | | | | [phone] | | | | | | | | +--------+---------+ + + + | 06/02/ | Office | Ophthalmology | Carissa Tinoco MD | | | 2020 | Visit | | [address] | | | | | | [place] | | | | | | [address] | | | | | | [phone] | | | | | | | | +--------+---------+ + + + documented as of this encounter Visit Diagnoses Not on filedocumented in this encounter"
--- OUTSIDE RECORDS SUMMARY | ~2019-07-09 | XMS | Encounter Summary ---
Demographics + + + | Address | [address] | | | [place] [address] | + + + | Home Phone [...] Providers + +------+ + | Care Plant Mechanic Name | Role | Phone | + +------+ + | Angelica Garrison | PCP | | + +------+ + Encounter Details +--------+ + + + + | Date | Type | Department | Care Team | Description | +--------+ + + + + | 05/15/ | Procedure | [facility] OP LOC | | | | 2019 | Pass | [address] | | | | | | [address] | | | | | | [facility], | | | | | | [place] [address] | | | +--------+ + + + [...] 9 | | | | | | [place], [place] | | | | | | [address] | | | | | | [phone] | | | | | | | | +--------+---------+ + + + | 06/02/ | Office | Ophthalmology | Carissa Tinoco MD | | | 2019 | Visit | | [address] | | | | | | [facility] [place] | | | | | | [address] | | | | | | [phone] | | | | | | | | +--------+---------+ + + + documented as of this encounter Visit Diagnoses Not on filedocumented in this encounter"
--- OUTSIDE RECORDS SUMMARY | ~2019-07-09 | XMS | Encounter Summary ---
Demographics + + + | Address | [address] | | | [place] [address] | + + + | Home Phone | | + + + | Preferred Language | Unknown | + + + | Marital Status | Single | + + + | Sabianism Affiliation | BAP | + + + [...] Team Providers + +------+ + | Care Assistant Foreman Name | Role | Phone | + [...] up | | 2018 | | at [facility] [address] | ,PhD [address] | care plan ) | | | | [address] Mailcode: | [address] | | | | | [facility] | [place], [place] | | | | | Health and Healing, | [address] | | | | | | [phone] | | | | | Floor [place], [place] | | | | | | [address] | | | | | | [phone] | | | +--------+ + + + [...] | | | | | | [place], [place] | | | | | | [address] | | | | | | [phone] | | | | | | | | +--------+---------+ + + + | 06/02/ | Office | Ophthalmology | Carissa Tinoco MD | | | 2019 | Visit | | [address] | | | | | | [place], [place] | | | | | | [address] | | | | | | [phone] | | | | | | | | +--------+---------+ + + + documented as of this encounter Visit Diagnoses Not on filedocumented in this encounter"
--- OUTSIDE RECORDS SUMMARY | ~2019-07-09 | XMS | Encounter Summary ---
Demographics + + + | Address | [address] | | | [place] [address] | + + + | Home Phone | | + + + | Preferred Language | Unknown | + + + | Marital Status | Single | + + + | Hinduism Affiliation | BAP | + + + | Race | White | + + + | Ethnic Group | Not or | + + + Author + + + | Author | [facility] | + + + | Organization | [facility] | + + + | Address | [...] Team Providers + +------+ + | Care Nurse'S Aides Teacher Name | Role | Phone | + +------+ + | Angelica Garrison | PCP | | + +------+ + Encounter Details +--------+ + + + + | Date | Type | Department | Care Team | Description | +--------+ + + + + | 04/22/ | Ancillary | Diagnostic Imaging | Angelica Garrison | | | 2019 | Orders | Services [address] | [place] [address] | | | | | [address] | [address] | | | | | [place], [place] | [place] [address] | | | | | [address] | [phone] | | | | | | | [...] | 2020 | Visit | | MDPhD [address] | | | | | | [address] [facility] 9 | | | | | | [place], [place] | | | | | | [address] | | | | | | [phone] | | | | | | | | +--------+---------+ + + + | 06/02/ | Office | Ophthalmology | Carissa Tinoco MD | | | 2020 | Visit | | [address] | | | | | | [place], [place] | | | | | | [address] | | | | | | [phone] | | | | | | | [...]
--- OUTSIDE RECORDS SUMMARY | ~2019-07-09 | XMS | Encounter Summary ---
Demographics + + + | Address | [address] | | | [place] [address] | + + + | Home Phone [...] Team Providers + +------+ + | Care Housekeeping Assistant Name | Role | Phone | + +------+ + | Angelica Garrison | PCP | | + +------+ + Reason for Visit + + + | Reason | Comments | + + + | Lab findings, | | | teaching, guidance, | | | and counseling | | + + + Encounter Details +--------+ + + + + | Date | Type | Department | Care Team | Description | +--------+ + + + + | 07/23/ | Telephone | Cardiology General | Cristóbal Mccullough, | Lab findings, | | 2018 | | at [facility] [address] | ,PhD [address] | teaching, guidance, | | | | [address] Mailcode: | [address] | and counseling | | | | [facility] | [place], [place] | | | | | Health and Healing, | [address] | | | | | | [phone] | | | | | Floor [place], [place] | | | | | | [address] | | | | | | [phone] | | | +--------+ + + + [...] 9 | | | | | | [place], [place] | | | | | | [address] | | | | | | [phone] | | | | | | | | +--------+---------+ + + + | 06/02/ | Office | Ophthalmology | Carissa Tinoco MD | | | 2019 | Visit | | [address] | | | | | | [place], [place] | | | | | | [address] | | | | | | [phone] | | | | | | | | +--------+---------+ + + + documented as of this encounter Visit Diagnoses Not on filedocumented in this encounter"
--- OUTSIDE RECORDS SUMMARY | ~2019-07-09 | XMS | Encounter Summary ---
Demographics + + + | Address | [address] | | | [place] [address] | + + + | Home Phone [...] + + + | Author | [facility] | + + + | Organization | [facility] | + + + | [...] Team Providers + +------+ + | Care Ux Visual Designer Name | Role | Phone | + +------+ + | Angelica Garrison | PCP | | + +------+ + Encounter Details +--------+ + + + + | Date | Type | Department | Care Team | Description | +--------+ + + + + | 06/12/ | Abstract | Cardiology General | Cristóbal Mccullough, | | | 2018 | | at [facility] [address] | ,PhD [address] | | | | | [address] Mailcode: | [address] | | | | | [facility] | [place], [place] | | | | | Health and Healing, | [address] | | | | | [facility] | [phone] | | | | | Floor | | | | | | [address] | | | | | | [phone] | | | +--------+ + + + [...] | 2019 | Visit | | [address]PhD [address] | | | | | | [address] | | | | | | [place], [place] | | | | | | [address] | | | | | | [phone] | | | | | | | | +--------+---------+ + + + | 06/02/ | Office | Ophthalmology | Carissa Tinoco MD | | | 2020 | Visit | | [address] | | | | | | [place] | | | | | | [address] | | | | | | [phone] | | | | | | | | +--------+---------+ + + + documented as of this encounter Visit Diagnoses Not on filedocumented in this encounter"
--- OUTSIDE RECORDS SUMMARY | ~2019-07-09 | XMS | Encounter Summary ---
Demographics + + + | Address | [address] | | | [place] [address] | + + + | Home Phone | | + + + | Preferred Language | Unknown | + + + | Marital Status | Single | + + + | Baptism Affiliation | BAP | + + + [...] Team Providers + +------+ + | Care Jewelry Bench Worker Name | Role | Phone | [...] findings, | | 2018 | | at [facility] [address] | ,PhD [address] | teaching, guidance, | | | | [address] Mailcode: | [address] | and counseling | | | | [facility] | [place], [place] | | | | | Health and Healing, | [address] | | | | | | [phone] | | | | | Floor [place], [place] | | | | | | [address] | | | | | | [phone] | | | +--------+ + + + [...] 9 | | | | | | [place], [place] | | | | | | [address] | | | | | | [phone] | | | | | | | | +--------+---------+ + + + | 06/02/ | Office | Ophthalmology | Carissa Tinoco MD | | | 2019 | Visit | | [address] | | | | | | [place], [place] | | | | | | [address] | | | | | | [phone] | | | | | | | | +--------+---------+ + + + documented as of this encounter Visit Diagnoses Not on filedocumented in this encounter"
--- OUTSIDE RECORDS SUMMARY | ~2019-07-09 | XMS | Encounter Summary ---
Demographics + + + | Address | [address] | | | [place] [address] | + + + | Home Phone [...] Author + + + | Author | [facility] | + + + | Organization | [facility] | + + + | [...] Team Providers + +------+ + | Care Outside Sales Account Manager Name | Role | Phone | [...] Question | | 2018 | | at [facility] [address] | ,PhD [address] | (Question about | | | | [address] Mailcode: | [address] | medication) | | | | [address] | [place], [place] | | | | | Health and Healing, | [address] | | | | | [facility] | [phone] | | | | | [place], [place] | | | | | | [address] | | | | | | [phone] | | | +--------+ + + + [...] 9 | | | | | | [place], [place] | | | | | | [address] | | | | | | [phone] | | | | | | | | +--------+---------+ + + + | 06/02/ | Office | Ophthalmology | Carissa Tinoco MD | | | 2019 | Visit | | [address] | | | | | | [place], [place] | | | | | | [address] | | | | | | [phone] | | | | | | | | +--------+---------+ + + + documented as of this encounter Visit Diagnoses Not on filedocumented in this encounter"
--- OUTSIDE RECORDS SUMMARY | ~2019-07-09 | XMS | Encounter Summary ---
Demographics + + + | Address | [address] | | | [place] [address] | + + + | Home Phone | | + + + | Preferred Language | Unknown | + + + | Marital Status | Single | + + + | Yarsani Affiliation | BAP | + + + [...] Team Providers + +------+ + | Care Glass Designer Name | Role | Phone | [...] Rd | | | | | | [place], [place] | | | | | | [address] | | | +--------+ + + + [...] 9 | | | | | | [place], [place] | | | | | | [address] | | | | | | [phone] | | | | | | | | +--------+---------+ + + + | 06/02/ | Office | Ophthalmology | Carissa Tinoco MD | | | 2019 | Visit | | [address] | | | | | | [place], [place] | | | | | | [address] | | | | | | [phone] | | | | | | | | +--------+---------+ + + + documented as of this encounter Visit Diagnoses Not on filedocumented in this encounter"
--- OUTSIDE RECORDS SUMMARY | ~2019-07-09 | XMS | Encounter Summary ---
Demographics + + + | Address | [address] | | | [place] [address] | + + + | Home Phone [...] Team Providers + +------+ + | Care Image Processing Engineer Name | Role | Phone | [...] + + | 05/01/ | Hospital | [facility] | Jayne Tinoco MD | | | 2019 | Encounter | [address] | [address] | | | | | Art [place]ee | [place], [place] | | | | | [facility] | [address] | | | | | Maria Rios | [phone] | | | | | [place] [address] | | | | | | [phone] | | | +--------+ + + + [...] appointment Date: Saturday 12:50 PM Location : [place] [address] Begin your eye drops after your eye [...] your usual diet and usual medications. Call [phone] during business hours (Saturday through Fridays 8:00 a.m.-5:00 p.m.); all o ther times call [phone] and ask for the Eye Doctor reconstructive surgeon. Eye Drop Instructions ? Use the medication [...] 9 | | | | | | [place], [place] | | | | | | [address] | | | | | | [phone] | | | | | | | | +--------+---------+ + + + | 06/02/ | Office | Ophthalmology | Jayne Tinoco MD | | 2019 | Visit | | [address] | | | | | | [place], [place] | | | | | | [address] | | | | | | [phone] | | | | | | | [...] SURGEON: | | | JAYNE TINOCO MD PROPULSION GENERATOR REPAIRER(S): None OPERATION(S) PERFORMED: | | | Phacoemulsification [...] power | | | 14.0 D, SN [id number] was then injected into the capsular bag [...]
--- OUTSIDE RECORDS SUMMARY | ~2019-07-09 | XMS | Encounter Summary ---
Demographics + + + | Address | [address] | | | [place] [address] | + + + | Home Phone | | + + + | Preferred Language | Unknown | + + + | Marital Status | Single | + + + | Samaritan Affiliation | BAP | + + + | Race | White | + + + | Ethnic Group | Not or | + + + Author + + + | Author | [facility] | + + + | Organization | [facility] | + + + | [...] Team Providers + +------+ + | Care Engineering Operator Name | Role | Phone | [...] Rd | | | | | | [place], [place] | | | | | | [address] | | | +--------+ + + + [...] 9 | | | | | | [place], [place] | | | | | | [address] | | | | | | [phone] | | | | | | | | +--------+---------+ + + + | 06/02/ | Office | Ophthalmology | Carissa Tinoco MD | | | 2019 | Visit | | [address] | | | | | | [place], [place] | | | | | | [address] | | | | | | [phone] | | | | | | | | +--------+---------+ + + + documented as of this encounter Visit Diagnoses Not on filedocumented in this encounter"
--- OUTSIDE RECORDS SUMMARY | ~2019-07-09 | XMS | Encounter Summary ---
Demographics + + + | Address | [address] | | | [place] [address] | + + + | Home Phone | | + + + | Preferred Language | Unknown | + + + | Marital Status | Single | + + + | Judaism Affiliation | BAP | + + + [...] Team Providers + +------+ + | Care Program Facilitator Name | Role | Phone | + [...] findings, | | 2018 | | at [facility] [address] | ,PhD [address] | teaching, guidance, | | | | [address] Mailcode: | [address] | and counseling | | | | [facility] | [place], [place] | | | | | Health and Healing, | [address] | | | | | | [phone] | | | | | Floor [place], [place] | | | | | | [address] | | | | | | [phone] | | | +--------+ + + + [...] 9 | | | | | | [place], [place] | | | | | | [address] | | | | | | [phone] | | | | | | | | +--------+---------+ + + + | 06/02/ | Office | Ophthalmology | Carissa Tinoco MD | | | 2019 | Visit | | [address] | | | | | | [place], [place] | | | | | | [address] | | | | | | [phone] | | | | | | | | +--------+---------+ + + + documented as of this encounter Visit Diagnoses Not on filedocumented in this encounter"
--- OUTSIDE RECORDS SUMMARY | ~2019-07-09 | XMS | Encounter Summary ---
Demographics + + + | Address | [address] | | | [place] [address] | + + + | Home Phone | | + + + | Preferred Language | Unknown | + + + | Marital Status | Single | + + + | Hindu Affiliation | BAP | + + + | Race | White | + + + | Ethnic Group | Not or | + + + Author + + + | Author | [facility] | + + + | Organization | [facility] | + + + | Address [...] Team Providers + +------+ + | Care Certified Orthotic Fitter Name | Role | Phone | + [...] | | 2014 | Encounter | at [facility] [address] | [address] | | | | | [address] Mailcode: | [address] | | | | | [facility] | [address] [place], | | | | | Health and Healing, | [place] [address] | | | | | Building | [phone] | | | | | Floor [place], [place] | | | | | | [address] | | | | | | [phone] | | | +--------+ + + + [...] | 2020 | Visit | | MDPhD [address] | | | | | | [address] | | | | | | [place], [place] | | | | | | [address] | | | | | | [phone] | | | | | | | | +--------+---------+ + + + | 06/02/ | Office | Ophthalmology | Carissa Tinoco MD | | | 2020 | Visit | | [address] | | | | | | [place], [place] | | | | | | [address] | | | | | | [phone] | | | | | | | | +--------+---------+ + + + documented as of this encounter Visit Diagnoses Not on filedocumented in this encounter"
--- OUTSIDE RECORDS SUMMARY | ~2019-07-09 | XMS | Encounter Summary ---
Demographics + + + | Address | [address] | | | [place] [address] | + + + | Home Phone [...] Team Providers + +------+ + | Care Cardroom Hand Name | Role | Phone | + [...] Chest pain | Salvador Jane MD | [facility] [address] | | | | | Procedures | [address] | [address] | | | | | STRESS | [address] | [address] | | | | | ECHOCARDIOGR | [place], [place] | Mailcode: | | | | | AM, CONVERT | [address] | [id number] | | | | | DOBUTAMINE | Phone: | Betito [address]er | | | | | PRN | [phone] | Building | | | | | | Fax: | [place], [place] | | | | | | [phone] | [address] | | | | | | | Phone: | | | | | | | [phone] | +--------+--------+ + + + + Encounter Details +--------+ + + + + | Date | Type | Department | Care Team | Description | +--------+ + + + + | 04/26/ | Hospital | Cardiac | | | | 2013 | Encounter | Non-Invasive Testing | | | | | | at [facility] [address] | | | | | | [address] Mailcode: | | | | | | [facility] | | | | | | Health and Healing, | | | | | | [address] | | | | | | [place], [place] | | | | | | [address] | | | | | | [phone] | | | +--------+ + + + [...] | 2019 | Visit | | ,PhD [address] | | | | | [address] | | | | | | [place], [place] | | | | | | [address] | | | | | | [phone] | | | | | | | | +--------+---------+ + + + | 06/02/ | Office | Ophthalmology | Carissa Tinoco MD | | | 2019 | Visit | | [address] | | | | | | [place], [place] | | | | | | [address] | | | | | | [phone] | | | | | | | [...]
--- OUTSIDE RECORDS SUMMARY | ~2019-07-09 | XMS | Encounter Summary ---
Demographics + + + | Address | [address] | | | [place] [address] | + + + | Home Phone [...] Team Providers + +------+ + | Care Tube Winder Hand Name | Role | Phone | [...] | | | | aortic | ,PhD [address] | | | | | | aneurysm | [address] | | | | | | without | [address] | | | | | | rupture | [place], [place] | | | | | | ([facility]) | [address] | | | | | | Procedures | Phone: | | | | | | TRANSTHORACI | [phone] | | | | | | C | Fax: | | | | | | ECHOCARDIOGR | [phone] | | | | | | AM, [...] | | | | Atherosclero | [place] [address] | ,PhD [address] | | | | | tic heart | [address] | [address] | | | | | disease of | [place], | [address] | | | | | [place] | [place] [address] | [place], [place] | | | | | coronary | Phone: | [address] | | | | | artery | [phone] | Phone: | | | | | without | Fax: | [phone] | | | | | angina | [phone] | Fax: | | | | | pectoris | | [phone] | | | | | Procedures | | | | | | | CONSULT TO | | | | | | | CARDIOLOGY | | | | | | | [place] NEW | | | | | | | PATIENT | | | | | | | LEVEL V [place] | | | | | | | [...] | | 2017 | Visit | at [facility] [address] | ,PhD [address] | ([facility]) (Primary Dx); | | | | [address] Mailcode: | [address] | 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 [facility] NOTE: ID: Tim Martini is a [...] TTE at that time. -Cristóbal Mccullough MD/PhD [employer] Infrastructure Consultant [facility] Cardiovascular [place] [facility] [place] Pager [phone] documented in t his encounter Plan of Treatment +--------+---------+ + + + | Date | Type | Specialty | Care Team | Description | +--------+---------+ + + + | 01/07/ | Office | Cardiology | Cristóbal Mccullough, | | | 2019 | Visit | | ,PhD [address] | | | | | | [address] [facility] [address] | | | | | | [place], [place] | | | | | | [address] | | | | | | [phone] | | | | | | | | +--------+---------+ + + + | 06/02/ | Office | Ophthalmology | Carissa Tinoco MD | | | 2019 | Visit | | [address] | | | | | | [place], [place] | | | | | | [address] | | | | | | [phone] | | | | | | | [...] + | [facility] | [facility]PT [facility] | | [facility] Adult Echocardiography Laboratory [address] | CARDIOLOGY | | [place], [place] [address] Ph: | | | Pt Name: TIM MARTINI | | | Study Date/Time 01/02/2019 / 12:55:05 PMMRN: [id number] | | | Most recent prior: 06/06/2018Acc #: [id number] | | | No. previous echos: 2DOB: 1950 68 years | | | Heart Rate: 52 bpmHeight: 68.0 in | | | Blood Pressure: 127/89 mm/HgWeight: 236.0 lb | | | Gender: MBSA: 2.19 m | | | Order ID: [id number] Study | | | Location: CHHSonographer: Aiyana Floyd [facility], [place], PESonographer | | | [...] Report electronically signed by: | | | [id number] Gerber Palafox MD (01/02/2019, 2:05:47 PM) Final [...] | | | |Report electronically signed by: [id number] Gerber Palafox MD (01/02/2019, 2:05:47 | | |PM) | | | | | | | | | | | | Final | | + + + + + | Procedure Note | + + | Interface, Cardiology Results - 01/02/2019 2:05 PM [facility] [employer] | | [facility] Echocardiography Laboratory [facility] | | [place], [place] [address] Pt Name: TIM | | MONSTER MARTINI Study Date/Time 01/02/2019 / 12:55:05 PMMRN: [id number] | | Most recent prior: 06/06/2018Acc #: [id number] No. previous echos: 2DOB: | | 1950 68 years Heart Rate: 52 bpmHeight: 68.0 in Blood | | Pressure: 127/89 mm/HgWeight: 236.0 lb Gender: MBSA: | | 2.19 m | | Order ID: [id number] [facility] | | Mariel FRIAS, [place], PESonographer 2:Referring [...] and indexed values Report electronically signed by: [id number] Gerber | | Javy COBB (01/02/2019, 2:05:47 [...] | | | |Report electronically signed by: [id number] Gerber Palafox MD (01/02/2019, 2:05:47 | |PM) | | | | | | | | Final | + + + + + + + | Performing | Address | City/State/Zipcode | Phone Number | | Organization | | | | + + + + + | [facility] | [address] | [place], [place] | | | CARDIOLOGY | [address] | [address] | | + + + + + [...]
--- OUTSIDE RECORDS SUMMARY | ~2019-07-09 | XMS | Encounter Summary ---
Demographics + + + | Address | [address] | | | [place] [address] | + + + | Home Phone [...] Team Providers + +------+ + | Care Parts Remover Name | Role | Phone | + [...] | | | | | | [place], [place] | | | | | | [address] | | | | | | [phone] | | | | | | | | +--------+---------+ + + + | 06/02/ | Office | Ophthalmology | Carissa Tinoco MD | | | 2019 | Visit | | [address] | | | | | | [place], [place] | | | | | | [address] | | | | | | [phone] | | | | | | | | +--------+---------+ + + + documented as of this encounter Visit Diagnoses Not on filedocumented in this encounter"
--- OUTSIDE RECORDS SUMMARY | ~2019-07-09 | XMS | Encounter Summary ---
Demographics + + + | Address | [address] | | | [place] [address] | + + + | Home Phone [...] Team Providers + +------+ + | Care Connie Cleaner Name | Role | Phone | + [...] Chest pain | Salvador Jane MD | [facility] [address] | | | | | Procedures | [address] | [address] | | | | | STRESS | [address] | [address]ie Mon | | | | | ECHOCARDIOGR | [place], [place] | Mailcode: | | | | | AM, CONVERT | [address] | [address] | | | | | DOBUTAMINE | Phone: | [address]ito Waller | | | | | PRN | [phone] | Building | | | | | | Fax: | [place], [place] | | | | | | [phone] | [address] | | | | | | | Phone: | | | | | | | [phone] | +--------+--------+ + + + + Reason [...] | | | | | PATIENT | [place] | [address] | | | | | LEVEL V | Med Grp | [facility] | | | | | | [place] | [address] | | | | | | Family | [address] | | | | | | Medicine | [place], | | | | | | [address] | [place] [address] | | | | | | [address] [place] | Phone: | | | | | | [place], [place] | [phone] | | | | | | [address] | Fax: | | | | | | Phone: | [phone] | | | | | | [phone] | | | | | | | Fax: | | | | | | | [phone] | | +--------+--------+ + + + + Encounter Details +--------+---------+ + + + | Date | Type | Department | Care Team | Description | +--------+---------+ + + + | 04/26/ | Office | Cardiology General | Mike Marcus MD | Chest pain (Primary | | 2013 | Visit | at [facility] [address] | [address] | Dx); HTN | | | | [address] Mailcode: | [address] | (hypertension); | | | | [facility] | [address] [place], | Dyslipidemia; | | | | Health and Healing, | [place] [address] | Somnolence, daytime; | | | | Building | [phone] | Obesity; Tobacco | | | | Floor [place], [place] | | abuse | | | | [address] | | | | | | [phone] | | | +--------+---------+ + + + [...] please feel free to contact me via Satietyt or call and ask to speak to Brenda Bejarano (my nurse critical care nurse) who will get a hold of me. Sincerely, Mike Marcus MD/MPH Ship Keeper documented in this encounter Progress Notes Salvador [...] of the report. Kiko Summers M.D. Clinical Coil Cleaner Division of Cardiovascular Medicine [facility] oMike haile MD - 04/26/2014 8:08 AM PDT CARDIOLOGY CONSULTATION - INITIAL Consult Question: Hypertension / Left Shoulder Pain History of Present Illness: Chart records from [place] on 09/26/2013 reviewed. Notable for chest pain encounter with negative troponin and EKG (degraded quality) with sinus rhythm and possible LAD. Leukocyto sis at that time with left shift. He was recommended to follow-up with a local special education secretary , however, this did not occur. He established care in the [facility] system on 01/18/2014 wit h a PCP [...] agrees with the above. Mike Marcus MD [facility] Ship Keeper Pager [phone] documented in this encounter Plan of Treatment [...] 9 | | | | | | [place], [place] | | | | | | [address] | | | | | | [phone] | | | | | | | | +--------+---------+ + + + | 06/02/ | Office | Ophthalmology | Carissa Tinoco MD | | | 2019 | Visit | | [address] | | | | | | [place], [place] | | | | | | [address] | | | | | | [phone] | | | | | | | [...]
--- OUTSIDE RECORDS SUMMARY | ~2019-07-09 | XMS | Encounter Summary ---
Demographics + + + | Address | [address] | | | [place] [address] | + + + | Home Phone [...] Team Providers + +------+ + | Care Ecology Professor Name | Role | Phone | + [...] Catheterizati | Positive | Cristóbal Murrell, | Psychological Tests Sales Agent | | | | on | cardiac | ,PhD [address] | [address] | | | | | stress test | [address] | [address] | | | | | Procedures | [address] | [address] [facility] | | | | | SOCIAL WORK MANAGER | [place], [place] | [facility] | | | | | INT CORONARY | [address] | [place], [place] | | | | | ANGIOGRAM | Phone: | [address] | | | | | [place] CORONARY | [phone] | Phone: | | | | | ARTERY ANGIO | Fax: | [phone] | | | | | S&I | [phone] | Fax: | | | | | | | [phone] | +--------+--------+ + + + + Reason [...] + + + + | 06/06/ | Telephone | Cardiology General | Cristóbal Mccullough, | Lab findings, | | 2018 | | at [facility] [address] | ,PhD [address] | teaching, guidance, | | | | [address] Mailcode: | [address] | and counseling | | | | [address] | [place], [place] | | | | | Health and Healing, | [address] | | | | | | [phone] | | | | | Floor [place], [place] | | | | | | [address] | | | | | | [phone] | | | +--------+ + + + [...] | | | | | | [place], [place] | | | | | | [address] | | | | | | [phone] | | | | | | | | +--------+---------+ + + + | 06/02/ | Office | Ophthalmology | Carissa Tinoco MD | | 2019 | Visit | | [address] | | | | | | [place], [place] | | | | | | [address] | | | | | | [phone] | | | | | | | | +--------+---------+ + + + documented as of this encounter Results SOCIAL WORK MANAGER INT CORONARY ANGIOGRAM (07/21/2018 9:19 AM PDT) + + | Specimen | + + | | + + + + + | Narrative | Performed At | + + + | Procedure performed in the Cardiac Psychological Tests Sales Agent. See procedure notes | [facility] - | | for details. | DEONTE [facility], | | | POINT OF CARE | | | TESTS | + + + + + + + + | Performing | Address | City/State/Zipcode | Phone Number | | Organization | | | | + + + + + | [facility] | [address] | [place], [place] | | | [facility] | [address] | [address] | | | TESTS | | | | + + + + + documented in this encounter Visit Diagnoses + + | Diagnosis | + + | Angina pectoris (HCC) - Primary Other and unspecified angina pectoris | + + | Positive cardiac stress test Other nonspecific abnormal cardiovascular system | | function study | + + documented in this encounter"
--- OUTSIDE RECORDS SUMMARY | ~2019-07-09 | XMS | Encounter Summary ---
Demographics + + + | Address | [address] | | | [place] [address] | + + + | Home Phone | | + + + | Preferred Language | Unknown | + + + | Marital Status | Single | + + + | Tenriism Affiliation | BAP | + + + [...] Team Providers + +------+ + | Care Coal Miner Name | Role | Phone | + [...] Record | | 2018 | | at [facility] [address] | | Review (gen | | | | [address] Mailcode: | | checklist) | | | | [facility] | | | | | | Health and [facility], | | | | | | Building | | | | | | Floor [place], [place] | | | | | | [address] | | | | | | [phone] | | | +--------+ + + + [...] Last Stress Test images and report 04-26-14 ANDalyze - epic impax Last Cardiac Catheterization images [...] available 3-5-18 [facility] 04-24-18 via fax [phone] referral i mpax Patient Preferred Lab N/A [...] 9 | | | | | | [place], [place] | | | | | | [address] | | | | | | [phone] | | | | | | | | +--------+---------+ + + + | 06/02/ | Office | Ophthalmology | Carissa Tinoco MD | | | 2019 | Visit | | [address] | | | | | | [facility] [place] | | | | | | [address] | | | | | | [phone] | | | | | | | | +--------+---------+ + + + documented as of this encounter Visit Diagnoses Not on filedocumented in this encounter"
--- OUTSIDE RECORDS SUMMARY | ~2019-07-09 | XMS | Encounter Summary ---
Demographics + + + | Address | [address] | | | [place] [address] | + + + | Home Phone [...] Team Providers + +------+ + | Care Sales Ambassador Name | Role | Phone | + [...] up | | 2018 | | at [facility] [address] | ,PhD [address] | care plan ) | | | | [address] Mailcode: | [address] | | | | | [facility] | [place], [place] | | | | | Health and Healing, | [address] | | | | | | [phone] | | | | | Floor [place], [place] | | | | | | [address] | | | | | | [phone] | | | +--------+ + + + [...] 9 | | | | | | [place], [place] | | | | | | [address] | | | | | | [phone] | | | | | | | | +--------+---------+ + + + | 06/02/ | Office | Ophthalmology | Carissa Tinoco MD | | | 2019 | Visit | | [address] | | | | | | [place], [place] | | | | | | [address] | | | | | | [phone] | | | | | | | | +--------+---------+ + + + documented as of this encounter Visit Diagnoses Not on filedocumented in this encounter"
--- OUTSIDE RECORDS SUMMARY | ~2019-07-09 | XMS | Encounter Summary ---
Demographics + + + | Address | [address] | | | [place] [address] | + + + | Home Phone | | + + + | Preferred Language | Unknown | + + + | Marital Status | Single | + + + | Moravian Affiliation | BAP | + + + [...] Team Providers + +------+ + | Care Die Maker Electronic Name | Role | Phone | + +------+ + | Angelica Garrison | PCP | | + +------+ + Encounter Details +--------+ + + + + | Date | Type | Department | Care Team | Description | +--------+ + + + + | 06/22/ | MyChart | Cardiology General | Cristóbal Mccullough, | RE: Angogram/plasty | | 2018 | Encounter | at [facility] [address] | ,PhD [address] | urgency? | | | | [address] Mailcode: | [address] | | | | | [facility] | [place], [place] | | | | | Health and Healing, | [address] | | | | | | [phone] | | | | | Floor [place], [place] | | | | | | [address] | | | | | | [phone] | | | +--------+ + + + [...] | 2019 | Visit | | ,PhD [address] | | | | | | [address] | | | | | | [place], [place] | | | | | | [address] | | | | | | [phone] | | | | | | | | +--------+---------+ + + + | 06/02/ | Office | Ophthalmology | Carissa Tinoco MD | | | 2020 | Visit | | [address] | | | | | | [place] | | | | | | [address] | | | | | | [phone] | | | | | | | | +--------+---------+ + + + documented as of this encounter Visit Diagnoses Not on filedocumented in this encounter"
--- OUTSIDE RECORDS SUMMARY | ~2019-07-09 | XMS | Encounter Summary ---
Demographics + + + | Address | [address] | | | [place] [address] | + + + | Home Phone | | + + + | Preferred Language | Unknown | + + + | Marital Status | Single | + + + | Adventism Affiliation | BAP | + + + [...] Team Providers + +------+ + | Care Facility Technician Name | Role | Phone | + [...] 9 | | | | | | [place], [place] | | | | | | [address] | | | | | | [phone] | | | | | | | | +--------+---------+ + + + | 06/02/ | Office | Ophthalmology | Carissa Tinoco MD | | | 2019 | Visit | | [address] | | | | | | [place], [place] | | | | | | [address] | | | | | | [phone] | | | | | | | | +--------+---------+ + + + documented as of this encounter Visit Diagnoses Not on filedocumented in this encounter"
--- OUTSIDE RECORDS SUMMARY | ~2019-07-09 | XMS | Encounter Summary ---
Demographics + + + | Address | [address] | | | [place] [address] | + + + | Home Phone | | + + + | Preferred Language | Unknown | + + + | Marital Status | Single | + + + | Advent Affiliation | BAP | + + + [...] Team Providers + +------+ + | Care Creative Technologist Name | Role | Phone | + [...] CASIMIRO Cisse | [address] | (TOPICAL) | | | | Vickie Mon [facility] | [place], [place] | | | | | [facility], | [address] | | | | | [place] [address] | [phone] | | | | | | | [...] appointment Date: Saturday 12:50 PM Location : [place] [address] Begin your eye drops after your eye [...] your usual diet and usual medications. Call [phone] during business hours (Saturday through Fridays 8:00 a.m.-5:00 p.m.); all o ther times call [phone] and ask for the Eye Doctor food consultant. Eye Drop Instructions ? Use the medication [...] 9 | | | | | | [place], [place] | | | | | | [address] | | | | | | [phone] | | | | | | | | +--------+---------+ + + + | 06/02/ | Office | Ophthalmology | Jayne Tinoco MD | | | 2019 | Visit | | [address] | | | | | | [place], [place] | | | | | | [address] | | | | | | [phone] | | | | | | | [...] SURGEON: | | | JAYNE TINOCO MD DIGITAL MARKETING PROJECT MANAGER(S): None OPERATION(S) PERFORMED: | | | Phacoemulsification [...] power | | | 14.0 D, SN [id number] was then injected into the capsular bag [...]
--- OUTSIDE RECORDS SUMMARY | ~2019-07-09 | XMS | Encounter Summary ---
Demographics + + + | Address | [address] | | | [place] [address] | + + + | Home Phone [...] Team Providers + +------+ + | Care Food Beverage Server Name | Role | Phone | + [...] + + | 05/01/ | Hospital | [facility] | Jayne Tinoco MD | | | 2019 | Encounter | [address] | [address] | | | | | [address] | [place], [place] | | | | | [facility] | [address] | | | | | Maria Rios | [phone] | | | | | [place] [address] | | | | | | [phone] | | | +--------+ + + + [...] appointment Date: Saturday 12:50 PM Location : [place] [address] Begin your eye drops after your eye [...] your usual diet and usual medications. Call [phone] during business hours (Saturday through Fridays 8:00 a.m.-5:00 p.m.); all o ther times call [phone] and ask for the Eye Doctor funeral professional. Eye Drop Instructions ? Use the medication [...] 9 | | | | | | [place], [place] | | | | | | [address] | | | | | | [phone] | | | | | | | | +--------+---------+ + + + | 06/02/ | Office | Ophthalmology | Jayne Tinoco MD | | 2019 | Visit | | [address] | | | | | | [place], [place] | | | | | | [address] | | | | | | [phone] | | | | | | | [...] SURGEON: | | | JAYNE TINOCO MD SLATE WORKER(S): None OPERATION(S) PERFORMED: | | | Phacoemulsification [...] power | | | 14.0 D, SN [id number] was then injected into the capsular bag [...]
--- OUTSIDE RECORDS SUMMARY | ~2019-07-09 | XMS | Encounter Summary ---
Demographics + + + | Address | [address] | | | [place] [address] | + + + | Home Phone [...] Team Providers + +------+ + | Care Nuclear Worker Technician Name | Role | Phone | [...] | | 2018 | Encounter | at [facility] [address] | ,PhD [address] | urgency? | | | | [address] Mailcode: | [address] | | | | | [facility] | [place], [place] | | | | | Health and Healing, | [address] | | | | | | [phone] | | | | | Floor [place], [place] | | | | | | [address] | | | | | | [phone] | | | +--------+ + + + [...] | 2019 | Visit | | ,PhD [address] | | | | | | [address] | | | | | | [place], [place] | | | | | | [address] | | | | | | [phone] | | | | | | | | +--------+---------+ + + + | 06/02/ | Office | Ophthalmology | Carissa Tinoco MD | | | 2020 | Visit | | [address] | | | | | | [place] | | | | | | [address] | | | | | | [phone] | | | | | | | | +--------+---------+ + + + documented as of this encounter Visit Diagnoses Not on filedocumented in this encounter"
--- OUTSIDE RECORDS SUMMARY | ~2019-07-09 | XMS | Encounter Summary ---
Demographics + + + | Address | [address] | | | [place] [address] | + + + | Home Phone [...] + + | Author | [facility] | + + + | Organization | [facility] | + + + | Address | [...] Team Providers + +------+ + | Care District Recruiter Name | Role | Phone | [...] Question | | 2018 | | at [facility] [address] | ,PhD [address] | (Question about | | | | [address] Mailcode: | [address] | medication) | | | | [address] | [place], [place] | | | | | Health and Healing, | [address] | | | | | [facility] | [phone] | | | | | [place], [place] | | | | | | [address] | | | | | | [phone] | | | +--------+ + + + [...] 9 | | | | | | [place], [place] | | | | | | [address] | | | | | | [phone] | | | | | | | | +--------+---------+ + + + | 06/02/ | Office | Ophthalmology | Carissa Tinoco MD | | | 2019 | Visit | | [address] | | | | | | [place], [place] | | | | | | [address] | | | | | | [phone] | | | | | | | | +--------+---------+ + + + documented as of this encounter Visit Diagnoses Not on filedocumented in this encounter"
--- OUTSIDE RECORDS SUMMARY | ~2019-07-09 | XMS | Encounter Summary ---
Demographics + + + | Address | [address] | | | [place] [address] | + + + | Home Phone [...] Team Providers + +------+ + | Care Sap Basis Administrator Name | Role | Phone | + [...] day | | 2019 | Visit | [place] | [address] | postop (Primary Dx) | | | | ogy at [facility] [address] | [place], [place] | | | | | [address] Mailcode: | [address] | | | | | [facility] | [phone] | | | | | Health and Healing, | | | | | | | | | | | | Floor [place], [place] | | | | | | [address] | | | | | | [phone] | | | +--------+---------+ + + + [...] scheduled in 2-3 wks. Carissa Tinoco MD Dump Truck Operator Comprehensive Ophthalmology [facility] [place] History: Patient presents with: Postoperative visit Feeling [...] 9 | | | | | | [place], [place] | | | | | | [address] | | | | | | [phone] | | | | | | | | +--------+---------+ + + + | 06/02/ | Office | Ophthalmology | Carissa Tinoco MD | | | 2019 | Visit | | [address] | | | | | | [facility] [place] | | | | | | [address] | | | | | | [phone] | | | | | | | | +--------+---------+ + + + documented as of this encounter Visit Diagnoses + + | Diagnosis | + + | Pseudophakia - 1 day postop - Primary Lens replaced by other means | + + documented in this encounter"
--- OUTSIDE RECORDS SUMMARY | ~2019-07-09 | XMS | Encounter Summary ---
Demographics + + + | Address | [address] | | | [place] [address] | + + + | Home Phone [...] Team Providers + +------+ + | Care Header Set Up Operator Name | Role | Phone | [...] Chest pain | Salvador Jane MD | [facility] [address] | | | | | Procedures | [address] | [address]anny [address]isse | | | | | STRESS | [address] | Vickie Mon | | | | | ECHOCARDIOGR | [place], [place] | Mailcode: | | | | | AM, CONVERT | [address] | [address] | | | | | DOBUTAMINE | Phone: | Betito [place] | | | | | PRN | [phone] | Building | | | | | | Fax: | [place], [place] | | | | | | [phone] | [address] | | | | | | | Phone: | | | | | | | [phone] | +--------+--------+ + + + + Reason [...] | | | | | PATIENT | [place] | [address] | | | | | [address] | Med Grp | [facility] | | | | | | [facility] [address] | | | | | | Family | [address] | | | | | | Medicine | [place], | | | | | | [address] | [place] [address] | | | | | | [address] [place] | Phone: | | | | | | [place], [place] | [phone] | | | | | | [address] | Fax: | | | | | | Phone: | [phone] | | | | | | [phone] | | | | | | | Fax: | | | | | | | [phone] | | +--------+--------+ + + + + Encounter Details +--------+---------+ + + + | Date | Type | Department | Care Team | Description | +--------+---------+ + + + | 04/26/ | Office | Cardiology General | Mike Marcus MD | Chest pain (Primary | | 2013 | Visit | at [facility] [address] | [address] | Dx); HTN | | | | [address] Mailcode: | [address] | (hypertension); | | | | [facility] | [address] [place], | Dyslipidemia; | | | | Health and Healing, | [place] [address] | Somnolence, daytime; | | | | Building | [phone] | Obesity; Tobacco | | | | Floor [place], [place] | | abuse | | | | [address] | | | | | | [phone] | | | +--------+---------+ + + + [...] please feel free to contact me via [employer] or call and ask to speak to Brenda Bejarano (my nurse eye care professional) who will get a hold of me. Sincerely, Mike Marcus MD/MPH Physician Office Rep documented in this encounter Progress Notes Salvador [...] of the report. Kiko Summers M.D. Clinical Environmental Field Team Member Division of Cardiovascular Medicine [facility] oMike haile MD - 04/26/2014 8:08 AM PDT CARDIOLOGY CONSULTATION - INITIAL Consult Question: Hypertension / Left Shoulder Pain History of Present Illness: Chart records from [facility] on 09/26/2013 reviewed. Notable for chest pain encounter with negative troponin and EKG (degraded quality) with sinus rhythm and possible LAD. Leukocyto sis at that time with left shift. He was recommended to follow-up with a local block hand , however, this did not occur. He established care in the [facility] system on 01/18/2014 wit h a [...] agrees with the above. Mike Marcus MD [facility] Physician Office Rep Pager [phone] documented in this encounter Plan of Treatment [...] 9 | | | | | | [place], [place] | | | | | | [address] | | | | | | [phone] | | | | | | | | +--------+---------+ + + + | 06/02/ | Office | Ophthalmology | Carissa Tinoco MD | | | 2019 | Visit | | [address] | | | | | | [place], [place] | | | | | | [address] | | | | | | [phone] | | | | | | | [...]
--- OUTSIDE RECORDS SUMMARY | ~2019-07-09 | XMS | Clinical Summary ---
Demographics + + + | Address | [address] | | | [place] [address] | + + + | Home Phone [...] Providers + +------+ + | Care Assistant To The Director Name | Role | Phone | + +------+ + | Angelica Garrison | PCP | | + +------+ + Source Comments ISRA is fully live on both [facility] and [facility] InPatient.[facility] Allergies + + + + + [...] | 2020 | Visit | | MDPhD [address] | | | | | | [address] | | | | | | [place], [place] | | | | | | [address] | | | | | | [phone] | | | | | | | | +--------+---------+ + + + | 06/02/ | Office | Ophthalmology | Jayne Tinoco MD | | | 2019 | Visit | | [address] | | | | | | [place], [place] | | | | | | [address] | | | | | | [phone] | | | | | | | [...] / | | Jayne Tinoco MD at [facility] | | | | | | 458372 | | INPATIENT REV LOC | | | | | | / | + +------+--------+ +--------+--------+--------+ | Acrysofiq ToricImplanted: | | Left: | | | 07/23/ | [id number] | | Qty: 1 on 05/15/2019 by | | Eye | | | 2020 | | | Jayne Tinoco MD at [facility] | | | | | | /[address] | | INPATIENT REV LOC | | | | | | [id number] | | | | | | | [...] SURGEON: | | | JAYNE TINOCO MD DESIGN LEADER(S): None OPERATION(S) PERFORMED: | | | Phacoemulsification [...] | desired refractive goal were reviewed. The Morris and/or Hagis | | | equation was [...] power | | | 13.0 D, SN [id number] was then injected into the capsular bag [...] SURGEON: | | | JAYNE TINOCO MD DESIGN LEADER(S): None OPERATION(S) PERFORMED: | | | Phacoemulsification [...] power | | | 14.0 D, SN [id number] was then injected into the capsular bag [...] | | | | | | | [address] | | + +--------+ +--------+ + +--------+ | [employer] [place] | MUTUAL | [id number] | 03/23/20 | [phone] | MUTUAL OF | Indemn | | MEDICARE SUPPL | OF | | 17-Pre | 0 | [place] | ity | | | [place] | | sent | | PLAZA | | | | MEDICA | | | | [place] | | | | RE | | | | [phone] | | | | SUPPL | | [...] Person | Self | [birth year] | | [address] | | | al/Fam | | 1950 | [phone] | [place] [address] | | | jey | | | [...]
--- OUTSIDE RECORDS SUMMARY | ~2019-07-09 | XMS | Encounter Summary ---
Demographics + + + | Address | [address] | | | [place] [address] | + + + | Home Phone [...] Team Providers + +------+ + | Care Global Professional Name | Role | Phone | + [...] Catheterizati | Positive | Cristóbal Murrell, | Computer Assembler | | | | on | cardiac | ,PhD [address] | [address] | | | | | stress test | [address] | [address] | | | | | Procedures | [address] | [address] [facility] | | | | | SOFTWARE QUALITY AUTOMATION ENGINEER | [place], [place] | [facility] | | | | | INT CORONARY | [address] | [place], [place] | | | | | ANGIOGRAM | Phone: | [phone] | | | | | [place] CORONARY | [phone] | Phone: | | | | | ARTERY ANGIO | Fax: | [phone] | | | | | S&I | [phone] | Fax: | | | | | | | [phone] | +--------+--------+ + + + + Reason [...] | 2018 | | at [facility] [address] | ,PhD [address] | teaching, guidance, | | | | [address] Mailcode: | [address] | and counseling | | | | [address] | [place], [place] | | | | | Health and Healing, | [address] | | | | | | [phone] | | | | | Floor [place], [place] | | | | | | [address] | | | | | | [phone] | | | +--------+ + + + [...] 9 | | | | | | [place], [place] | | | | | | [address] | | | | | | [phone] | | | | | | | | +--------+---------+ + + + | 06/02/ | Office | Ophthalmology | Carissa Tinoco MD | | 2019 | Visit | | [address] | | | | | | [place], [place] | | | | | | [address] | | | | | | [phone] | | | | | | | | +--------+---------+ + + + documented as of this encounter Results SOFTWARE QUALITY AUTOMATION ENGINEER INT CORONARY ANGIOGRAM (07/21/2018 9:19 AM PDT) + + | Specimen | + + | | + + + + + | Narrative | Performed At | + + + | Procedure performed in the Cardiac Computer Assembler. See procedure notes | [facility] - | | for details. | DEONTE [facility]NA[facility], | | | POINT OF CARE | | | TESTS | + + + + + + + + | Performing | Address | City/State/Zipcode | Phone Number | | Organization | | | | + + + + + | [facility] | [address] | [place], [place] | | | [facility] | [address] | [address] | | | TESTS | | | [...]
--- OUTSIDE RECORDS SUMMARY | ~2019-07-09 | XMS | Encounter Summary ---
Demographics + + + | Address | [address] | | | [place] [address] | + + + | Home Phone | | + + + | Preferred Language | Unknown | + + + | Marital Status | Single | + + + | Caodaism Affiliation | BAP | + + + [...] Team Providers + +------+ + | Care Registered Dietician Name | Role | Phone | + [...] Bilateral | | 2019 | Visit | [place]/[facility] | [address] | pseudophakia | | | | ogy at [facility] [address] | [facility] [place] | (Primary Dx) | | | | [address] Mailcode: | [address] | | | | | [facility] | [phone] | | | | | Health and Healing, | | | | | | Building | | | | | | Floor [place], [place] | | | | | | [address] | | | | | | [phone] | | | +--------+---------+ + + + [...] and Plan: Exam Date: 06/02/2019 Patient:Tim Martini ([id number]) Impression: 05/01/2019 Phaco IOL OD SN6AT4 14.0D [...] I have reviewed and edited history and industrial technician documentation, and performed all other el ements to above examination documentation. Carissa Tinoco MD Concrete Saw Operator Comprehensive Ophthalmology [facility] [place] [facility] [place] Physician: Carissa Tinoco MD 06/02/2019 HPI: 69 y.o. year old male from [place] : Patient presents with: Post Op Vision [...] Pressure 19 20 Manifest Refraction Sphere Cylinder [place] Dist [facility] Add Near VA Right -0.50 Sphere 20/20 +2.50 J1+ Left Page +0.75 135 20/20 +2.50 J1+ Dilation Left eye: 1.0% Mydriacyl, 2.5% Phenylephrine @ 10:48 AM Pupils Pupils Right PERRL Left PERRL Extraocular Movement Right Left Full, Ortho Full, Ortho Final Rx Sphere Cylinder [place] Dist VA Add Near VA Right -0.50 Sphere 20/20 +2.50 J1+ Left Page +0.75 135 20/20 +2.50 J1+ Neuro/Psych Oriented [...] 9 | | | | | | [place], [place] | | | | | | [address] | | | | | | [phone] | | | | | | | | +--------+---------+ + + + | 06/02/ | Office | Ophthalmology | Carissa Tinoco MD | | | 2019 | Visit | | [address] | | | | | | [place], [place] | | | | | | [address] | | | | | | [phone] | | | | | | | | +--------+---------+ + + + documented as of this encounter Visit Diagnoses + + | Diagnosis | + + | Bilateral pseudophakia - Primary Lens replaced by other means | + + documented in this encounter
--- OUTSIDE RECORDS SUMMARY | ~2019-07-09 | XMS | Encounter Summary ---
Demographics + + + | Address | [address] | | | [place] [address] | + + + | Home Phone [...] Team Providers + +------+ + | Care Fabric Worker Fitter Name | Role | Phone | [...] [place] | | | | | | [facility], | | | | | | [place] [address] | | | +--------+ + + + [...] 9 | | | | | | [place], [place] | | | | | | [address] | | | | | | [phone] | | | | | | | | +--------+---------+ + + + | 06/02/ | Office | Ophthalmology | Carissa Tinoco MD | | | 2019 | Visit | | [address] | | | | | | [facility] [place] | | | | | | [address] | | | | | | [phone] | | | | | | | | +--------+---------+ + + + documented as of this encounter Visit Diagnoses Not on filedocumented in this encounter"
--- OUTSIDE RECORDS SUMMARY | ~2019-07-09 | XMS | Encounter Summary ---
Demographics + + + | Address | [address] | | | [place] [address] | + + + | Home Phone | | + + + | Preferred Language | Unknown | + + + | Marital Status | Single | + + + | Voodoo Affiliation | BAP | + + + [...] Phone | + + +---------+ + | Pih Martini | ECON | Unknown | | + + +---------+ + | Irvin Martini | ECON | Unknown | | + + +---------+ + Care Team Providers + +------+ + | Care Woodworker Helper Name | Role | Phone | [...] + + | 05/15/ | Hospital | [facility] | Jayne Tinoco MD | | | 2019 | Encounter | [address] | [address] | | | | | [address] | [place], [place] | | | | | [facility] | [address] | | | | | [address] | [phone] | | | | | [place] [address] | | | | | | [phone] | | | +--------+ + + + [...] appointment Date: __05/15/19 Time: __2:50pm Location : [address], [place] [address] Begin your eye drops after your eye [...] your usual diet and usual medications. Call [phone] during business hours (Saturday through Fridays 8:00 a.m.-5:00 p.m.); all o ther times call [phone] and ask for the Eye Doctor plate conditioner. Eye Drop Instructions ? Use the medication [...] 9 | | | | | | [place], [place] | | | | | | [address] | | | | | | [phone] | | | | | | | | +--------+---------+ + + + | 06/02/ | Office | Ophthalmology | Jayne Tinoco MD | | | 2019 | Visit | | [address] | | | | | | [place], [place] | | | | | | [address] | | | | | | [phone] | | | | | | | [...] SURGEON: | | | JAYNE TINOCO MD BULB BRANDER(S): None OPERATION(S) PERFORMED: | | | Phacoemulsification [...] power | | | 13.0 D, SN [id number] was then injected into the capsular bag [...]
--- OUTSIDE RECORDS SUMMARY | ~2019-07-09 | XMS | Clinical Summary ---
Demographics + + + | Address | [address] | | | [place] [address] | + + + | Home Phone [...] Team Providers + +------+ + | Care Intranet Developer Name | Role | Phone | + +------+ + | Angelica Garrison | PCP | | + +------+ + Source Comments ISRA is fully live on both [facility] [place] [facility] and [facility] InPatient.[facility] Allergies + + + + + [...] | 2020 | Visit | | MDPhD [address] | | | | | | [address] | | | | | | [place], [place] | | | | | | [address] | | | | | | [phone] | | | | | | | | +--------+---------+ + + + | 06/02/ | Office | Ophthalmology | Jayne Tinoco MD | | | 2019 | Visit | | [address] | | | | | | [place], [place] | | | | | | [address] | | | | | | [phone] | | | | | | | [...] / | | Jayne Tinoco MD at [facility] | | | | | | [phone] | | INPATIENT REV LOC | | | | | | / | + +------+--------+ +--------+--------+--------+ | Acrysofiq ToricImplanted: | | Left: | | | 07/23/ | [id number] | | Qty: 1 on 05/15/2019 by | | Eye | | | 2020 | | | Jayne Tinoco MD at [facility] | | | | | | /[id number] | | INPATIENT REV LOC | | | | | | [id number] | | | | | | | [...] SURGEON: | | | JAYNE TINOCO MD TIME CYCLE OPERATOR(S): None OPERATION(S) PERFORMED: | | | Phacoemulsification [...] | desired refractive goal were reviewed. The [place]ar[place] and/or Hagis | | | equation was [...] power | | | 13.0 D, SN [id number] was then injected into the capsular bag [...] SURGEON: | | | JAYNE TINOCO MD TIME CYCLE OPERATOR(S): None OPERATION(S) PERFORMED: | | | Phacoemulsification [...] power | | | 14.0 D, SN [id number] was then injected into the capsular bag [...] | | | | | | | [address] | | + +--------+ +--------+ + +--------+ | [employer] [place] | MUTUAL | [email or web address] | 03/23/20 | [phone] | MUTUAL OF | Indemn | | MEDICARE SUPPL | OF | | 17-Pre | 0 | [employer] | ity | | | [employer] | | sent | | [place]ZA | | | | MEDICA | | | | [place] | | | | RE | | | | [id number] | | | | SUPPL | | [...] Person | Self | [birth year] | | [address] | | | al/Fam | | 1950 | [phone] | [place] [address] | | | jey | | | [...]
--- OUTSIDE RECORDS SUMMARY | ~2019-07-09 | XMS | Encounter Summary ---
Demographics + + + | Address | [address] | | | [place] [address] | + + + | Home Phone [...] Author + + + | Author | [facility] | + + + | Organization | [facility] | + + + | [...] Team Providers + +------+ + | Care Shipfitter Apprentice Name | Role | Phone | + +------+ + | Angelica Garrison | PCP | | + +------+ + Encounter Details +--------+ + + + + | Date | Type | Department | Care Team | Description | +--------+ + + + + | 04/22/ | Ancillary | Diagnostic Imaging | Angelica Garrison | | | 2019 | Orders | Services [address] | [place] [address] | | | | | [address] | [address] | | | | | [place], [place] | [place] [address] | | | | | [address] | [phone] | | | | | | | [...] | 2020 | Visit | | MDPhD [address] | | | | | | [address] [facility] 9 | | | | | | [place], [place] | | | | | | [address] | | | | | | [phone] | | | | | | | | +--------+---------+ + + + | 06/02/ | Office | Ophthalmology | Carissa Tinoco MD | | | 2020 | Visit | | [address] | | | | | | [place], [place] | | | | | | [address] | | | | | | [phone] | | | | | | | [...]
--- OUTSIDE RECORDS SUMMARY | ~2019-07-09 | XMS | Encounter Summary ---
Demographics + + + | Address | [address] | | | [place] [address] | + + + | Home Phone [...] Team Providers + +------+ + | Care Coloring Room Man Name | Role | Phone | + [...] Catheterizati | Positive | Cristóbal Murrell, | Surgery Attendant | | | | on | cardiac | ,PhD [address] | [address] | | | | | stress test | [address] | [address] | | | | | Procedures | [address] | [address] [facility] | | | | | NATIONAL DEDICATED TRUCK DRIVER | [place], [place] | [facility] | | | | | INT CORONARY | [address] | [place], [place] | | | | | ANGIOGRAM | Phone: | [address] | | | | | [place] CORONARY | [phone] | Phone: | | | | | ARTERY ANGIO | Fax: | [phone] | | | | | S&I | [phone] | Fax: | | | | | | | [phone] | +--------+--------+ + + + + Reason [...] findings, | | 2018 | | at [facility] [address] | ,PhD [address] | teaching, guidance, | | | | [address] Mailcode: | [address] | and counseling | | | | [address] | [place], [place] | | | | | Health and Healing, | [address] | | | | | | [phone] | | | | | Floor [place], [place] | | | | | | [address] | | | | | | [phone] | | | +--------+ + + + [...] 9 | | | | | | [place], [place] | | | | | | [address] | | | | | | [phone] | | | | | | | | +--------+---------+ + + + | 06/02/ | Office | Ophthalmology | Carissa Tinoco MD | | 2019 | Visit | | [address] | | | | | | [place], [place] | | | | | | [address] | | | | | | [phone] | | | | | | | | +--------+---------+ + + + documented as of this encounter Results NATIONAL DEDICATED TRUCK DRIVER INT CORONARY ANGIOGRAM (07/21/2018 9:19 AM PDT) + + | Specimen | + + | | + + + + + | Narrative | Performed At | + + + | Procedure performed in the Cardiac Surgery Attendant. See procedure notes | [facility] - | | for details. | DEONTE HERNANDEZ, | | | POINT OF CARE | | | TESTS | + + + + + + + + | Performing | Address | City/State/Zipcode | Phone Number | | Organization | | | | + + + + + | ISRA CLEMONS | [address] | [place], [place] | | | VENTURA HERNANDE[facility] | [address] | [address] | | | TESTS | | | [...]
--- OUTSIDE RECORDS SUMMARY | ~2019-07-09 | XMS | Encounter Summary ---
Demographics + + + | Address | [address] | | | [place] [address] | + + + | Home Phone | | + + + | Preferred Language | Unknown | + + + | Marital Status | Single | + + + | Mosque Affiliation | BAP | + + + [...] Team Providers + +------+ + | Care Factory Maintenance Technician Name | Role | Phone | [...] | | | forms of | [place] [address] | [address] | | | | | age-related | [address] | Ave | | | | | cataract of | [place], | [place], [place] | | | | | both eyes | [place] [address] | [address] | | | | | Procedures | Phone: | Phone: | | | | | REQUEST TO | [phone] | [phone] | | | | | SURGERY | Fax: | Fax: | | | | | BACKER UP | [phone] | [phone] | | | | | [place] REM[facility] | | | | | | [...] of | | 2019 | Visit | [place]/Ophthalmol | [address] | age-related cataract | | | | ogy at [facility] [address] | [place], [place] | of both eyes | | | | [address] Mailcode: | [address] | (Primary Dx); | | | | [address] for | [phone] | Disorder of | | | | Health and Healing, | | refraction and | | | | Building | | accommodation | | | | Floor [place], [place] | | | | | | [address] | | | | | | [phone] | | | +--------+---------+ + + + [...] and Plan: Exam Date: 02/05/2019 Patient:Tim Martini ([id number]) Impression: Dermatochalasis OU Good dilation Cataracts OU [...] I have reviewed and edited history and cardiovascular technician documentation, and performed all other el ements to above examination documentation. Carissa Tinoco MD Instructional Technologist Comprehensive Ophthalmology [facility] [place] Physician: Carissa Tinoco MD 02/05/2019 HPI: Tim Martini ([id number]), 68 y.o. year old male from [place] : Patient presen ts with: Medical Eye [...] scanned intake form or preadmission data in [facility] for full Family ocular and medical his [...] Pressure 18 18 Wearing Rx Sphere Cylinder [place] Add Right -5.75 +2.00 040 +2.50 Left -5.50 +1.25 095 +2.50 Age: 3yr Type: Progressive Addition lens Manifest Refraction Sphere Cylinder [place] Dist VA Add Near VA Right -6.50 +1.75 050 20/20 +2.50 J1+ Left -6.00 +1.50 105 20/20 +2.50 J1+ Dilation Both eyes: 2.5% Phenylephrine, 1.0% Mydriacyl @ 10:30 AM Pupils Pupils APD Right PERRL None Left PERRL None Visual Alvarez (Counting fingers) Left Right Full Full Extraocular Movement Right Left Full, Ortho Full, Ortho Final Rx Sphere Cylinder [place] Dist VA Add Near VA Right -6.50 [...] [place] | | | | | | [address] | | | | | | [phone] | | | | | | | | +--------+---------+ + + + | 06/02/ | Office | Ophthalmology | Carissa Tinoco MD | | | 2019 | Visit | | [address] | | | | | | [place], [place] | | | | | | [address] | | | | | | [phone] | | | | | | | [...] | + +--------+ + + + | VA REFRACTION - C | Routin | 02/05/2019 [...] + + + | Right Eye | [facility] | | Axial lengh is [...] ST E[facility] | [address] | [place] [address] | | | ROSALINDA | Gerard. | [...]
--- OUTSIDE RECORDS SUMMARY | ~2019-07-09 | XMS | Encounter Summary ---
Demographics + + + | Address | [address] | | | [place] [address] | + + + | Home Phone [...] Team Providers + +------+ + | Care Distribution Technician Name | Role | Phone | + +------+ + | Angelica Garrison | PCP | | + +------+ + Encounter Details +--------+ + + + + | Date | Type | Department | Care Team | Description | +--------+ + + + + | 04/30/ | Hospital | Diagnostic Imaging | Angelica Garrison | | | 2019 | Encounter | Services at [facility] | [place] [address] | | | | | [address] | [address] | | | | | Vickie Mon Mailcode: | [place] [address] | | | | | [address] [facility] | [phone] | | | | | [place], [place] | | | | | | [address] | | | | | | [phone] | | | +--------+ + + + [...] | 2019 | Visit | | ,PhD [address] | | | | | | [address] | | | | | | [place], [place] | | | | | | [address] | | | | | | [phone] | | | | | | | | +--------+---------+ + + + | 06/02/ | Office | Ophthalmology | Carissa Tinoco MD | | | 2019 | Visit | | [address] | | | | | | [place], [place] | | | | | | [address] | | | | | | [phone] | | | | | | | [...]
--- OUTSIDE RECORDS SUMMARY | ~2019-07-09 | XMS | Encounter Summary ---
Demographics + + + | Address | [address] | | | [place] [address] | + + + | Home Phone [...] Team Providers + +------+ + | Care Data Migration Consultant Name | Role | Phone | + [...] Pre-operative | | 2019 | cheduled | [facility] at | | evaluation | | | | [facility] | | | | | | [address] | | | | | | Mail Code: OC8PM | | | | | | [facility] | | | | | | and Healing, | | | | | | Building [address] | | | | | | [place], [place] | | | | | | [address] | | | | | | [phone] | | | +--------+ + + + [...] it is after office hours, call the [facility] microfiche camera operator at [phone] and ask them to page him or h er. documented in this encounter Plan of Treatment +--------+---------+ + + + | Date | Type | Specialty | Care Team | Description | +--------+---------+ + + + | 01/07/ | Office | Cardiology | Cristóbal Mccullough, | | | 2019 | Visit | | ,PhD [address] | | | | | | [address] [facility] 9 | | | | | | [place], [place] | | | | | | [address] | | | | | | [phone] | | | | | | | | +--------+---------+ + + + | 06/02/ | Office | Ophthalmology | Carissa Tinoco MD | | | 2019 | Visit | | [address] | | | | | | [place] | | | | | | [address] | | | | | | [phone] | | | | | | | | +--------+---------+ + + + documented as of this encounter Visit Diagnoses Not on filedocumented in this encounter"
--- OUTSIDE RECORDS SUMMARY | ~2019-07-09 | XMS | Encounter Summary ---
Demographics + + + | Address | [address] | | | [place] [address] | + + + | Home Phone [...] Team Providers + +------+ + | Care Road Test Examiner Name | Role | Phone | + [...] [place] | | | | | | [facility], | | | | | | [place] [address] | | | +--------+ + + + [...] 9 | | | | | | [place], [place] | | | | | | [address] | | | | | | [phone] | | | | | | | | +--------+---------+ + + + | 06/02/ | Office | Ophthalmology | Carissa Tinoco MD | | | 2019 | Visit | | [address] | | | | | | [facility] [place] | | | | | | [address] | | | | | | [phone] | | | | | | | | +--------+---------+ + + + documented as of this encounter Visit Diagnoses Not on filedocumented in this encounter"
--- OUTSIDE RECORDS SUMMARY | ~2019-07-09 | XMS | Encounter Summary ---
Demographics + + + | Address | [address] | | | [place] [address] | + + + | Home Phone [...] Team Providers + +------+ + | Care Ventilator Specialist Name | Role | Phone | [...] day | | 2019 | Visit | [place]/Ophthalmol | [address] | postop (Primary Dx) | | | | ogy at [facility] [address] | [place], [place] | | | | | [address] Mailcode: | [address] | | | | | [facility] | [phone] | | | | | Health and Healing, | | | | | | | | | | | | Floor [place], [place] | | | | | | [address] | | | | | | [phone] | | | +--------+---------+ + + + [...] scheduled in 2-3 wks. Carissa Tinoco MD Rn Urology Comprehensive Ophthalmology [facility] History: Patient presents with: Postoperative visit [...] 9 | | | | | | [place], [place] | | | | | | [address] | | | | | | [phone] | | | | | | | | +--------+---------+ + + + | 06/02/ | Office | Ophthalmology | Carissa Tinoco MD | | | 2019 | Visit | | [address] | | | | | | [facility] [place] | | | | | | [address] | | | | | | [phone] | | | | | | | | +--------+---------+ + + + documented as of this encounter Visit Diagnoses + + | Diagnosis | + + | Pseudophakia - 1 day postop - Primary Lens replaced by other means | + + documented in this encounter"
--- OUTSIDE RECORDS SUMMARY | ~2019-07-09 | XMS | Encounter Summary ---
Demographics + + + | Address | [address] | | | [place] [address] | + + + | Home Phone | | + + + | Preferred Language | Unknown | + + + | Marital Status | Single | + + + | Church Affiliation | BAP | + + + | Race | White | + + + | Ethnic Group | Not or | + + + Author + + + | Author | [facility] | + + + | Organization | [facility] | + + + | [...] Team Providers + +------+ + | Care Experience Designer Name | Role | Phone | [...] Pre-operative | | 2019 | cheduled | [facility] at | | evaluation | | | | [facility] | | | | | | [address] | | | | | | Mail Code: OC8PM | | | | | | [facility] | | | | | | and Healing, | | | | | | Building [address] | | | | | | [place], [place] | | | | | | [address] | | | | | | [phone] | | | +--------+ + + + [...] it is after office hours, call the [facility] power operator at [phone] and ask them to page him or h er. documented in this encounter Plan of Treatment +--------+---------+ + + + | Date | Type | Specialty | Care Team | Description | +--------+---------+ + + + | 01/07/ | Office | Cardiology | Cristóbal Mccullough, | | | 2019 | Visit | | ,PhD [address] | | | | | | [address] [facility] 9 | | | | | | [place], [place] | | | | | | [address] | | | | | | [phone] | | | | | | | | +--------+---------+ + + + | 06/02/ | Office | Ophthalmology | Carissa Tinoco MD | | | 2019 | Visit | | [address] | | | | | | [place] | | | | | | [address] | | | | | | [phone] | | | | | | | | +--------+---------+ + + + documented as of this encounter Visit Diagnoses Not on filedocumented in this encounter"
--- OUTSIDE RECORDS SUMMARY | ~2019-07-09 | XMS | Encounter Summary ---
Demographics + + + | Address | [address] | | | [place] [address] | + + + | Home Phone [...] + + + | Author | [facility] | + + + | Organization | [facility] | + + + | [...] Providers + +------+ + | Care Glass Etcher Helper Name | Role | Phone | [...] | | | forms of | [place] [address] | [address] | | | | | age-related | [address] | Ave | | | | | cataract of | [place], | [place], [place] | | | | | left eye | [place] [address] | [address] | | | | | Procedures | Phone: | Phone: | | | | | REQUEST TO | [phone] | [phone] | | | | | SURGERY | Fax: | Fax: | | | | | REGISTERED NURSE OBSTETRICS | [phone] | [phone] | | | | | [place] REMV | | | | | | [...] of | | 2019 | Visit | [place]/Ophthalmol | [address] | age-related cataract | | | | ogy at [facility] [address] | [place], [place] | of left eye | | | | [address] Mailcode: | [id number] | (Primary Dx); | | | | [address] | [phone] | Pseudophakia, right | | | | Health and Healing, | | eye | | | | Building | | | | | | [place], [place] | | | | | | [address] | | | | | | [phone] | | | +--------+---------+ + + + [...] and Plan: Exam Date: 05/12/2019 Patient:Tim Martini ([id number]) Impression: 05/01/2019 Phaco IOL OD [id number] 14.0D [...] Bios: Today Special notes: Carissa Tinoco MD Natural Resource Economist Comprehensive Ophthalmology [facility] [place] Physician: Carissa Tinoco MD 05/12/2019 HPI: Tim Martini ([id number]), 69 y.o. year old male from [place] : Patient presen ts with: Post Op [...] scanned intake form or preadmission data in [facility] for full Family ocular and medical his [...] Macula Normal Vessels Normal Periphery Normal See [facility] ophthalmology module for exam information. Assessment and [...] 9 | | | | | | [place], [place] | | | | | | [address] | | | | | | [phone] | | | | | | | | +--------+---------+ + + + | 06/02/ | Office | Ophthalmology | Carissa Tinoco MD | | | 2019 | Visit | | [address] | | | | | | [place], [place] | | | | | | [address] | | | | | | [phone] | | | | | | | [...]
--- OUTSIDE RECORDS SUMMARY | ~2019-07-09 | XMS | Encounter Summary ---
Demographics + + + | Address | [address] | | | [place] [address] | + + + | Home Phone [...] Author + + + | Author | [facility] | + + + | Organization | [facility] | + + + | Address [...] Team Providers + +------+ + | Care Barn Hand Name | Role | Phone | [...] [place] | | | | | | [facility], | | | | | | [place] [address] | | | +--------+ + + + [...] 9 | | | | | | [place], [place] | | | | | | [address] | | | | | | [phone] | | | | | | | | +--------+---------+ + + + | 06/02/ | Office | Ophthalmology | Carissa Tinoco MD | | | 2019 | Visit | | [address] | | | | | | [facility] [place] | | | | | | [address] | | | | | | [phone] | | | | | | | | +--------+---------+ + + + documented as of this encounter Visit Diagnoses Not on filedocumented in this encounter"
--- OUTSIDE RECORDS SUMMARY | ~2019-07-09 | XMS | Encounter Summary ---
Demographics + + + | Address | [address] | | | [place] [address] | + + + | Home Phone [...] Team Providers + +------+ + | Care Guide Name | Role | Phone | + [...] 9 | | | | | | [place], [place] | | | | | | [address] | | | | | | [phone] | | | | | | | | +--------+---------+ + + + | 06/02/ | Office | Ophthalmology | Carissa Tinoco MD | | | 2019 | Visit | | [address] | | | | | | [place], [place] | | | | | | [address] | | | | | | [phone] | | | | | | | | +--------+---------+ + + + documented as of this encounter Visit Diagnoses Not on filedocumented in this encounter"
--- OUTSIDE RECORDS SUMMARY | ~2019-07-09 | XMS | Encounter Summary ---
Demographics + + + | Address | [address] | | | [place] [address] | + + + | Home Phone | | + + + | Preferred Language | Unknown | + + + | Marital Status | Single | + + + | Mormonism Affiliation | BAP | + + + [...] Team Providers + +------+ + | Care Adobe Cq Developer Name | Role | Phone | [...] Request | | 2019 | | at [facility] [address] | ,PhD [address] | (Metoprolol | | | | [address] Mailcode: | [address] | succinate 12.5 mg | | | | [facility] | [place], [place] | daily, atorvastatin | | | | Health and Healing, | [address] | 20 mg daily) | | | | | [phone] | | | | | [place], [place] | | | | | | [address] | | | | | | [phone] | | | +--------+--------+ + + + [...] 9 | | | | | | [place], [place] | | | | | | [address] | | | | | | [phone] | | | | | | | | +--------+---------+ + + + | 06/02/ | Office | Ophthalmology | Carissa Tinoco MD | | | 2019 | Visit | | [address] | | | | | | [place], [place] | | | | | | [address] | | | | | | [phone] | | | | | | | | +--------+---------+ + + + documented as of this encounter Visit Diagnoses Not on filedocumented in this encounter"
--- OUTSIDE RECORDS SUMMARY | ~2019-07-09 | XMS | Clinical Summary ---
Demographics + + + | Address | [address] | | | [place] [address] | + + + | Home Phone | | + + + | Preferred Language | Unknown | + + + | Marital Status | Single | + + + | Worship Affiliation | [id number] | + + + | Race | Unknown | + + + | Ethnic Group | Unknown | + + + Author + + + | Author | [facility] | | | and [place] | + + + | Organization | [facility] | | | and [place] [...] Providers + +------+ + | Care Manager Portable Name | Role | Phone | + [...] e | + + + +---------+------+------+-------+ | [place] Fatty | Take by mouth | | [...] +--------+ +---------+--------+ | MEDICARE | MEDICA | [id number] | 03/23/20 | [phone] | | Medica | | | RE | | 17-Pre | 5 | | re | | | PART A | | sent | | | | | | AND B | | | | | | + +--------+ +--------+ +---------+--------+ | [employer] | [place] | [id number] | 03/23/20 | [phone] | | Indemn | | | OF | | 17-Pre | 0 | | ity | | | [place] | | sent | | | | [...] Person | Self | [birth year] | [address] | | | al/Fam | | 1950 | [phone] | [place] [address] | | | jey | | | 7 (Home) | | + +--------+ +--------+ + + Advance Directives Patient has advance care planning documents on file. For more information, please contact:[facility] [place] [address]"
--- OUTSIDE RECORDS SUMMARY | ~2019-07-09 | XMS | Encounter Summary ---
Demographics + + + | Address | [address] | | | [place] [address] | + + + | Home Phone [...] Author + + + | Author | [facility] | + + + | Organization | [facility] | + + + | Address [...] Team Providers + +------+ + | Care Lpn Rn Hospice Name | Role | Phone | + [...] + + | 05/15/ | Hospital | [facility] | Jayne Tinoco MD | | | 2019 | Encounter | [address] | [address] | | | | | [address] [place] | [place], [place] | | | | | [facility] | [address] | | | | | [place] | [phone] | | | | | [place] [address] | | | | | | [phone] | | | +--------+ + + + [...] appointment Date: __05/15/19 Time: __2:50pm Location : [address], [place] [address] Begin your eye drops after your eye [...] your usual diet and usual medications. Call [phone] during business hours (Saturday through Fridays 8:00 a.m.-5:00 p.m.); all o ther times call [phone] and ask for the Eye Doctor industry operations investigator. Eye Drop Instructions ? Use the medication [...] 9 | | | | | | [place], [place] | | | | | | [address] | | | | | | [phone] | | | | | | | | +--------+---------+ + + + | 06/02/ | Office | Ophthalmology | Jayne Tinoco MD | | | 2019 | Visit | | [address] | | | | | | [place], [place] | | | | | | [address] | | | | | | [phone] | | | | | | | [...] SURGEON: | | | JAYNE TINOCO MD MAINTENANCE TEAM LEADER(S): None OPERATION(S) PERFORMED: | | | [...] power | | | 13.0 D, SN [id number] was then injected into the capsular bag [...]
--- OUTSIDE RECORDS SUMMARY | ~2019-07-09 | XMS | Encounter Summary ---
Demographics + + + | Address | [address] | | | [place] [address] | + + + | Home Phone [...] + + + | Author | [facility] | + + + | Organization | [facility] | + + + | [...] Providers + +------+ + | Care Bag Valver Name | Role | Phone | + [...] | | | | aortic | ,PhD 1903 | | | | | | aneurysm | [address] | | | | | | without | [address] | | | | | | rupture | [place], [place] | | | | | | ([facility]) | [address] | | | | | | Procedures | Phone: | | | | | | TRANSTHORACI | [phone] | | | | | | C | Fax: | | | | | | ECHOCARDIOGR | [phone] | | | | | | AM, [...] | | | | Atherosclero | [place] [address] | ,PhD [address] | | | | | tic heart | [address] | [address] | | | | | disease of | [place], | [address] | | | | | [place] | [place] [address] | [place], [place] | | | | | coronary | Phone: | [address] | | | | | artery | [phone] | Phone: | | | | | without | Fax: | [phone] | | | | | angina | [phone] | Fax: | | | | | pectoris | | [phone] | | | | | Procedures | | | | | | | CONSULT TO | | | | | | | CARDIOLOGY | | | | | | | MN NEW | | | | | | | PATIENT | | | | | | | LEVEL V [place] | | | | | | | [...] | | 2018 | Visit | at 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 [facility] NOTE: ID: Tim Martini is a 68 [...] TTE at that time. -Cristóbal Mccullough MD/PhD Derrick Man Raquel [facility] [place] [facility] [place] Pager [phone] documented in t his encounter Plan of [...] 9 | | | | | | [place], [place] | | | | | | [address] | | | | | | [phone] | | | | | | | | +--------+---------+ + + + | 06/02/ | Office | Ophthalmology | Carissa Tinoco MD | | | 2019 | Visit | | [address] | | | | | | [place], [place] | | | | | | [address] | | | | | | [phone] | | | | | | | [...]
[~2019-07-09 14:35] MED LIST: AMLODIPINE BESY10 MG PO; DOXYCYCLINE HY100 MG PO; FISH OIL 1,0001 EAC3 PO; FLAX OIL1000 MG PO; GABAPENTIN300 MG PO; HYDROCHLOROTH12.5 MG PO; METOPROLOL SUCC25 MG PO; MULTIVITAMINS1 EAC7 PO; POTASSIUM99 M1 PO; PROSTATE VITAMIN PO; RED YEAST RICE600 MG PO; RISPERDAL1 MG PO; VITAMIN C WIT1000 MG PO; VITAMIN D35000 UNIT PO; WELLBUTRIN SR200 MG PO
--- NOTE | 2019-07-09 18:54 | NUR ---
PATIENT SITTING UP TALKING WITH FAMILY/STAFF. ENCOURAGED TO COUGH AND DEEP BREATHE. PATIENT FOLLOWS COMMANDS. CALL LIGHT WITHIN REACH, ENCOURAGED TO CALL WITH NEEDS. SANDWICH AND SOUP ORDERED FOR PATIENT PER REQUEST.
--- NOTE | 2019-07-09 19:30 | NUR ---
RECEIVED REPORT FROM CLARITA PALACIO. pt SITTING IN BED ON 10L VIA [employer] NC. CHATTING WITH VISITORS.
--- NOTE | 2019-07-09 19:30 | NUR ---
REPORT RECEIVED FROM DAY SHIFT RN. PT AWAKE IN BED TALKING WITH VISITORS. CURRENTLY 92% ON 10L/HIGHFLOW NASAL CANNULA. RR 24-28. PT APPEARS TO BE IN NO DISTRESS, ONLY APPEARS SLIGHTLY SOB AFTER MUCH TALKING. RESTING HR VARIES FROM 60-90 WITH FREQUENT PAC'S AND PVC'S.
--- NOTE | 2019-07-09 20:53 | EKG ---
[facility] [address] [facility] [address] [place] [address] Signed Sinus bradycardia Otherwise normal ECG No previous ECGs available Confirmed by DAMARIS RESENDEZ MD ([id number]) on 07/09/2019 8:53:27 PM Electronically Signed By: DAMARIS RESENDEZ MD 07/09/192052 PATIENT NAME: CLAUS BARNES Electrocardiogram DATE OF : 54 PHYSICIAN: DAMARIS RESENDEZ MD REPORT #: [id number] REPORT IS CONFIDENTIAL AND NOT TO BE RELEASED WITHOUT AUTHORIZATION
--- NOTE | 2019-07-09 20:54 | NUR ---
DR RESENDEZ CALLED UNIT, GIVEN UPDATE. ORDER GIVEN FOR 1L LR BOLUS OVER 2 HOURS.
--- NOTE | 2019-07-09 21:59 | NUR ---
pt ON HIGH FLOW NC AT 10L O2. CHATTING. IN ROOM FOR MORE THAN 60 MINUTES. MEDICATIONS GIVEN (SEE MAR). ASSESSMENT DONE. pt TALKED MOST OF THE TIME, MAINTAINED O2 SAT ABOVE 90%. CPAP ON WITH 5L O2 CONNECTED SATS ABOVE 90%. WILL CONTINUE TO MONITOR.
--- NOTE | 2019-07-09 22:35 | NUR ---
pt URINATED. SAMPLE SENT TO LAB. EDUCATED ON KEEPING ARM STRAIGHT FOR IVF. NO REQUESTS AT THIS TIME. CALL LIGHT WITHIN REACH.
--- NOTE | 2019-07-09 23:08 | NUR ---
REVIEWED CPAP SETUP WITH RT. RT INCREASED O2 TO 10L VIA CPAP. O2 SAT 90%. CALL LIGHT WITHIN REACH.
--- NOTE | 2019-07-10 00:14 | NUR ---
ROUNDED ON pt. RESTING WITH EYES CLOSED, CPAP ON, BREATHING SOFTLY. 10L O2 TO CPAP SAT 92%. IVF INFUSING. CALL LIGHT WITHIN REACH.
--- NOTE | 2019-07-10 01:01 | NUR ---
pt AWAKE. ASSESSMENT DONE. NEB TREATMENT DONE. EDUCATED ON O2 AND CPAP. USING 10L O2 INTO CPAP. O2 SAT >90%. pt REPORTED SOB WHEN MOVING AROUND. URINE CLEAR, YELLOW. I&O RECORDED. TEMPERATURE OF ROOM ADJUSTED. NO FURTHER REQUESTS AT THIS TIME. CALL LIGHT WITHIN REACH.
--- NOTE | 2019-07-10 02:00 | NUR ---
pt UP TO URINATE. REPORTED SOME SOB. DEEP BREATHING THROUGH HIS MOUTH HIS O2 SAT WAS 100%. 15L O2 ON CPAP SAT OF 96%. SETTLED IN BED. NO FURTHER REQUESTS AT THIS TIME. CALL LIGHT WITHIN REACH.
--- NOTE | 2019-07-10 03:00 | NUR ---
pt RESTING WITH EYES CLOSED, RESPIRATIONS REGULAR AND UNLABORED. CPAP IN PLACE. CALL LIGHT WITHIN REACH.
--- NOTE | 2019-07-10 03:22 | NUR ---
NOTIFIED MD OF HEART RATE, O2 SATS, AND BLOOD PRESSURE. NO NEW ORDERS AT THIS TIME.
--- NOTE | 2019-07-10 04:00 | NUR ---
pt MOVING IN ROOM. ASSESSMENT DONE. WARM BLANKET PROVIDED. NEB TREATMENT DONE. PUDDING PROVIDED. NO REQUESTS AT THIS TIME. CALL LIGHT WITHIN REACH.
--- NOTE | 2019-07-10 05:15 | NUR ---
ROUNDED ON pt. RESTING WITH CPAP IN PLACE. NO REQUESTS AT THIS TIME. CALL LIGHT WITHIN REACH.
--- NOTE | 2019-07-10 06:00 | NUR ---
ROUNDED ON pt. TALKING CONTINUOUSLY WITHOUT ISSUE. NO REQUESTS AT THIS TIME. CALL LIGHT WITHIN REACH.
--- NOTE | 2019-07-10 06:50 | NUR ---
ROUNDED ON pt. RESTING WITH EYES CLOSED. CPAP ON.
--- NOTE | 2019-07-10 07:29 | NUR ---
PT CARE ASSUMED. PT RESTING IN BED. REQUESTS MENU TO ORDE BREAKFAST, NO OTHER NEEDS. PT STATES THAT HE IS FEELING MUCH BETTER TODAY. ABLE TO CARRY ON FULL CONVESATION WITHOUT NEED FOR BREAKS TO CATCH BREATH, DOES NOT APPEAR TO BE HAVING ANY RESPIRATORY DISTRESS AT THIS TIME.
--- NOTE | 2019-07-10 08:14 | NUR ---
PT OFF CPAP FOR BREAKFAST. PLACED ON 10L, HIGHFLOW NC. PTS O2 SAT AT 90%. RT IN ROOM TO WORK WITH PT. PT DECLINES TO GO TO CHAIR FOR BREAKFAST, WILL GO TO CHAIR AFTER.
--- NOTE | 2019-07-10 08:37 | NUR ---
PT UP TO CHAIR TO FINISH BREAKFAST AFTER TALKING WIBell RESENDEZ.
--- NOTE | 2019-07-10 09:30 | NUR ---
O2 TURNED DOWN TO 8L/NC. O2 SAT 91%
--- NOTE | 2019-07-10 10:57 | NUR ---
PTS O2 TURNED DOWN TO 6L/NC. O2 SAT AT 90%
--- NOTE | 2019-07-10 12:24 | NUR ---
PTS O2 TITRATED DOWN TO 4L NC. PT UP FOR LUNCH AND VISITING WITH FRIEND. DENIES ANY NEEDS AT THIS TIME. O2 SAT REMAINS 92%
--- NOTE | 2019-07-10 12:26 | NUR ---
CALL TO DR RESEDNEZ FOR UPDATE ON PTS STATUS. ORDER FOR NASAL SALINE SPRAY PER PT REQUEST. DR RESENDEZ AWARE OF LOW URINE OUTPUT, CONTINUE TO MONITOR FOR NOW.
--- NOTE | 2019-07-10 13:08 | NUR ---
O2 TITRATED DOWN TO 2L/NC. PT CARRYING ON FULL CONVERSATION WITH VISITOR AND STAFF. DENIES SHORTNESS OF BREATH. PT REPORTS HE IS FEELING MUCH BETTER THIS AFTERNOON. DENIES ANY NEEDS.
--- NOTE | 2019-07-10 13:29 | NUR ---
O2 TITRATED TO ROOM AIR. PT VISITING WITH PHARMACIST AT THIS TIME. O2 SAT REMAINS 90%
--- NOTE | 2019-07-10 14:11 | NUR ---
PT UP TO BATHROOM ON ROOM AIR. MAINTAINS BETWEEN 89-914% ON ROOM AIR. PT REPORTS SOB WITH EXERTION. RECOVERS QUICKLY.
--- NOTE | 2019-07-10 14:16 | NUR ---
CALL TO DR RESENDEZ TO NOTIFY OF NEW COARSE CRACKLES HEARD IN BASES OF LUNGS AND LOW URINE OUTPUT. ORDER TO TURN OFF IV FLUIDS FOR NOW AND CONTINUE TO MONITOR.
--- NOTE | 2019-07-10 14:39 | NUR ---
PLACED BACK ON 2L NC DUE TO SATS OF 87%, SAT UP TO 91%
[2019-07-10] MEDS ORDERED: LIPITOR20 MG PO (14:59)
[2019-07-10] MEDS ORDERED: ZINC50 M1 PO (15:00)
[2019-07-10] MEDS ORDERED: ASPIRIN81 MG PO (15:01)
--- NOTE | 2019-07-10 15:03 | NUR ---
WHILE PT SLEEPING, O2 DROPPED AGAIN TO 85%, OXYGEN TURNED UP TO 4L/NC. SAT UP TO 92%
--- NOTE | 2019-07-10 15:03 | NUR ---
MED REC COMPLETED.
--- NOTE | 2019-07-10 16:02 | NUR ---
PT UP TO BATHROOM TO VOID. WHEN BACK TO BED COMPLAINS OF SUBSTERNAL CHEST PAIN. CALL TO DR PATRICK TO NOTIFY HIM. ORDER FOR EKG AND TROPONIN.
--- NOTE | 2019-07-10 16:13 | NUR ---
DR PATRICK IN ROOM TO SEE PT.
--- NOTE | 2019-07-10 16:18 | NUR ---
O2 TURNED OFF WHILE PT TALKING WITH DR PATRICK, SAT 96%
--- NOTE | 2019-07-10 17:45 | NUR ---
PT UP VISITING WITH FAMILY. REPORTS THAT HE IS FEELING MORE SHORT OF BREATH. O2 SAT 87% ON ROOM AIR. PLACED ON 2L NC. SAT 92%.
--- NOTE | 2019-07-10 19:13 | NUR ---
REPORT TO [employer] COUNCIL MEMBER RNS.
--- NOTE | 2019-07-10 19:30 | NUR ---
REPORT RECIEVED. PATIENT RESTFUL IN BED. CPAP ON. NO DISTRESS NOTED.
--- NOTE | 2019-07-10 20:00 | NUR ---
ASSESSMENT DONE. UP TO BR TO VOID TO URINAL. C/O INCREASED SHORTNESS OF BREATH WITH EXERTION. IS VERY TALKATIVE. NEB/VEST TREATMENT GIVEN PER RT. TALKSED WITH PATIENT ABOUT PLAN OF CARE FOR NIGHT. ENCOURAGED REST/SLEEP.
--- NOTE | 2019-07-10 21:10 | NUR ---
REMAINS AWAKE AND TALKING. WHEN TALKING O2 SAT ON RA 92-94. SL X 2 PATENT.
--- NOTE | 2019-07-10 22:00 | NUR ---
ROUTINE MEDICATION GIVEN. PATIENT DENEIS PROBLEMS.
--- NOTE | 2019-07-11 02:00 | NUR ---
SLEEPING SOUNDLY. REMAINS ON CPAP. O2 SAT 88-89 ON 4 LITERS. O2 INCRASED TO 6 L. WILL CONTINUE TO MONITOR O2 SATS. BP-84/38. BP CUFF IS ON THE RIGHT ARM ANS PATIENT IS LAYING ON HIS LEFT SIDE.
--- NOTE | 2019-07-11 03:40 | NUR ---
AWAKE, UP TO BR. DENIES FEELING INCREAED SHORTNESS OF BREATH WITH EXERTION. CPAP OFF AT THIS TIME . O2 SAT 95 ON RA.
--- NOTE | 2019-07-11 04:15 | NUR ---
PATIENT C/O HEARTBURN, STATES IT IS NOT THE SAME KIND OF DISCOMFORT HE HAD YESTERDAY AFTERSNOON. REQUESTED TUMS, THIS GIVEN. PATIENT IS VERY TALKATIVE. IS MOVING AIR BETTER THROUGH LUNG VYAS THIS MORNING.
--- NOTE | 2019-07-11 05:55 | NUR ---
LAB HERE TO DRAW BLOOD. PATIENT STATES HE FEELS BETTER THIS MORNING. MILK OF MAG GIVEN PER R/O. PATIENT HAD VERY SMALL FIRM STOOL LAST NIGHT. CPAP REAPPLIED BY PATIENT. NO FUTHER CHANGES.
--- NOTE | 2019-07-11 07:30 | NUR ---
PATIENT SHIFT REPORT RECIEVED FROM [employer] HUM[employer]IES COUNCIL DIRECTOR RN. PER REPORT PATIENT IS ON 6L BLEED INTO CPAP AND RA WHEN AWAKE. PER REPORT PATIENT BLOOD PRESSURE MOSTLY 90-100'S SYSTOLIC AND OCCASIONALLY LOWER WHEN PATIENT IS RESTING ON HIS SIDE WITH HIS AM IN THE AIR. WHEN PATIENT ROLLS TO HIS BACK BLOOD PRESSURES IMPROVED. PATIENT CALLS APPROPRIATELY. WILL CONTINUE TO CLOSELY MONITOR.
--- NOTE | 2019-07-11 08:30 | NUR ---
PATIENT RESTING IN BED AND EATING BREAKFAST. PATIENT IS VERY TALKATIVE AND STATES "I AM FEELING BETTER, AND ON THE MEND". BREATH SOUNDS CLEAR IN UPPERS AND CRACKLES NOTED IN LOWE LOBES. PATIENT IS CURRENTLY ON RA WITH SPO2 90%. BOWEL TONES ACTIVE. WILL CONTINUE TO CLSOELY MONITOR.
--- NOTE | 2019-07-11 10:55 | NUR ---
PATIENT REPORT GIVEN TO MITZI OTTO. PATIENT WILL TRANSFER TO ROOM 112. PATIENT UPDATED ON PLAN OF CARE AND IS AGREEABLE TO PLAN. PATIENT CURRENTLY ON 2L NC WITH SPO2 93%. PATIENT RESTING IN BED AWAITING HAM STRIPPER. PLACED ON TELE 6. WILL CONTINUE TO CLOSELY MONITOR.
--- NOTE | 2019-07-11 11:08 | EKG ---
[facility] [address] [facility] [place] [address] Signed Normal sinus rhythm with sinus arrhythmia Left axis deviation Nonspecific intraventricular block Abnormal ECG When compared with ECG of 09-JUL-2019 14:37, Vent. rate has increased BY 33 BPM QT has lengthened Confirmed by HARLEEN PATRICK DO ([id number]) on 07/11/2019 11:08:04 AM Electronically Signed By: HARLEEN PATRICK DO 07/11/19 1108 PATIENT NAME: CLAUS BARNES MONSTER Electrocardiogram DATE OF : 54 PHYSICIAN: HARLEEN PATRICK DO REPORT #: [id number] REPORT IS CONFIDENTIAL AND NOT TO BE RELEASED WITHOUT AUTHORIZATION
--- NOTE | 2019-07-11 11:15 | NUR ---
PATIENT DOWN FOR XRAY WITH SERVICE ORDER DISPATCHER. ONCE PATIENT IS FINISHED PATIENT WILL TRANSFER TO ROOM 112 ON [facility]. REPORT GIVEN TO ABDOULAYE OTTO. ALL QUESTIONS ANSWERED. ALL BELONGINS SENT TO [facility] ROOM 112. NO OTHER NEEDS AT THIS TIME.
--- NOTE | 2019-07-11 11:34 | NUR ---
NEW PT TO THE FLOOR. PT A&OX4. PT ON 2L NC, RESP EVEN AND NON LABORED. PT DENIES SOB AND PAIN AT THIS TIME. VS TAKEN AND ARE STABLE. PT HAS A VISITOR AT THIS TIME AND REQUESTING PRIVACY. ORIENTED HIM TO CALL LIGHT. NO NEEDS AT THIS TIME.
--- NOTE | 2019-07-11 19:05 | NUR ---
SHIFT REPORT RECEIVED FROM DAYSHIFT CLARITA STANFORD AT BEDSIDE. PT AWAKE AND RESTING IN BED, LISTENING TO THE RADIO. 2LNC IN PLACE. DENIES ADDITIONAL NEEDS, CALL LIGHT IN REACH.
--- NOTE | 2019-07-11 21:30 | NUR ---
PT REQUESTING MELATONIN FOR SLEEP. PER PT, PT TAKES 3MG PO MELATONIN. DISCUSSED WITH DR PATRICK, TELEPHONE ORDER READ BACK FOR 3MG PO MELATONIN PRN AT BEDTIME FOR INSOMNIA.
--- NOTE | 2019-07-11 22:00 | NUR ---
ASSESSMENT COMPLETE, SCHEDULED MEDICATIONS GIVEN (SEE EMAR). VSS, PT ON 2LNC, O2 SAT WNL. LUNG SOUNDS CLEAR, DIMINISHED IN THE BASES. IV SITE X2 WNL, IV FLUIDS INFUSING AT 100MLS/HR. WHEN COMPLETING ASSESSMENT, PT STATES, "CAN YOU LOOK AT MY EYE. I NOTICED IT WAS RED". PT'S LEFT EYE RED, APPEARS TO HAVE A POSSIBLE BLOWN BLOOD VESSEL IN THE SCLERA NEAR THE MEDIAL CANTHUS. PT DENIES PAIN, REPORTS MINIMAL "DIMNESS" COMPARED TO RIGHT EYE, BUT THEN STATES, "MAYBE THERE'S NO DIFFERENCE, IT COULD JUST BECAUSE I WAS IN LOW LIGHTING". PT UNSURE OF EXACT DATE OF REPORTS CATARACT SURGERY, INITIALLY CLAIMING IT WAS "ABOUT A MONTH AGO". DR PATRICK MADE AWARE OF ALL INFOMRATION ABOVE. WILL CONTINUE TO MONITOR. CALL LIGHT IN REACH.
--- NOTE | 2019-07-11 22:45 | NUR ---
RT IN ROOM TO ASSIT PT WITH BIPAP MACHINE.
--- NOTE | 2019-07-11 23:26 | NUR ---
PT RESTING IN BED, BIPAP MACHINE IN PLACE. RR WNL, NO DISTRESS NOTED. PT APPEARS COMFORTABLE. IV FLUIDS INFUSING, IV SITE WNL. CALL LIGHT IN REACH.
--- NOTE | 2019-07-12 00:28 | NUR ---
RT IN ROOM FOR BREATHING TREATMENT. URINAL EMPTIED. DENIES ADDITIONAL NEEDS, CALL LIGHT IN REACH.
--- NOTE | 2019-07-12 01:29 | NUR ---
PT RSTING IN BED, BIPAP MACHINE IN PLACE. EYES CLOSED, RR WNL. NO DISTRESS NOTED. IV FLUIDS, LR INFUSING AT 100MLS/HR. CALL LIGHT IN REACH.
--- NOTE | 2019-07-12 02:38 | NUR ---
PT RESTING IN BED, BIPAP MACHINE IN PLACE, O2 SAT IN UPPER 80'S. RR WNL, NO DISTRESS NOTED, PT APPEARS COMFORTABLE. RT IN ROOM TO EVALUATE PT. CALL LIGHT IN REACH.
--- NOTE | 2019-07-12 03:15 | NUR ---
ORDER FOR 500MLS LR INFUSION AT 100MLS/HR COMPLETE. PT SALINE LOCKED AT THIS TIME. PUDDING PROVIDED PER PT REQUEST ALONG WITH FRESH WATER. BIPAP MACHINE IN PLACE, PT DENIES ADDITIONAL NEEDS. CALL LIGHT IN REACH.
--- NOTE | 2019-07-12 04:55 | NUR ---
PT HAD UNEVENTFUL NIGHT. VSS, PT ON 2LNC. SLEPT WITH BIPAP MACHINE IN PLACE. A/OX4, USES CALL LIGHT APPROPERIATELY. AMBULATES INDEPENDENTLY IN ROOM. VOIDING QS, NO BM THIS SHIFT. 2G SODIUM DIET, TOLERATING WELL, DENIED NAUSEA THIS SHIFT. PT DID REPORT POSSIBLE RUPTURED BLOOD VESSEL TO LEFT EYE, AWARE. HX OF RECENT CATARACTS SURGERY ROUGHLY 5 WEEKS AGO.
--- NOTE | 2019-07-12 05:45 | NUR ---
ASSESSMENT COMPLETE, NO NEW CHANGES OR CONCERNS. PT AWAKE AND RESTING IN BED, BIPAP IN PLACE. PT REPORTING INDIGESTION/HEARTBURN. HOB ELEVATED APPROX 1-2HOURS PRIOR, HOWEVER HEARTBURN REMAINS. ORDERS FOR MAALOX PRN DAILY, PT HAD LAST DOSE ON 07/11/19 AT 1800. DISCUSSED WITH MARYAM FROM TELEPHARMACY. PER TELEPHARMACY, OKAY TO GIVE. PER PT REQUEST, 15MLS (HALF DOSE) PROVIDED. PT ASKING ABOUT TUMS, HOWEVER, MED IS NOT ON EMAR. WILL DISCUSS PT'S REQUEST FOR TUMS TO DAYSHIFT RN AT SHIFT CHANGE. LEFT EYE REMAINS RED. PT DENIES PAIN IN EYE AND STATES, "I THINK IT'S A LIL CLEARER". NO FURTHER NEEDS, CALL LIGHT IN REACH.
--- NOTE | 2019-07-12 07:03 | NUR ---
PT RESTING SUPINE IN BED EYES CLOSED AND RESPIRATIONS EVEN AND UNLABORED ON BIPAP. CALL LIGHT AND H2O IN REACH. PT APPEARS TO BE SLEEPING COMFORTABLY. REPORT RECEIVED FROM CLARITA VANESSA.
--- NOTE | 2019-07-12 08:29 | NUR ---
PT RESTING IN SEMI FOWLERS POSITION IN BED, PT ALERT AND ORIENETED. PT TALKS AT GREAT LENGTH ABOUT THE CIRCUMSTANCED THAT LEAD TO HIM REQUIRING HOSPITALIZATION. PT ASSESSMENT CMOPLETED AND AM MEDS ADMINSITERED. FRESH H2O AND CALL LIGHT IN REACH. PT SATTING 90-92% ON RA AND DENIES SOB. PT HAS PRODCUCTIVE COUGH WITH BROWN MUCOUSY SPUTEM. PT DENIES NEEDS OR CONCERNS.
--- NOTE | 2019-07-12 10:59 | NUR ---
PATIENT IN IN BED RESTING. PATIENT WANTS TO WALK LATER. FRESH WATER GIVEN. CALL LIGHT IN REACH. NO FURTHER NEEDS AT THIS TIME.
--- NOTE | 2019-07-12 11:10 | NUR ---
PT RESTING IN SEMIFOWLERS POSITION BED SATTING 93% ON 2LPNC. PT AGREES TO USE CALL LIGHT WHEN READY TO AMBULATE STATES "I'M NOT READY YET" CALL LIGHT AND H2O IN REACH. NO NEEDS OR CONCERNS VOICED.
--- NOTE | 2019-07-12 11:50 | NUR ---
Pt tolerated one and a half laps around nursing stations. Pt did have increased respiratory rate and o2 sat was between 88-92% with ambulation on room air. Pt back to bed and 2lpnc reapplied for comfort. 02 sat 93% on RA at this time.
--- NOTE | 2019-07-12 11:50 | NUR ---
Pt tolerated one and a half laps around nursing stations. Pt did have increased respiratory rate and o2 sat was between 88-92% with ambulation on room air. Pt back to bed and 2lpnc reapplied for comfort. 02 sat 93% on 2lpnc at this time. Call light and h2o in reach.
--- NOTE | 2019-07-12 13:21 | NUR ---
PT RESTING SUPINE IN BED, ALERT AND ORIENTED. PT WEARING BIPAP AND STATES HE IS ABOUT TO TAKE A NAP. PT DENIES NEEDS OR CONCERNS AT THIS TIME. CALL LIGHT AND H2O IN REACH.
--- NOTE | 2019-07-12 17:18 | NUR ---
PT SITTING UP AT SIDE OF BED ALERT AND ORIENTED. PM MEDS ADMINISTERED AND ASSESSMENT COMPLETED. PT UP TO RESTROOM, DINNER WAS SERVED AND PT NOW UP TO CHAIR EATING. PT DENIES SOB ON 2LPNC. CALL LIGHT AND FRESH H2O IN REACH. PT VOIDED 200MLS OF CLEAR YELLOW URINE IN URINAL. .
--- NOTE | 2019-07-12 18:55 | NUR ---
SHIFT REPORT RECEIVED FROM [facility] CLARITA BRADSHAW AT BEDSIDE. PT AWAKE, BUT RESTING QUIETLY IN BED. HOME CPAP MACHINE IN PLACE. PT DENIES NEEDS AT THIS TIME, CALL LIGHT IN REACH.
--- NOTE | 2019-07-12 19:49 | NUR ---
ROUNDED CHARGE. PATIENT IS RESTING IN BED WITH EYES CLOSED, RR 17. CALL LIGHT IN REACH.
--- NOTE | 2019-07-12 21:25 | NUR ---
ASSESSMENT COMPLETE, SCHEDULED MEDICATIONS GIVEN (SEE EMAR). PT DENIES PAIN, 4L BLED IN THROUGH HOME CPAP MACHINE. LUNG SOUNDS CLEAR, DIMINISHED IN BASES. PT DENIES SOB OR CHEST PAIN. O2 SAT WNL. PT REPORTING CONTINUED HEARTBURN, THIS RN TO DISCUSS WITH MD. URINAL EMPTIED, ROOM TIDIED. PT DENIES ADDITIONAL NEEDS, CALL LIGHT IN REACH.
--- NOTE | 2019-07-12 21:30 | NUR ---
SPOKE TO DR PATRICK REGARDING PT'S HEARTBURN. TELEPHONE ORDER READ BACK TO DISCONTINUE CURRENT ORDER FOR 30MLS MAALOX DAILY. DR PATRICK OKAY WITH NEW NURSE INITIATED ORDER FOR 30MLS MAALOX Q6H PRN. TELEPHONE ORDER READ BACK FOR 1,000 MG TUMS TID PRN FOR HEART BURN/INDIGESTION.
--- NOTE | 2019-07-12 21:50 | NUR ---
PRN TUMS ADMINISTERED PER PT REQUEST FOR C/O HEARTBURN. NO FURTHER NEEDS, CALL LIGHT IN REACH.
--- NOTE | 2019-07-12 23:52 | NUR ---
PT RESTING IN BED, HOME CPAP MACHINE IN PLACE. RR WNL, NO DISTRESS NOTED. CALL LIGHT IN REACH.
--- NOTE | 2019-07-13 01:34 | NUR ---
PT RESTING IN BED, EYES CLOSED. HOME CPAP MACHINE IN PLACE, O2 SAT UPPER 90'S. NO DISTRESS NOTED, PT APPEARS COMFORTABLE. CALL LIGHT IN REACH.
--- NOTE | 2019-07-13 03:08 | NUR ---
THIS RN TO ANSWER CALL LIGHT. PT REQUESTING NEW GOWN AND BATH WIPES TO WASH FACE AND BACK. BED LINENS CHANGED, ROOM TIDED. BOARD UPDATED. DEODORANT PROVIDED. URINAL EMPTIED, FRESH WATER ALSO GIVEN. ASSESSMENT COMPLETE, NO NEW CHANGES OR CONCERNS. PT TOLERATED AMBULATION IN ROOM ON RA WELL, O2 SAT MID 90'S. PT IN GOOD SPIRITS AND INTERACTING WITH NURSING STAFF. DENIES FURTHER NEEDS, CALL LIGHT IN REACH.
--- NOTE | 2019-07-13 03:48 | NUR ---
PT WISHING TO TRY CPAP ON RA. 4L BLED THROUGH TURNED OFF AT THIS TIME PER PT REQUEST. RT KATHRINE AWARE. WILL MONITOR. CALL LIGHT IN REACH.
--- NOTE | 2019-07-13 04:25 | NUR ---
PT ON RA WITH CPAP MACHINE.O2 SAT ALARM AT 86%. PT TITRATED TO 2L BLED THROUGH WITH CPAP, O2 SAT INTERMITENTLY BETWEEN 87-90%. NOW TITRATED TO 4L BLED THROUGH ON CPAP, CURRENTLY MAINTAINING AT 90%. CALL LIGHT IN REACH. RT KATHRINE NUNEZ.
--- NOTE | 2019-07-13 04:52 | NUR ---
PT HAD UNEVENTFUL NIGHT. A/OX4, USES CALL LIGHT APPROPERIATELY. VSS, PT ON 2LNC WHEN AWAKE. 4L BLED THROUGH WITH CPAP AT NIGHT. PT ATTEMPTED RA WITH CPAP DURING TURN SUPERVISOR, UNABLE TO MAINTAIN O2 SAT. 2G SODIUM DIET, TOLERATING WELL, NO NAUSEA. VOIDING QS, BM X1. DENIED PAIN THIS SHIFT. AMBULATES INDEPENDENTLY IN ROOM, SALINE LOCKED.
--- NOTE | 2019-07-13 05:00 | NUR ---
THIS RN FOUND AN OVAL WHITE PILL. THIS RN LOOKED UP THE PILL AND FOUND IT TO BE A 4MG NICOTINE POLACRILEX. THE MED WAS NOT ON THE PT'S EMAR. THIS RN ASKED THE PT ABOUT THE PILL AND THE PT ADMITTED TO TAKING THEM ABOUT "EVERY 5 HOURS OR SO". PILLS TAKEN TO SAFE, SLIP IN THE PT'S CHART. NOTE SENT TO DR PATRICK. PT VERBALIZED UNDERSTANDING. NO FURTHER NEEDS, CALL LIGHT IN REACH.
--- NOTE | 2019-07-13 09:28 | NUR ---
PT AWAKE, A&OX4. PT DENIES CHEST PAIN AND SOB. PT DENIES N/V AT THIS TIME. PT REMAINS ON 2L OXYGEN PER NC, SAT LEVEL OF 91% AT THIS TIME. PERSONAL SUPPLIES AND CALL LIGHT WIHTIN REACH.
--- NOTE | 2019-07-13 11:45 | NUR ---
KAYY CALLED FOR CHEST CT CONTRAST CLARIFICATION. CLARIFIED AT THIS TIME WITH DR. PATRICK. PER DR. PATRICK PT IS OK TO HAVE IV CONTRAST WITH CHEST CT STUDY, IF NEEDED. SPOKE WITH KAYY REGARDING OK TO USE CONTRAST WITH PHONE AT THIS TIME.
--- NOTE | 2019-07-13 12:14 | NUR ---
PT SITTING IN CHAIR-ALERT, ORIENTED AND EATING LUNCH. PT SAID HE FEELS BETTER AND WANTS TO BE DC'D BUT KNOWS HE NEEDS TO BE HERE. PT FEELS HE IS IMPROVING, AND ADMITTED HE DID THIS TO HIMSELF. PT REQUESTED PRAYER, WILL FOLLOW FELT NEEDED
[2019-07-13] MEDS ORDERED: NORVASC10 MG PO (13:23)
[2019-07-13] MEDS ORDERED: MELATONIN3 MG PO (13:26)
[2019-07-13] MEDS ORDERED: RESVERATROL PL1 EACH PO (13:31)
--- NOTE | 2019-07-13 18:26 | NUR ---
PT SITTING UP IN CHAIR, RESP EVEN AND NON LABORED. PT DENIES CHEST PAIN AND OR SOB. PT REMAINS ON 2L OXYGEN. PT TO ORDER DINNER. PT DENIES PAIN. PERSONAL SUPPLIES AND CALL LIGHT WITHIN REACH. PT HAS NO NEEDS.
--- NOTE | 2019-07-13 19:20 | NUR ---
PT UP IN CHAIR IN ROOM. VISITING WITH FAMILY. NC 2L. SHIFT REPORT RECIEVED FROM ABDOULAYE OTTO. NO NEEDS AT THIS TIME. CALL LIGHT IN REACH.
--- NOTE | 2019-07-13 22:10 | NUR ---
PT SITTING IN CHAIR IN ROOM. NO O2 ON CURRENTLY. PT STATES HE IS READY FOR BED. SCHEDULED MEDS AND PRN MELATONIN, NICOTINE LOZENGES AND TUMS PROVIDED. PT ASKS FOR 2L NC TO BE AVAILABLE FOR WHEN HE GETS UP TO BR AND 4L CPAP WHILE SLEEPING. O2 REQUESTS PROVIDED. LUNGS CLEAR IN ALL LOBES. IVs FLUSHED, CDI, WNL. SPO2 94% RA. NO OTHER NEEDS AT THIS TIME. CALL LIGHT IN REACH.
--- NOTE | 2019-07-14 00:33 | NUR ---
PT AWAKE IN ROOM, RESTING IN BED. SPO2 95% ON 4L CPAP.NO NEEDS AT THIS TIME. CALL LIGHT IN REACH.
--- NOTE | 2019-07-14 03:47 | NUR ---
PT AWAKE IN ROOM. PT ADJUSTING CPAP 4L, SPO2 96%. SNACK PROVIDED. ASSESSMENT COMPLETED. PT STATES HE HAD SOME STOMACH UPSET AFTER THE LAST BREATHING TREATMENT BUT THE TUMS HELPED. IVs CDI, WNL. LUNGS CLEAR IN ALL LOBES. NO FURTHER NEEDS AT THIS TIME.
--- NOTE | 2019-07-14 05:55 | NUR ---
CALL LIGHT ANSWERED. pt RESTING IN BED AWAKE, HOME CPAP WITH 4L OXYGEN IN PLACE. PRN TUMS PROVIDED REQUESTED. CALL LIGHT IN REACH. NO ADDITIONAL REQUESTS AT THIS TIME.
--- NOTE | 2019-07-14 06:10 | NUR ---
PT SLEPT ON AND OFF THIS SHIFT. CPAP ON AT 4L. IVs CDI, WNL, SL. LUNGS CLEAR IN ALL LOBES. SPO2 TRENDING 92%-98% ON 4L CPAP. PT DENIES PAIN AND SOB. PT HAD GI UPSET AFTER BREATHING TX, TUMS PROVIDED.
--- NOTE | 2019-07-14 09:41 | NUR ---
Pt in shower at this time.
--- NOTE | 2019-07-14 11:29 | NUR ---
CALLED RYANN IN RT REQUESTING FOR AN OXYGEN QUALIFICATION AT 1600 TODAY. PER RYANN SHE WILL COME TO FLOOR AT THAT TIME.
--- NOTE | 2019-07-14 14:03 | NUR ---
PT IS SLEEPING, CLARITA STANFORD REQUESTED NOT TO DISTURB PT. WILL CHECK BACK
[2019-07-14] MEDS ORDERED: OXYCODONE HCL5 MG PO (16:26)
--- NOTE | 2019-07-14 16:54 | NUR ---
ASSUMED CARE OF PT. PT CURRENTLY AMB HALLWAY WITH R.T. FOR HOME O2 QUAL.
--- NOTE | 2019-07-14 18:53 | NUR ---
PT SITTING UP IN BED ATE 100% OF DINNER, AMY WELL. DENIES SOB OR OTHER CONCERNS AT THIS TIME. CALL LIGHT WITHIN REACH.
--- NOTE | 2019-07-14 19:15 | NUR ---
PT SITTING IN CHAIR, WATCHING TV. SHIFT REPORT RECIEVED FROM YOSHI OTTO. PT ON ROOM AIR. CPOX 95%. NO NEEDS AT THIS TIME. CALL LIGHT IN REACH.
--- NOTE | 2019-07-14 22:30 | NUR ---
PT RESTING IN BED, WATCHING TV. CPAP ON @ 4L. CPOX 95%. IVs FLUSHED, CDI, WNL. ASSESSMENT COMPLETED. SCHEDULED MEDS PROVIDED. PRM NICOTINE, TUMS AND SLEEP MED PROVIDED. LUNGS CLEAR IN ALL LOBES. PT REPORTS NO SOB. NO OTHER NEEDS AT THIS TIME. CALL LIGHT IN REACH.
--- NOTE | 2019-07-15 00:49 | NUR ---
PT RESTING IN BED, AWAKE. ICE WATER PROVIDED. NO OTHER NEEDS AT THIS TIME. CPAP ON 4L. CPOX 95%. CALL LIGHT IN REACH.
--- NOTE | 2019-07-15 03:01 | NUR ---
PT RESTING IN BED WITH EYES CLOSED. RR 16, EVEN, UNLABORED. CPAP ON, 4L. CPOX 97% CALL LIGHT IN REACH.
--- NOTE | 2019-07-15 04:18 | NUR ---
PT AWAKE IN ROOM. ASSESSMENT COMPLETED. PT REPORTS NO PAIN AT THIS TIME. LUNGS CLEAR IN ALL LOBES. CPAP ON, 4L. CPOX 95%. PUDDING PROVIDED. NO FURTHER NEEDS AT THIS TIME. CALL LIGHT IN REACH.
--- NOTE | 2019-07-15 05:06 | NUR ---
PT SLEPT ON AND OFF THIS SHIFT. CPAP @ 4L NC ON WHILE SLEEPING, 2L NC WHEN NOT SLEEPING. PT USING I.S. PRN PAIN MED PROVIDED FOR "ACHING" BACK X1. LUNG CLEAR IN ALL LOBES. VSS.
--- NOTE | 2019-07-15 07:58 | NUR ---
PT IS SITTING UP IN RECLINER WITH O2. LOOKING FORWARD TO BREAKFAST. EXCITED HE MIGHT GO HOME TODAY, DENIES ANY CONCERNS.
--- NOTE | 2019-07-15 08:15 | NUR ---
PATIENT SITTING UP IN BED TAKING HIS BREAKFAST. ICE WATER GIVEN. CALL LIGHT WITHIN REACH. NO OTHER NEEDS AT THIS TIME
--- NOTE | 2019-07-15 09:20 | NUR ---
THIS RN ASSUMING CARE OF PT, REPORT RECEIVED FROM CLARITA BENNETT. PT UP TO RESTROOM, INDEPENDANT. PT REPORTS FREQUENT VOIDING AND BACK PAIN "FROM SITTING IN THAT BED." PT ENCOURAGED TO AMBULATE. PT DECLINES AT THIS TIME. PT REPORTS BACK PAIN IS 1/10, WARM PACK PROVIDED. PT DENIES ADDITIONAL REQUESTS OR COMPLAINTS AT THIS TIME. CALL LIGHT WITHIN REACH.
--- NOTE | 2019-07-15 09:36 | NUR ---
PATIENT USING BATHROOM. PATIENT BACKS TO BED. VITAL SIGNS AND I&O DONE. HEAT PACK PROVIDED. CALL LIGHT WITHIN REACH. NO OTHER NEEDS AT THIS TIME
--- NOTE | 2019-07-15 10:33 | NUR ---
Case Management Met with [facility] and he would like [facility] for 02. Called and faxed face sheet, qualifyer, orders, ER note as requested. They state they will bring an 02 tank for him to go home with but it will take and hour for delivery once approval is received.
[2019-07-15] MEDS ORDERED: VENTOLIN HFA18 GM INH (10:44)
[2019-07-15] MEDS ORDERED: LASIX20 MG PO (10:46)
--- NOTE | 2019-07-15 11:12 | NUR ---
Case Management note Unable to fax orders x5 to [facility]. Emailed through fax to [facility]. Called and confirmed documents were received and they are working on auth. Sent 1. Face sheet, 02 order, 3. 02 Qualifyer, 4. ER note, 5. Progress note
--- NOTE | 2019-07-15 11:20 | NUR ---
Phone call from Ang at [facility], orders were received and authed. They will send 02 for pt to dc home with. Will take approx. 1-2 hours to deliver.
--- NOTE | 2019-07-15 12:00 | NUR ---
CLARITA BENNETT ASSUMING CARE OF PT. REPORT GIVEN. QUESTIONS ANSWERED.
--- NOTE | 2019-07-15 12:50 | NUR ---
PT DISCHARGED TO HOME WITH AT THIS TIME. PT HAS SPOKE WITH PHARMACY AND HAS NO QUESTIONS REGARDING MEDS, VERBALIZES UNDERSTANDING OF FOLLOWUP APPOINTMENTS AND SX TO REPORT. [facility] WILL SUPPLY O2. PT STATES HE UNDERSTANDS INSTRUCTIONS FOR USING HOME O2.
== END 2019-07-15 13:00 | disposition home or self-care (01) | DRG 917 ==
LOC: ED 14:35 → CCU 17:08 → MS 07-11 11:15
PROVIDERS: ADMIT Internal Medicine
DX: T59.811A Toxic effect of smoke, accidental (unintentional), initial encounter (principal); J96.21 Acute and chronic respiratory failure with hypoxia; N17.9 Acute kidney failure, unspecified; J70.5 Respiratory conditions due to smoke inhalation; Y92.73 Farm field as the place of occurrence of the external cause; E86.0 Dehydration; I10 Essential (primary) hypertension; G47.33 Obstructive sleep apnea (adult) (pediatric); J42 Unspecified chronic bronchitis; E78.5 Hyperlipidemia, unspecified; F39 Unspecified mood [affective] disorder; I34.0 Nonrheumatic mitral (valve) insufficiency; I27.20 Pulmonary hypertension, unspecified; Z79.899 Other long term (current) drug therapy; Z88.0 Allergy status to penicillin
CPT/HCPCS: 36415; 36600; 71045; 71046; 71260; 80048; 80053; 82375; 82570; 82803; 83735; 83880; 84300; 84484; 84540; 85025; 90662; 93005; 93010; 93306; 94640; 94644; 94660; 94667; 94668; 94760; 94761; 94762; 99285-25; J1650; J1940; J2930; J7040; J7120; J7512; Q9967

== ENCOUNTER 2022-08-26 09:20 | Emergency (ER) | payer MEDICARE, OTHER ==
[~2022-08-26] VITALS: Ht 175.3 cm; Wt 104.3 kg
[~2022-08-26 09:20] MED LIST changes: +ASPIRIN81 MG PO; +LASIX20 MG PO; +LIPITOR20 MG PO; +MELATONIN3 MG PO; +NORVASC10 MG PO; +OXYCODONE HCL5 MG PO; +RESVERATROL PL1 EACH PO; +VENTOLIN HFA18 GM INH; +ZINC50 M1 PO
[2022-08-26] MEDS ORDERED: BUPROPION XL300 MG PO (09:39)
[2022-08-26] MEDS ORDERED: CARVEDILOL3.125 MG PO (09:39)
[2022-08-26] MEDS ORDERED: CARVEDILOL6.25 MG PO (09:40)
[2022-08-26] MEDS ORDERED: FUROSEMIDE20 MG PO (09:40)
[2022-08-26] MEDS ORDERED: LISINOPRIL5 MG PO (09:42)
== END 2022-08-26 12:02 | disposition home or self-care (01) ==
LOC: ED 09:20
DX: J10.1 Influenza due to other identified influenza virus with other respiratory manifestations (principal); I10 Essential (primary) hypertension; G47.30 Sleep apnea, unspecified; Z87.891 Personal history of nicotine dependence; Z88.0 Allergy status to penicillin; Z79.899 Other long term (current) drug therapy; Z79.82 Long term (current) use of aspirin; Z20.822 Contact with and (suspected) exposure to COVID-19
CPT/HCPCS: 36415; 84153; 87502; 99283; C9803; U0003

== ENCOUNTER 2025-01-02 13:35 | Emergency (ER) | payer MEDICARE, OTHER ==
[~2025-01-02] VITALS: Ht 175.3 cm; Wt 109.0 kg
[~2025-01-02 13:35] MED LIST changes: +BUPROPION XL300 MG PO; +CARVEDILOL3.125 MG PO; +CARVEDILOL6.25 MG PO; +FUROSEMIDE20 MG PO; +LISINOPRIL5 MG PO
[2025-01-02 14:44] LABS: BASOPHILS 0.7 % (0-2); EOSINOPHILS 3.1 % (0-6); HEMATOCRIT 41.9 % (35.0-50.0); HEMOGLOBIN 14.7 g/dL (12.0-18.0); MCH 32.7 (27-36); MCV 93.5 fl (81-99); MONOCYTES 7.4 % (0-12); NEUTROPHILS 69.8 % (39-80); PLATELET COUNT 206 K/uL (140-440); RBC 4.48 M/ul (4.3-5.7); RDW 14.7 (10.5-15.0)
[2025-01-02] MEDS ORDERED: AMLODIPINE BESYL5 MG PO (14:53)
[2025-01-02] MEDS ORDERED: FINASTERIDE5 MG PO (14:53)
[2025-01-02 14:59] LABS: ALBUMIN 3.6 g/dL (3.4-5.0); ALBUMIN/GLOBULIN RATIO 1.09 (1.1-2.4); ANION GAP 11.7 (7-21); BILIRUBIN, TOTAL 0.5 mg/dL (0.2-1.0); BUN/CREATININE RATIO 12.16 (6.0-28.6); CALCIUM 8.8 mg/dL (8.5-10.1); CREATININE, SERUM 1.48 mg/dL (0.70-1.30); POTASSIUM 3.7 mmol/L (3.5-5.1); PROTEIN, TOTAL 6.9 g/dL (6.4-8.2)
[2025-01-02 17:45] VITALS: BP 146/72
--- NOTE | 2025-01-04 17:46 | EKG ---
[facility] [address] [facility] [place] [address] Signed Normal sinus rhythm Left bundle branch block Abnormal ECG When compared with ECG of 10-JUL-2019 16:08, Questionable change in QRS duration Confirmed by González Mensah DO ([id number]) on 01/04/2025 5:45:55 PM Electronically Signed By: GONZÁLEZ MENSAH DO 01/04/25 1746 PATIENT NAME: CLAUS BARNES Electrocardiogram DATE OF : 54 PHYSICIAN: GONZÁLEZ MENSAH DO REPORT #: [id number] REPORT IS CONFIDENTIAL AND NOT TO BE RELEASED WITHOUT AUTHORIZATION
== END 2025-01-02 17:45 | disposition home or self-care (01) ==
LOC: ED 13:35
PROVIDERS: Emergency Medicine
DX: G45.3 Amaurosis fugax (principal); I10 Essential (primary) hypertension; G47.30 Sleep apnea, unspecified; Z87.891 Personal history of nicotine dependence; Z88.0 Allergy status to penicillin; Z79.899 Other long term (current) drug therapy
CPT/HCPCS: 36415; 70450; 70496; 80053; 85025; 93005; 93010; 99284-25; Q9967

== ENCOUNTER 2025-09-04 14:56 | Emergency (ER) | payer MEDICARE, OTHER ==
[~2025-09-04] VITALS: Ht 175.3 cm; Wt 106.5 kg
[~2025-09-04 14:56] MED LIST changes: +AMLODIPINE BESYL5 MG PO; +FINASTERIDE5 MG PO
[2025-09-04] MEDS ORDERED: OXYCODONE HCL5 M3 (15:49)
[2025-09-04] MEDS ORDERED: ROSUVASTATIN CA20 MG (15:50)
[2025-09-04 16:08] LABS: BASOPHILS 0.6 % (0.2-1.2); EOSINOPHILS 3.1 % (0.8-7.0); LYMPHOCYTES 15.9 % (21.8-53.1); MCH 31.9 PG (25.7-32.2); MCHC 34.3 g/dL (32.3-36.5); MCV 92.9 fL (79.0-92.2); MONOCYTES 13.5 % (5.3-12.2); NEUTROPHILS 66.5 % (34.0-67.9); RBC 4.36 M/uL (4.63-6.08)
[2025-09-04 16:40] LABS: ALT (SGPT) 24.0 U/L (14-59); AST (SGOT) 37.0 U/L (15-37); GLOMERULAR FILTRATION RATE,EST 51.0 mL/min (>60); PROTEIN, TOTAL 7.4 g/dL (6.4-8.2); UREA NITROGEN 17.0 mg/dL (7-18)
[2025-09-04] MEDS ORDERED: TAMSULOSIN HCL 0.4 MG CAP PO ONE (16:45)
[2025-09-04] MEDS ORDERED: TAMSULOSIN HCL0.4 MG PO (16:50)
[2025-09-04] MEDS ORDERED: CEPHALEXIN500 M1 PO (16:50)
[2025-09-04 17:00] VITALS: BP 119/82
[2025-09-04] MEDS ORDERED: CEPHALEXIN MONOHYDRATE 500 MG HOME.PACK PO ONE (17:00)
== END 2025-09-04 17:00 | disposition home or self-care (01) ==
LOC: ED 14:56
PROVIDERS: Emergency Medicine
DX: T81.41XA Infection following a procedure, superficial incisional surgical site, initial encounter (principal); L03.311 Cellulitis of abdominal wall; R30.0 Dysuria; I10 Essential (primary) hypertension; G47.30 Sleep apnea, unspecified; Z79.899 Other long term (current) drug therapy; Z88.0 Allergy status to penicillin; Z87.891 Personal history of nicotine dependence
CPT/HCPCS: 36415; 51798; 80053; 85025; 99283-25; A9270